=== PATIENT | female | born 1940 | race Caucasian/White ===

== ENCOUNTER 2017-11-10 15:25 | Observation (INO) | payer MEDICARE, SELFPAY ==
[2017-11-10 15:25] VITALS: BP 147/78; PULSE 69; RESP 18; TEMP 36.6; O2SAT 100; BMI 19.5
--- NOTE | 2017-11-10 16:17 | CT_ITS ---
STUDY: CT BRAIN WITHOUT CONTRAST REASON FOR EXAM: Female, 77 years old. Left arm paresthesias, numbness and tingling. RADIATION DOSAGE (If Supplied By Facility): CTDIvol = ( 60.81 ) mGy, DLP = ( 998.67 ) mGycm TECHNIQUE: Transaxial CT imaging of the brain was performed without administration of intravenous contrast material. Individualized dose optimization techniques were used for this CT. COMPARISON: None. FINDINGS: Normal soft tissue structures. Normal calvarium. Normal size ventricles and extra-axial spaces for the patient's age. There are areas of decreased attenuation within the white matter tracts of the supratentorial brain, consistent with microvascular disease changes. Normal basal ganglia and thalami. Normal brainstem. Normal cerebellum. There is no intracranial hemorrhage. There are no findings of an acute ischemic infarction. Normal visualized paranasal sinuses. CT/Brain/Head without Contrast IMPRESSION: 1. No acute process. 2. Microvascular ischemia. Electronically Signed: Shani Ramos MD at 18:55 EDT Tel , Service support ,
--- NOTE | 2017-11-10 16:17 | EKG12_ITS ---
Test Reason : NUMBNESS Blood Pressure : / mmHG Vent. Rate : 065 BPM Atrial Rate : 065 BPM P-R Int : 150 ms QRS Dur : 090 ms QT Int : 416 ms P-R-T Axes : 073 050 074 degrees QTc Int : 432 ms Normal sinus rhythm Normal ECG Confirmed by DASH VIVAR, ELIDA ([id number]), publications editor VIVIAN ANAND ([id number]) on 11/12/2017 1:45:00 PM Referred By: MARVEL Confirmed By:ELIDA BOWLING MD
[2017-11-10 17:24] LABS: Absolute Lymphocyte Count 1.53 X10^3/ul (0.83-4.51); Basophil# 0.03 X10^3/uL; Basophil% 0.6 % (0-1); Eosinophil# 0.19 X10^3/uL; Eosinophils% 3.6 % (0-5); Hemoglobin 12.2 g/dl (12.0-15.0); Lymphocyte # 1.53 X10^3/ul (4.0); Lymphocyte % 29.4 % (19-41); Mean Corp Hgb Conc 32.1 g/gl (32-36); Mean Corpuscular Volume 93.6 fL (81-99); Mean Platelet Vol. 9.2 fl (6.2-12.0); Monocyte# 0.48 X10^3/uL; Monocyte% 9.2 % (0-10); Neutrophil # 2.98 X10^3/uL (2.7-7.7); Neutrophil % 57.2 % (47-70); Platelet Count 236 K/mm3 (150-450); RBC Distribution Width CV 14.4 % (11.6-14.6); RBC Distribution Width SD 49.1 fl (35.1-43.9); Red Blood Count 4.06 M/mm3 (4.2-5.4); White Blood Count 5.2 K/mm3 (4.4-11.0)
[2017-11-10 17:38] LABS: POSITIVE COUNT NO; POSITIVE DIFFERENTIAL NO; POSITIVE MORPHOLOGY NO
[2017-11-10 17:48] LABS: Anion Gap 6 (5-15); BUN 11 mg/dL (7-18); Calcium,Total 9.4 mg/dL (8.5-10.1); Chloride 105 mmol/L (98-107); Creatinine, Serum 0.73 mg/dL (0.55-1.02); EST Glomerular Filtration Rate 82 mL/min (>60); Est Glom Filt Rate - Afr Amer 99 mL/min (>60); Estimated Creatinine Clearance 35.93 ml/min; Glucose 101 mg/dL (74-106); Potassium 3.6 mmol/L (3.5-5.1); Sodium Level 141 mmol/L (136-145)
--- NOTE | 2017-11-10 18:29 | PCM.HP.STD ---
Problem List (1) CVA (cerebral vascular accident) Status: Acute (2) Irritable bowel Status: Chronic (3) Migraine Status: Chronic History of Present Illness Date of Admission: 11/10/17 The patient is a 77 year old F with a history of migraine, irritable bowel syndrome who presented to the emergency room with complaint of involuntary contractions of her third fourth and fifth digit of her left hand. The patient states that yesterday she started having these contractures. She could not identify a trigger. She has not had these sensations before. These would come and go all day yesterday and today. Only her third through fifth digit would flex on their own. She denies any paresthesias, there is no numbness or tingling at all. She does describe an abnormal sensation that she cannot quite put her finger on that radiates from her left neck down her shoulder down her left arm and into these fingers. She says it is not a pain, but a discomfort. Turning her head to the left did increase this discomfort. She does have a history of migraine however she has had no headache yesterday or today. She also has had muscle spasms of her left and right calf. She denies weakness in her upper or lower extremities. She denies double vision, blurry vision, slurred speech, facial droop, difficulty ambulating. Currently she is resting comfortably in bed and she has no abnormal contractions of her muscles. [] Past Medical History Past Medical History (Chronic Problems): Chronic Problems Irritable bowel (Chronic) History of breast cancer (Chronic) History of TIA (transient ischemic attack) (Chronic) Migraine (Chronic) Allergies acetaminophen [From Vicodin] Allergy (Unknown, Verified 01/16/15 09:16) Unknown clarithromycin [From Biaxin] Allergy (Unknown, Verified 01/16/15 09:16) Unknown doxycycline Allergy (Unknown, Verified 01/16/15 09:16) Unknown erythromycin estolate [From Ilosone] Allergy (Unknown, Verified 01/16/15 09:16) Unknown hydrocodone bitartrate [From Vicodin] Allergy (Unknown, Verified 01/16/15 09:16) Unknown levofloxacin [From Levaquin] Allergy (Unknown, Verified 01/16/15 09:16) Unknown oxycodone [Oxycodone] Allergy (Unknown, Verified 01/16/15 09:16) Unknown oxycodone HCl [From Percocet] Allergy (Unknown, Verified 01/16/15 09:16) Unknown pantoprazole Allergy (Unknown, Verified 01/16/15 09:16) Unknown propoxyphene Allergy (Unknown, Verified 01/16/15 09:16) Unknown Home Medications: Ambulatory Orders Medication Instructions Recorded Frovatriptan Succinate [Frova] 2.5 mg PO X1 07/16/13 Ondansetron [Zofran] 8 mg PO Q8H PRN PRN #5 tablet 07/16/13 Surgical History: appendectomy Psychiatric History: No pertinent psych hx [employer] History: No pertinent [employer] history Lives: Spouse/ Significant Other Smoking Status: Never smoker Tobacco Use: Non-smoker Alcohol: None Drugs: None - *Family History Maternal History Items: Stroke Paternal History Items: Cancer - Prostate Review of Systems Constitutional: Denies: Chills, Fever, Weight Change HEENT: Denies: Head Aches, Sinus Congestion, Sinus Drainage Cardiovascular: Denies: Chest Pain, Palpitations Respiratory: Denies: Cough, Shortness of breath at rest, Sputum production Gastrointestinal: Denies: Abdominal Pain, Nausea, Vomiting Genitourinary: Denies: Dysuria Musculoskeletal: Denies: Joint Pain, Joint Tenderness Skin: Denies: Rash, Wounds Neurological: Reports: - - Involuntary muscle contractures of the left hand, digits 3 through 5. Denies: Focal weakness, Numbness, Tingling Psychiatric: Denies: Anxiety, Depression, Homicidal Ideations, Suicidal Ideations Hematologic/ Lymphatic: Denies: Easy Bruising, Easy Bleeding VTE Information - Inpt Only VTE Present on Admission: No VTE Mechan Device Prophylaxis: None VTE Pharm Prophylaxis ordered?: Yes Patient Problems: Active and Suspected Problems CVA (cerebral vascular accident) (Acute) - Physical Exam General: Alert, Oriented x3, Cooperative HEENT: Atraumatic, PERRLA, EOMI, Normocephalic Neck: Supple, No JVD, Negative Carotid Bruits Lungs: Clear to auscultation, Normal air movement Cardiovascular: Regular rate, No murmurs Abdomen: Bowel Sounds Present, Soft, Non Tender Extremities: No edema, Capillary Refill Less than 3 Seconds Skin: No rashes, No breakdown Musculoskeletal: No Tenderness to Palpation of Joints or Extremities Neurological: Cranial nerves II-XII grossly intact, - - CN II through XII grossly intact, no pronator drift, no difficulty with gfnsb-ja-mumbj, 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, upper and lower extremity strength equal and intact, no pronator drift Psych/Mental Status: Normal Affect, Appropriate, Alert and oriented to time, place, person, mood and affect Vital Signs Temp Pulse Resp BP Pulse Ox 97.8 F 69 18 147/78 H 100 11/10/17 15:25 11/10/17 15:25 11/10/17 15:25 11/10/17 15:25 11/10/17 15:25 Oxygen Delivery Method Room Air Weight: 110 lb 0.171 oz Body Mass Index (BMI) 19.5 Laboratory Tests Past 24 Hrs 11/10/17 11/10/17 16:57 16:57 WBC 5.2 RBC 4.06 L Hgb 12.2 Hct 38.0 MCV 93.6 MCH 30.0 MCHC 32.1 RDW 14.4 RDW Differential 49.1 H Plt Count 236 MPV 9.2 Immature Gran % (Auto) 0.000 Neut % (Auto) 57.2 Lymph % (Auto) 29.4 [place] % (Auto) 9.2 Eos % (Auto) 3.6 Baso % (Auto) 0.6 Absolute Neuts (auto) 3.0 Absolute Lymphs (auto) 1.53 Total Counted Not Reportable Sodium 141 Potassium 3.6 Chloride 105 Carbon Dioxide 30.0 Anion Gap 6 BUN 11 Creatinine 0.73 Estim Creat Clear Calc 35.93 Est GFR (MDRD) Af Amer 99 Est GFR (MDRD) Non-Af 82 BUN/Creatinine Ratio 15.0 Glucose 101 Calcium 9.4 Troponin I < 0.015 Assessment/Plan All Active Problems CVA (cerebral vascular accident) (Acute) 1. [place] of the left third through fifth digits, rule out CVA-CT of the head is pending, obtain MRI of the head, MRA of the head and neck, echocardiogram, neuro consult. Will also obtain MRI of the cervical spine to see if this is a radiculopathy (discomfort radiating from neck to fingers triggered with turning neck). Doubt migraine as she has no headache. Start aspirin and statin empirically, check lipids, check TSH, check B12. EKG normal, troponin normal, labs and vitals are unremarkable. PT/OT/ST evals, neurochecks per protocol. 2. History of migraine-uses as needed Frova 3. History of irritable bowel syndrome\ DVT prophylaxis: Lovenox Discharge planning: Pending stroke workup This patient was seen by Amrit Velázquez PA-C under the supervision of Doctor Felipe.
[2017-11-10 19:18] VITALS: BP 138/58; PULSE 61; RESP 19; O2SAT 94
--- NOTE | 2017-11-10 19:18 | ED.VISSUMM ---
- ER Visit Summary Date of Service: 11/10/17 Chief Complaint: [Left arm weakness] History of Present Illness: The patient is a 77 F presents the emergency department complaint left arm weakness. Patient states that her symptoms started sometime yesterday afternoon but cannot tell me exactly what time. Patient states that she has had some intermittent episodes where her long, ring, and small finger were all curled in and flexed. She complains of odd sensation to the left arm [but has a hard time describing it. Patient does feel that the arm is weak compared to the other side. She denies any weakness to the lower extremities. Patient also with intermittent headache the left side of her head. She denies recent falls or head injuries.] Physical Examination: [HEENT-PERRLA, EOMI. Cranial nerves II through XII grossly intact. TMs clear. Mucous membranes moist. No adenopathy. Cardiovascular-regular rate and rhythm without murmur or ectopy Lungs-clear to auscultation, chest wall stable without crepitus or subcu emphysema Abdomen-normoactive bowel sounds, soft, nontender, no rebound or rigidity, no peritoneal signs. Neuro zrsk-eonxfn-sygg and heel beard testing within normal limits, negative Romberg, negative pronator drift, fundi benign. I cannot appreciate any objective evidence of weakness to the left arm compared to the right. Patient thinks there might be slightly decreased sensation in the left arm compared to the right arm. NIH stroke scale was a 1 related to the paresthesias. Extremities-intact ?4, normal range of motion, normal pulses, atraumatic] Test Results: [EKG obtained arrival shows sinus rhythm with a ventricular rate 65 bpm. CBC with differential was normal. Chemistries unremarkable. Troponin was less than 0.015. CT scan of the brain without contrast showed chronic changes.] Emergency Department Course and Treatment: [Case was discussed with hospitalist will evaluate patient for admission] Treatment Plan: [Admit] Disposition: [Admit] Impression: [CVA] This note was generated with [employer] dictation software. It may contain incorrect words, spelling, and punctuation that were not noted in review of the chart prior to signing ED Disposition - Plan for ED Patient: Chief Complaint: Numb/Ting Referrals: Monico Street MD [Primary Care Provider] -
--- NOTE | 2017-11-10 19:21 | ED.DCSUM_ITS ---
- ER Visit Summary Date of Service: 11/10/17 Chief Complaint: [Left arm weakness] History of Present Illness: The patient is a 77 F presents the emergency department complaint left arm weakness. Patient states that her symptoms started sometime yesterday afternoon but cannot tell me exactly what time. Patient states that she has had some intermittent episodes where her long, ring , and small finger were all curled in and flexed. She complains of odd sensation to the left arm [but has a hard time describing it. Patient does feel that the arm is weak compared to the other side. She denies any weakness to the lower extremities. Patient also with intermittent headache the left side of her head. She denies recent falls or head injuries.] Physical Examination: [HEENT-PERRLA, EOMI. Cranial nerves II through XII grossly intact. TMs clear. Mucous membranes moist. No adenopathy. Cardiovascular-regular rate and rhythm without murmur or ectopy Lungs-clear to auscultation, chest wall stable without crepitus or subcu emphysema Abdomen-normoactive bowel sounds, soft, nontender, no rebound or rigidity, no peritoneal signs. Neuro bchh-dynelx-hgig and heel beard testing within normal limits, negative Romberg, negative pronator drift, fundi benign. I cannot appreciate any objective evidence of weakness to the left arm compared to the right. Patient thinks there might be slightly decreased sensation in the left arm compared to the right arm. NIH stroke scale was a 1 related to the paresthesias. Extremities-intact ?4, normal range of motion, normal pulses, atraumatic] Test Results: [EKG obtained arrival shows sinus rhythm with a ventricular rate 65 bpm. CBC with differential was normal. Chemistries unremarkable. Troponin was less than 0.015. CT scan of the brain without contrast showed chronic changes.] Emergency Department Course and Treatment: [Case was discussed with hospitalist will evaluate patient for admission] Treatment Plan: [Admit] Disposition: [Admit] Impression: [CVA] This note was generated with [employer] dictation software. It may contain incorrect words, spelling, and punctuation that were not noted in review of the chart prior to signing ED Disposition - Plan for ED Patient: Chief Complaint: Numb/Ting Referrals: Monico Street MD [Primary Care Provider] -
[2017-11-10 19:52] VITALS: BMI 19.5
--- NOTE | 2017-11-10 19:54 | NURSING ---
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
--- NOTE | 2017-11-10 20:11 | ECHOD_ITS ---
Reason For Study: arrhythmia Procedure This was a 2D Doppler, Color Flow transthoracic echocardiogram. The study was technically difficult. Due to respiratory interference. Exam performed portable in patient room. Left Ventricle Normal LV size. Left ventricular systolic function is normal. The estimated ejection fraction is 55 %. Normal diastology for age. No regional wall motion abnormalities noted. Right Ventricle Normal RV size. Normal systolic function. Atria Normal left atrium. Normal right atrium. Mitral Valve Normal mitral valve. Tricuspid Valve Normal tricuspid valve. Mild tricuspid valve insufficiency. Aortic Valve The aortic valve is not well visualized. Pulmonic Valve Normal pulmonic valve. Great Vessels Normal aortic root. The pulmonary artery is normal size. Normal inferior vena cava. Pericardium/Pleural No pericardial effusion. MMode/2D Measurements & Calculations LVIDd: 3.7 cm IVSd: 0.88 cm Ao root diam: 3.0 cm LVIDs: 2.4 cm LVPWd: 0.97 cm LA dimension: 2.4 cm RVDd: 2.6 cm FS: 36.3 % LAV(MOD-bp): 33.7 ml LA A4 area: 13.1 cm2 RA A4 area: 16.9 cm2 LAV(MOD-bp) Indexed: 22.9 ml/m2 LAV(MOD-sp2): 35.9 ml LAV(MOD-sp4): 30.7 ml Doppler Measurements & Calculations MV E max tawanda: 66.4 cm/sec Lat Peak E' [place]: 7.1 cm/sec Med Peak E' [place]: 6.0 cm/sec MV A max t[place]anda: 60.9 cm/sec E/E' lat: 9.4 E/E' med: 11.0 MV E/A: 1.1 Ao V2 max: 83.2 cm/sec LV V1 max: 68.7 cm/sec PA V2 max: 73.6 cm/sec Ao max P.8 mmHg LV V1 max P.9 mmHg TR max tawanda: 215.7 cm/sec TR max P.6 mmHg Interpretation Summary Normal LV size. Left ventricular systolic function is normal. The estimated ejection fraction is 55 %. Normal diastology for age. Mild tricuspid valve insufficiency. Ordering Physician: Latrice Wang Referring Physician: Monico Street Performed By: Felicia Mesa RDCS, RVT
[2017-11-10 20:22] VITALS: PULSE 57
[2017-11-10 20:27] VITALS: BP 139/56; PULSE 55; RESP 18; TEMP 36.8; O2SAT 95
[2017-11-10 20:39] VITALS: BMI 19.3
[2017-11-10 21:16] LABS: Magnesium 2.5 mg/dL (1.6-2.6); Thyroid Stim Hormone (TSH) 2.27 uIU/mL (0.358-3.74)
[2017-11-10 22:54] VITALS: BMI 19.3
[2017-11-10 23:30] VITALS: PULSE 56
[2017-11-11] VITALS (7 sets, daily range): BP systolic 117–130; BP diastolic 54–65; PULSE 61–70; RESP 16; TEMP 36.1–36.7; O2SAT 98–100; BMI 19.3
[2017-11-11] MEDS: 0.9% Normal Saline 1,000 ML 100 ML IV (01:45)
[2017-11-11 06:42] LABS: Absolute Lymphocyte Count 1.59 X10^3/ul (0.83-4.51); Absolute Neutrophil Count 1.8 X10^3/uL (2.0-7.7); Basophil# 0.02 X10^3/uL; Basophil% 0.5 % (0-1); Eosinophil# 0.25 X10^3/uL; Eosinophils% 6.2 % (0-5); Hematocrit 34.6 % (37-47); Hemoglobin 11.7 g/dl (12.0-15.0); Lymphocyte # 1.59 X10^3/ul (4.0); Lymphocyte % 39.6 % (19-41); Mean Corp Hgb Conc 33.8 g/gl (32-36); Mean Corpuscular Hgb 31.4 pg (27.0-32.0); Mean Corpuscular Volume 92.8 fL (81-99); Mean Platelet Vol. 9.4 fl (6.2-12.0); Monocyte# 0.41 X10^3/uL; Monocyte% 10.2 % (0-10); Neutrophil # 1.75 X10^3/uL (2.7-7.7); Neutrophil % 43.5 % (47-70); Platelet Count 227 K/mm3 (150-450); RBC Distribution Width CV 14.2 % (11.6-14.6); RBC Distribution Width SD 46.5 fl (35.1-43.9); Red Blood Count 3.73 M/mm3 (4.2-5.4)
--- NOTE | 2017-11-11 06:47 | MRI_ITS ---
STUDY: MRI CERVICAL SPINE WITHOUT CONTRAST REASON FOR EXAM: Female, 77 years old. Neck pain with abnormal sensation radiating to left shoulder and down arm. TECHNIQUE: Standardized fat and water weighted pulse sequences were obtained in the sagittal and axial planes. COMPARISON: None FINDINGS: Normal foramen magnum and brainstem-cervical cord junction. Normal craniovertebral junction. Normal anterior atlantoaxial articulation. Normal odontoid process. Normal cervical lordosis. The cervical and upper thoracic vertebral bodies are generally normal height and alignment. Visualized posterior fossa has a normal appearance. C2-3: Normal endplates. Normal disc height, signal and morphology. Normal central canal and intervertebral neural foramina. C3-4: There is a disc bulge and osteophyte complex. Neuroforamina are patent. There is no significant central acquired canal stenosis. C4-5: There is narrowing of the disc. There is a mild disc bulge and osteophyte complex. There is mild neural foraminal narrowing without evidence for nerve impingement. There is no significant central acquired canal stenosis. C5-6: There is narrowing of the disc. There is a broad central disc protrusion and osteophyte complex. There is mild left-sided neural foraminal narrowing without evidence of nerve impingement. There is severe right-sided neural foraminal narrowing with potential nerve impingement. There is no significant central acquired canal stenosis. C6-7: There is narrowing of the disc. There is a disc bulge and osteophyte complex. There is severe left-sided neural foraminal narrowing with potential nerve root impingement. The right neural foramen is patent. There is no significant central acquired canal stenosis. C7-T1: Normal endplates. Normal disc height, signal and morphology. Normal central canal and intervertebral neural foramina. Normal cervical cord. There is no demonstrated cervical cord syrinx cavity. Normal visualized soft tissue structures. 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 Electronically Signed: Klarissa Street MD at 9:18 EDT , Service support ,
--- NOTE | 2017-11-11 06:47 | MRI_ITS ---
STUDY: MRI BRAIN WITHOUT CONTRAST REASON FOR EXAM: Female, 77 years old. Abnormal sensation in the left arm with radiation from the neck for 2 days. TECHNIQUE: Standardized multiplanar fat and water weighted pulse sequences were obtained. COMPARISON: CT of the head dated November 10, 2017. FINDINGS: There is mild cerebral atrophy with widening of the extra-axial spaces and ventricular dilatation. There are multiple white matter hyperintensities, distributed throughout the deep white matter tracts of the cerebral hemispheres, consistent with moderate chronic white matter ischemic changes. There is confluent periventricular hyperintensity cloaking the lateral ventricles, consistent with periventricular leukoaraiosis. There is no evidence for recent intracranial ischemia or other cause of cytotoxic edema on diffusion weighted imaging (DWI). Normal T2* images of the brain without demonstrated susceptibility artifact. There is no demonstrated hemosiderin stain. Normal bilateral basal ganglia. Normal thalami. There is no extra-axial fluid accumulation. Normal flow voids within the major intracranial circulation suggesting patency by spin echo criteria. Normal sella turcica, pituitary gland, infundibular stalk, optic chiasm and hypothalamus. Normal tectal plate and pineal gland. Normal midbrain, bunny and medulla. Normal cerebellum. Normal basal cisterns. Normal bilateral temporal bones. Normal bilateral internal auditory canals. There are bilateral ocular lens implants with otherwise normal intraorbital contents. Normal visualized paranasal sinuses. Normal calvarium and skull base. Normal visualized soft tissue structures. Normal visualized upper cervical spine. MRI/Brain without Contrast IMPRESSION: 1. Involutional changes of the brain, as described above. 2. Moderately severe microvascular changes. 3. No MR evidence for acute infarct. Electronically Signed: Klarissa Street MD at 8:39 EDT , Service support ,
--- NOTE | 2017-11-11 06:47 | MRI_ITS ---
STUDY: MRA NECK WITHOUT CONTRAST REASON FOR EXAM: Female, 77 years old. Abnormal sensation in the left arm radiating from neck for two days. TECHNIQUE: Source images were obtained, MIPs were performed. The study was performed unenhanced. COMPARISON: None. FINDINGS: RIGHT CAROTID ARTERIES: Normal right common carotid artery (CCA). Normal right common carotid bulb. Normal origin of the right internal carotid (ICA) artery without a hemodynamically significant stenosis. There is atherosclerotic tortuous elongation of the cervical portion of the right internal carotid artery. Normal origin of the right external carotid artery (ECA). LEFT CAROTID ARTERIES: Normal left common carotid artery (CCA). Normal left common carotid bulb. Normal origin of the left internal carotid (ICA) artery without a hemodynamically significant stenosis. There is atherosclerotic tortuous elongation of the cervical portion of the left internal carotid artery. Normal origin of the left external carotid artery (ECA). VERTEBRAL ARTERIES: Normal antegrade flow within the bilateral vertebral artery without a hemodynamically significant stenosis. MRI/MRA Neck without Contrast IMPRESSION: No MRA evidence for hemodynamically significant stenosis. Electronically Signed: Klarissa Street MD at 9:06 EDT , Service support ,
--- NOTE | 2017-11-11 06:47 | MRI_ITS ---
STUDY: MRA OF THE HEAD WITHOUT CONTRAST REASON FOR EXAM: Female, 77 years old. Abnormal sensation in left arm radiating from neck. TECHNIQUE: 3-D [id number] (TOF) imaging was performed with MIPs. The study was performed unenhanced. COMPARISON: MRI of the brain dated November 11, 2017. FINDINGS: Normal bilateral petrous carotid arteries. There is elongation and tortuosity of the right cavernous carotid artery, without a demonstrated hemodynamically significant stenosis. There is elongation and tortuosity of the left cavernous carotid artery, without a demonstrated hemodynamically significant stenosis. Normal right A1 segments of the anterior cerebral artery. Normal left A1 segments of the anterior cerebral artery. There is non-visualization of the anterior communicating artery (ACOM). Normal bilateral A2 segments of the anterior cerebral arteries. Normal right M1 and M2 segments of the middle cerebral arteries, with a normal M1 bifurcation. Normal left M1 and M2 segments of the middle cerebral arteries, with a normal M1 bifurcation. Normal right posterior communicating artery (PCOM). Normal left posterior communicating artery (PCOM). Normal bilateral vertebral arteries. Normal basilar artery with a normal basilar bifurcation. The visualized bilateral superior cerebellar (SCA) arteries are normal. Normal bilateral P1, P2 and visualized P3 segments of the posterior cerebral arteries. There is no demonstrated aneurysm of the [place]. There is no major vessel occlusion or hemodynamically significant stenosis. There mild involutional changes of the brain. MRI/MRA Head ONLY without Contrast IMPRESSION: No MRA evidence for hemodynamically significant stenosis or aneurysm. Electronically Signed: Klarissa Street MD at 8:46 EDT , Service support ,
[2017-11-11 06:52] LABS: POSITIVE COUNT NO; POSITIVE DIFFERENTIAL NO; POSITIVE MORPHOLOGY NO
[2017-11-11 06:57] LABS: Anion Gap 8 (5-15); BUN 6 mg/dL (7-18); BUN/Creat Ratio 11.4 RATIO (10-20); Calcium,Total 8.4 mg/dL (8.5-10.1); Chloride 113 mmol/L (98-107); Cholesterol 211 mg/dL (200); Creatinine, Serum 0.53 mg/dL (0.55-1.02); EST Glomerular Filtration Rate 119 mL/min (>60); Est Glom Filt Rate - Afr Amer 144 mL/min (>60); Estimated Creatinine Clearance 34.57 ml/min; Glucose 79 mg/dL (74-106); High Density Lipoprotein 68 mg/dL; Potassium 3.6 mmol/L (3.5-5.1); Sodium Level 147 mmol/L (136-145); Triglycerides 78 mg/dL; Very Low Density Lipoprotein 16 mg/dL (5-40)
--- NOTE | 2017-11-11 11:01 | CON.PCM_ITS ---
Problem List (1) Numbness and tingling in left arm Status: Acute Reason for Consult Date of Consultation: 11/11/17 Reason for Consultation: Left UE symptoms History of Present Illness: The patient is a 77 year old CF with PMH Migraines, H/O Breast CA, ? H/O TIA admitted with left hand symptoms. Patient is a poor historian, is not able to describe her symptoms clearly. Per patient she had some curling up of the fingers on Friday (11/09/17), felt possible numbness of the left arm, but denies any pain or weakness, also had some neck discomfort, possibly pain, but denies any radicular symptoms, continued to have the symptoms yesterday, so came to the ED. Has h/o migraines but per patient her HAs have been under control for many years and does not get her usual typical migraine at present. Lives with her , does not use cane or walker to ambulate, denies any fall, dose not drive often per patient. She denies any CANAS, visual disturbances, sensory loss, focal motor weakness or dizziness. MRI brain done on admission reported nothing acute. MRA head/neck not reported to show any hemodynamically significant stenosis or occlusion. MRI C spine reported to show multilevel degenerative changes with foraminal stenosis with potential nerve impingement at C5-C6 and C6 -C7. Patient does not take ASA at baseline, per patient her sister used to take the same and had bleeding, so she is not willing to take the same. \ Past Medical History Past Medical History (Chronic Problems): Chronic Problems Irritable bowel (Chronic) History of breast cancer (Chronic) History of TIA (transient ischemic attack) (Chronic) Migraine (Chronic) Allergies acetaminophen [From Vicodin] Allergy (Unknown, Verified 01/16/15 09:16) Unknown clarithromycin [From Biaxin] Allergy (Unknown, Verified 01/16/15 09:16) Unknown doxycycline Allergy (Unknown, Verified 01/16/15 09:16) Unknown erythromycin estolate [From Ilosone] Allergy (Unknown, Verified 01/16/15 09:16) Unknown hydrocodone bitartrate [From Vicodin] Allergy (Unknown, Verified 01/16/15 09:16) Unknown levofloxacin [From Levaquin] Allergy (Unknown, Verified 01/16/15 09:16) Unknown oxycodone [Oxycodone] Allergy (Unknown, Verified 01/16/15 09:16) Unknown oxycodone HCl [From Percocet] Allergy (Unknown, Verified 01/16/15 09:16) Unknown pantoprazole Allergy (Unknown, Verified 01/16/15 09:16) Unknown propoxyphene Allergy (Unknown, Verified 01/16/15 09:16) Unknown peanut butter Adverse Reaction (Uncoded 11/10/17 19:46) headache Home Medications: Ambulatory Orders Medication Instructions Recorded Frovatriptan Succinate [Frova] 2.5 mg PO X1 PRN 07/16/13 Aspirin [Aspirin, Baby] 81 mg PO DAILY@0800 tab.chew 11/11/17 Surgical History: appendectomy Psychiatric History: No pertinent psych hx 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: No pertinent 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 history Lives: Spouse/ Significant Other Smoking Status: Never smoker Tobacco Use: Non-smoker Alcohol: None Drugs: None - *Family History Maternal History Items: Stroke Paternal History Items: Cancer - Prostate Review of Systems Constitutional: Reports: - - complete ROS negative except as documented in HPI Patient Problems: Active and Suspected Problems CVA (cerebral vascular accident) (Acute) Numbness and tingling in left arm (Acute) - Physical Exam General: Alert HEENT: Normocephalic Neck: Supple Lungs: Clear to auscultation Cardiovascular: Normal S1, Normal S2 Abdomen: Bowel Sounds Present Extremities: No cyanosis Skin: No rashes Musculoskeletal: No Tenderness to Palpation of Joints or Extremities Neurological: - - consious, alert, AoAx3, CN 2-12 grossly intact, power 5/5 all 4 extremities, no sensory loss, Reflexes + B/L B/S/T/K/A, no cerebellar signs, gait deferred. Psych/Mental Status: Normal Affect Vital Signs Temp Pulse Resp BP Pulse Ox 97.8 F 68 16 126/56 H 98 11/11/17 07:00 11/11/17 07:00 11/11/17 07:00 11/11/17 07:00 11/11/17 07:00 Oxygen Delivery Method Room Air Weight: 48 kg Body Mass Index (BMI) 19.3 Intake and Output for Last 24 Hours 11/09/17 11/10/17 11/11/17 23:59 23:59 23:59 Intake Total 240 / 240 240 / 240 Balance 240 / 240 240 / 240 Laboratory Tests Past 24 Hrs 11/11/17 11/11/17 05:11 05:11 WBC 4.0 L RBC 3.73 L Hgb 11.7 L Hct 34.6 L MCV 92.8 MCH 31.4 MCHC 33.8 RDW 14.2 RDW Differential 46.5 H Plt Count 227 MPV 9.4 Immature Gran % (Auto) 0.000 Neut % (Auto) 43.5 L Lymph % (Auto) 39.6 Mccreary % (Auto) 10.2 H Eos % (Auto) 6.2 H Baso % (Auto) 0.5 Absolute Neuts (auto) 1.8 L Absolute Lymphs (auto) 1.59 Total Counted Not Reportable Sodium 147 H Potassium 3.6 Chloride 113 H Carbon Dioxide 26.0 Anion Gap 8 BUN 6 L Creatinine 0.53 L Estim Creat Clear Calc 34.57 Est GFR (MDRD) Af Amer 144 Est GFR (MDRD) Non-Af 119 BUN/Creatinine Ratio 11.4 Glucose 79 Calcium 8.4 L Triglycerides 78 Cholesterol 211 H LDL Cholesterol 127 VLDL Cholesterol 16 HDL Cholesterol 68 Assessment/Plan All Active Problems CVA (cerebral vascular accident) (Acute) Numbness and tingling in left arm (Acute) The patient is a 77 year old CF with PMH Migraines, H/O Breast CA, ? H/O TIA admitted with left hand symptoms. Patient is a poor historian, is not able to describe her symptoms clearly. Per patient she had some curling up of the fingers on Friday (11/09/17), felt possible numbness of the left arm, but denies any pain or weakness, also had some neck discomfort, possibly pain, but denies any radicular symptoms, continued to have the symptoms yesterday, so came to the ED. Has h/o migraines but per patient her HAs have been under control for many years and does not get her usual typical migraine at present. Lives with her , does not use cane or walker to ambulate, denies any fall, dose not drive often per patient. She denies any CANAS, visual disturbances, sensory loss, focal motor weakness or dizziness. MRI brain done on admission reported nothing acute. MRA head/neck not reported to show any hemodynamically significant stenosis or occlusion. MRI C spine reported to show multilevel degenerative changes with foraminal stenosis with potential nerve impingement at C5-C6 and C6 -C7. Patient does not take ASA at baseline, per patient her sister used to take the same and had bleeding, so she is not willing to take the same. Impression Likely Cervical Radiculopathy Plan -MRI brain/MRA head/neck and MRI C spine report reviewed -Recommend spine surgery consult -Fall precautions -PT/OT -Can check EMG/NCS as outpatient in 4 weeks if symptoms persist -GI/DVT prophylaxis -Further medical management per primary team -Neurology followup as outpatient if symptoms persist. -Please call with questions if any -Thank you for allowing us to participate in patent's care and management I spent 60 minutes taking history, doing physical examination, reviewing medical records, coordinating care and counseling the patient. Code Visit Inpatient E&M: 16852 Init Hosp L3
--- NOTE | 2017-11-11 12:00 | DCINST_ITS ---
- Discharge Diagnoses Current Active Problems: Current Active and Chronic Problems CVA (cerebral vascular accident) (Acute) Irritable bowel (Chronic) You will use the following diet at home:: No restrictions Your food should be the consistency of: Regular Your liquids should be the consistency of: Regular/Thin Discharge Activity: Return to Normal Activity Allergies/Adverse Reactions: Allergies acetaminophen [From Vicodin] Allergy (Unknown, Verified 01/16/15 09:16) Unknown clarithromycin [From Biaxin] Allergy (Unknown, Verified 01/16/15 09:16) Unknown doxycycline Allergy (Unknown, Verified 01/16/15 09:16) Unknown erythromycin estolate [From Ilosone] Allergy (Unknown, Verified 01/16/15 09:16) Unknown hydrocodone bitartrate [From Vicodin] Allergy (Unknown, Verified 01/16/15 09:16) Unknown levofloxacin [From Levaquin] Allergy (Unknown, Verified 01/16/15 09:16) Unknown oxycodone [Oxycodone] Allergy (Unknown, Verified 01/16/15 09:16) Unknown oxycodone HCl [From Percocet] Allergy (Unknown, Verified 01/16/15 09:16) Unknown pantoprazole Allergy (Unknown, Verified 01/16/15 09:16) Unknown propoxyphene Allergy (Unknown, Verified 01/16/15 09:16) Unknown peanut butter Adverse Reaction (Uncoded 11/10/17 19:46) headache Medications to take at Discharge Frovatriptan Succinate [Frova] 2.5 mg PO X1 PRN 07/16/13 Aspirin [Aspirin, Baby] 81 mg PO DAILY@0800 tab.chew 11/11/17 Primary Care Physician: Monico Street MD [Primary Care Provider] - Please follow up with your Primary Care Physician in: 1-2 weeks Test Results: Test results from this visit will be discussed in further detail at your follow- up appointment, if applicable. Please Follow Up With: Cuauhtemoc Odell - spinal surgeon When: 1-2 weeks Proposed Discharge Date: 11/11/17
--- NOTE | 2017-11-11 14:47 | PCM.DC.SUM ---
<Amrit Velázquez - Last Filed: 11/11/17 14:47> Discharge Date and Diagnosis - Problem List Patient Problems: Active and Suspected Problems CVA (cerebral vascular accident) (Acute) Numbness and tingling in left arm (Acute) Date of Admission: 11/10/17 Date of Discharge: 11/11/17 - Primary Discharge Diagnosis Active and Suspected Problems Cervical radiculopathy left arm Acute CVA ruled out Migraines IBS - Secondary Discharge Diagnosis Chronic Problems Irritable bowel (Chronic) History of breast cancer (Chronic) History of TIA (transient ischemic attack) (Chronic) Migraine (Chronic) Hospital Course and Treatment Imaging Results: CT/Brain/Head without Contrast IMPRESSION: 1. No acute process. 2. Microvascular ischemia. MRI/Brain without Contrast IMPRESSION: 1. Involutional changes of the brain, as described above. 2. Moderately severe microvascular changes. 3. No MR evidence for acute infarct. 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 MRI/MRA Head ONLY without Contrast IMPRESSION: No MRA evidence for hemodynamically significant stenosis or aneurysm. MRI/MRA Neck without Contrast IMPRESSION: No MRA evidence for hemodynamically significant stenosis. Consults: Neuro - Meek Operations: None Procedures: None Summary of Care Provided: Physical exam on day of discharge: General: Resting comfortably NAD Psych: A/Ox3 normal affect HEENT: PEARRLA AT NC Neck: Supple NT CV: RRR no m/t/r/g/h Resp: CTA Abd: [id number] Soft NT no guarding or rigidity Ext: DP2+= no edema Skin: W/D normal turgor Lymph/Heme: No active bleeding or adenopathy Neuro: CN2-12 intact Hospital course: The patient is a 77 year old F with a hx of IBS and migraine who presented to the ER with 2 days hx of left sided abnormal spontaneous contractures of the left 3-5th digits periodically. He also described an abnormal sensation of these finger tips, and a discomfort radiating down her left neck, shoulder, and arm. She had no other focal deficits. She was admitted with concern for acute CVA. CT brain was negative in the ER. Neuro was consulted and she was admitted to the PCU on tele. She underwent MRI of the brain, MRA head and neck, and MRI of the C spine. CVA was ruled out. She appeared to have nerve impingement C5-7 levels. Neuro recommended an outpatient neurosurgery consult. She should follow up with neurosurgery in 1-2 weeks. She was advised to also see her PCP in 1-2 weeks. She was discharged home in stable condition. This patient was seen by Amrit Velázquez PA-C under the supervision of Doctor Ml. [] Discharge Diet: No Restrictions Discharge Activity: Return to Normal Activity Home Medications: Medications to take at Discharge Frovatriptan Succinate [Frova] 2.5 mg PO X1 PRN 07/16/13 Aspirin [Aspirin, Baby] 81 mg PO DAILY@0800 tab.chew 11/11/17 Primary Care Physician: Monico Street MD [Primary Care Provider] - Please follow up with your Primary Care Physician in: 1-2 weeks Please Follow Up With: Philip Hall When: 1-2 weeks Please Follow Up With: Monico Street MD Disposition: Home Minutes spent on discharge:: 35 Patient Condition:: Stable Medical Necessity - Tobacco Use Smoking Status: Never smoker Tobacco Use: Non-smoker Meaningful Use Info Meaningful Use Diagnoses (Choose all that apply): None applicable <Katie Bull - Last Filed: 11/11/17 15:15> Discharge Date and Diagnosis - Primary Discharge Diagnosis Active and Suspected Problems CVA (cerebral vascular accident) (Acute) Numbness and tingling in left arm (Acute) - Secondary Discharge Diagnosis Chronic Problems Irritable bowel (Chronic) History of breast cancer (Chronic) History of TIA (transient ischemic attack) (Chronic) Migraine (Chronic) Hospital Course and Treatment Imaging Results: 11/11/17 06:47 Brain without Contrast [MRI] Stat MRA Head ONLY without Contrast [MRI] Stat MRA Neck without Contrast [MRI] Stat Spine Cervical (Routine) [MRI] Stat Summary of Care Provided: Patient seen by Amrit Velázquez PA-C under my supervision The patient is a 77 year old F with past medical history of migraines, history of breast CA and query TIA in the past. She was admitted with a complaint of spasms of the left hand with some possible numbness of the left arm. She denied any weakness or pain. She also complained of some neck discomfort but denied any radicular symptoms. Symptoms have been going on for 1 day when she came into the ED. CT of the head was negative and MRA of the head and neck showed no hemodynamically significant stenosis or occlusion. MRI of the cervical spine showed multilevel degenerative changes with foraminal stenosis and potential nerve impingement at C5-C6 and C6-C7. Patient's symptoms resolved and she remained stable. Neurology was consulted. Neurology recommended patient follow-up on outpatient basis. Impression of possible cervical radiculopathy was made. Patient refused to take aspirin as she said has to start taking aspirin and not had some GI bleed and so she was not comfortable taking it. She was discharged home to follow-up with neurology. She is to have an EMG and NCS on outpatient basis in 4 weeks if symptoms persisted and she was also referred to a spine surgeon on outpatient basis. Patient was seen and examined prior to discharge. She had no complaints and symptoms have resolved. She denied any fever or chills, any cough or chest pain, any shortness of breath, any abdominal pain, any diarrhea vomiting. 12 point review of systems is otherwise negative. Labs and vitals reviewed. On examination: Vital Signs Height 5 ft 2 in Weight: 105 lb 13.15 oz Weight in Pounds 105.8 lbs Pulse Ox 98 Temperature 98.0 F Pulse Rate 61 Respiratory Rate 16 Blood Pressure 130/63 Blood Pressure Position Semi-Fowlers []General: Alert, Oriented x3, Cooperative HEENT: Atraumatic, PERRLA, EOMI, Normocephalic Neck: Supple, No JVD, Negative Carotid Bruits Lungs: Clear to auscultation, Normal air movement Cardiovascular: Regular rate, No murmurs Abdomen: Bowel Sounds Present, Soft, Non Tender Extremities: No edema, Capillary Refill Less than 3 Seconds Skin: No rashes, No breakdown Musculoskeletal: No Tenderness to Palpation of Joints or Extremities Neurological: Cranial nerves II-XII grossly intact, power 5/5 in all extremities. sensation to light touch and pinprick normal in all extremities. Psych/Mental Status: Normal Affect, Appropriate, Alert and oriented to time, place, person, mood and affect Plan as stated above. Patient was given a script for aspirin 81mg daily after she was counseled on the importance of taking it. She is to follow up with her PCP, neurologist and spinal surgeon. Agree with rest of Amrit Velázquez PA-C's note, assessment and plan. Code Visit Inpatient E&M: 57727 Disch Hosp
--- NOTE | 2017-11-11 14:51 | DS.PCM_ITS ---
<Amrit Velázquez - Last Filed: 11/11/17 14:47> Discharge Date and Diagnosis - Problem List Patient Problems: Active and Suspected Problems CVA (cerebral vascular accident) (Acute) Numbness and tingling in left arm (Acute) Date of Admission: 11/10/17 Date of Discharge: 11/11/17 - Primary Discharge Diagnosis Active and Suspected Problems Cervical radiculopathy left arm Acute CVA ruled out Migraines IBS - Secondary Discharge Diagnosis Chronic Problems Irritable bowel (Chronic) History of breast cancer (Chronic) History of TIA (transient ischemic attack) (Chronic) Migraine (Chronic) Hospital Course and Treatment Imaging Results: CT/Brain/Head without Contrast IMPRESSION: 1. No acute process. 2. Microvascular ischemia. MRI/Brain without Contrast IMPRESSION: 1. Involutional changes of the brain, as described above. 2. Moderately severe microvascular changes. 3. No MR evidence for acute infarct. 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 MRI/MRA Head ONLY without Contrast IMPRESSION: No MRA evidence for hemodynamically significant stenosis or aneurysm. MRI/MRA Neck without Contrast IMPRESSION: No MRA evidence for hemodynamically significant stenosis. Consults: Neuro - Meek Operations: None Procedures: None Summary of Care Provided: Physical exam on day of discharge: General: Resting comfortably NAD Psych: A/Ox3 normal affect HEENT: PEARRLA AT NC Neck: Supple NT CV: RRR no m/t/r/g/h Resp: CTA Abd: [id number] Soft NT no guarding or rigidity Ext: DP2+= no edema Skin: W/D normal turgor Lymph/Heme: No active bleeding or adenopathy Neuro: CN2-12 intact Hospital course: The patient is a 77 year old F with a hx of IBS and migraine who presented to the ER with 2 days hx of left sided abnormal spontaneous contractures of the left 3-5th digits periodically. He also described an abnormal sensation of these finger tips, and a discomfort radiating down her left neck, shoulder, and arm. She had no other focal deficits. She was admitted with concern for acute CVA. CT brain was negative in the ER. Neuro was consulted and she was admitted to the PCU on tele. She underwent MRI of the brain, MRA head and neck, and MRI of the C spine. CVA was ruled out. She appeared to have nerve impingement C5-7 levels. Neuro recommended an outpatient neurosurgery consult. She should follow up with neurosurgery in 1-2 weeks. She was advised to also see her PCP in 1-2 weeks. She was discharged home in stable condition. This patient was seen by Amrit Velázquez PA-C under the supervision of Doctor Ml. [] Discharge Diet: No Restrictions Discharge Activity: Return to Normal Activity Home Medications: Medications to take at Discharge Frovatriptan Succinate [Frova] 2.5 mg PO X1 PRN 07/16/13 Aspirin [Aspirin, Baby] 81 mg PO DAILY@0800 tab.chew 11/11/17 Primary Care Physician: Monico Street MD [Primary Care Provider] - Please follow up with your Primary Care Physician in: 1-2 weeks Please Follow Up With: Philip Hall When: 1-2 weeks Please Follow Up With: Monico Street MD Disposition: Home Minutes spent on discharge:: 35 Patient Condition:: Stable Medical Necessity - Tobacco Use Smoking Status: Never smoker Tobacco Use: Non-smoker Meaningful Use Info Meaningful Use Diagnoses (Choose all that apply): None applicable <Katie Bull - Last Filed: 11/11/17 15:15> Discharge Date and Diagnosis - Primary Discharge Diagnosis Active and Suspected Problems CVA (cerebral vascular accident) (Acute) Numbness and tingling in left arm (Acute) - Secondary Discharge Diagnosis Chronic Problems Irritable bowel (Chronic) History of breast cancer (Chronic) History of TIA (transient ischemic attack) (Chronic) Migraine (Chronic) Hospital Course and Treatment Imaging Results: 11/11/17 06:47 Brain without Contrast [MRI] Stat MRA Head ONLY without Contrast [MRI] Stat MRA Neck without Contrast [MRI] Stat Spine Cervical (Routine) [MRI] Stat Summary of Care Provided: Patient seen by Amrit Velázquez PA-C under my supervision The patient is a 77 year old F with past medical history of migraines, history of breast CA and query TIA in the past. She was admitted with a complaint of spasms of the left hand with some possible numbness of the left arm. She denied any weakness or pain. She also complained of some neck discomfort but denied any radicular symptoms. Symptoms have been going on for 1 day when she came into the ED. CT of the head was negative and MRA of the head and neck showed no hemodynamically significant stenosis or occlusion. MRI of the cervical spine showed multilevel degenerative changes with foraminal stenosis and potential nerve impingement at C5-C6 and C6-C7. Patient's symptoms resolved and she remained stable. Neurology was consulted. Neurology recommended patient follow-up on outpatient basis. Impression of possible cervical radiculopathy was made. Patient refused to take aspirin as she said has to start taking aspirin and not had some GI bleed and so she was not comfortable taking it. She was discharged home to follow-up with neurology. She is to have an EMG and NCS on outpatient basis in 4 weeks if symptoms persisted and she was also referred to a spine surgeon on outpatient basis. Patient was seen and examined prior to discharge. She had no complaints and symptoms have resolved. She denied any fever or chills, any cough or chest pain , any shortness of breath, any abdominal pain, any diarrhea vomiting. 12 point review of systems is otherwise negative. Labs and vitals reviewed. On examination: Vital Signs Height 5 ft 2 in Weight: 105 lb 13.15 oz Weight in Pounds 105.8 lbs Pulse Ox 98 Temperature 98.0 F Pulse Rate 61 Respiratory Rate 16 Blood Pressure 130/63 Blood Pressure Position Semi-Fowlers []General: Alert, Oriented x3, Cooperative HEENT: Atraumatic, PERRLA, EOMI, Normocephalic Neck: Supple, No JVD, Negative Carotid Bruits Lungs: Clear to auscultation, Normal air movement Cardiovascular: Regular rate, No murmurs Abdomen: Bowel Sounds Present, Soft, Non Tender Extremities: No edema, Capillary Refill Less than 3 Seconds Skin: No rashes, No breakdown Musculoskeletal: No Tenderness to Palpation of Joints or Extremities Neurological: Cranial nerves II-XII grossly intact, power 5/5 in all extremities. sensation to light touch and pinprick normal in all extremities. Psych/Mental Status: Normal Affect, Appropriate, Alert and oriented to time, place, person, mood and affect Plan as stated above. Patient was given a script for aspirin 81mg daily after she was counseled on the importance of taking it. She is to follow up with her PCP, neurologist and spinal surgeon. Agree with rest of Amrit Velázquez PA-C's note, assessment and plan. Code Visit Inpatient E&M: 60251 Disch Hosp
== END 2017-11-11 11:59 | disposition home or self-care (01) ==
LOC: ED 16:43 → PCU 19:39
PROVIDERS: Admitting Provider Family Medicine; Emergency Provider Emergency Medicine; Family Provider Family Medicine; PCP Family Medicine; Visit Provider Student in an Organized Health Care Education/Training Program
DX: M54.12 Radiculopathy, cervical region (principal); G43.909 Migraine, unspecified, not intractable, without status migrainosus; K58.9 Irritable bowel syndrome, unspecified; Z85.3 Personal history of malignant neoplasm of breast; Z86.73 Personal history of transient ischemic attack (TIA), and cerebral infarction without residual deficits; R29.0 Tetany; I07.1 Rheumatic tricuspid insufficiency
CPT/HCPCS: 36415; 70450; 70544; 70547; 70551; 72141; 80048; 80061; 83735; 84443; 84484; 85025; 93005; 93306; 96360; 96361; 97162; 97165; 99218; 99283; J7030; A4216; G0378

== ENCOUNTER → 2018-12-08 11:19 | Outpatient (CLI) | payer MEDICARE, SELFPAY ==
[2017-11-11 10:43] VITALS: BMI 19.3
[2018-12-08 14:08] LABS: Absolute Lymphocyte Count 1.75 X10^3/uL (0.83-4.51); Basophil# 0.03 X10^3/uL; Basophil% 0.6 % (0-1); Eosinophil# 0.07 X10^3/uL; Eosinophils% 1.3 % (0-5); Hematocrit 38.5 % (37-47); Hemoglobin 12.5 g/dL (12.0-15.0); Lymphocyte # 1.75 X10^3/ul (4.0); Lymphocyte % 33.7 % (19-41); Mean Corp Hgb Conc 32.5 g/dL (32-36); Mean Corpuscular Hgb 30.7 pg (27.0-32.0); Mean Corpuscular Volume 94.6 fL (81-99); Mean Platelet Vol. 10.1 fl (6.2-12.0); Monocyte# 0.36 X10^3/uL; Monocyte% 6.9 % (0-10); NRBC Flagged by Analyzer 0 % (0-5); Neutrophil # 2.98 X10^3/uL (2.7-7.7); Neutrophil % 57.3 % (47-70); Platelet Count 259 K/mm3 (150-450); RBC Distribution Width CV 13.6 % (11.6-14.6); RBC Distribution Width SD 47.8 fl (35.1-43.9); Red Blood Count 4.07 M/mm3 (4.2-5.4); White Blood Count 5.2 K/mm3 (4.4-11.0)
[2018-12-08 14:28] LABS: ALB/GLOB Ratio 1.1 RATIO (0.9-2.4); AST(SGOT) 22 U/L (15-37); Alanine Aminotransfer ALT/SGPT 24 U/L (13-56); Albumin, Serum 3.6 g/dL (3.2-5.0); Alkaline Phosphatase 59 U/L (45-117); Anion Gap 10 (5-15); BUN 10 mg/dL (7-18); BUN/Creat Ratio 15.5 RATIO (10-20); Calcium,Total 8.6 mg/dL (8.5-10.1); Chloride 107 mmol/L (98-107); Creatinine, Serum 0.65 mg/dL (0.55-1.02); EST Glomerular Filtration Rate 94 mL/min (>60); Est Glom Filt Rate - Afr Amer 113 mL/min (>60); Globulin 3.4 g/dL (2.2-4.2); Glucose 83 mg/dL (74-106); Potassium 3.8 mmol/L (3.5-5.1); Sodium Level 144 mmol/L (136-145); Thyroid Stim Hormone (TSH) 2.35 uIU/mL (0.358-3.74)
[2018-12-08 14:36] LABS: Vitamin B12 1918 pg/mL (211-911); Vitamin D,25 Hydroxy 44.4 ng/mL (29.95-100.01)
== END ==
PROVIDERS: Family Provider Family Medicine; PCP Family Medicine; Referring Provider Family Medicine; Visit Provider Family Medicine
DX: R53.83 Other fatigue (principal); M81.0 Age-related osteoporosis without current pathological fracture
CPT/HCPCS: 36415; 80053; 82306; 82607; 84443; 85025

== ENCOUNTER 2018-12-18 15:29 | Emergency (ER) | payer MEDICARE, SELFPAY ==
[2018-12-18 15:33] VITALS: BP 131/6; PULSE 94; RESP 17; TEMP 36.3; O2SAT 98; BMI 20.9
--- NOTE | 2018-12-18 16:00 | ED.DCSUM_ITS ---
History of Present Illness Chief Complaint: Constipation Detail of Chief Complaint: No bowel movement for 1 week Informant: Patient, Family Onset: Weeks Context: Sudden Onset Timing: Intermittent Quality: Hard small stool x1 past week Location: Rectal pain Current Severity: Mild Maximum Severity: Severe Worsened by: Attempt to have bowel movement Relieved by: Nothing Associated Symptoms: Lower abdominal discomfort Narrative: Patient is an 78-year-old woman with history of irritable bowel syndrome who presents because she has rectal pain and no bowel movement for 1 week. states she had a small bowel movement. also clarified that she is had problems with her bowels for some time. She does not eat much. She apparently took a gummy fiber pair because of her bowel problems. She believes this is the cause of her problems. She denies fever, chills night sweats. She denies nausea or vomiting. She is still passing gas. She is status post appendectomy. She denies dysuria, frequency, urgency or hematuria. She has had gradual weight loss. She denies night sweats. She is not a good informant. Supplemented history of present illness and past history Prior similar symptoms: Yes Recent Illness/Hospitalization: No - Past Medical History (1) CVA (cerebral vascular accident) Status: Acute (2) History of breast cancer Status: Chronic (3) Irritable bowel Status: Chronic (4) Migraine Status: Chronic Past Medical History - Allergies and Home Meds Allergies/Adverse Reactions: Allergies acetaminophen [From Vicodin] Allergy (Unknown, Verified 12/18/18 15:30) Unknown clarithromycin [From Biaxin] Allergy (Unknown, Verified 12/18/18 15:30) Unknown doxycycline Allergy (Unknown, Verified 12/18/18 15:30) Unknown erythromycin estolate [From Ilosone] Allergy (Unknown, Verified 12/18/18 15:30) Unknown hydrocodone bitartrate [From Vicodin] Allergy (Unknown, Verified 12/18/18 15:30) Unknown levofloxacin [From Levaquin] Allergy (Unknown, Verified 12/18/18 15:30) Unknown oxycodone [Oxycodone] Allergy (Unknown, Verified 12/18/18 15:30) Unknown oxycodone HCl [From Percocet] Allergy (Unknown, Verified 12/18/18 15:30) Unknown pantoprazole Allergy (Unknown, Verified 12/18/18 15:30) Unknown propoxyphene Allergy (Unknown, Verified 12/18/18 15:30) Unknown peanut butter Adverse Reaction (Uncoded 12/18/18 15:30) headache Primary Care Physician: Monico Medina MD [Primary Care Provider] - Prior records reviewed: Yes Surgical History: appendectomy Lives: Spouse/ Significant Other Smoking Status: Never smoker Alcohol: None Drugs: None - Family History Maternal Family History: Reports: Stroke Paternal Family History: Reports: Cancer - Prostate Review of Systems General: Denies: Chills, Fever, Sweats Eyes: Denies: Visual changes - bilaterally, Blurred Vision - bilaterally, Diplopia ENT: Denies: Bilateral ear pain, Rhinorrhea, Sore throat Cardiovascular: Denies: Chest pain, Palpitations Respiratory: Denies: Dyspnea, Cough, Dyspnea on exertion Gastrointestinal: Reports: Abdominal pain, Constipation. Denies: Nausea, Vomiting, Diarrhea, Melena, Hematochezia Genitourinary: Denies: Dysuria, Hematuria, Frequency Musculoskeletal: Denies: Myalgias, Arthralgias, Neck pain, Back pain, Extremity Pain Skin: Denies: Rash, Wounds Neurological: Denies: Headache, Weakness, Numbness Hematologic: Denies: Easy bruising, Easy bleeding Physical Exam Vital Signs/Narrative: Vital Signs Temp Pulse Resp BP Pulse Ox 12/18/18 15:33 97.3 F L 94 17 131/6 H 98 Inital Vital Signs reviewed: Yes General: Well developed Head: Normocephalic, Atraumatic Eyes: Perrl, EOMI. Negative for: Pale conjunctiva, Scleral icterus ENT: Moist mucous membranes, No rhinorrhea Neck: Supple, Nontender Cardiovascular: Regular rate, Regular rhythm, No murmurs Respiratory: No distress, CTA bilaterally, Chest nontender Abdomen: Soft, Nondistended, No masses, Tender - Tenderness right side, Hyperactive bowel sounds, - - Healed surgical scar status post appendectomy Rectal: - - There are no fissures, fistulas or hemorrhoids noted. Patient does have a fecal impaction. Back: Nontender, Normal Inspection Extremities: Nontender, No edema Skin: Normal color, No rash, No Trauma. Negative for: Cyanosis, Diaphoresis, Jaundice Neurological: Alert, Oriented x3, Cranial nerves II-XII grossly intact, Normal Strength, Normal Sensation Psychological: Normal affect, Normal Mood Diagnostic/Tx/Re-eval - Medical Decision Making With patient still passing gas suspect mechanical obstruction secondary to fecal impaction. Rectal exam confirms patient has a fecal impaction. Will have nurse instill vital jet into rectum and weight 1050 minutes before disimpacting p atient. Procedures Procedure(s): Urojet was instilled into the rectum. 1 hour later patient was digitally disimpacted. This was performed by me. There was a significant amount of stool that was removed. ED Disposition - Plan for ED Patient: Disposition: Home or Assisted Living Diagnosis: Fecal impaction of rectum Instructions: FECAL IMPACTION, Treated Referrals: Monico Medina MD [Primary Care Provider] - As Needed Additional Instructions: Commend taking either MiraLAX or Metamucil 3 times a day for the next week then twice a day thereafter.
[2018-12-18] MEDS: Lidocaine Jelly 2% 20 ML Syringe (URO-JET) 20 APPLIC TOPICAL (16:01)
[2018-12-18 17:43] VITALS: BP 127/61; PULSE 81; RESP 14; O2SAT 98
== END 2018-12-18 17:44 | disposition home or self-care (01) ==
PROVIDERS: Emergency Provider Emergency Medicine; Family Provider Family Medicine; PCP Family Medicine
DX: K56.41 Fecal impaction (principal); K58.1 Irritable bowel syndrome with constipation; G43.909 Migraine, unspecified, not intractable, without status migrainosus; Z79.82 Long term (current) use of aspirin; Z86.73 Personal history of transient ischemic attack (TIA), and cerebral infarction without residual deficits
CPT/HCPCS: 99282

== ENCOUNTER → 2018-12-25 12:28 | Outpatient (CLI) | payer MEDICARE, SELFPAY ==
[2018-12-18 15:33] VITALS: BMI 20.9
--- NOTE | 2018-12-25 12:32 | RAD_ITS ---
STUDY: X-RAY - ACUTE ABDOMINAL SERIES REASON FOR EXAM: Female, 78 years old. Acute abdominal pain. TECHNIQUE: Single view of the chest. Supine, and erect view(s) of the abdomen were obtained. COMPARISON: Comparison is made with prior chest radiograph dated January 10, 2011. FINDINGS: There is hyperinflation of the lungs consistent with chronic obstructive lung disease (COPD). Blunting of the left costophrenic angle. This is unchanged. Normal size heart. Normal mediastinum and shelley. Normal visualized pulmonary arteries. There is atherosclerotic calcification of the aortic arch with tortuosity. There is a moderate amount of colonic fecal material. There are multiple calcified phleboliths. Normal visualized osseous structures. RAD/Acute Abdomen Inc Chest IMPRESSION: Moderate amount of fecal material is seen in the colon. Hyperinflation. Electronically Signed: Mendoza Gardiner, at 13:48 EDT , Service support ,
== END ==
PROVIDERS: Family Provider Family Medicine; PCP Family Medicine; Referring Provider Family Medicine; Visit Provider Family Medicine
DX: R10.9 Unspecified abdominal pain (principal)
CPT/HCPCS: 74022

== ENCOUNTER → 2018-12-31 11:27 | Outpatient (CLI) | payer MEDICARE, SELFPAY ==
[2018-12-18 15:33] VITALS: BMI 20.9
--- NOTE | 2018-12-31 11:35 | RAD_ITS ---
STUDY: X-RAY - ABDOMEN/PELVIS REASON FOR EXAM: Female, 78 years old. Constipation and abdominal pain TECHNIQUE: 2 views of the abdomen COMPARISON: 12/25/2018 FINDINGS: Normal visualized lung bases. There is an unremarkable bowel gas pattern. There is no demonstrated free abdominal air. Rounded calcific density overlying the left midabdomen may indicate a small renal stone versus vascular calcification as clinically indicated. Normal soft tissue structures. Normal visualized osseous structures. RAD/Abd Inc Decub and/or Erect IMPRESSION: Unremarkable stool burden. No evidence for obstruction. Rounded calcific density overlying the left midabdomen may indicate a small renal stone versus vascular calcification as clinically indicated. Electronically Signed: Lobo Villegas, at 12:20 EDT Tel , Service support ,
== END ==
PROVIDERS: Family Provider Family Medicine; PCP Family Medicine; Referring Provider Family Medicine; Visit Provider Family Medicine
DX: K59.00 Constipation, unspecified (principal)
CPT/HCPCS: 74019

== ENCOUNTER 2019-01-06 10:15 | Emergency (ER) | payer MEDICARE, SELFPAY ==
[2019-01-06 10:16] VITALS: BP 139/78; PULSE 68; RESP 18; TEMP 36.3; O2SAT 100; BMI 19.2
--- NOTE | 2019-01-06 10:59 | CT_ITS ---
STUDY: CT BRAIN WITHOUT CONTRAST REASON FOR EXAM: Female, 78 years old. Vertigo. Nausea. Weakness. RADIATION DOSAGE (If Supplied By Facility): CTDIvol = ( 60.81 ) mGy, DLP = ( 998.67 ) mGycm TECHNIQUE: Transaxial CT imaging of the brain was performed without administration of intravenous contrast material. Individualized dose optimization techniques were used for this CT. COMPARISON: Comparison is made with prior study dated November 10, 2017. FINDINGS: Normal soft tissue structures. Normal calvarium. There is mild cerebral atrophy with widening of the extra-axial spaces and ventricular dilatation. There are areas of decreased attenuation within the white matter tracts of the supratentorial brain, consistent with microvascular disease changes. Stable focal encephalomalacia in the superior aspect of the left frontoparietal lobe. Normal basal ganglia and thalami. Normal brainstem. Normal cerebellum. There is no intracranial hemorrhage. There are no findings of an acute ischemic infarction. Normal visualized paranasal sinuses. CT/Brain/Head without Contrast IMPRESSION: Chronic involutional changes of the brain. Electronically Signed: Mendoza Gardiner, at 12:19 EST , Service support ,
--- NOTE | 2019-01-06 11:02 | RAD_ITS ---
STUDY: X-RAY CHEST REASON FOR EXAM: Female, 78 years old. Vertebral and weakness. TECHNIQUE: Single AP portable view of the chest. COMPARISON: None. FINDINGS: EKG electrodes are seen. Hyperinflation. The lungs are clear. There is no demonstrated pleural abnormality. Normal size heart. Normal mediastinum and shelley. Normal visualized pulmonary arteries. There is atherosclerotic calcification of the aortic arch with tortuosity. There are diffuse degenerative changes of the visualized thoracic spine. Normal visualized ribs, clavicles, and shoulders. There is no demonstrated abnormality of the visualized soft tissue structures of the upper abdomen. RAD/Chest 1 View (Portable) IMPRESSION: Hyperinflation. Electronically Signed: Mendoza Gardiner, at 11:29 EST , Service support ,
--- NOTE | 2019-01-06 11:04 | ED.DCSUM_ITS ---
- ER Visit Summary Date of Service: 01/06/19 Chief Complaint: Headache, dizziness and confusion History of Present Illness: The patient is a 78 F 3 of vertigo, migraine headaches and prior breast cancer. Mastectomy and 90s. Patient seen yesterday some transient confusion. At one time he thought there were snakes in her bed. She is had some dizziness and a history of vertigo and states that this room spinning. Currently that is resolved. She denies any falls. She denies any head trauma. She is on no blood thinners. She denies any fevers, chills, cough, shortness of breath, abdominal pain nor any dysuria. Physical Examination: Well-appearing elderly female accompanied by her . Vital signs are stable and afebrile. She is in no distress. She does seem somewhat anxious. HEENT exam unremarkable. Atraumatic. Pupils are round reactive light. No facial droop. Normal speech. Extra motions are intact. Neck nontender. No lymphadenopathy. Lungs clear to auscultation bilaterally. Heart regular rhythm no murmur. Abdomen soft and nontender. Patient is moving all 4 extremities. They are neurovascularly intact. Calves are nontender without edema or cords. Neurologically she is awake. She is alert. She knows the month, year and with multiple choices she knows the president 9 states. She realizes after prompting that she is in a hospital emergency department. She has no focal motor deficits. She is equal symmetrical wage and salary specialist strength. Fingertip to nose within normal limits. She can lift either leg without drift. Her NIH score in bed is 0. Test Results: BC normal white count of 4 hemoglobin 12. Chemistries normal normal creatinine and gap. UA normal. Chest x-ray no acute abnormality normal cardiac silhouette and mediastinum. Read both myself and radiologist. CT of the brain chronic changes no acute abnormality. Again read by the radiologist and myself. Emergency Department Course and Treatment: Elderly female with transient with a relatively normal exam currently. I did review her old records and she had a CAT scan and an MRI 1 year ago. Both showed chronic changes. Repeat exam the patient is doing well at 13 10 PM. Neurologic exam remains normal. Discussed with the patient and her . They requested something for her room spinning dizziness she will be started on Antivert. Treatment Plan: Follow up with her primary care physician. Disposition: dc Impression: Transient dizziness resolved History of vertigo This note was generated with [employer] dictation software. It may contain incorrect words, spelling, and punctuation that were not noted in review of the chart prior to signing ED Disposition - Plan for ED Patient: Referrals: Monico Medina MD [Primary Care Provider] -
[2019-01-06 11:25] LABS: Absolute Neutrophil Count 2.1 X10^3/uL (2.0-7.7); Basophil# 0.03 X10^3/uL; Basophil% 0.7 % (0-1); Eosinophil# 0.06 X10^3/uL; Eosinophils% 1.5 % (0-5); Hematocrit 38.3 % (37-47); Hemoglobin 12.8 g/dL (12.0-15.0); Lymphocyte % 34.9 % (19-41); Mean Corp Hgb Conc 33.4 g/dL (32-36); Mean Corpuscular Hgb 31.4 pg (27.0-32.0); Mean Corpuscular Volume 93.9 fL (81-99); Monocyte# 0.42 X10^3/uL; Monocyte% 10.5 % (0-10); NRBC Flagged by Analyzer 0 % (0-5); Neutrophil # 2.09 X10^3/uL (2.7-7.7); Neutrophil % 52.2 % (47-70); Platelet Count 261 K/mm3 (150-450); RBC Distribution Width CV 13.5 % (11.6-14.6); Red Blood Count 4.08 M/mm3 (4.2-5.4)
[2019-01-06 11:41] LABS: Anion Gap 5 (5-15); BUN 7 mg/dL (7-18); BUN/Creat Ratio 8.9 RATIO (10-20); Calcium,Total 9.2 mg/dL (8.5-10.1); Chloride 105 mmol/L (98-107); Creatinine, Serum 0.78 mg/dL (0.55-1.02); EST Glomerular Filtration Rate 75 mL/min (>60); Est Glom Filt Rate - Afr Amer 91 mL/min (>60); Estimated Creatinine Clearance 33.74 ml/min; Glucose 97 mg/dL (74-106); Sodium Level 140 mmol/L (136-145)
[2019-01-06 12:36] VITALS: BP 147/67; PULSE 57; RESP 14; O2SAT 100
[2019-01-06 12:40] LABS: Mucous, Urine 0 SEEN /hpf (<or=2+); Red Blood Cells-Urine 0 SEEN /hpf (0-5); White Blood Cells 0 SEEN /hpf (0-5)
[2019-01-06 12:41] LABS: Color, Urine Yellow (Yellow); Glucose, Dipstick Normal (Normal); Ketone-Dipstick Negative (Negative); Leukocyte Esterase-Dipstick 25 /ul (Negative); Nitrite-Dipstick Negative (Negative); Occult Blood-Urine Negative /ul (Negative); Protein-Dipstick Negative (Negative); Specific Gravity, Urine 1.015 (1.002-1.030); Urine Bilirubin Dipstick Negative (Negative); Urine Clarity Sl. Cloudy (Clear); Urine Urobilinogen Normal (Normal)
[2019-01-06 12:52] LABS: Bacteria RARE /hpf (None Seen); Squamous Epithelial Cells - UA 0-5 SEEN /hpf (5-10)
--- NOTE | 2019-01-06 13:15 | ED.DEP ---
ED Disposition - Plan for ED Patient: Instructions: VERTIGO, Unspecified Prescriptions: Meclizine HCl [Antivert] 25 mg PO 4X/DAY PRN PRN #20 tab PRN Reason: vertigo Prescription Printed Referrals: Monico Medina MD [Primary Care Provider] - As soon as possible Additional Instructions: Follow-up with your doctor. Antivert which is also called meclizine for dizziness as needed. This would be room spinning dizziness consistent with vertigo.
[2019-01-06 13:20] VITALS: BP 154/71; PULSE 59; RESP 14; O2SAT 100
== END 2019-01-06 13:49 | disposition home or self-care (01) ==
PROVIDERS: Emergency Provider Emergency Medicine; Family Provider Family Medicine; PCP Family Medicine
DX: R42 Dizziness and giddiness (principal); R41.0 Disorientation, unspecified
CPT/HCPCS: 70450; 71045; 80048; 81001; 85025; 99284; A4216

== ENCOUNTER → 2019-05-17 14:27 | Outpatient (CLI) | payer MEDICARE, SELFPAY ==
[2019-05-12 13:27] VITALS: BMI 19.2
--- NOTE | 2019-05-17 14:28 | US_ITS ---
STUDY: ULTRASOUND OF THE FEMALE PELVIS - COMPLETE REASON FOR EXAM: Female, 78 years old. PELVIC PAIN LMP: Postmenopausal. TECHNIQUE: Transabdominal and Transvaginal TECHNICAL QUALITY: Adequate. COMPARISON: None. FINDINGS: The uterus is anteverted and is in a midline position. The uterus measures 5.6 x 4.2 x 2.7 cm. Normal uterine cervix. The endometrium measures 8.0 mm in thickness, and is hyperechoic. There is masslike structure within the endometrium measuring 1.0 x 1.2 x 0.5 cm. There is moderate amount of fluid within the endometrial canal. There is a heterogeneous calcification with shadowing artifact within the myometrium measuring 1.1 cm with corresponding mass measuring 1.0 x 1.2 x 1.1 cm consistent with uterine fibroid. I.U.D. - The patient does not have an I.U.D. Bilateral ovaries are not visualized. There is no fluid in the cul-de-sac. The volume of the bladder was 142 ml. US/Pelvic (Non ) IMPRESSION: Mass within the endometrium with fluid within the endometrial canal raising the concern of endometrial polyp, cannot exclude endometrial hyperplasia or carcinoma. Clinical correlation recommended and if indicated, follow-up with MRI and/or ORBIT joint consultation recommended. Uterine fibroid as above. Nonvisualized ovaries. Electronically Signed: Mame Gomes MD at 2:57 EDT , Service support ,
--- NOTE | 2019-05-17 14:28 | US_ITS ---
STUDY: ULTRASOUND OF THE FEMALE PELVIS - COMPLETE REASON FOR EXAM: Female, 78 years old. PELVIC PAIN LMP: Postmenopausal. TECHNIQUE: Transabdominal and Transvaginal TECHNICAL QUALITY: Adequate. COMPARISON: None. FINDINGS: The uterus is anteverted and is in a midline position. The uterus measures 5.6 x 4.2 x 2.7 cm. Normal uterine cervix. The endometrium measures 8.0 mm in thickness, and is hyperechoic. There is masslike structure within the endometrium measuring 1.0 x 1.2 x 0.5 cm. There is moderate amount of fluid within the endometrial canal. There is a heterogeneous calcification with shadowing artifact within the myometrium measuring 1.1 cm with corresponding mass measuring 1.0 x 1.2 x 1.1 cm consistent with uterine fibroid. I.U.D. - The patient does not have an I.U.D. Bilateral ovaries are not visualized. There is no fluid in the cul-de-sac. The volume of the bladder was 142 ml. US/Transvaginal Non- IMPRESSION: Mass within the endometrium with fluid within the endometrial canal raising the concern of endometrial polyp, cannot exclude endometrial hyperplasia or carcinoma. Clinical correlation recommended and if indicated, follow-up with MRI and/or ORBIT joint consultation recommended. Uterine fibroid as above. Nonvisualized ovaries. Electronically Signed: Mame Gomes MD at 2:57 EDT , Service support ,
== END ==
PROVIDERS: PCP Family Medicine; Referring Provider Nurse Practitioner Women's Health; Visit Provider Nurse Practitioner Women's Health
DX: R10.2 Pelvic and perineal pain (principal)
CPT/HCPCS: 76830; 76856

== ENCOUNTER → 2019-05-25 | Outpatient (CLI) | payer MEDICARE, SELFPAY ==
--- NOTE | 2019-05-25 10:10 | EMB_PTH ---
PATIENT: DARIN ANAND LOC: [facility] U#:[id number] AGE/SX: 78/F ROOM: RE05/25/[address]: Dr. Leda May MD : 1940 BED: DIS: 05/25/2019 SPEC #: [id number] RECD: 05/25/19 13:05 STATUS: TOSIN VEENA #: [id number] [place]: 05/25/19 10:[address]: Leda May DEPT: SURGICAL PATHOLOGY RECD BY: John Chopra ENTERED: 05/26/19 09:08 SP TYPE: ENDOM BX/C WOOD DR: Dr. Monico Medina MD Tissues: Endometrium, NOS Procedures: Surgery Specimen Level IV HEADER OPERATION: Endometrial biopsy PRE-OP DIAGNOSIS: PMB TISSUE SUBMITTED: Endometrium MICROSCOPIC DIAGNOSIS Endometrium, biopsy: Strips of benign superficial glandular epithelium. AM:ortiz 05/27/19 MICROSCOPIC DESCRIPTION Slides are reviewed. GROSS DESCRIPTION Received is one container labeled with the patient's name and not further designated. The specimen consists of multiple minute fragments of light link soft tissue that in aggregate measure 0.7 x 0.5 x <0.1 cm. The specimen is totally submitted in one cassette. / AM:ortiz 05/26/19 TC:5 CPT: 78393
[2019-05-25 10:23] VITALS: BMI 19.2
== END | disposition home or self-care (01) ==
LOC: LABSPEC 12:55
PROVIDERS: PCP Family Medicine; Referring Provider Obstetrics & Gynecology; Visit Provider Obstetrics & Gynecology
DX: N95.0 Postmenopausal bleeding (principal)
CPT/HCPCS: 88305

== ENCOUNTER 2019-05-27 19:23 | Emergency (ER) | payer MEDICARE, SELFPAY ==
[2019-05-25 10:23] VITALS: BMI 19.2
[2019-05-27 19:24] VITALS: BP 158/78; PULSE 70; RESP 14; TEMP 36.1; O2SAT 99; BMI 20.2
[2019-05-27 20:06] LABS: Basophil# 0.03 X10^3/uL; Basophil% 0.5 % (0-1); Eosinophil# 0.25 X10^3/uL; Eosinophils% 4.4 % (0-5); Hematocrit 37.9 % (37-47); Hemoglobin 12.5 g/dL (12.0-15.0); Lymphocyte % 29.9 % (19-41); Mean Corpuscular Hgb 31.3 pg (27.0-32.0); Mean Corpuscular Volume 94.8 fL (81-99); Mean Platelet Vol. 9.1 fl (6.2-12.0); Monocyte# 0.65 X10^3/uL; Monocyte% 11.4 % (0-10); NRBC Flagged by Analyzer 0 % (0-5); Neutrophil # 3.04 X10^3/uL (2.7-7.7); Neutrophil % 53.4 % (47-70); Platelet Count 235 K/mm3 (150-450); RBC Distribution Width CV 13.3 % (11.6-14.6); RBC Distribution Width SD 46.6 fl (35.1-43.9); White Blood Count 5.7 K/mm3 (4.4-11.0)
[2019-05-27 20:12] LABS: International Normalized Ratio 1.1; Prothrombin Time (Protime)PT. 13.7 SECONDS (11.7-14.9)
[2019-05-27 20:13] LABS: Partial Thromboplast Time 29.4 Seconds (24.1-36.2)
[2019-05-27 20:17] LABS: Anion Gap 3 (5-15); BUN 13 mg/dL (7-18); Calcium,Total 9.2 mg/dL (8.5-10.1); Chloride 102 mmol/L (98-107); Creatinine, Serum 0.59 mg/dL (0.55-1.02); EST Glomerular Filtration Rate 104 mL/min (>60); Est Glom Filt Rate - Afr Amer 126 mL/min (>60); Estimated Creatinine Clearance 36.69 ml/min; Glucose 90 mg/dL (74-106); Sodium Level 135 mmol/L (136-145)
--- NOTE | 2019-05-27 20:41 | ED.DCSUM_ITS ---
- ER Visit Summary Date of Service: 05/27/19 Chief Complaint: Rectal bleeding History of Present Illness: The patient is a 78 F who presents for rectal bleeding. She has a history of dementia and so some of the history was obtained from her . She has been dealing with constipation. She had some blood rectally. This was pink in color and small amount after trying to have a bowel movement. She does not take blood thinners. She has a history of hemorrhoids and according to her, she is worried that if she has continued bleeding she will require a colostomy. Physical Examination: Afebrile and vital signs unremarkable. Rectal exam shows multiple external hemorrhoids, nonthrombosed. There is a small fissure. No active bleeding. No rectal masses. No gross blood. The remainder of her exam is unremarkable. Test Results: CBC, BMP, coags unremarkable. Emergency Department Course and Treatment: Patient had an exam. It was chaperoned by the nurse. There is a fissure and multiple hemorrhoids. Patient has a history of this. No masses or gross bleeding. Vitals and labs were unremarkable. I spoke with her at length. She has been dealing with this for some time. She does not have a doctor to follow-up with. Patient will be started on stool softeners and topical medicine for hemorrhoids. Referred to surgery for follow-up. Treatment Plan: As above Disposition: Discharge Impression: External hemorrhoids This note was generated with [employer] dictation software. It may contain incorrect words, spelling, and punctuation that were not noted in review of the chart prior to signing ED Disposition - Plan for ED Patient: Referrals: Monico Medina MD [Primary Care Provider] -
--- NOTE | 2019-05-27 20:44 | ED.DEP ---
ED Disposition - Plan for ED Patient: Instructions: ED Hemorrhoids Prescriptions: Docusate Sodium [Colace] 100 mg PO BID #60 cap Prescription Printed [address] [Tucks] 1 ea TP PRN PRN #30 med..pad PRN Reason: Anal/Rectal Irritations Prescription Printed Referrals: Lenard Farnsworth MD [STAFF PHYSICIAN] -
[2019-05-27 20:52] VITALS: BP 150/87; PULSE 87; RESP 18; O2SAT 96
== END 2019-05-27 21:10 | disposition home or self-care (01) ==
LOC: ED 19:51
PROVIDERS: Emergency Provider Emergency Medicine; PCP Family Medicine
DX: K64.4 Residual hemorrhoidal skin tags (principal); K60.2 Anal fissure, unspecified; F03.90 Unspecified dementia, unspecified severity, without behavioral disturbance, psychotic disturbance, mood disturbance, and anxiety; Z86.73 Personal history of transient ischemic attack (TIA), and cerebral infarction without residual deficits
CPT/HCPCS: 80048; 82274; 85025; 85610; 85730; 99283; A4216

== ENCOUNTER 2019-06-09 16:05 | Emergency (ER) | payer MEDICARE, SELFPAY ==
[2019-06-09 16:08] VITALS: BP 192/99; PULSE 82; PULSE 83; RESP 16; TEMP 36.1; O2SAT 98; O2SAT 99; BMI 18.3
--- NOTE | 2019-06-09 16:29 | ED.DCSUM_ITS ---
History of Present Illness Chief Complaint: Diarrhea Informant: Patient, Family Onset: Weeks - 1-2 Context: Gradual Onset Timing: Continuous Quality: loose/watery Current Severity: Moderate Maximum Severity: Moderate Worsened by: nothing in particular now that stopped Miralax Relieved by: nothing Associated Symptoms: migraines (longstanding history), malaise/weakness Narrative: provides the history for this 78-year-old female with a history of IBS that they feel is having a flareup involving a lot of diarrhea. They confirm that she has had IBS for some time, she tends to go back and forth from constipation-diarrhea with regards to her symptoms, but they do not remember a time where she has had this much diarrhea for this long. He fears that she is getting dehydrated because her appetite is been very poor and she is taking in very little in the way of liquids and food, although she is drinking water to some degree. Apparently patient has some dementia, history is extremely limited due to this, even direct review of systems questions about symptoms the patient has currently, she looks to her and he tries to answer them although he is not necessarily able to answer them all. She also has a longstanding history of migraines, and she has been having increasing bifrontal migraine headaches with some photophobia since this flareup has been there. Saw PCP 2 days ago who prescribed duloxetine, and migraines are actually improved although she does have a mild one right now. She has not been vomiting, continues to say that she has been feeling sick, and with multiple questions to try to clarify to the and the patient, it is difficult to tell if she has felt nauseated off and on or not. Past Medical History - Allergies and Home Meds Allergies/Adverse Reactions: Allergies acetaminophen [From Vicodin] Allergy (Unknown, Verified 06/09/19 16:25) Unknown clarithromycin [From Biaxin] Allergy (Unknown, Verified 06/09/19 16:25) Unknown doxycycline Allergy (Unknown, Verified 06/09/19 16:25) Unknown erythromycin estolate [From Ilosone] Allergy (Unknown, Verified 06/09/19 16:25) Unknown hydrocodone bitartrate [From Vicodin] Allergy (Unknown, Verified 06/09/19 16:25) Unknown levofloxacin [From Levaquin] Allergy (Unknown, Verified 06/09/19 16:25) Unknown oxycodone [Oxycodone] Allergy (Unknown, Verified 06/09/19 16:25) Unknown oxycodone HCl [From Percocet] Allergy (Unknown, Verified 06/09/19 16:25) Unknown pantoprazole Allergy (Unknown, Verified 06/09/19 16:25) Unknown propoxyphene Allergy (Unknown, Verified 06/09/19 16:25) Unknown Penicillins [PCN] Adverse Reaction (Verified 06/09/19 16:25) PT UNSURE OF REACTION peanut butter Adverse Reaction (Uncoded 06/09/19 16:25) headache Primary Care Physician: Monico Medina MD [Primary Care Provider] - Surgical History: appendectomy Smoking Status: Never smoker - Family History Maternal Family History: Reports: Stroke Paternal Family History: Reports: Cancer - Prostate Physical Exam Vital Signs/Narrative: Vital Signs Temp Pulse Resp BP Pulse Ox 06/09/19 16:08 97.0 F L 82 16 192/99 H 99 Diagnostic/Tx/Re-eval Impressions Abdomen/Pelvis CT 06/09/19 17:19 IMPRESSION: Normal appearance of the pancreas with no evidence of acute pancreatitis. Numerous simple cysts of the liver. Some have increased in size since the prior exam of 2014 but nevertheless demonstrates features of simple cysts. No additional follow-up recommended. Nondistended gallbladder. Normal spleen. No acute bowel related findings. Negative for evidence of obstruction, perforation or inflammatory bowel changes. One small fibroid calcification of the uterus. Otherwise negative for pelvic mass or free fluid of the pelvis. 3 mm nonobstructing stone in the midpole of the left kidney without hydronephrosis or ureteral stones. Stable subcentimeter cyst of the right kidney. No additional follow-up required. Electronically Signed: Glenys Lares MD at 20:15 EDT , Service support , 06/09/19 17:19 CT Abd [Abdomen/Pelvis WITH Contrast] [CT] Stat Laboratory Results 06/09/19 06/09/19 06/09/19 16:50 16:50 17:13 WBC 6.5 RBC 4.50 Hgb 14.0 Hct 41.5 MCV 92.2 MCH 31.1 MCHC 33.7 RDW Std Deviation 41.9 RDW Coeff of Ilana 12.4 Plt Count 216 MPV 9.6 Immature Gran % (Auto) 0.300 Neut % (Auto) 72.2 H Lymph % (Auto) 18.7 L [place] % (Auto) 7.8 Eos % (Auto) 0.8 Baso % (Auto) 0.2 Absolute Neuts (auto) 4.7 Absolute Lymphs (auto) 1.22 Nucleated RBC % 0 Sodium 131 L Potassium 4.0 Chloride 97 L Carbon Dioxide 29.0 Anion Gap 5 BUN 14 Creatinine 0.76 Estim Creat Clear Calc 33.29 Est GFR (MDRD) Af Amer 94 Est GFR (MDRD) Non-Af 78 BUN/Creatinine Ratio 18.4 Glucose 86 Calcium 9.6 Total Bilirubin 0.40 AST 31 ALT 29 Alkaline Phosphatase 83 Total Protein 7.4 Albumin 3.8 Globulin 3.6 Albumin/Globulin Ratio 1.1 Lipase 1157 H Urine Color Yellow Urine Clarity Clear Urine pH 7.0 Ur Specific [place] 1.015 Urine Protein 15 H Urine Glucose (UA) Normal Urine Ketones 50 H Urine Occult Blood Negative Urine Nitrite Negative Urine Bilirubin Negative Urine Urobilinogen Normal Ur Leukocyte Esterase Negative Urine RBC 0 SEEN Urine WBC 0 SEEN Ur Squamous Epith Cells 0-5 SEEN Urine Bacteria 0 SEEN Urine Mucus 0 SEEN - Medical Decision Making Basic labs were all unremarkable including liver enzymes, however lipase was over 1100. I had a discussion with the hospitalist, however he did not think based on her symptoms, duration, labs that hospitalization would necessarily be beneficial if she was eating/drinking. She does not want to eat much, but she is drinking fluids, so I do not disagree that it would probably be reasonable to discharge her home with close outpatient follow-up and a clear liquid diet. I discussed this with family and they are comfortable with that. Patient was given Reglan and felt better and her headache was gone. I discussed with Dr. Street, who was covering for the practice [facility], he agreed with this in addition to getting a contrasted CT scan for further evaluation especially since we were medicine her home. The CT scan results are above, they showed no signs of acute pancreatitis or problems with the gallbladder. Although this is not the best test for gallbladder problems, I do not think she is having symptoms of biliary colic or cholecystitis at this time. That, and since her bilirubin is within normal limits as are the rest of her liver enzymes, I think this is reassuring with regards to her gallbladder at this time. is comfortable taking her home. All questions were answered at the bedside, including what to do diet-sanchez. I recommend a clear liquid diet for the next 2 to 3 days and if she tolerates that well and does fairly well with that, she may try advancing to a bland diet and instructions for both were given. She will need close outpatient follow-up which they understand as well. Additionally her blood pressures are elevated, these will need to be checked as an outpatient as it does not appear that she is on anything for that. ED Disposition - Plan for ED Patient: Disposition: Home or Assisted Living Diagnosis: Elevated lipase, Anorexia, Acute diarrhea, HTN (hypertension) Instructions: ED Vomiting and Diarrhea Nonspecific Adult, ED Diet Clear Liquid, ED Diet [place] Prescriptions: Metoclopramide [Reglan] 10 mg PO TID PRN #15 tab PRN Reason: nausea or migraine Transmission Status: Pending to [id number] Referrals: Monico Medina MD [Primary Care Provider] - 3-5 Days Additional Instructions: For the next 2-3 days, follow the clear liquid diet guidelines. If she does well with that and is feeling a little better, you may try to advance her to the bland diet guidelines. Follow with your PCP for further advice as well.
[2019-06-09] MEDS: 0.9% Normal Saline 1,000 ML 250 ML IV (16:57)
[2019-06-09] MEDS: Metoclopramide 10 MG/2 ML Vial 5 MG IV (16:58)
[2019-06-09 17:00] LABS: Absolute Lymphocyte Count 1.22 X10^3/uL (0.83-4.51); Absolute Neutrophil Count 4.7 X10^3/uL (2.0-7.7); Basophil# 0.01 X10^3/uL; Basophil% 0.2 % (0-1); Eosinophil# 0.05 X10^3/uL; Eosinophils% 0.8 % (0-5); Hematocrit 41.5 % (37-47); Lymphocyte # 1.22 X10^3/ul (4.0); Lymphocyte % 18.7 % (19-41); Mean Corp Hgb Conc 33.7 g/dL (32-36); Mean Corpuscular Hgb 31.1 pg (27.0-32.0); Mean Corpuscular Volume 92.2 fL (81-99); Mean Platelet Vol. 9.6 fl (6.2-12.0); Monocyte# 0.51 X10^3/uL; Monocyte% 7.8 % (0-10); NRBC Flagged by Analyzer 0 % (0-5); Neutrophil % 72.2 % (47-70); Platelet Count 216 K/mm3 (150-450); RBC Distribution Width CV 12.4 % (11.6-14.6); RBC Distribution Width SD 41.9 fl (35.1-43.9); White Blood Count 6.5 K/mm3 (4.4-11.0)
[2019-06-09 17:17] LABS: ALB/GLOB Ratio 1.1 RATIO (0.9-2.4); AST(SGOT) 31 U/L (15-37); Alanine Aminotransfer ALT/SGPT 29 U/L (13-56); Albumin, Serum 3.8 g/dL (3.2-5.0); Alkaline Phosphatase 83 U/L (45-117); Anion Gap 5 (5-15); BUN 14 mg/dL (7-18); BUN/Creat Ratio 18.4 RATIO (10-20); Calcium,Total 9.6 mg/dL (8.5-10.1); Chloride 97 mmol/L (98-107); Creatinine, Serum 0.76 mg/dL (0.55-1.02); EST Glomerular Filtration Rate 78 mL/min (>60); Est Glom Filt Rate - Afr Amer 94 mL/min (>60); Estimated Creatinine Clearance 33.29 ml/min; Globulin 3.6 g/dL (2.2-4.2); Glucose 86 mg/dL (74-106); Lipase 1157 U/L (73-393); Protein, Total 7.4 g/dL (6.4-8.2); Sodium Level 131 mmol/L (136-145)
--- NOTE | 2019-06-09 17:19 | CT_ITS ---
STUDY: CT ABDOMEN AND PELVIS WITH CONTRAST REASON FOR EXAM: Female, 78 years old. ELEVATED PANC ENZYMES DIARRHEA,WEAKNESS. Hx of lt breast cancer with mastectomy. Prior appendectomy RADIATION DOSAGE (If Supplied By Facility): CTDIvol = ( 8.31 ) mGy, DLP = ( 479.45 ) mGycm TECHNIQUE: Transaxial images were obtained from the dome of the diaphragm to the symphysis pubis with oral contrast. 100mL Isovue-300 was administered. Sagittal and coronal images were reconstructed. Individualized dose optimization techniques were used for this CT. COMPARISON: Prior abdomen and pelvic CT exam of November 10, 2014 FINDINGS: Bibasilar thin platelike areas of atelectasis. The visualized portions of the heart are within normal limits. Numerous simple cysts of the liver. Some have increased in size over time but are nevertheless consistent with simple cysts. The largest cysts are 8 cm in the inferior right liver and 7 cm left liver. Normal gallbladder and extrahepatic biliary system. Normal spleen. Normal pancreas. Normal bilateral adrenal glands. 1 simple cyst of the right kidney unchanged from prior exam. Otherwise normal right kidney without hydronephrosis or stones. 3 mm nonobstructing stone in the left kidney without hydronephrosis or ureteral stones. Normal visualized stomach. Normal small intestine. Normal colon. The appendix is visualized and appears normal. There is diffuse atherosclerotic calcification of the abdominal aorta, without a demonstrated aneurysm. Normal inferior vena cava. Normal retroperitoneum. Normal urinary bladder. 1 small fibroid calcification of the uterus. Normal abdominal wall. There are diffuse degenerative changes of the visualized lumbar spine. Demineralized osseous structures. CT/Abdomen/Pelvis WITH Contrast IMPRESSION: Normal appearance of the pancreas with no evidence of acute pancreatitis. Numerous simple cysts of the liver. Some have increased in size since the prior exam of 2014 but nevertheless demonstrates features of simple cysts. No additional follow-up recommended. Nondistended gallbladder. Normal spleen. No acute bowel related findings. Negative for evidence of obstruction, perforation or inflammatory bowel changes. One small fibroid calcification of the uterus. Otherwise negative for pelvic mass or free fluid of the pelvis. 3 mm nonobstructing stone in the midpole of the left kidney without hydronephrosis or ureteral stones. Stable subcentimeter cyst of the right kidney. No additional follow-up required. Electronically Signed: Glenys Lares MD at 20:15 EDT , Service support ,
[2019-06-09 17:20] LABS: Bacteria 0 SEEN /hpf (None Seen); Mucous, Urine 0 SEEN /hpf (<or=2+); Red Blood Cells-Urine 0 SEEN /hpf (0-5); White Blood Cells 0 SEEN /hpf (0-5)
--- NOTE | 2019-06-09 17:23 | NURSING ---
DR YARBROUGH FOR DR SETHI
[2019-06-09 17:25] LABS: Color, Urine Yellow (Yellow); Glucose, Dipstick Normal (Normal); Ketone-Dipstick 50 mg/dl (Negative); Leukocyte Esterase-Dipstick Negative /ul (Negative); Nitrite-Dipstick Negative (Negative); Occult Blood-Urine Negative /ul (Negative); Protein-Dipstick 15 mg/dl (Negative); Specific Gravity, Urine 1.015 (1.002-1.030); Urine Bilirubin Dipstick Negative (Negative); Urine Clarity Clear (Clear); Urine Urobilinogen Normal (Normal)
[2019-06-09 17:35] LABS: Squamous Epithelial Cells - UA 0-5 SEEN /hpf (5-10)
[2019-06-09 19:00] VITALS: BP 186/86; PULSE 79; RESP 16; O2SAT 99
[2019-06-09 21:16] VITALS: BP 157/76; PULSE 82; RESP 18; O2SAT 97
== END 2019-06-09 21:17 | disposition home or self-care (01) ==
PROVIDERS: Emergency Provider Emergency Medicine; PCP Family Medicine
DX: K58.0 Irritable bowel syndrome with diarrhea (principal); R74.8 Abnormal levels of other serum enzymes; R63.0 Anorexia; Z68.1 Body mass index [BMI] 19.9 or less, adult; I10 Essential (primary) hypertension; G43.909 Migraine, unspecified, not intractable, without status migrainosus; F03.90 Unspecified dementia, unspecified severity, without behavioral disturbance, psychotic disturbance, mood disturbance, and anxiety
CPT/HCPCS: 74177; 80053; 81001; 83690; 85025; 96361; 96374; 99284; J7030; Q9967; A4216

== ENCOUNTER 2019-06-11 13:25 | Observation (INO) | payer MEDICARE, SELFPAY ==
[2019-06-11] VITALS (7 sets, daily range): BP systolic 141–157; BP diastolic 67–76; PULSE 69–80; RESP 16–18; TEMP 36.3–36.6; O2SAT 97–100; BMI 21.2; BMI 18.2; BMI 18.3
--- NOTE | 2019-06-11 13:53 | EKG12_ITS ---
Test Reason : WEAKNESS Blood Pressure : / mmHG Vent. Rate : 073 BPM Atrial Rate : 073 BPM P-R Int : 158 ms QRS Dur : 094 ms QT Int : 410 ms P-R-T Axes : 088 028 072 degrees QTc Int : 451 ms Normal sinus rhythm Possible Left atrial enlargement Incomplete right bundle branch block Borderline ECG Confirmed by DASH VIVAR, ELIDA ([id number]), editorial manager VIVIAN ANAND ([id number]) on 06/14/2019 8:37:08 AM Referred By: KAYLA Confirmed By:ELIDA BOWLING MD
[2019-06-11 14:26] LABS: Absolute Lymphocyte Count 1.23 X10^3/uL (0.83-4.51); Absolute Neutrophil Count 5.3 X10^3/uL (2.0-7.7); Basophil# 0.03 X10^3/uL; Basophil% 0.4 % (0-1); Eosinophil# 0.02 X10^3/uL; Eosinophils% 0.3 % (0-5); Hematocrit 40.2 % (37-47); Hemoglobin 13.3 g/dL (12.0-15.0); Lymphocyte # 1.23 X10^3/ul (4.0); Lymphocyte % 17.2 % (19-41); Mean Corp Hgb Conc 33.1 g/dL (32-36); Mean Corpuscular Hgb 30.6 pg (27.0-32.0); Mean Corpuscular Volume 92.6 fL (81-99); Mean Platelet Vol. 9.8 fl (6.2-12.0); Monocyte# 0.59 X10^3/uL; Monocyte% 8.2 % (0-10); NRBC Flagged by Analyzer 0 % (0-5); Neutrophil # 5.28 X10^3/uL (2.7-7.7); Neutrophil % 73.8 % (47-70); Platelet Count 250 K/mm3 (150-450); RBC Distribution Width CV 13.2 % (11.6-14.6); RBC Distribution Width SD 44.9 fl (35.1-43.9); Red Blood Count 4.34 M/mm3 (4.2-5.4); White Blood Count 7.2 K/mm3 (4.4-11.0)
[2019-06-11 14:41] LABS: AST(SGOT) 54 U/L (15-37); Alanine Aminotransfer ALT/SGPT 42 U/L (13-56); Albumin, Serum 3.5 g/dL (3.2-5.0); Alkaline Phosphatase 85 U/L (45-117); Anion Gap 13 (5-15); BUN 20 mg/dL (7-18); BUN/Creat Ratio 23.8 RATIO (10-20); Calcium,Total 9.2 mg/dL (8.5-10.1); Chloride 99 mmol/L (98-107); Creatinine, Serum 0.84 mg/dL (0.55-1.02); EST Glomerular Filtration Rate 69 mL/min (>60); Est Glom Filt Rate - Afr Amer 84 mL/min (>60); Estimated Creatinine Clearance 44.19 ml/min; Globulin 3.4 g/dL (2.2-4.2); Glucose 70 mg/dL (74-106); Lipase 378 U/L (73-393); Potassium 4.1 mmol/L (3.5-5.1); Protein, Total 6.9 g/dL (6.4-8.2); Sodium Level 134 mmol/L (136-145)
--- NOTE | 2019-06-11 15:37 | ED.VIS.GEN ---
History of Present Illness Chief Complaint: Weakness Informant: Significant Other Limited by: Dementia Onset: Days Narrative: Patient is an 78 year old female with history of dementia and IBS presenting with worsening generalized weakness and diarrhea. Patient is IBS and had chronic constipation quite some time. She was taking MiraLAX and started on Friday started having a lot of diarrhea. She saw her PCP, Dr. sridevi Jain who gave her a new pill for constipation. After 1 dose is with the diarrhea started. She is continued to have diarrhea and states she does sits on the toilet all day. For the last week she is not really been eating or drinking anything. For the past few days she is had more of a sick feeling. She is had nausea. No reported blood in her stool. No vomiting. No chest pain, fever, shortness of breath or cough. He notes she has been more weaker and seems off balance. There is been no reported falls however. Patient was seen on Friday, 2 days ago for similar complaints. At that time her work-up was remarkable only for a mildly elevated lipase. She had a CT of her abdomen and pelvis which did not show any acute process. Patient was discharged home with clear liquid diet. Since then patient is not really eaten or drinking much at all. She has had worsening weakness so the brought her back today. Patient is a poor historian and really cannot provide any history at this time. All history is obtained through the on the phone. does also note that patient's blood pressure has been higher than normal the last week or so. Past Medical History - Allergies and Home Meds Allergies/Adverse Reactions: Allergies acetaminophen [From Vicodin] Allergy (Unknown, Verified 06/11/19 13:31) Unknown clarithromycin [From Biaxin] Allergy (Unknown, Verified 06/11/19 13:31) Unknown doxycycline Allergy (Unknown, Verified 06/11/19 13:31) Unknown erythromycin estolate [From Ilosone] Allergy (Unknown, Verified 06/11/19 13:31) Unknown hydrocodone bitartrate [From Vicodin] Allergy (Unknown, Verified 06/11/19 13:31) Unknown levofloxacin [From Levaquin] Allergy (Unknown, Verified 06/11/19 13:31) Unknown oxycodone [Oxycodone] Allergy (Unknown, Verified 06/11/19 13:31) Unknown oxycodone HCl [From Percocet] Allergy (Unknown, Verified 06/11/19 13:31) Unknown pantoprazole Allergy (Unknown, Verified 06/11/19 13:31) Unknown propoxyphene Allergy (Unknown, Verified 06/11/19 13:31) Unknown Penicillins [PCN] Adverse Reaction (Verified 06/11/19 13:31) PT UNSURE OF REACTION peanut butter Adverse Reaction (Uncoded 06/11/19 13:31) headache Past Medical History: - - IBS, dementia, hypertension, History of stroke, history of breast cancer, migraines, Surgical History: appendectomy Smoking Status: Never smoker - Family History Maternal Family History: Reports: Stroke Paternal Family History: Reports: Cancer - Prostate Review of Systems General: Denies: Chills, Fever, Sweats Eyes: Denies: Visual changes - bilaterally, Diplopia ENT: Denies: Rhinorrhea, Sore throat Cardiovascular: Denies: Chest pain, Palpitations Respiratory: Denies: Dyspnea, Cough, Dyspnea on exertion Gastrointestinal: Reports: Abdominal pain, Nausea, Diarrhea. Denies: Vomiting, Melena, Hematochezia Genitourinary: Denies: Dysuria, Hematuria, Frequency Musculoskeletal: Denies: Back pain, Extremity Pain Skin: Denies: Rash, Wounds Neurological: Reports: Weakness - Generalized. Denies: Headache, Numbness Physical Exam Vital Signs/Narrative: Vital Signs Temp Pulse Resp BP Pulse Ox 06/11/19 13:26 97.3 F L 80 16 141/72 H 100 06/11/19 13:25 74 16 157/72 H 97 Inital Vital Signs reviewed: Yes General: Well nourished, Well developed, No Acute Distress Head: Normocephalic, Atraumatic Eyes: Perrl, EOMI ENT: Moist mucous membranes, No rhinorrhea Neck: Supple, Nontender Cardiovascular: Regular rate, Regular rhythm, No murmurs Respiratory: No distress, CTA bilaterally, Chest nontender Abdomen: Soft, Nondistended, Normal bowel sounds, Tender - Upper abdomen diffusely. Negative for: Guarding, Rebound tenderness, Mass Back: Nontender, Normal Inspection Extremities: Nontender, No edema Skin: Normal color, No rash Neurological: Alert, Cranial nerves II-XII grossly intact, Normal Strength, Normal Sensation Psychological: Normal Mood, - - Flat affect Diagnostic/Tx/Re-eval Laboratory Data 06/11/19 06/11/19 14:15 14:15 WBC 7.2 RBC 4.34 Hgb 13.3 Hct 40.2 MCV 92.6 MCH 30.6 MCHC 33.1 RDW Std Deviation 44.9 H RDW Coeff of Ilana 13.2 Plt Count 250 MPV 9.8 Immature Gran % (Auto) 0.100 Neut % (Auto) 73.8 H Lymph % (Auto) 17.2 L [place] % (Auto) 8.2 Eos % (Auto) 0.3 Baso % (Auto) 0.4 Absolute Neuts (auto) 5.3 Absolute Lymphs (auto) 1.23 Nucleated RBC % 0 Sodium 134 L Potassium 4.1 Chloride 99 Carbon Dioxide 22.0 Anion Gap 13 BUN 20 H Creatinine 0.84 Estim Creat Clear Calc 44.19 Est GFR (MDRD) Af Amer 84 Est GFR (MDRD) Non-Af 69 BUN/Creatinine Ratio 23.8 H Glucose 70 L Calcium 9.2 Total Bilirubin 0.60 AST 54 H ALT 42 Alkaline Phosphatase 85 Troponin I 0.123 H Total Protein 6.9 Albumin 3.5 Globulin 3.4 Albumin/Globulin Ratio 1.0 Lipase 378 - Rhythm Strip Rhythm Strip: Sinus Rhythm Rate: 73 Ectopy: None - EKG Initial EKG Interpretation: Sinus Rhythm, - - Normal sinus rhythm at a rate of 73 PA interval 158 QRS 94 QTc [address] segments Incomplete right bundle branch block - Medical Decision Making She is evaluated for generalized weakness and persistent diarrhea. Patient is quite unreliable as a historian and history is obtained from her over the phone. Patient's exam is nonfocal. She has a mild tenderness to her epigastric region but patient had a CT of her abdomen and pelvis 2 days ago which was negative. At that time she had the same complaints, therefore imaging is not repeated. I did recheck labs which did now show an elevated troponin of 0.123. Patient does not have any EKG changes. She is not reporting any chest pain but just generalized weakness. Patient is given aspirin will be admitted for further cardiac evaluation. He does not have any other significant laboratory abnormalities including CBC, CMP and lipase. In fact her lipase has improved as it was elevated 2 days ago. is notified over the phone of her need for admission and is agreeable with this. Patient is hemodynamically stable for PCU at time of disposition. ED Disposition - Plan for ED Patient: Disposition: Acute Care Hospital [facility] Diagnosis: Generalized weakness, Anorexia, Elevated troponin
[2019-06-11] MEDS: Aspirin 325 MG Tablet PO (15:40)
--- NOTE | 2019-06-11 16:47 | PCM.HP.STD ---
History of Present Illness Date of Admission: 06/11/19 Chief Complaint: weakness The patient is a 78 year old F presents with weakness. Patient is a poor historian and is nonverbal is a history is obtained through emergency room physician as well as her . Patient's state that she is just been progressively weak for over the past week and not eating much. Was sent here emergency room on the eighth and had elevated lipase but was sent home. Just has not progressed. Had a troponin that was 0.123 and the hospital service was contacted for admission for further cardiac evaluation. denies that patient has been having any chest pain just feeling weak overall. He is concerned that he would want her to be eating before returning home. [] Past Medical History Past Medical History (Chronic Problems): Chronic Problems (Last Reviewed 05/25/19 @ 10:23 by Rocío Fernandez) Irritable bowel (Chronic) History of breast cancer (Chronic) History of TIA (transient ischemic attack) (Chronic) Migraine (Chronic) Medical History: Medical History (Last Reviewed 05/25/19 @ 10:23 by Rocío Fernandez) Breast cancer C50.919 Allergies acetaminophen [From Vicodin] Allergy (Unknown, Verified 06/11/19 13:31) Unknown clarithromycin [From Biaxin] Allergy (Unknown, Verified 06/11/19 13:31) Unknown doxycycline Allergy (Unknown, Verified 06/11/19 13:31) Unknown erythromycin estolate [From Ilosone] Allergy (Unknown, Verified 06/11/19 13:31) Unknown hydrocodone bitartrate [From Vicodin] Allergy (Unknown, Verified 06/11/19 13:31) Unknown levofloxacin [From Levaquin] Allergy (Unknown, Verified 06/11/19 13:31) Unknown oxycodone [Oxycodone] Allergy (Unknown, Verified 06/11/19 13:31) Unknown oxycodone HCl [From Percocet] Allergy (Unknown, Verified 06/11/19 13:31) Unknown pantoprazole Allergy (Unknown, Verified 06/11/19 13:31) Unknown propoxyphene Allergy (Unknown, Verified 06/11/19 13:31) Unknown Penicillins [PCN] Adverse Reaction (Verified 06/11/19 13:31) PT UNSURE OF REACTION peanut butter Adverse Reaction (Uncoded 06/11/19 13:31) headache Home Medications: Ambulatory Orders Medication Instructions Recorded Duloxetine HCl 30 mg PO DAILY 06/09/19 Jacumba Extract [Jacumba] 150 mg PO DAILY 06/09/19 Lutein 20 mg PO DAILY 06/09/19 Metoclopramide [Reglan] 10 mg PO TID PRN #15 tab 06/09/19 Multivitamin with Minerals [Daily 1 tab PO DAILY 06/09/19 Vitamin Formula-Minerals] Resveratrol 100 mg PO DAILY 06/09/19 Ubidecarenone [Co Q-10] 100 mg PO DAILY 06/09/19 Surgical History: Surgical History (Last Reviewed 05/25/19 @ 10:23 by Rocío Fernandez) H/O total mastectomy of left breast Z90.12 Surgical History: appendectomy Psychiatric History: No pertinent psych hx [employer] WORK[employer] History: No pertinent [employer] WORKER history Smoking Status: Never smoker - *Family History Maternal History Items: Stroke Paternal History Items: Cancer - Prostate Review of Systems Unable to obtain accurate/complete ROS d/t: Patient is nonverbal VTE Information - Inpt Only VTE Present on Admission: No VTE Mechan Device Prophylaxis: None VTE Pharm Prophylaxis ordered?: Yes Patient Problems: Active and Suspected Problems (Last Reviewed 05/25/19 @ 10:23 by Rocío Fernandez) Generalized weakness (Acute) Anorexia (Acute) Elevated troponin (Acute) - Physical Exam Vitals/I&O's: Vital Signs Temp Pulse Resp BP Pulse Ox 36.6 C 69 16 150/72 H 97 06/11/19 16:09 06/11/19 16:44 06/11/19 16:09 06/11/19 16:09 06/11/19 16:09 Oxygen Delivery Method Room Air Weight: 45.314 kg Body Mass Index (BMI) 18.2 General: - - Weak. Establishes eye contact. Nonverbal. Afebrile. HEENT: Atraumatic, Normocephalic Oral: Moist Mucosa, No Gingival or Mucosal Lesions/ Ulcerations Neck: No Nodes, Trachea Midline Lungs: Clear to auscultation, Normal air movement, No rhonchi, No wheeze, No rales Cardiovascular: Regular rate, Regular Rhythm, Normal S1, Normal S2, No murmurs Abdomen: Bowel Sounds Present, Soft, Non Tender, Non-Distended, No Hepato-splenomegaly Extremities: No edema, No Calf Tenderness Skin: No rashes, No breakdown Musculoskeletal: No Tenderness to Palpation of Joints or Extremities, No Muscle Wasting Neurological: Deep Tendon Reflexes 2+/4 and Symmetrical, - - No clonus Laboratory Results 06/11/19 14:15: WBC 7.2, RBC 4.34, Hgb 13.3, Hct 40.2, MCV 92.6, MCH 30.6, MCHC 33.1, RDW Std Deviation 44.9 H, RDW Coeff of Ilana 13.2, Plt Count 250, MPV 9.8, Immature Gran % (Auto) 0.100, Neut % (Auto) 73.8 H, Lymph % (Auto) 17.2 L, [place] % (Auto) 8.2, Eos % (Auto) 0.3, Baso % (Auto) 0.4, Absolute Neuts (auto) 5.3, Absolute Lymphs (auto) 1.23, Nucleated RBC % 0 06/11/19 14:15: Sodium 134 L, Potassium 4.1, Chloride 99, Carbon Dioxide 22.0, Anion Gap 13, BUN 20 H, Creatinine 0.84, Estim Creat Clear Calc 44.19, Est GFR (MDRD) Af Amer 84, Est GFR (MDRD) Non-Af 69, BUN/Creatinine Ratio 23.8 H, Glucose 70 L, Calcium 9.2, Total Bilirubin 0.60, AST 54 H, ALT 42, Alkaline Phosphatase 85, Troponin I 0.123 H, Total Protein 6.9, Albumin 3.5, Globulin 3.4, Albumin/Globulin Ratio 1.0, Lipase 378 Current Medications Sodium Chloride () 10 - 40 ml IV UD PRN PRN Reason: SALINE FLUSH Assessment/Plan All Active Problems (Last Reviewed 05/25/19 @ 10:23 by Rocío Fernandez) Generalized weakness (Acute) Anorexia (Acute) Elevated troponin (Acute) Abnormal ultrasound (Acute) Postmenopausal bleeding (Acute) CVA (cerebral vascular accident) (Acute) Numbness and tingling in left arm (Acute) 1. Elevated troponin: Had previously been normal. EKG shows normal sinus rhythm with LVH. Plan is for nuclear stress test. Is unclear if this is contributed patient's weakness or just more of an incidental finding. Plan is to continue to cycle troponins and get a nuclear stress test in the morning. Patient did receive a 325 mg of aspirin in the emergency room and will continue with aspirin 81 mg daily hereafter. 2. Weakness: Patient's states that the patient is just been progressive weak over the past week. Plans for physical Occupational Therapy evaluate and treat. 3. Poor appetite: states that she has not been eating. This may be manifestation of what may be causing her to feel weak overall. Will have speech therapy evaluate her as well as nutrition. Unclear if the patient is having any swallowing difficulties states that she is choking occasionally but nothing that is concerning to him. Clear from my standpoint if you try to minimize her choking episodes or if they are very infrequent as he is describing. 4. Dementia: states that she is never been formally evaluated for dementia. I recommended she follow-up with geriatrics for a formal geriatric assessment. Told him that that would be done as an outpatient. 5. VTE prophylaxis: Moderate risk. Enoxaparin. Advanced care planning: Spent 20 minutes outside of history and physical discussing advanced directives with the patient's . Describe CPR and what that entails. I recommended DNR Comfort Care arrest. He did eventually agree. Therefore patient is DNR Comfort Care arrest. Inpatient E&M: 81028 Init Hosp L3 Procedures: 37882 Advncd Care Plan 30 Min
[2019-06-11] MEDS: 0.9% Normal Saline 1,000 ML 150 ML IV (17:31)
[2019-06-12] VITALS (10 sets, daily range): BP systolic 109–145; BP diastolic 52–69; PULSE 59–98; RESP 14–18; TEMP 36.4–36.9; O2SAT 94–99; BMI 18.2
[2019-06-12] MEDS: Acetaminophen 325 MG Tablet 650 MG PO ×2 (05:05→21:37)
[2019-06-12] MEDS: Aspirin E.C. 81 MG Tablet PO (05:05)
--- NOTE | 2019-06-12 05:55 | EKG12_ITS ---
Test Reason : AM EKG Blood Pressure : / mmHG Vent. Rate : 069 BPM Atrial Rate : 069 BPM P-R Int : 152 ms QRS Dur : 092 ms QT Int : 432 ms P-R-T Axes : 086 030 079 degrees QTc Int : 462 ms Normal sinus rhythm Biatrial enlargement Abnormal ECG When compared with ECG of 11-JUN-2019 14:06, MANUAL COMPARISON REQUIRED, DATA IS UNCONFIRMED Confirmed by DASH VIVAR, ELIDA ([id number]), proposal editor VIVIAN ANAND ([id number]) on 06/14/2019 11:11:38 AM Referred By: LINNEA Confirmed By:ELIDA BOWLING MD
[2019-06-12 07:28] LABS: Absolute Lymphocyte Count 1.25 X10^3/uL (0.83-4.51); Absolute Neutrophil Count 3.2 X10^3/uL (2.0-7.7); Basophil# 0.03 X10^3/uL; Basophil% 0.6 % (0-1); Eosinophil# 0.15 X10^3/uL; Eosinophils% 2.9 % (0-5); Hematocrit 38.3 % (37-47); Hemoglobin 12.9 g/dL (12.0-15.0); Lymphocyte # 1.25 X10^3/ul (4.0); Lymphocyte % 24.1 % (19-41); Mean Corp Hgb Conc 33.7 g/dL (32-36); Mean Corpuscular Hgb 30.7 pg (27.0-32.0); Mean Corpuscular Volume 91.2 fL (81-99); Mean Platelet Vol. 10.1 fl (6.2-12.0); Monocyte# 0.54 X10^3/uL; Monocyte% 10.4 % (0-10); NRBC Flagged by Analyzer 0 % (0-5); Neutrophil # 3.21 X10^3/uL (2.7-7.7); Neutrophil % 61.8 % (47-70); Platelet Count 226 K/mm3 (150-450); RBC Distribution Width CV 13.1 % (11.6-14.6); White Blood Count 5.2 K/mm3 (4.4-11.0)
[2019-06-12 08:08] LABS: AST(SGOT) 44 U/L (15-37); Alanine Aminotransfer ALT/SGPT 38 U/L (13-56); Albumin, Serum 2.9 g/dL (3.2-5.0); Alkaline Phosphatase 80 U/L (45-117); Anion Gap 11 (5-15); BUN 14 mg/dL (7-18); BUN/Creat Ratio 25.5 RATIO (10-20); Calcium,Total 8.3 mg/dL (8.5-10.1); Chloride 103 mmol/L (98-107); Creatinine, Serum 0.55 mg/dL (0.55-1.02); EST Glomerular Filtration Rate 113 mL/min (>60); Est Glom Filt Rate - Afr Amer 137 mL/min (>60); Glucose 41 mg/dL (74-106); Potassium 3.4 mmol/L (3.5-5.1); Protein, Total 5.9 g/dL (6.4-8.2); Sodium Level 136 mmol/L (136-145)
[2019-06-12] MEDS: Dextrose 50%-Water 25 GM/50 ML DISP.SYRIN IV (08:22)
[2019-06-12 08:30] LABS: Bedside Glucose 36 mg/dL (70-110)
[2019-06-12 10:41] LABS: Bedside Glucose 168 mg/dL (70-110)
--- NOTE | 2019-06-12 10:55 | STRESSREP ---
Stress Test Report Pharmacologic myocardial perfusion stress test. 78-year-old lady with a history of abnormal troponin. Stress protocol: Resting EKG demonstrates normal sinus rhythm with a rate of 71 bpm normal intervals are noted resting blood pressures 132/62 mmHg. 0.4 mg of regadenoson was infused per usual protocol followed by rapid intravenous saline flush injection continuous EKG monitoring was performed. The patient maintained sinus rhythm throughout the recording. At rest there were no ST or T wave changes noted to suggest abnormal flow reserve at peak infusion nonspecific ST-T wave changes were noted. The resting blood pressure was 132/62 with a peak blood pressure 140/62 mmHg. No clinical angina was noted. Myocardial perfusion protocol. 12.0 mCi of technetium 99m sestamibi was injected at rest. 0.4 mg of regadenoson was infused per usual protocol peak infusion 36.0 mCi of technetium 99m sestamibi was injected stress images were obtained stress and rest images were reconstructed and compared in the short axis vertical long horizontal long axis. Gated images were also obtained. Perfusion SPECT analysis: Review of the stress images demonstrate normal uptake of tracer noted in all areas of the myocardium the resting images similarly demonstrate normal uptake of tracer noted in all areas of the myocardium. No reversibility is noted to suggest ischemia no previous infarct is noted. Gated SPECT analysis: The gated ejection fraction is noted to be 74%. Conclusion: Normal pharmacologic myocardial perfusion stress test. Preserved ejection fraction.
--- NOTE | 2019-06-12 12:51 | PCM.PROGNOTE ---
Patient Problems: Active and Suspected Problems (Last Reviewed 05/25/19 @ 10:23 by Rocío Fernandez) Generalized weakness (Acute) Anorexia (Acute) Elevated troponin (Acute) Subjective: Patient seen and examined. States she has had a poor appetite, gets full quickly. Agreeable to SNF if necessary for rehab. - Physical Exam Vitals/I&O's: Vital Signs Temp Pulse Resp BP Pulse Ox 97.6 F L 73 14 135/60 H 99 06/12/19 08:10 06/12/19 10:55 06/12/19 08:10 06/12/19 08:10 06/12/19 08:10 Oxygen Delivery Method Room Air Weight: 99 lb 14.4 oz Body Mass Index (BMI) 18.2 Intake and Output for Last 24 Hours 06/10/19 06/11/19 06/12/19 23:59 23:59 23:59 Intake Total 1000 / 1000 120 / 120 Output Total 900 / 900 Balance 1000 / 1000 -780 / -780 General: Alert, Oriented x3, Cooperative HEENT: Atraumatic, PERRLA, EOMI, Normocephalic Neck: Supple, No JVD, Negative Carotid Bruits Lungs: Clear to auscultation, Normal air movement Cardiovascular: Regular rate, Regular Rhythm, Normal S1, Normal S2, No murmurs Abdomen: Bowel Sounds Present, Soft, Non Tender, Non-Distended Extremities: No clubbing, No cyanosis, No edema, Capillary Refill Less than 3 Seconds Skin: No rashes, No breakdown Musculoskeletal: No Tenderness to Palpation of Joints or Extremities, Cachexia, Muscle Wasting Neurological: Cranial nerves II-XII grossly intact, Neuro grossly intact Psych/Mental Status: Normal Affect, Appropriate Laboratory Results 06/11/19 14:15: WBC 7.2, RBC 4.34, Hgb 13.3, Hct 40.2, MCV 92.6, MCH 30.6, MCHC 33.1, RDW Std Deviation 44.9 H, RDW Coeff of Ilana 13.2, Plt Count 250, MPV 9.8, Immature Gran % (Auto) 0.100, Neut % (Auto) 73.8 H, Lymph % (Auto) 17.2 L, [place] % (Auto) 8.2, Eos % (Auto) 0.3, Baso % (Auto) 0.4, Absolute Neuts (auto) 5.3, Absolute Lymphs (auto) 1.23, Nucleated RBC % 0 06/11/19 14:15: Sodium 134 L, Potassium 4.1, Chloride 99, Carbon Dioxide 22.0, Anion Gap 13, BUN 20 H, Creatinine 0.84, Estim Creat Clear Calc 44.19, Est GFR (MDRD) Af Amer 84, Est GFR (MDRD) Non-Af 69, BUN/Creatinine Ratio 23.8 H, Glucose 70 L, Calcium 9.2, Total Bilirubin 0.60, AST 54 H, ALT 42, Alkaline Phosphatase 85, Troponin I 0.123 H, Total Protein 6.9, Albumin 3.5, Globulin 3.4, Albumin/Globulin Ratio 1.0, Lipase 378 06/11/19 17:20: Troponin I 0.143 H 06/11/19 20:30: Troponin I 0.130 H 06/12/19 06:10: WBC 5.2, RBC 4.20, Hgb 12.9, Hct 38.3, MCV 91.2, MCH 30.7, MCHC 33.7, RDW Std Deviation 44.0 H, RDW Coeff of Ilana 13.1, Plt Count 226, MPV 10.1, Immature Gran % (Auto) 0.200, Neut % (Auto) 61.8, Lymph % (Auto) 24.1, [place] % (Auto) 10.4 H, Eos % (Auto) 2.9, Baso % (Auto) 0.6, Absolute Neuts (auto) 3.2, Absolute Lymphs (auto) 1.25, Nucleated RBC % 0 06/12/19 06:16: Sodium 136, Potassium 3.4 L, Chloride 103, Carbon Dioxide 22.0, Anion Gap 11, BUN 14, Creatinine 0.55, Estim Creat Clear Calc 32.10, Est GFR (MDRD) Af Amer 137, Est GFR (MDRD) Non-Af 113, BUN/Creatinine Ratio 25.5 H, Glucose 41 L*, Calcium 8.3 L, Total Bilirubin 0.70, AST 44 H, ALT 38, Alkaline Phosphatase 80, Total Protein 5.9 L, Albumin 2.9 L, Globulin 3.0, Albumin/Globulin Ratio 1.0 06/12/19 08:10: POC Glucose 36 L* 06/12/19 10:35: POC Glucose 168 H Current Medications Acetaminophen (Tylenol) 650 mg PO Q6H PRN PRN PRN Reason: Pain Score 1-10/Temp > 100.7 F Last Admin: 06/12/19 05:05 Dose: 650 mg Documented by: Aspirin (Ecotrin) 81 mg PO DAILY@0800 [facility] Last Admin: 06/12/19 05:05 Dose: 81 mg Documented by: Enoxaparin Sodium (Lovenox) 40 mg SC DAILY@0600 [facility] Last Admin: 06/12/19 02:25 Dose: Not Given Documented by: Ondansetron HCl (Zofran) 4 mg IV Q6H PRN PRN PRN Reason: NAUSEA/VOMITING Sodium Chloride () 10 - 40 ml IV UD PRN PRN Reason: SALINE FLUSH Medical Necessity - Tobacco Use Smoking Status: Never smoker Assessment/Plan All Active Problems (Last Reviewed 05/25/19 @ 10:23 by Rocío Fernandez) Generalized weakness (Acute) Anorexia (Acute) Elevated troponin (Acute) Abnormal ultrasound (Acute) Postmenopausal bleeding (Acute) CVA (cerebral vascular accident) (Acute) Numbness and tingling in left arm (Acute) 1. Abnormal troponin, ACS ruled out-patient underwent nuclear stress test which was negative for ischemia. Gated ejection fraction 74%. Continue aspirin. Patient denies chest pain. 2. Debility, weakness- PT/OT. Possible placement pending PT recommendations. 3. Severe protein calorie malnutrition-as evidenced by cachectic appearance, recent weight loss and poor appetite and BMI 18. Nutrition consult. 4. Dementia, suspected-recommend outpatient follow-up with geriatric. 5. Depression-continue duloxetine regimen. DVT prophylaxis-Lovenox This patient was seen by Eliza Aguilar NP-C under the supervision of Dr. Gomes.
--- NOTE | 2019-06-12 14:16 | PCM.NTREPORT ---
Nutrition Therapy Report - History Nutrition Services has been consulted to:: Manage nutrient details of diet order Current diet / nutrition support order:: Cardiac/low chol; mech soft/ground with thin liquids; nonselect. Supervise & assist with meals; remain upright 30 min after eating. - Anthropometric Measurements Height:: 5 ft 2 in Weight:: 45.3 kg Body Mass Index (BMI):: 18.2 - Relevant Labs Relevant Labs:: RDW Std Deviation 44.0 fl (35.1-43.9) H 06/12/19 06:10 Neut % (Auto) 73.8 % (47-70) H 06/11/19 14:15 Lymph % (Auto) 17.2 % (19-41) L 06/11/19 14:15 [place] % (Auto) 10.4 % (0-10) H 06/12/19 06:10 Sodium 134 mmol/L (136-145) L 06/11/19 14:15 Potassium 3.4 mmol/L (3.5-5.1) L 06/12/19 06:16 BUN 20 mg/dL (7-18) H 06/11/19 14:15 BUN/Creatinine Ratio 25.5 RATIO (10-20) H 06/12/19 06:16 Glucose 41 mg/dL (74-106) L* 06/12/19 06:16 Calcium 8.3 mg/dL (8.5-10.1) L 06/12/19 06:16 AST 44 U/L (15-37) H 06/12/19 06:16 Troponin I 0.130 ng/mL (<0.045) H 06/11/19 20:30 Total Protein 5.9 g/dL (6.4-8.2) L 06/12/19 06:16 Albumin 2.9 g/dL (3.2-5.0) L 06/12/19 06:16 - Assessment Food / Nutrition-Related History:: Pt with ongoing anorexia; wt loss and muscle/fat depletion. Reports getting full quickle at meals but, spouse says she does not eat--will try oral nutrition supplements and liberalize diet to help optimize intake. - Nutrition Diagnosis Problem / Etiology / Signs & Symptoms (PES):: Severe pro-aureliano malnutrition related to social/environmental factors, ongoing anorexia, dementia as evidenced by ~10% wt loss x past 6 months, BMI 18.3, poor intake at meals & severe muscle/fat wasting. Evidence of Malnutrition Exists:: Yes Severe PCM:: Social & Environmental circumstances - Nutrition Intervention Nutrition Prescription:: Pt agreeable to ONS, will try variety with meals for tolerance--240 ml ensure clear w/ breakfast, ensure pudding w/ lunch and magic cup w/ dinner. Will liberalize diet to regular with consistency and texture as per [employer] [facility] soft/thin liquids. Will add 120 ml ensure enlive 4 x daily with medpass. - Food / Nutrient Delivery Interventions Summary of nutrition intervention:: Liberalize diet to regular from cardiac & offer variety of oral nutrition supplements for tolerance/acceptance. Nutrition support ordered as / adjusted to:: No nutrition support ordered at this time but, may need to consider TF if PO continues poor/inadequate and wt continues to decline. Nutrition education provided?: Yes - MNT Monitoring Further MNT monitoring and evaluation required?: Yes MNT Follow-up in:: 3-5 days
[2019-06-13] VITALS (9 sets, daily range): BP systolic 113–134; BP diastolic 52–75; PULSE 71–87; RESP 16–18; TEMP 36.5–36.8; O2SAT 96–98
[2019-06-13] MEDS: Enoxaparin 40 MG/0.4 ML Syringe SC (06:16)
[2019-06-13 09:36] LABS: Bedside Glucose 84 mg/dL (70-110)
--- NOTE | 2019-06-13 10:11 | PCM.PROGNOTE ---
Patient Problems: Active and Suspected Problems (Last Reviewed 05/25/19 @ 10:23 by Rocío Fernandez) Generalized weakness (Acute) Anorexia (Acute) Elevated troponin (Acute) Subjective: Patient seen and examined. Nonverbal this morning, nursing reports agitation. Patient appears to be in pain when palpating abdomen. - Physical Exam Vitals/I&O's: Vital Signs Temp Pulse Resp BP Pulse Ox 97.9 F 84 16 117/52 L 98 06/13/19 09:01 06/13/19 09:01 06/13/19 09:01 06/13/19 09:01 06/13/19 09:01 Oxygen Delivery Method Room Air Weight: 99 lb 13.91 oz Body Mass Index (BMI) 18.2 Intake and Output for Last 24 Hours 06/11/19 06/12/19 06/13/19 23:59 23:59 23:59 Intake Total 1000 / 1000 1040 / 1040 100 / 100 Output Total 2100 / 2100 Balance 1000 / 1000 -1060 / -1060 100 / 100 General: Alert, Confused, - - Nonverbal HEENT: Atraumatic, PERRLA, EOMI, Normocephalic Oral: Dry Mucosa Neck: Supple, No JVD, Negative Carotid Bruits Lungs: Clear to auscultation, Normal air movement Cardiovascular: Regular rate, Regular Rhythm, Normal S1, Normal S2, No murmurs Abdomen: Bowel Sounds Present, Soft, Tender Extremities: No clubbing, No cyanosis, No edema, Capillary Refill Less than 3 Seconds Skin: No rashes, No breakdown Musculoskeletal: No Tenderness to Palpation of Joints or Extremities, Cachexia, Muscle Wasting Neurological: Cranial nerves II-XII grossly intact, Neuro grossly intact Psych/Mental Status: Agitated, Flat Affect Laboratory Results 06/12/19 10:35: POC Glucose 168 H 06/13/19 09:29: POC Glucose 84 Current Medications Acetaminophen (Tylenol) 650 mg PO Q6H PRN PRN PRN Reason: Pain Score 1-10/Temp > 100.7 F Last Admin: 06/12/19 21:37 Dose: 650 mg Documented by: Aspirin (Ecotrin) 81 mg PO DAILY@0800 [facility] Last Admin: 06/13/19 09:11 Dose: Not Given Documented by: Enoxaparin Sodium (Lovenox) 40 mg SC DAILY@0600 [facility] Last Admin: 06/13/19 06:16 Dose: 40 mg Documented by: Nutritional Formula (Lactose Free) (Ensure Enlive) 120 ml PO 4X/DAY [facility] Last Admin: 06/13/19 09:11 Dose: Not Given Documented by: Ondansetron HCl (Zofran) 4 mg IV Q6H PRN PRN PRN Reason: NAUSEA/VOMITING Sodium Chloride () 10 - 40 ml IV UD PRN PRN Reason: SALINE FLUSH Medical Necessity - Tobacco Use Smoking Status: Never smoker Assessment/Plan All Active Problems (Last Reviewed 05/25/19 @ 10:23 by Rocío Fernandez) Generalized weakness (Acute) Anorexia (Acute) Elevated troponin (Acute) Abnormal ultrasound (Acute) Postmenopausal bleeding (Acute) CVA (cerebral vascular accident) (Acute) Numbness and tingling in left arm (Acute) 1. Abnormal troponin, ACS ruled out-patient underwent nuclear stress test which was negative for ischemia. Gated ejection fraction 74%. Continue aspirin. Patient denies chest pain. 2. Debility, weakness- PT/OT. Possible placement pending PT recommendations. 3. Abdominal pain-unclear etiology. Check CMP, lipase. Recent CT of abdomen and pelvis 06/09/2019 unremarkable. 4. Severe protein calorie malnutrition-as evidenced by cachectic appearance, recent weight loss and poor appetite and BMI 18. Nutrition consult. 5. Dementia, suspected-recommend outpatient follow-up with geriatric. 6. Depression-continue duloxetine regimen. DVT prophylaxis-Lovenox This patient was seen by HERBERT Olvera under the supervision of Dr. Gomes.
[2019-06-13] MEDS: 0.9% Saline Lock 10 ML Syringe IV (11:27)
[2019-06-13] MEDS: Morphine 2 MG/ML Syringe IV ×2 (11:27→21:12)
[2019-06-13 12:00] LABS: ALB/GLOB Ratio 0.8 RATIO (0.9-2.4); AST(SGOT) 36 U/L (15-37); Alanine Aminotransfer ALT/SGPT 40 U/L (13-56); Albumin, Serum 2.7 g/dL (3.2-5.0); Alkaline Phosphatase 84 U/L (45-117); Anion Gap 7 (5-15); BUN 12 mg/dL (7-18); BUN/Creat Ratio 19.4 RATIO (10-20); Calcium,Total 8.8 mg/dL (8.5-10.1); Chloride 107 mmol/L (98-107); Creatinine, Serum 0.62 mg/dL (0.55-1.02); EST Glomerular Filtration Rate 98 mL/min (>60); Est Glom Filt Rate - Afr Amer 119 mL/min (>60); Estimated Creatinine Clearance 32.09 ml/min; Globulin 3.4 g/dL (2.2-4.2); Glucose 90 mg/dL (74-106); Lipase 1205 U/L (73-393); Potassium 4.3 mmol/L (3.5-5.1); Protein, Total 6.1 g/dL (6.4-8.2); Sodium Level 138 mmol/L (136-145)
[2019-06-13] MEDS: Dextrose 5%/0.9% NaCl 1,000 ML 100 ML IV ×2 (12:31→21:13)
--- NOTE | 2019-06-13 14:41 | US_ITS ---
STUDY: ABDOMINAL ULTRASOUND - RIGHT UPPER QUADRANT REASON FOR VISIT: Female, 78 years old ABN LABS -- ABD PAIN TECHNIQUE: Ultrasound evaluation of the right upper quadrant was performed with real-time and static santiago-scale imaging. TECHNICAL QUALITY: Adequate. COMPARISON: None. FINDINGS: Liver: The liver measures 16.1 cm. There is normal echogenicity of the liver. The bile ducts are within normal limits. There is hepatic color flow. The direction of portal flow is hepatopetal. Multiple cysts are seen in the liver. The largest cyst measures 7.5 cm x 9 cm x 6.8 cm. This is in the right lobe. Gallbladder: Normal distended gallbladder. The gallbladder wall measures 2.4 mm. There is a negative sonographic Parrish''s sign. There is no pericholecystic fluid. There are no gallstones. Common Bile Duct (C.B.D.): The common bile duct measures 5.6 mm. Pancreas: Normal size of the head, body and tail of the pancreas. There is normal echogenicity of the pancreas. There is no demonstrated pancreatic mass or cyst. Right Kidney: Normal size of the right kidney. The right kidney measures 11.1 cm x 4 cm x 3.8 cm. Normal renal cortex. The right cortex measures 1.2 cm. 1 cm x 0.9 cm x 0.7 cm right renal cyst. There is no right hydronephrosis. US/Abdomen Limited IMPRESSION: Multiple hepatic simple cysts. Small cyst in the right kidney. Electronically Signed: Mendoza Gardiner, at 8:49 EDT , Service support ,
[2019-06-14 02:11] VITALS: BP 150/73; PULSE 82; RESP 18; TEMP 36.4; O2SAT 100
[2019-06-14 02:57] VITALS: PULSE 86
[2019-06-14] MEDS: Enoxaparin 40 MG/0.4 ML Syringe SC (05:31)
[2019-06-14 07:00] VITALS: PULSE 86
[2019-06-14 08:30] VITALS: BP 146/77; PULSE 99; RESP 16; TEMP 36.4; O2SAT 97
[2019-06-14] MEDS: Dextrose 5%/0.9% NaCl 1,000 ML 100 ML IV (08:30)
[2019-06-14] MEDS: Aspirin E.C. 81 MG Tablet PO (09:15)
--- NOTE | 2019-06-14 10:30 | CASEMGMT ---
Per Zayra PATIENT LIAISON, pt's would now like to take her home with [facility] d/t concerns with Covid virus and would like to speak to this RN CM at this time regarding same. states that he would like [facility] at this time for SN, PT/OT and is asking about co-pays/visits. This RN CM advised him that [facility] would inform him regarding this when they called prior to visit, voices understanding. This RN CM answered all other questions for at this time and states he would like [facility] at this time for SN/PT/OT and traffic police officer c/s. declines aide at this time. Call to Opal at [facility] to update on referral, voices understanding. states pt has decreased intake at home and he needs guidance on what to do and feed pt. Opal aware dietary c/s needed, voices understanding. Order placed in [place] at this time. also is questioning dementia but states that several people have mentioned while pt here. states that pt did see Dr. Medina recently and he believes she may have been tested for dementia but he was not in room with pt and pt could not tell him the results. states that pt 'gets quiet when she is tired or doesn't want to talk.' He also states that the last he knew, pt weighed 110lbs and now she is down to 99lbs. This RN CM encouraged to take pt back to Dr. Medina for f/u and make sure is present for all and get Dr. Francisco opinion regarding same, voices understanding. Pt states he would like to take pt home today with the [facility]. Zayra PATIENT LIAISON and Hernandez GONSALVES updated on all, voices understanding. Yuridia RN CM
--- NOTE | 2019-06-14 11:51 | PCM.DC ---
- Discharge Diagnoses Current Active Problems: Current Active and Chronic Problems (Last Reviewed 05/25/19 @ 10:23 by Rocío Fernandez) Generalized weakness (Acute) Anorexia (Acute) Elevated troponin (Acute) You will use the following diet at home:: No restrictions Discharge Activity: Return to Normal Activity Call your doctor if you observe: Shortness of breath, Dizziness, Fainting spells, Chest pain Allergies/Adverse Reactions: Allergies acetaminophen [From Vicodin] Allergy (Unknown, Verified 06/11/19 13:31) Unknown clarithromycin [From Biaxin] Allergy (Unknown, Verified 06/11/19 13:31) Unknown doxycycline Allergy (Unknown, Verified 06/11/19 13:31) Unknown erythromycin estolate [From Ilosone] Allergy (Unknown, Verified 06/11/19 13:31) Unknown hydrocodone bitartrate [From Vicodin] Allergy (Unknown, Verified 06/11/19 13:31) Unknown levofloxacin [From Levaquin] Allergy (Unknown, Verified 06/11/19 13:31) Unknown oxycodone [Oxycodone] Allergy (Unknown, Verified 06/11/19 13:31) Unknown oxycodone HCl [From Percocet] Allergy (Unknown, Verified 06/11/19 13:31) Unknown pantoprazole Allergy (Unknown, Verified 06/11/19 13:31) Unknown propoxyphene Allergy (Unknown, Verified 06/11/19 13:31) Unknown Penicillins [PCN] Adverse Reaction (Verified 06/11/19 13:31) PT UNSURE OF REACTION peanut butter Adverse Reaction (Uncoded 06/11/19 13:31) headache Medications to take at Discharge Duloxetine HCl 30 mg PO DAILY 06/09/19 Vandervoort Extract [Vandervoort] 150 mg PO DAILY 06/09/19 Lutein 20 mg PO DAILY 06/09/19 Metoclopramide [Reglan] 10 mg PO TID PRN #15 tab 06/09/19 Multivitamin with Minerals [Daily Vitamin Formula-Minerals] 1 tab PO DAILY 06/09/19 Resveratrol 100 mg PO DAILY 06/09/19 Ubidecarenone [Co Q-10] 100 mg PO DAILY 06/09/19 Ensure Enlive 120 ml PO 4X/DAY liquid 06/14/19 Primary Care Physician: Monico Medina MD [Primary Care Provider] - Please follow up with your Primary Care Physician in: 1 Week Test Results: Test results from this visit will be discussed in further detail at your follow-up appointment, if applicable. Please Follow Up With: Leda May MD When: 2 Weeks, as scheduled Please Follow Up With: Proposed Discharge Date: 06/14/19
--- NOTE | 2019-06-14 12:16 | PCM.DC.SUM ---
<Eliza Aguilar - Last Filed: 06/14/19 12:34> Discharge Date and Diagnosis Date of Admission: 06/11/19 Date of Discharge: 06/14/19 - Primary Discharge Diagnosis Active and Suspected Problems (Last Reviewed 05/25/19 @ 10:23 by Rocío Fernandez) 1. Abnormal troponin, ACS ruled out 2. Debility, weakness 3. Chronic Abdominal pain-unclear etiology. 4. Severe protein calorie malnutrition 5. Dementia 6. Depression 7. Endometrial mass - Secondary Discharge Diagnosis Chronic Problems (Last Reviewed 05/25/19 @ 10:23 by Rocío Fernandez) Irritable bowel (Chronic) History of breast cancer (Chronic) History of TIA (transient ischemic attack) (Chronic) Migraine (Chronic) Hospital Course and Treatment Imaging Results: Diagnostic Data Abdomen Ultrasound 06/13/19 14:41 IMPRESSION: Multiple hepatic simple cysts. Small cyst in the right kidney. Electronically Signed: Mendoza Zuleyka, at 8:49 EDT , Service support , Operations: None Procedures: Stress test Summary of Care Provided: The patient is a 78 year old F admitted 06/11/2019 due to weakness. 1. Abnormal troponin, ACS ruled out-patient underwent nuclear stress test which was negative for ischemia. Gated ejection fraction 74%. Patient denies chest pain. Follow up with PCP in 1 week. 2. Debility, weakness-based on PT recommendations, strongly recommended SNF at discharge, discussed in length with . states given current COVID pandemic, he is not willing to send patient to SNF. Agreeable to home health with additional physical therapy and dietitian follow-up. Do feel patient is hospice appropriate, recommend referral by primary care physician if patient continues to decline. 3. Abdominal pain-unclear etiology. Recent CT of abdomen and pelvis 06/09/2019 unremarkable. Abdominal ultrasound without acute process. Spoke with patient's who reports abdominal pain is intermittent and chronic in nature. 4. Severe protein calorie malnutrition-as evidenced by cachectic appearance, recent weight loss and poor appetite and BMI 18. Dietitian consult during admission and to follow at discharge as well. If patient continues to have poor oral intake and weight loss, may need to consider tube feed however as noted above, feel hospice referral would be more appropriate at that time. 5. Dementia, suspected-recommend outpatient follow-up with PCP/space operations officer for formal evaluation. Patient appears to have significant dementia with periods of agitation, nonverbal and significant confusion. 6. Depression-continue duloxetine regimen. 7. Endometrial mass- following with UNIT SUPERVISOR. Follow-up with Dr. May in 2 weeks as scheduled. General: Alert, Confused, no apparent distress HEENT: Atraumatic, PERRLA, EOMI, Normocephalic Oral: Dry Mucosa Neck: Supple, No JVD, Negative Carotid Bruits Lungs: Clear to auscultation, Normal air movement Cardiovascular: Regular rate, Regular Rhythm, Normal S1, Normal S2, No murmurs Abdomen: Bowel Sounds Present, Soft, Tender Extremities: No clubbing, No cyanosis, No edema, Capillary Refill Less than 3 Seconds Skin: No rashes, No breakdown Musculoskeletal: No Tenderness to Palpation of Joints or Extremities, Cachexia, Muscle Wasting Neurological: Cranial nerves II-XII grossly intact, Neuro grossly intact Psych/Mental Status: Agitated, Flat Affect Patient seen and examined prior to discharge. Physical assessment as noted above. Patient is stable for discharge with follow up recommendations as noted above. As noted above, strongly recommended SNF however has been not agreeable at this time. This patient was seen by HERBERT Olvera under the supervision of Dr. Haynes. - Physical Exam Vitals/I&O's: Vital Signs Temp Pulse Resp BP Pulse Ox 97.6 F L 99 16 146/77 H 97 06/14/19 08:30 06/14/19 08:30 06/14/19 08:30 06/14/19 08:30 06/14/19 08:30 Oxygen Delivery Method Room Air Weight: 99 lb 13.91 oz Body Mass Index (BMI) 18.2 Intake and Output for Last 24 Hours 06/12/19 06/13/19 06/14/19 23:59 23:59 23:59 Intake Total 1040 / 1040 1060 / 1060 1000 / 1000 Output Total 2100 / 2100 250 / 250 1550 / 1550 Balance -1060 / -1060 810 / 810 -550 / -550 Current Medications Acetaminophen (Tylenol) 650 mg PO Q6H PRN PRN PRN Reason: Pain Score 1-10/Temp > 100.7 F Last Admin: 06/12/19 21:37 Dose: 650 mg Documented by: Acetaminophen (Tylenol) 325 mg RECTAL Q6H PRN PRN PRN Reason: Pain Score 1-10/10 Aspirin (Ecotrin) 81 mg PO DAILY@0800 [facility] Last Admin: 06/14/19 09:15 Dose: 81 mg Documented by: Enoxaparin Sodium (Lovenox) 40 mg SC DAILY@0600 [facility] Last Admin: 06/14/19 05:31 Dose: 40 mg Documented by: Haloperidol Lactate (Haldol) 1 mg IM Q4H PRN PRN PRN Reason: AGITATION Dextrose/Sodium Chloride (Dextrose 5%/0.9% Nacl) 1,000 mls @ 100 mls/hr IV .Q10H [facility] Last Admin: 06/14/19 08:30 Dose: 100 mls/hr Documented by: Morphine Sulfate () 0.5 - 1 mg IV Q4H PRN PRN PRN Reason: Pain Score 1-10/10 Last Admin: 06/13/19 21:12 Dose: 1 mg Documented by: Nutritional Formula (Lactose Free) (Ensure Enlive) 120 ml PO 4X/DAY [facility] Last Admin: 06/14/19 09:16 Dose: 120 ml Documented by: Ondansetron HCl (Zofran) 4 mg IV Q6H PRN PRN PRN Reason: NAUSEA/VOMITING Sodium Chloride () 10 - 40 ml IV UD PRN PRN Reason: SALINE FLUSH Last Admin: 06/13/19 11:27 Dose: 10 ml Documented by: Discharge Diet: No Restrictions Discharge Activity: Return to Normal Activity Call your doctor if you observe: Shortness of breath, Dizziness, Fainting spells, Chest pain Home Medications: Medications to take at Discharge Duloxetine HCl 30 mg PO DAILY 06/09/19 Brimson Extract [Brimson] 150 mg PO DAILY 06/09/19 Lutein 20 mg PO DAILY 06/09/19 Metoclopramide [Reglan] 10 mg PO TID PRN #15 tab 06/09/19 Multivitamin with Minerals [Daily Vitamin Formula-Minerals] 1 tab PO DAILY 06/09/19 Resveratrol 100 mg PO DAILY 06/09/19 Ubidecarenone [Co Q-10] 100 mg PO DAILY 06/09/19 Ensure Enlive 120 ml PO 4X/DAY liquid 06/14/19 Primary Care Physician: Monico Medina MD [Primary Care Provider] - Please follow up with your Primary Care Physician in: 1 Week Please Follow Up With: Leda May MD When: 2 Weeks, as scheduled Please Follow Up With: Disposition: Home with Home Health Minutes spent on discharge:: 35 Patient Condition:: Fair Medical Necessity - Tobacco Use Smoking Status: Never smoker Meaningful Use Info Meaningful Use Diagnoses (Choose all that apply): None applicable <[place] - Last Filed: 06/14/19 16:19> Discharge Date and Diagnosis - Secondary Discharge Diagnosis Chronic Problems (Last Reviewed 05/25/19 @ 10:23 by Rocío Fernandez) Irritable bowel (Chronic) History of breast cancer (Chronic) History of TIA (transient ischemic attack) (Chronic) Migraine (Chronic) Hospital Course and Treatment Summary of Care Provided: This patient was seen in conjunction with Eliza Aguilar NP. I have independently interviewed and examined the patient and reviewed pertinent historical, laboratory, and other data. Please refer to her note for patient's presentation, findings, and recommendations. 78-year-old female who was admitted with progressive weakness. Patient was seen in the emergency department and had elevated troponin. She underwent stress test that was negative. Patient had periods of confusion; it was unclear if she has underlying dementia. She also had intermittent complaints of abdominal discomfort. Recent CT of abdomen and pelvis was unremarkable. Patient has a history of an endometrioma seen on transvaginal ultrasound. Follow-up was planned with Dr. May in 2 weeks. Patient was seen by physical and Occupational Therapy and [facility] facility was [facility] on account of weakness. Her family however did not want her discharge to a nursing facility in the light of the current cough with crisis. She was discharged home and will be followed up by home health. Physical Exam: Gen: Comfortable, not pale, not jaundiced, alert oriented x1( to person, not to place or time) CVS: HS I +II, regular, no murmurs RESP: CTA GI: BS present and normal, nontender, no palpable organs EXT:No edema - Physical Exam Vitals/I&O's: Vital Signs Temp Pulse Resp BP Pulse Ox 97.9 F 102 H 16 160/86 H 97 06/14/19 14:30 06/14/19 14:30 06/14/19 14:30 06/14/19 14:30 06/14/19 14:30 Oxygen Delivery Method Room Air Weight: 45.3 kg Body Mass Index (BMI) 18.2 Intake and Output for Last 24 Hours 06/12/19 06/13/19 06/14/19 23:59 23:59 23:59 Intake Total 1040 / 1040 1060 / 1060 1483.33 / 1483.33 Output Total 2100 / 2100 250 / 250 1550 / 1550 Balance -1060 / -1060 810 / 810 -66.67 / -66.67 Current Medications Acetaminophen (Tylenol) 650 mg PO Q6H PRN PRN PRN Reason: Pain Score 1-10/Temp > 100.7 F Last Admin: 06/12/19 21:37 Dose: 650 mg Documented by: Acetaminophen (Tylenol) 325 mg RECTAL Q6H PRN PRN PRN Reason: Pain Score 1-10/10 Aspirin (Ecotrin) 81 mg PO DAILY@0800 [facility] Last Admin: 06/14/19 09:15 Dose: 81 mg Documented by: Enoxaparin Sodium (Lovenox) 40 mg SC DAILY@0600 [facility] Last Admin: 06/14/19 05:31 Dose: 40 mg Documented by: Haloperidol Lactate (Haldol) 1 mg IM Q4H PRN PRN PRN Reason: AGITATION Morphine Sulfate () 0.5 - 1 mg IV Q4H PRN PRN PRN Reason: Pain Score 1-10/10 Last Admin: 06/13/19 21:12 Dose: 1 mg Documented by: Nutritional Formula (Lactose Free) (Ensure Enlive) 120 ml PO 4X/DAY [facility] Last Admin: 06/14/19 14:52 Dose: 120 ml Documented by: Ondansetron HCl (Zofran) 4 mg IV Q6H PRN PRN PRN Reason: NAUSEA/VOMITING Sodium Chloride () 10 - 40 ml IV UD PRN PRN Reason: SALINE FLUSH Last Admin: 06/13/19 11:27 Dose: 10 ml Documented by: OBSV E&M: [id number] Observation care discharge
[2019-06-14 14:30] VITALS: BP 160/86; PULSE 102; RESP 16; TEMP 36.6; O2SAT 97
[2019-06-14 15:02] VITALS: PULSE 101
== END 2019-06-14 11:51 | disposition home health service (06) ==
LOC: ED 14:30 → PCU 06-12 07:17
PROVIDERS: Internal Medicine; Nurse Practitioner Family; Emergency Provider Emergency Medicine; PCP Family Medicine; Visit Provider Internal Medicine
DX: R53.1 Weakness (principal); R79.89 Other specified abnormal findings of blood chemistry; R10.9 Unspecified abdominal pain; R47.89 Other speech disturbances; F32.9 Major depressive disorder, single episode, unspecified; E43 Unspecified severe protein-calorie malnutrition; R19.09 Other intra-abdominal and pelvic swelling, mass and lump; G89.29 Other chronic pain; F03.90 Unspecified dementia, unspecified severity, without behavioral disturbance, psychotic disturbance, mood disturbance, and anxiety; K58.1 Irritable bowel syndrome with constipation; R94.31 Abnormal electrocardiogram [ECG] [EKG]; I45.10 Unspecified right bundle-branch block; I10 Essential (primary) hypertension; Z68.1 Body mass index [BMI] 19.9 or less, adult; Z79.899 Other long term (current) drug therapy; Z86.73 Personal history of transient ischemic attack (TIA), and cerebral infarction without residual deficits
CPT/HCPCS: 36415; 76705; 78452; 80053; 82962; 83690; 84484; 85025; 92507; 92523; 92610; 93005; 93017; 96361; 96372; 96374; 96375; 96376; 97116; 97161; 97165; 97530; 97535; 97802; 99218; 99285; A9500; J7030; A4216; G0378; J2785

== ENCOUNTER 2019-06-22 12:24 | Outpatient (RCR) | payer SELFPAY ==
[2019-06-12 14:24] VITALS: BMI 18.2
== END 2019-06-22 23:59 | disposition home or self-care (01) ==
LOC: NS 12:24
PROVIDERS: PCP Family Medicine; Visit Provider Family Medicine
DX: Z71.3 Dietary counseling and surveillance (principal); R63.0 Anorexia; E43 Unspecified severe protein-calorie malnutrition; R62.7 Adult failure to thrive
CPT/HCPCS: S9470; G0463

== ENCOUNTER 2019-08-31 06:06 | Day surgery (SDC) | payer MEDICARE, SELFPAY ==
--- NOTE | 2019-08-30 17:09 | HP.PCM_ITS ---
- Problem List (1) Abnormal ultrasound Status: Acute Comment: 1 cm lesion with fluid present (2) Anorexia Status: Acute (3) Anxiety Status: Acute (4) CVA (cerebral vascular accident) Status: Acute (5) Elevated troponin Status: Acute (6) Generalized weakness Status: Acute (7) Incomplete uterovaginal prolapse Status: Acute (8) Numbness and tingling in left arm Status: Acute (9) Postmenopausal bleeding Status: Acute Comment: abnl ultrasound, emb in office, will need d and c hysteroscopy symphion (10) History of TIA (transient ischemic attack) Status: Chronic (11) History of breast cancer Status: Chronic (12) Irritable bowel Status: Chronic (13) Migraine Status: Chronic (14) Migraines Status: Chronic History and Physical Date of Admission: 08/31/19 Intake Vital Signs 07/14/19 Height 5 ft 2 in 07/14/19 Weight: 109 lb 4 oz 07/14/19 BMI 20.0 07/14/19 BP 120/70 Intake Visit Reasons: PCU follow up inpatient Complementary Health Therapists Required: No Is patient in pain?: No Allergies acetaminophen [From Vicodin] Allergy (Unknown, Verified 07/14/19 11:41) Unknown clarithromycin [From Biaxin] Allergy (Unknown, Verified 07/14/19 11:41) Unknown doxycycline Allergy (Unknown, Verified 07/14/19 11:41) Unknown erythromycin estolate [From Ilosone] Allergy (Unknown, Verified 07/14/19 11:41) Unknown hydrocodone bitartrate [From Vicodin] Allergy (Unknown, Verified 07/14/19 11:41) Unknown levofloxacin [From Levaquin] Allergy (Unknown, Verified 07/14/19 11:41) Unknown oxycodone [Oxycodone] Allergy (Unknown, Verified 07/14/19 11:41) Unknown oxycodone HCl [From Percocet] Allergy (Unknown, Verified 07/14/19 11:41) Unknown pantoprazole Allergy (Unknown, Verified 07/14/19 11:41) Unknown propoxyphene Allergy (Unknown, Verified 07/14/19 11:41) Unknown Penicillins [PCN] Adverse Reaction (Verified 07/14/19 11:41) PT UNSURE OF REACTION peanut butter Adverse Reaction (Uncoded 06/11/19 13:31) headache Medications Duloxetine HCl 30 mg PO DAILY 06/09/19 [History Confirmed 07/14/19] [place] Extract [[place]] 150 mg PO DAILY 06/09/19 [History Confirmed 07/14/19] Lutein 20 mg PO DAILY 06/09/19 [History Confirmed 07/14/19] Multivitamin with Minerals [Daily Vitamin Formula-Minerals] 1 tab PO DAILY 06/09/19 [History Confirmed 07/14/19] Resveratrol 100 mg PO DAILY 06/09/19 [History Confirmed 07/14/19] Ubidecarenone [Co Q-10] 100 mg PO DAILY 06/09/19 [History Confirmed 07/14/19] Ensure Enlive 120 ml PO 4X/DAY liquid 06/14/19 [Rx Confirmed 07/14/19] Is last menstrual period known: No Post menopausal: Yes Patient : No : No PFSH Medical History (Updated 07/14/19 @ 12:[address] Leda May MD) Migraines (Chronic) Anxiety (Acute) Breast cancer (Acute) Surgical History (Updated 07/14/19 @ 11:48 by Claire Cooper) S/P appendectomy (Resolved) H/O total mastectomy of left breast (Resolved) Social History (Updated 07/14/19 @ 12:[address] Leda May MD) number of children: 3 Smoking Status: Never smoker alcohol intake: never substance use type: does not use caffeine: No what type of physical activity do you participate in: none seatbelt use: always do you feel safe at home: Yes additional social history: - [place] HPI PCU follow up inpatient: Details: DARIN ANAND is a 78 year old who presents for d and c hysteroscocpy for thickened endometrium. Female Reproductive History Menopausal Symptoms: No night sweats Pregancy History Past Pregnancies Del. Date Name GA/Weeks Outcome Route Bth Weight Gen Labor Lgth Anesthesia Del Locatn Provider FOB Unknown Ryan Unknown Steve Unknown Silva ROS Const Constitutional: Reports weight loss; denies fatigue, night sweats or weight gain ENT ENT: Reports system reviewed and no additional complaints, except as docu Cardio Card: Denies chest pain Resp Resp: Denies cough or dyspnea GI GI: Reports as per HPI and bloating; denies abdominal pain, constipation, nausea or vomiting : Reports urinary frequency, urinary incontinence and urinary urgency; denies nipple discharge, urinary hesitancy, vaginal discharge, vaginal dryness, vaginal odor or vaginal itching Musc Musc: Denies joint pain, back pain or muscle weakness Skin Skin/Breast: Denies nipple discharge Neuro Neuro: Reports system reviewed and no additional complaints, except as docu Psych Psych: Reports system reviewed and no additional complaints, except as docu Endo Endo: Denies cold intolerance, excessive sweating, heat intolerance or increased thirst Jaspal/Lymph Hematologic/Lymphatic: Denies easy bleeding, Denies easy bruising, Denies enlarged lymph nodes Exam Const General: cooperative, healthy appearing, comfortable, no acute distress, well developed Orientation: alert [facility] Head: normal to inspection, normocephalic Ears: hearing grossly normal bilaterally, external ears normal Nose: external nose normal, nares normal Face and sinus: normal facial exam Neck Neck: normal visual inspection, no lymphadenopathy Thyroid: thyroid normal Chest Chest palpation & inspection: normal inspection of the chest Resp Effort & Inspection: normal respiratory effort Auscultation: clear to auscultation bilaterally Cardio Rate: regular rate Rhythm: regular rhythm Heart Sounds: S1 normal, S2 normal GI Inspection: normal to inspection, non-distended Palpation: soft, no hepatosplenomegaly General: bladder normal to palpation External Female Exam: normal external appearance, normal appearance of the urethra Urethra: normal appearance of the urethra Speculum Exam - Vagina: normal appearance of the vagina, normal vaginal discharge Speculum Exam - Cervix: normal appearance of the cervix, nontender Bimanual Exam- Vagina & Uterus: bladder normal to palpation, No cervical tenderness Bimanual Exam- Adnexa, other: normal adnexae, adnexae mobile, no adnexal masses, pelvic support normal Pelvic Support: normal Musc Other: gross motor intact no deficits, full bilateral strength Skin General: no rashes or lesions noted Neuro General: alert, awake, moves all extremities, no focal motor deficits Motor: muscle tone normal throughout Extrem General: normal to inspection, no pedal edema Psych Appearance: grossly normal Mental Status: mental status grossly normal Affect: normal affect Speech and Movement: speech and movement normal Assessment & Plan Problems 1. Incomplete uterovaginal prolapse N81.2 2. Postmenopausal bleeding N95.0 abnl ultrasound, emb in office, will need d and c hysteroscopy symphion Plan pessary fitted, fu for surgery in august/august. After discussing the patient's diagnosis and treatment plan options, patient wishes to proceed with surgical management. I have discussed with the patient the risks, benefits, and alternatives of the procedure which include but are not limited to risks of anesthesia, bleeding, infection, possible damage to bowel, bladder, or surrounding vasculature which could lead to additional surgery to evaluate any complications. Patient agrees to procedure and wishes to proceed. ACOG/uptodate references given for additional information regarding procedure. Orders Orders: Pessary Insert Today N81.2 Coding Level of Care Code Off vis,est,level 2 Diagnoses Incomplete uterovaginal prolapse N81.2 Postmenopausal bleeding N95.0 UPDATE- I have seen the patient and performed any clinically relevant updates to the history and physical exam. Leda May MD
[2019-08-31] VITALS (8 sets, daily range): BP systolic 128–138; BP diastolic 61–69; PULSE 64–69; RESP 16–18; TEMP 36.3–36.8; O2SAT 95–100
--- NOTE | 2019-08-31 06:23 | EKG12_ITS ---
Test Reason : PREOP Blood Pressure : / mmHG Vent. Rate : 066 BPM Atrial Rate : 066 BPM P-R Int : 164 ms QRS Dur : 090 ms QT Int : 406 ms P-R-T Axes : 080 032 074 degrees QTc Int : 425 ms Normal sinus rhythm Normal ECG When compared with ECG of 12-JUN-2019 04:48, No significant change was found Confirmed by PANFILO TINAJERO ([id number]), greeting card editor GIOVANA GLEZ ([id number]) on 09/02/2019 12:05:45 PM Referred By: Leda May Confirmed By:PANFILO TINAJERO
[2019-08-31 07:02] LABS: Absolute Lymphocyte Count 1.56 X10^3/uL (0.83-4.51); Absolute Neutrophil Count 2.3 X10^3/uL (2.0-7.7); Basophil# 0.04 X10^3/uL; Basophil% 0.9 % (0-1); Eosinophil# 0.31 X10^3/uL; Eosinophils% 6.7 % (0-5); Lymphocyte # 1.56 X10^3/ul (4.0); Lymphocyte % 33.6 % (19-41); Mean Corp Hgb Conc 32.4 g/dL (32-36); Mean Corpuscular Hgb 31.7 pg (27.0-32.0); Mean Corpuscular Volume 97.6 fL (81-99); Mean Platelet Vol. 9.1 fl (6.2-12.0); Monocyte# 0.41 X10^3/uL; Monocyte% 8.8 % (0-10); NRBC Flagged by Analyzer 0 % (0-5); Neutrophil # 2.31 X10^3/uL (2.7-7.7); Neutrophil % 49.8 % (47-70); Platelet Count 257 K/mm3 (150-450); RBC Distribution Width CV 13.8 % (11.6-14.6); RBC Distribution Width SD 49.4 fl (35.1-43.9); Red Blood Count 3.79 M/mm3 (4.2-5.4); White Blood Count 4.6 K/mm3 (4.4-11.0)
[2019-08-31] MEDS: Lactated Ringers 1,000 ML 100 ML IV (07:08)
--- NOTE | 2019-08-31 07:30 | EMB_PTH ---
PATIENT: DARIN ANAND LOC: [facility] [place] U#:[id number] AGE/SX: 78/F ROOM: RE08/31/[address]: Dr. Leda May MD : 1940 BED: DIS: 08/31/2019 SPEC #: [id number] RECD: 08/31/19 09:54 STATUS: TOSIN CURIEL #: [id number] IRAIDA: 08/31/19 07:[address]: Leda May DEPT: SURGICAL PATHOLOGY RECD BY: Radha Botello ENTERED: 08/31/19 10:03 SP TYPE: ENDOM BX/C WOOD DR: Dr. Monico Medina MD Tissues: Endometrium, NOS Procedures: Surgery Specimen Level IV HEADER OPERATION: Hysteroscopy, D & C PRE-OP DIAGNOSIS: Postmenopausal bleeding TISSUE SUBMITTED: Endometrial curettings MICROSCOPIC DIAGNOSIS Endometrial curettings: Strips of benign endometrial epithelium and fragments of superficial benign endometrial tissue consistent with atrophic endometrium with focal cystic changes. Fragments of benign ecto- and endocervical epithelium. LADAN:ortiz 09/01/19 COMMENT Please make reference to previous specimen ([id number]) endometrium, biopsy with diagnosis of strips of benign superficial glandular epithelium. MICROSCOPIC DESCRIPTION Slides are reviewed. GROSS DESCRIPTION Received in fixative is one container labeled with the patient's name and designated endometrial curettings. The specimen consists of scant fragment of link mucoid tissue measuring in aggregate 0.5 x 0.1 x 0.1 cm. The specimen is totally submitted in one cassette. / LADAN:ortiz 08/31/19 TC:4 CPT: 28760
[2019-08-31 07:34] LABS: AST(SGOT) 21 U/L (15-37); Alanine Aminotransfer ALT/SGPT 24 U/L (13-56); Albumin, Serum 3.4 g/dL (3.2-5.0); Alkaline Phosphatase 59 U/L (45-117); Anion Gap 4 (5-15); BUN 19 mg/dL (7-18); BUN/Creat Ratio 24.7 RATIO (10-20); Calcium,Total 8.7 mg/dL (8.5-10.1); Chloride 106 mmol/L (98-107); Creatinine, Serum 0.77 mg/dL (0.55-1.02); EST Glomerular Filtration Rate 77 mL/min (>60); Est Glom Filt Rate - Afr Amer 93 mL/min (>60); Globulin 3.5 g/dL (2.2-4.2); Glucose 81 mg/dL (74-106); Potassium 3.8 mmol/L (3.5-5.1); Protein, Total 6.9 g/dL (6.4-8.2); Sodium Level 140 mmol/L (136-145)
--- NOTE | 2019-08-31 07:59 | PCM.OPRPT ---
Problem List (1) Abnormal ultrasound Status: Acute Comment: 1 cm lesion with fluid present (2) Anorexia Status: Acute (3) Anxiety Status: Acute (4) CVA (cerebral vascular accident) Status: Acute (5) Elevated troponin Status: Acute (6) Generalized weakness Status: Acute (7) Incomplete uterovaginal prolapse Status: Acute (8) Numbness and tingling in left arm Status: Acute (9) Postmenopausal bleeding Status: Acute Comment: abnl ultrasound, emb in office, will need d and c hysteroscopy symphion (10) History of TIA (transient ischemic attack) Status: Chronic (11) History of breast cancer Status: Chronic (12) Irritable bowel Status: Chronic (13) Migraine Status: Chronic (14) Migraines Status: Chronic Report of Operation Date of Procedure: 08/31/19 Pre-Operative Diagnosis: PMB thickened endometrium Post-Operative Diagnosis: arcuate uterus atrophic lining Surgery/Procedure Performed:: d and c hysteroscopy Description of Surgical Findings:: thin atrophic lining arcuate uterine lining Type of Anesthesia:: Spinal Special Medications: none Specimen's removed: emc Drains: none Estimated Blood Loss (mL): minimal Fluids Replaced: crystalloid Description of Procedure: Patient was prepped and draped in a normal sterile fashion under MAC anesthesia. A weighted speculum was placed in the vagina and the anterior lip of the cervix was grasped with a single-tooth tenaculum. A paracervical block was placed with 1% lidocaine. Cervix was progressively dilated to allow passage of a 5 mm hysteroscope. The lining was fully visualized and noted to have an atrophic lining with an arcuate appearance. Uterine sounded to 8 cm. Curettage was performed and scant tissue removed, sent to pathology. All instruments were removed from the vagina and excellent hemostasis was noted. Patient was awoken and taken to recovery in stable condition. Grafts/Implants Used: none - Complications none - Admit VTE Documentation VTE Present on Admission: No VTE Mechan Device Prophylaxis: SCD's Multi Select Codes - Urinary/Genital Urinary/Genital CPT Codes: 84628 Non-ob D&C, 38182 Hysteroscopy, diagnostic
--- NOTE | 2019-08-31 08:05 | PCM.DC.D&C ---
Discharge Diet: No Restrictions Discharge Activity: Return to Normal Activity, May Shower, May Take a Tub Bath Allergies/Adverse Reactions: Allergies acetaminophen [From Vicodin] Allergy (Unknown, Verified 08/31/19 06:58) Unknown clarithromycin [From Biaxin] Allergy (Unknown, Verified 08/31/19 06:58) Unknown doxycycline Allergy (Unknown, Verified 08/31/19 06:58) Unknown erythromycin estolate [From Ilosone] Allergy (Unknown, Verified 08/31/19 06:58) Unknown hydrocodone bitartrate [From Vicodin] Allergy (Unknown, Verified 08/31/19 06:58) Unknown levofloxacin [From Levaquin] Allergy (Unknown, Verified 08/31/19 06:58) Unknown oxycodone [Oxycodone] Allergy (Unknown, Verified 08/31/19 06:58) Unknown oxycodone HCl [From Percocet] Allergy (Unknown, Verified 08/31/19 06:58) Unknown pantoprazole Allergy (Unknown, Verified 08/31/19 06:58) Unknown propoxyphene Allergy (Unknown, Verified 08/31/19 06:58) Unknown Penicillins [PCN] Adverse Reaction (Verified 08/31/19 06:58) PT UNSURE OF REACTION peanut butter Adverse Reaction (Uncoded 08/31/19 06:58) headache Medications to take at Discharge Duloxetine HCl 30 mg PO DAILY 06/09/19 Woodford Extract [Woodford] 150 mg PO DAILY 06/09/19 Lutein 20 mg PO DAILY 06/09/19 Multivitamin with Minerals [Daily Vitamin Formula-Minerals] 1 tab PO DAILY 06/09/19 Resveratrol 100 mg PO DAILY 06/09/19 Ubidecarenone [Co Q-10] 100 mg PO DAILY 06/09/19 Ensure Enlive 120 ml PO PRN PRN 08/24/19 Levocarnitine Tartrate [l-Carnitine] 250 mg PO DAILY 08/24/19 Orders to be completed after discharge: Type & Screen - PAT ONLY Time Frame: 08/31/19, Facility: [facility], Location: Laboratory Primary Care Physician: Monico Medina MD [Primary Care Provider] - Test Results: Test results from this visit will be discussed in further detail at your follow-up appointment, if applicable. Please Follow Up With: Leda May MD - [phone]
== END 2019-08-31 09:35 | disposition home or self-care (01) ==
LOC: SDC 06:06 → AC 06:08
PROVIDERS: Anesthesiology; PCP Family Medicine; Referring Provider Obstetrics & Gynecology; Visit Provider Obstetrics & Gynecology
PROC: 0UB98ZZ Excision of Uterus, Via Natural or Artificial Opening Endoscopic (ICD-10-PCS; CPT 58558; principal; 2019-08-31 07:15)
DX: N95.0 Postmenopausal bleeding (principal); R93.89 Abnormal findings on diagnostic imaging of other specified body structures; Q51.810 Arcuate uterus; N81.2 Incomplete uterovaginal prolapse; Z68.20 Body mass index [BMI] 20.0-20.9, adult; G43.909 Migraine, unspecified, not intractable, without status migrainosus; K58.9 Irritable bowel syndrome, unspecified; F41.9 Anxiety disorder, unspecified; R63.0 Anorexia; Z85.3 Personal history of malignant neoplasm of breast; Z86.73 Personal history of transient ischemic attack (TIA), and cerebral infarction without residual deficits; Z11.59 Encounter for screening for other viral diseases
CPT/HCPCS: 00952; 58558; 80053; 85025; 86850; 86900; 86901; 87635; 88305; 93005; G2023; J7120; J2405; U0003

== ENCOUNTER → 2019-09-27 14:54 | Outpatient (CLI) | payer MEDICARE, SELFPAY ==
--- NOTE | 2019-09-27 14:57 | RAD_ITS ---
STUDY: X-RAY - LEFT HAND REASON FOR EXAM: Female, 78 years old. Left hand/wrist pain and swelling after reaching around to her back to put lotion on last night TECHNIQUE: 3 view(s) of the hand. COMPARISON: None. FINDINGS: No acute fracture, dislocation or osseous destruction. Significant arthrosis is noted at the first carpal metacarpal joint. No significant soft tissue swelling. IMPRESSION: No acute fracture or dislocation. Electronically Signed: Lobo Villegas, at 20:06 EDT Tel , Service support , RAD/Hand Min 3 Views
== END ==
PROVIDERS: PCP Family Medicine; Referring Provider Family Medicine; Visit Provider Family Medicine
DX: M79.89 Other specified soft tissue disorders (principal)
CPT/HCPCS: 73130

== ENCOUNTER 2020-03-28 10:30 | Outpatient (RCR) | payer MEDICARE, SELFPAY ==
[2020-02-15 11:27] VITALS: BMI 19.3
--- NOTE | 2020-02-23 16:40 | HP.PTEVAL_ITS ---
Patient's Visit Information DARIN ANAND is a 79 year old F referred to Physical Therapy by Dr. Monico Medina MD with a diagnosis of BPPV. Date of Evaluation: 02/23/20 Physical Therapist: Eliazar Salamanca, ANIBLAT, OCS, CSCS - Visit Plan Frequency: 1x/Week Duration: 2-4 Weeks Plan: weekly x 2-4 as needed for positional treatments and exercises as needed. Next session check positional hallpike and treat accordingly if still postiive - Subjective with her, she has dementia. Inner ear problems. Dementia keeps her form answering. She feels spinning and off balance at times. Makes her sick at times. Happening for over a month. Gets it daily. Sometimes multiple times with movements. Feels migraine if lies in bed. It just happens and goes away kind of quickly. H/O migraines also. Takes meds excedrin for migraines. No falls, feels unsteady at times. Been walking up steps with no problems. No AD needed. Spends day with [employer] shopping and at home. Basic ADLs are getting done alone but takes longer. Sleep is OK. Not employed. - Objective Walks I back to PT, steps reciprocal without rail up and one rail down. Trasnfers I. Cervical aROM WFL and without pain. - L hallpike italo. - roll te st. + R hallpike for quick up torsional nystagmus and slight dizzyness. Treated wtih R ashely adn post Ashely precautions and instructions. - Balance Scores Functional Gait Assessment Score: 24 % Disability: 20.0000 - Goals Goal 1:: abolish dizzy feeling Goal Time Frame: 4-6 Weeks Goal 2:: pt and say that she is back to normal Goal Time Frame: 2-4 Weeks - Rehabilitation Potential Physical Therapy Diagnosis: Likely BPPV R post canal Rehabilitation Potential: Good - Anticipated Interventions Patient/Client Instruction: Educate patient on: Condition, Plan of Care For the Purpose of:: To increase tolerance to activity/condition/position Therapeutic Exercise to Include: Balance training Comment: positional treatments adn ex as needed For the Purpose of:: To increase tolerance to activity/condition/position, To improve balance, To improve safety with gait Thank you for the opportunity to evaluate your patient. For Medicare and Medicare HMO plans, please review the plan of care and approve it. It will need to be FAXED BACK to us at [phone] for Medicare purposes. For Medicare only, by signing this I certify the plan of care. Please let me know if there are questions or concerns regarding this plan of care. Physician Signature: Date:
--- NOTE | 2020-03-28 11:08 | HP.PTDCSUM ---
It has been my pleasure to treat DARIN ANAND referred by Dr. Monico Medina MD, with the diagnosis of BPPV for a total of 4 visit(s). Discharge Date: 03/28/20 Please see the following information for a summary of their discharge status. Subjective: She says she has been OK. He says she has been dizzy complaining a couple times per week. Passes quickly. Sometimes gets a migraine. % Improvement: 80 Objective/Function: Balance is +2 from initial. VOR is fairly easy without dizzy. MSQ movements are not causing a problem. Only dizzyness is up from supine qucikly, possibly orthostatic. - B hallpike italo. - roll test. Overall much better, still intermittent bouts quickly at home. Pt is noncompliant with HEP. Goal 1:: abolish dizzy feeling Goal Progress: Progressing Goal 2:: pt and say that she is back to normal Goal Progress: Progressing Plan: d/c Discharge Comments: Pt to call doctor if dizzyness persists or worsens. If there are questions or concerns regarding this patient's physical therapy, please feel free to call me at [phone]. Thank you for the referral of this patient. Sincerely, Eliazar Salamanca, DPT, OCS, CSCS
== END 2020-03-28 19:00 | disposition home or self-care (01) ==
LOC: PT 10:30
PROVIDERS: PCP Family Medicine; Referring Provider Family Medicine; Visit Provider Family Medicine
DX: H81.10 Benign paroxysmal vertigo, unspecified ear (principal)
CPT/HCPCS: 97161; 97164; 97530

== ENCOUNTER → 2020-04-12 13:30 | Outpatient (CLI) | payer MEDICARE, SELFPAY ==
[2020-02-15 11:27] VITALS: BMI 19.3
--- NOTE | 2020-04-12 19:28 | ST.MBS ---
Modified Barium Swallow - Patient Information Study Date: 04/12/20 Study Time: 13:30 Direct Billable Minutes: 90 Total Minutes procedure & reportin Diagnosis: Dysphagia (R13.10) Referring Physician: Monico Medina Reason for Referral: The patient is a 79 year old female referred for a modified barium swallow (MBS) study to objectively assess the patients oropharyngeal swallow function under fluoroscopy secondary to reported concerns for PO intake tolerance, with the patient experiencing sensations that appear to be in line with globus sensation vs. pharyngoesophageal dysmotility, along with fluctuating intake quantities and concerns for malnutrition/desnutrition. Medical History: Dementia with aphasia, breast cancer status post total left mastectomy, transient ischemic attack, migraines, anxiety, status post appendectomy - Penetration-Aspiration Scale Penetration-Aspiration Scale: OBJECTIVE ASSESSMENT OF SWALLOW FUNCTION (QUANTITATIVE ? PER TRIAL): PENETRATION / ASPIRATION SCALE (BARNES): 1 = does not enter airway 2 = enters airway/above vocal folds/ejected 3 = enters airway/above vocal folds/not ejected 4 = enters airway/contacts vocal folds/ejected 5 = enters airway/contacts vocal folds/not ejected 6 = enters airway/below vocal folds/ejected 7 = enters airway/below vocal folds/not ejected despite effort 8 = enters airway/below vocal folds/no effort PENETRATION / ASPIRATION SCALE (SCORE): Thin liquid - 5 mL tsp.: 1 Thin liquids via cup: 2 Thin liquids via straw: 2 Thin liquids via straw: 2 Thin liquids via straw: 2 Thin liquids via straw: 2 Pudding via spoon: 1 Thin liquids via straw: 2 Solid textures: 1 - Oral Phase Labial Seal: No Labial Escape Tongue Control During Bolus Hold: Cohesive bolus between tongue to palatal seal Bolus Preparation/Mastication: Slow prolonged chewing/mashing with complete recollection Bolus Transport/Lingual Motion: Delayed initiation of tongue motion Oral Residue: Trace residue lining oral structures - Pharyngeal Phase Initiation of Pharyngeal Swallow: Bolus head in valleculae Soft Palate Elevation: No bolus between soft palate and pharyngeal wall Laryngeal Elevation: Comp. Superior move thyroid cart w/comp. apprx arytenoid cart-epig pet Anterior Hyoid Excursion: Partial anterior movement Epiglottic Movement: Complete inversion Laryngeal Vestibule Closure at Height of Swallow: Incomplete; narrow column of air/contrast in laryngeal vestibule Pharyngeal Stripping Wave: Present - complete Pharyngoesophageal Segment Opening: Complete distension and complete duration; no obstruction of flow Tongue Base Retraction: Trace column of contrast between tongue base & post. pharyngeal wall Pharyngeal Residue: Collection of residue within or on pharyngeal structures - Esophageal Phase Esophageal Clearance: Esophageal retention - Diagnosis/Impression Diagnosis: Dysphagia (R13.11) Impression: The patient presents with mild to moderate oral dysphagia (DSRS: 3) with consistent shallow transient penetration of thin liquids secondary to the diagnosis of dementia Her swallow profile was marked by discoordinated lingual movements (mild undulations) with a mild and inconsistent swallow onset delay (1-2 seconds in length). She demonstrates slightly prolonged albeit effective mastication. She demonstrates appropriate hyolaryngeal excursion and laryngeal vestibule closure / pressure with sufficient / consistent laryngeal vestibule pressure generated to expel penetrated material. Her esophageal phase did demonstrate what appeared to be delayed clearance, though it is difficult to fully elucidate with this assessment; she is scheduled to undergo a barium esophagram later this week which should provide a better picture of her esophageal phase functioning. She was able to sufficiently follow basic commands to participate in the assessment, though did struggle with more complicated instructions which limited intervention strategies that were available. Given her fluctuating intake quantities and progressive etiology that is sensitive to the effects of malnutrition, opting for a less restrictive diet in the absence of gross deficits in oropharyngeal functioning is preferred, as malnutrition can accelerate cognitive deterioration. I would consider a referral to a registered nurse practitioner if management of her desnutrition continues to prove difficult to manage. - Recommendations Comment: DIET TEXTURE RECOMMENDATIONS: soft bite sized textures (IDDSI: 6), thin liquid diet (IDDSI: 0) RECOMMENDED COMPENSATORY STRATEGIES: supervision with assistance as needed, reduced bolus volume (1.5 x 1.5 cm), liquid chaser at reasonable intervals, seated upright at 90 degrees during PO intake, remain upright for 30-60 minutes post meal (GERD precaution), medications one at a time with purees, with considerations for a pureed antecedent Recommended Referrals: GI Consult Education Completed: 1. Described result of evaluation., 4. Family/caregivers understand evaluation & agree w/ goals & tx plan., 6. Family/caregivers demonstrate recommended strategies. - Status Active ST Patient: Active - Contact Information [facility] Speech Therapy:: John Koehler M.A., CCC-BACKROOM ASSOCIATE, CBIS MBSImP Certified, LSVT Certified [facility] Speech-Language Pathology Department Email: [email or web address]
== END ==
PROVIDERS: PCP Family Medicine; Referring Provider Family Medicine; Visit Provider Family Medicine
DX: R13.10 Dysphagia, unspecified (principal)
CPT/HCPCS: 74230; 92611

== ENCOUNTER → 2020-04-14 09:18 | Outpatient (CLI) | payer MEDICARE, SELFPAY ==
[2020-02-15 11:27] VITALS: BMI 19.3
--- NOTE | 2020-04-14 09:35 | RAD_ITS ---
STUDY: X-RAY - ESOPHAGUS (BARIUM SWALLOW) WITH FLUOROSCOPY REASON FOR EXAM: Female, 79 years old. Dysphagia for months. Feels like food and drinks getting stuck per patient. Hx of an appendectomy. TECHNIQUE: 13 view(s) of the esophagus were obtained following swallowing of barium. FLUOROSCOPY TIME (if supplied): (0:34) minutes/seconds COMPARISON: None. FINDINGS: There is no demonstrated esophageal foreign body. There is no demonstrated stricture or mucosal abnormality. Normal gastroesophageal junction, without a demonstrated hiatal hernia. The patient ingested a 12 mm tablet of barium without any difficulty. There is atherosclerotic calcification of the aortic arch with tortuosity of the descending aorta. Normal visualized pulmonary parenchyma. There are diffuse degenerative changes of the visualized thoracic spine. RAD/Esophagus Dual Contrast IMPRESSION: Normal plain film x-ray examination (barium swallow) of the esophagus. Electronically Signed: Mendoza Gardiner MD at 13:12 EST , Service support ,
== END ==
PROVIDERS: PCP Family Medicine; Referring Provider Family Medicine; Visit Provider Family Medicine
DX: R13.10 Dysphagia, unspecified (principal)
CPT/HCPCS: 74221

== ENCOUNTER 2020-04-24 13:58 | Outpatient (RCR) | payer MEDICARE, SELFPAY ==
[2020-02-15 11:27] VITALS: BMI 19.3
--- NOTE | 2020-04-26 12:49 | ST ---
Modified Barium Swallow Study MR#: [id number] Acct: [id number] Name: DARIN ANAND Rep #: [id number] : [id number] 79 From: John Koehler M.A. [facility]-WALL ATTENDANT Modified Barium Swallow - Patient Information Study Date: 04/12/20 Study Time: 13:30 Direct Billable Minutes: 90 Total Minutes procedure & reportin Diagnosis: Dysphagia (R13.10) Referring Physician: Monico Medina Reason for Referral: The patient is a 79 year old female referred for a modified barium swallow (MBS) study to objectively assess the patients oropharyngeal swallow function under fluoroscopy secondary to reported concerns for PO intake tolerance, with the patient experiencing sensations that appear to be in line with globus sensation vs. pharyngoesophageal dysmotility, along with fluctuating intake quantities and concerns for malnutrition/desnutrition. Medical History: Dementia with aphasia, breast cancer status post total left mastectomy, transient ischemic attack, migraines, anxiety, status post appendectomy - Penetration-Aspiration Scale Penetration-Aspiration Scale: OBJECTIVE ASSESSMENT OF SWALLOW FUNCTION (QUANTITATIVE ? PER TRIAL): PENETRATION / ASPIRATION SCALE (BARNES): 1 = does not enter airway 2 = enters airway/above vocal folds/ejected 3 = enters airway/above vocal folds/not ejected 4 = enters airway/contacts vocal folds/ejected 5 = enters airway/contacts vocal folds/not ejected 6 = enters airway/below vocal folds/ejected 7 = enters airway/below vocal folds/not ejected despite effort 8 = enters airway/below vocal folds/no effort PENETRATION / ASPIRATION SCALE (SCORE): Thin liquid - 5 mL tsp.: 1 Thin liquids via cup: 2 Thin liquids via straw: 2 Thin liquids via straw: 2 Thin liquids via straw: 2 Thin liquids via straw: 2 Pudding via spoon: 1 Thin liquids via straw: 2 Solid textures: 1 - Oral Phase Labial Seal: No Labial Escape Tongue Control During Bolus Hold: Cohesive bolus between tongue to palatal seal Bolus Preparation/Mastication: Slow prolonged chewing/mashing with complete recollection Bolus Transport/Lingual Motion: Delayed initiation of tongue motion Oral Residue: Trace residue lining oral structures - Pharyngeal Phase Initiation of Pharyngeal Swallow: Bolus head in valleculae Soft Palate Elevation: No bolus between soft palate and pharyngeal wall Laryngeal Elevation: Comp. Superior move thyroid cart w/comp. apprx arytenoid cart-epig pet Anterior Hyoid Excursion: Partial anterior movement Epiglottic Movement: Complete inversion Laryngeal Vestibule Closure at Height of Swallow: Incomplete; narrow column of air/contrast in laryngeal vestibule Pharyngeal Stripping Wave: Present - complete Pharyngoesophageal Segment Opening: Complete distension and complete duration; no obstruction of flow Tongue Base Retraction: Trace column of contrast between tongue base & post. pharyngeal wall Pharyngeal Residue: Collection of residue within or on pharyngeal structures - Esophageal Phase Esophageal Clearance: Esophageal retention - Diagnosis/Impression Diagnosis: Dysphagia (R13.11) Impression: The patient presents with mild to moderate oral dysphagia (DSRS: 3) with consistent shallow transient penetration of thin liquids secondary to the diagnosis of dementia Her swallow profile was marked by discoordinated lingual movements (mild undulations) with a mild and inconsistent swallow onset delay (1-2 seconds in length). She demonstrates slightly prolonged albeit effective mastication. She demonstrates appropriate hyolaryngeal excursion and laryngeal vestibule closure / pressure with sufficient / consistent laryngeal vestibule pressure generated to expel penetrated material. Her esophageal phase did demonstrate what appeared to be delayed clearance, though it is difficult to fully elucidate with this assessment; she is scheduled to undergo a barium esophagram later this week which should provide a better picture of her esophageal phase functioning. She was able to sufficiently follow basic commands to participate in the assessment, though did struggle with more complicated instructions which limited intervention strategies that were available. Given her fluctuating intake quantities and progressive etiology that is sensitive to the effects of malnutrition, opting for a less restrictive diet in the absence of gross deficits in oropharyngeal functioning is preferred, as malnutrition can accelerate cognitive deterioration. I would consider a referral to a registered health nurse if management of her desnutrition continues to prove difficult to manage. - Recommendations Comment: DIET TEXTURE RECOMMENDATIONS: soft bite sized textures (IDDSI: 6), thin liquid diet (IDDSI: 0) RECOMMENDED COMPENSATORY STRATEGIES: supervision with assistance as needed, reduced bolus volume (1.5 x 1.5 cm), liquid chaser at reasonable intervals, seated upright at 90 degrees during PO intake, remain upright for 30-60 minutes post meal (GERD precaution), medications one at a time with purees, with considerations for a pureed antecedent Recommended Referrals: GI Consult Education Completed: 1. Described result of evaluation., 4. Family/caregivers understand evaluation & agree w/ goals & tx plan., 6. Family/caregivers demonstrate recommended strategies. - Status Active ST Patient: Active - Contact Information [facility] Speech Therapy:: John Koehler M.A., MAGO-WALL ATTENDANT, CBIS MBSImP Certified, LSVT Certified [facility] Speech-Language Pathology Department Email: [email or web address] 04/12/201932 <Electronically signed by John Koehler M.A. CCC-WALL ATTENDANT> Date John Koehler M.A. CCC-WALL ATTENDANT
--- NOTE | 2020-04-26 14:42 | HP.SP.AD ---
History - History Date of Eval: 04/24/20 Medical Diagnosis (from RX): Dysphagia Previous speech therapy: No Smoking Status: Never smoker Hx Smoking: No Hx Tobacco Use: No - Pain Is pain an issue with your current prescribed condition?: No - Personal Right Hearing Abillity: Normal Left Hearing Abillity: Normal Visual Assistive Devices: Glasses Patients Living Arrangements: With Significant Other Patient Allergies - Allergies Allergies acetaminophen [From Vicodin] Allergy (Unknown, Verified 04/26/20 10:11) Unknown clarithromycin [From Biaxin] Allergy (Unknown, Verified 04/26/20 10:11) Unknown doxycycline Allergy (Unknown, Verified 04/26/20 10:11) Unknown erythromycin estolate [From Ilosone] Allergy (Unknown, Verified 04/26/20 10:11) Unknown hydrocodone bitartrate [From Vicodin] Allergy (Unknown, Verified 04/26/20 10:11) Unknown levofloxacin [From Levaquin] Allergy (Unknown, Verified 04/26/20 10:11) Unknown oxycodone [Oxycodone] Allergy (Unknown, Verified 04/26/20 10:11) Unknown oxycodone HCl [From Percocet] Allergy (Unknown, Verified 04/26/20 10:11) Unknown pantoprazole Allergy (Unknown, Verified 04/26/20 10:11) Unknown propoxyphene Allergy (Unknown, Verified 04/26/20 10:11) Unknown Penicillins [PCN] Adverse Reaction (Verified 04/26/20 10:11) PT UNSURE OF REACTION peanut butter Adverse Reaction (Uncoded 04/26/20 10:11) headache Subjective Oral Motor - Comments Comments: Patient had a difficult time in following one step directions for all oral motor tasks. She was able to stick her tongue out somewhat later in the session when asked to show therapist what was in her mouth. Objective Dysphagia - Results Swallowing Diagnosis: Oral Phase Dysphagia Severity: Mild Modified Barium Results Hx MBS Report Entered: Yes MBS Results (from prior exam): 04/26/20 12:49 Speech Therapy by Nikita Kelsey Modified Barium Swallow Study MR#: [id number] Acct: [id number] Name: DARIN ANAND Rep #: [id number] : [id number] 79 From: John Koehler M.A. [facility] [facility] Modified Barium Swallow - Patient Information Study Date: 04/12/20 Study Time: 13:30 Direct Billable Minutes: 90 Total Minutes procedure & reportin Diagnosis: Dysphagia (R13.10) Referring Physician: Monico Medina Reason for Referral: The patient is a 79 year old female referred for a modified barium swallow (MBS) study to objectively assess the patients oropharyngeal swallow function under fluoroscopy secondary to reported concerns for PO intake tolerance, with the patient experiencing sensations that appear to be in line with globus sensation vs. pharyngoesophageal dysmotility, along with fluctuating intake quantities and concerns for malnutrition/desnutrition. Medical History: Dementia with aphasia, breast cancer status post total left mastectomy, transient ischemic attack, migraines, anxiety, status post appendectomy - Penetration-Aspiration Scale Penetration-Aspiration Scale: OBJECTIVE ASSESSMENT OF SWALLOW FUNCTION (QUANTITATIVE ? PER TRIAL): PENETRATION / ASPIRATION SCALE (BARNES): 1 = does not enter airway 2 = enters airway/above vocal folds/ejected 3 = enters airway/above vocal folds/not ejected 4 = enters airway/contacts vocal folds/ejected 5 = enters airway/contacts vocal folds/not ejected 6 = enters airway/below vocal folds/ejected 7 = enters airway/below vocal folds/not ejected despite effort 8 = enters airway/below vocal folds/no effort PENETRATION / ASPIRATION SCALE (SCORE): Thin liquid - 5 mL tsp.: 1 Thin liquids via cup: 2 Thin liquids via straw: 2 Thin liquids via straw: 2 Thin liquids via straw: 2 Thin liquids via straw: 2 Pudding via spoon: 1 Thin liquids via straw: 2 Solid textures: 1 - Oral Phase Labial Seal: No Labial Escape Tongue Control During Bolus Hold: Cohesive bolus between tongue to palatal seal Bolus Preparation/Mastication: Slow prolonged chewing/mashing with complete recollection Bolus Transport/Lingual Motion: Delayed initiation of tongue motion Oral Residue: Trace residue lining oral structures - Pharyngeal Phase Initiation of Pharyngeal Swallow: Bolus head in valleculae Soft Palate Elevation: No bolus between soft palate and pharyngeal wall Laryngeal Elevation: Comp. Superior move thyroid cart w/comp. apprx arytenoid cart-epig pet Anterior Hyoid Excursion: Partial anterior movement Epiglottic Movement: Complete inversion Laryngeal Vestibule Closure at Height of Swallow: Incomplete; narrow column of air/contrast in laryngeal vestibule Pharyngeal Stripping Wave: Present - complete Pharyngoesophageal Segment Opening: Complete distension and complete duration; no obstruction of flow Tongue Base Retraction: Trace column of contrast between tongue base & post. pharyngeal wall Pharyngeal Residue: Collection of residue within or on pharyngeal structures - Esophageal Phase Esophageal Clearance: Esophageal retention - Diagnosis/Impression Diagnosis: Dysphagia (R13.11) Impression: The patient presents with mild to moderate oral dysphagia (DSRS: 3) with consistent shallow transient penetration of thin liquids secondary to the diagnosis of dementia Her swallow profile was marked by discoordinated lingual movements (mild undulations) with a mild and inconsistent swallow onset delay (1-2 seconds in length). She demonstrates slightly prolonged albeit effective mastication. She demonstrates appropriate hyolaryngeal excursion and laryngeal vestibule closure / pressure with sufficient / consistent laryngeal vestibule pressure generated to expel penetrated material. Her esophageal phase did demonstrate what appeared to be delayed clearance, though it is difficult to fully elucidate with this assessment; she is scheduled to undergo a barium esophagram later this week which should provide a better picture of her esophageal phase functioning. She was able to sufficiently follow basic commands to participate in the assessment, though did struggle with more complicated instructions which limited intervention strategies that were available. Given her fluctuating intake quantities and progressive etiology that is sensitive to the effects of malnutrition, opting for a less restrictive diet in the absence of gross deficits in oropharyngeal functioning is preferred, as malnutrition can accelerate cognitive deterioration. I would consider a referral to a registered radiologic technologist if management of her desnutrition continues to prove difficult to manage. - Recommendations Comment: DIET TEXTURE RECOMMENDATIONS: soft bite sized textures (IDDSI: 6), thin liquid diet (IDDSI: 0) RECOMMENDED COMPENSATORY STRATEGIES: supervision with assistance as needed, reduced bolus volume (1.5 x 1.5 cm), liquid chaser at reasonable intervals, seated upright at 90 degrees during PO intake, remain upright for 30-60 minutes post meal (GERD precaution), medications one at a time with purees, with considerations for a pureed antecedent Recommended Referrals: GI Consult Education Completed: 1. Described result of evaluation., 4. Family/caregivers understand evaluation & agree w/ goals & tx plan., 6. Family/caregivers demonstrate recommended strategies. - Status Active ST Patient: Active - Contact Information [facility] [place] Speech Therapy:: John Koehler M.A., CCC-[employer], CBIS MBSImP Certified, LSVT Certified [facility] [place] Speech-Language Pathology Department Email: [email or web address] 04/12/201932 <Electronically signed by John Koehler M.A., CCC-[employer]> Date John Koehler M.A., CCC-[employer] Initialized on 04/26/20 12:49 - END OF NOTE Dysphagia Assessment - Swallowing Impairment Contributing Factors to Swallowing Impairment: Reduced Alertness or Attention, Difficulty Following Directions - Impact Impact on Safety & Functioning: Risk for Inadequate Nutrition/Hydration Comments: The patient refused all oral intake today. - Recommendations Swallowing Treatment: No - Diet Texture Recommendations Solids Other: Soft Liquids: Thin - Safety Other: RECOMMENDED COMPENSATORY STRATEGIES: supervision with assistance as needed, reduced bolus volume (1.5 x 1.5 cm), liquid chaser at reasonable intervals, seated upright at 90 degrees during PO intake, remain upright for 30-60 minutes post meal (GERD precaution), medications one at a time with purees, with considerations for a pureed antecedent Other Impressions - Comments Comments -: The patient often stated ( 6-8 times in less than one hour) that she was going to tonight becuase there was something in her throat. Her had her breathe through her nose and she was able to take a breathe in. She was able to sustain phonation for 3 seconds. She has very limited intake her and getting her to take anything orally is getting worse. Plan - Plan Plan: No speech therapy at this time. This therapist contacted the nurse for her PCP and gave a report on the patient's comments. - Recommendations MBS: No Treatment Warranted: No Education - Patient has Indicated that the Following Identified Educational Needs: Cognitively Impaired - Patient Instruction Patient Education: Diagnosis, Safety Precautions, Diet Level Person Taught: Family Teaching Method: Discussion Response to teaching: Verbalize understanding
== END 2020-04-24 19:00 | disposition home or self-care (01) ==
LOC: SP 13:58
PROVIDERS: PCP Family Medicine; Referring Provider Family Medicine; Visit Provider Family Medicine
DX: R13.12 Dysphagia, oropharyngeal phase (principal); F03.90 Unspecified dementia, unspecified severity, without behavioral disturbance, psychotic disturbance, mood disturbance, and anxiety
CPT/HCPCS: 92610

== ENCOUNTER 2020-04-29 12:31 | Emergency (ER) | payer MEDICARE, SELFPAY ==
[2020-04-25 15:37] VITALS: BMI 19.1
[2020-04-29 12:34] VITALS: BP 159/94; PULSE 79; RESP 20; TEMP 36.4; O2SAT 100; BMI 18.6
--- NOTE | 2020-04-29 12:53 | EKG12_ITS ---
Test Reason : DEMENTIA Blood Pressure : / mmHG Vent. Rate : 073 BPM Atrial Rate : 073 BPM P-R Int : 146 ms QRS Dur : 088 ms QT Int : 414 ms P-R-T Axes : 085 012 076 degrees QTc Int : 456 ms Normal sinus rhythm Normal ECG Confirmed by PATEL VIVAR, MOHIT ([id number]), brands editor GIOVANA GLEZ ([id number]) on 05/01/2020 10:05:14 AM Referred By: VASHTI Confirmed By:MOHIT SWEENEY MD
[2020-04-29] MEDS: 0.9% Normal Saline 1,000 ML 1000 ML IV (13:07)
--- NOTE | 2020-04-29 13:18 | RAD_ITS ---
STUDY: X-RAY CHEST REASON FOR EXAM: Female, 79 years old. SOB TECHNIQUE: Single AP portable view of the chest. COMPARISON: January 06, 2019 chest x-ray FINDINGS: The lungs are clear and expanded. There is no demonstrated pleural abnormality. Normal size heart. Normal mediastinum and shelley. Normal visualized pulmonary arteries. Normal visualized aortic arch and descending thoracic aorta. Normal visualized thoracic spine. Normal visualized ribs, clavicles, and shoulders. There is no demonstrated abnormality of the visualized soft tissue structures of the upper abdomen. RAD/Chest 1 View (Portable) IMPRESSION: Normal x-ray examination of the chest. Electronically Signed: Rosa Navarro MD at 14:19 EST Tel , Service support ,
[2020-04-29 13:20] LABS: Absolute Lymphocyte Count 1.38 X10^3/uL (0.83-4.51); Absolute Neutrophil Count 3.5 X10^3/uL (2.0-7.7); Basophil# 0.03 X10^3/uL; Basophil% 0.5 % (0-1); Eosinophil# 0.02 X10^3/uL; Eosinophils% 0.4 % (0-5); Hematocrit 39.9 % (37-47); Lymphocyte # 1.38 X10^3/ul (4.0); Lymphocyte % 25.1 % (19-41); Mean Corp Hgb Conc 32.6 g/dL (32-36); Mean Corpuscular Hgb 31.3 pg (27.0-32.0); Mean Corpuscular Volume 95.9 fL (81-99); Mean Platelet Vol. 9.8 fl (6.2-12.0); Monocyte# 0.57 X10^3/uL; Monocyte% 10.4 % (0-10); NRBC Flagged by Analyzer 0 % (0-5); Neutrophil # 3.48 X10^3/uL (2.7-7.7); Neutrophil % 63.4 % (47-70); Platelet Count 268 K/mm3 (150-450); RBC Distribution Width CV 13.2 % (11.6-14.6); RBC Distribution Width SD 46.9 fl (35.1-43.9); Red Blood Count 4.16 M/mm3 (4.2-5.4); White Blood Count 5.5 K/mm3 (4.4-11.0)
[2020-04-29 13:40] LABS: ALB/GLOB Ratio 0.9 RATIO (0.9-2.4); AST(SGOT) 20 U/L (15-37); Alanine Aminotransfer ALT/SGPT 25 U/L (13-56); Albumin, Serum 3.5 g/dL (3.2-5.0); Alkaline Phosphatase 66 U/L (45-117); Anion Gap 6 (5-15); BUN 18 mg/dL (7-18); Calcium,Total 9.5 mg/dL (8.5-10.1); Chloride 101 mmol/L (98-107); Creatinine, Serum 0.78 mg/dL (0.55-1.02); EST Glomerular Filtration Rate 75 mL/min (>60); Est Glom Filt Rate - Afr Amer 91 mL/min (>60); Estimated Creatinine Clearance 33.17 ml/min; Globulin 3.7 g/dL (2.2-4.2); Glucose 97 mg/dL (74-106); Lipase 83 U/L (73-393); Potassium 3.9 mmol/L (3.5-5.1); Protein, Total 7.2 g/dL (6.4-8.2); Sodium Level 139 mmol/L (136-145)
--- NOTE | 2020-04-29 13:42 | CT_ITS ---
STUDY: CT ABDOMEN AND PELVIS WITH CONTRAST REASON FOR EXAM: Female, 79 years old. Pain RADIATION DOSAGE (If Supplied By Facility): CTDIvol = ( 8.46 ) mGy, DLP = ( 483.17 ) mGycm TECHNIQUE: Transaxial images were obtained from the dome of the diaphragm to the symphysis pubis without oral contrast. IV 60mL Isovue-370 was administered. Sagittal and coronal images were reconstructed. Individualized dose optimization techniques were used for this CT. COMPARISON: June 09, 2019 CT scan abdomen and pelvis FINDINGS: The visualized lung bases are unremarkable. The visualized portions of the heart are within normal limits. There are multiple cysts in the liver stable since prior study the largest of which measures 7.8 x 5.4 cm. Normal gallbladder and extrahepatic biliary system. Normal spleen. Normal pancreas. Normal bilateral adrenal glands. Normal right kidney. There is mild left pelviectasis similar to prior study. The stone that was seen in the prior study is no longer visualized. Normal visualized stomach. There is mild distention of the small bowel. There is mild to moderate stool in the colon. There is non-visualization of the appendix. Aorta is partially calcified. Normal inferior vena cava. Normal retroperitoneum. Bladder is markedly distended. The bladder measures 12 x 8 x 11 cm per there is a coarse calcification in the uterus suggesting a fibroid. Uterus is mildly atrophied. Normal abdominal wall. The bones are inhomogeneous. There is multilevel disc space narrowing and endplate sclerosis spondylosis. There is mild neural foramina narrowing. CT/Abdomen/Pelvis WITH Contrast IMPRESSION: Mild distention of the large and small bowel consider ileus. Stable liver cysts. Overdistended bladder recommend voiding after catheterization. Small calcified fibroid in the uterus. Inhomogeneous appearance of the bony structures which may represent osteopenia however metastatic or bony metabolic processes can have this appearance. Recommend consideration for follow-up MRI. Stable left pelviectasis left kidney. The stone that was seen in the left kidney on prior study is no longer visualized. There is no definitive hydronephrosis. Electronically Signed: Rosa Navarro MD at 15:19 EST Tel , Service support ,
[2020-04-29 14:32] VITALS: BP 160/74; PULSE 74; RESP 17; O2SAT 98
[2020-04-29 14:34] LABS: Bacteria 0 SEEN /hpf (None Seen); Mucous, Urine 0 SEEN /hpf (<or=2+)
[2020-04-29 14:38] LABS: Color, Urine Straw (Yellow); Glucose, Dipstick Normal (Normal); Ketone-Dipstick 15 mg/dl (Negative); Leukocyte Esterase-Dipstick Negative /ul (Negative); Nitrite-Dipstick Negative (Negative); Occult Blood-Urine Negative /ul (Negative); Protein-Dipstick Negative (Negative); Urine Bilirubin Dipstick Negative (Negative); Urine Clarity Clear (Clear); Urine Urobilinogen Normal (Normal)
[2020-04-29 14:44] LABS: Red Blood Cells-Urine 0-5 SEEN /hpf (0-5); Squamous Epithelial Cells - UA 0-5 SEEN /hpf (5-10); White Blood Cells 0-5 SEEN /hpf (0-5)
--- NOTE | 2020-04-29 15:05 | ED.DCSUM_ITS ---
- ER Visit Summary Date of Service: 04/29/20 Chief Complaint: Decreased p.o. intake and difficulty swallowing History of Present Illness: The patient is a [address] Medina. Patient has a history of dementia and clearly looks depressed. She will not answer any questions. Her reports that she has not been eating well for the past 3 to 4 days. States that it seems as though she feels like she is choking when she eats for months. She complains when she does swallow ensure that it feels like it stuck in her throat. Patient has not had any vomiting. No fever. No difficulty breathing. Physical Examination: Vitals: Stable. Afebrile. General: Well-nourished and well-developed. Head: Normocephalic atraumatic. Neck: Supple, no lymphadenopathy. No JVD. Nontender. Cardiovascular: Regular rate and rhythm. No murmurs. Respiratory: No respiratory distress. Clear to auscultation bilaterally. Abdominal: Soft, mild diffuse tenderness to palpation, nondistended, normal bowel sounds. No guarding, rebound, or peritoneal signs. Back: Nontender. Extremities: Nontender, no edema. Skin: Normal color, no rash. Neurologic: Alert, not answering any questions. Psych: Depressed affect. Test Results: EKG is sinus at [address] changes. Troponin is negative. UA is negative. LFTs are normal. Lipase normal. Chem-7 is normal. BUN/creatinine ratio is 23.0. CBC shows monocytes of 10. Clinical Impression(s) from Imaging Studies Chest X-Ray 04/29/20 13:18 IMPRESSION: Normal x-ray examination of the chest. Electronically Signed: Rosa Navarro MD at 14:19 EST Tel , Service support , Abdomen/Pelvis CT 04/29/20 13:42 IMPRESSION: Mild distention of the large and small bowel consider ileus. Stable liver cysts. Overdistended bladder recommend voiding after catheterization. Small calcified fibroid in the uterus. Inhomogeneous appearance of the bony structures which may represent osteopenia however metastatic or bony metabolic processes can have this appearance. Recommend consideration for follow-up MRI. Stable left pelviectasis left kidney. The stone that was seen in the left kidney on prior study is no longer visualized. There is no definitive hydronephrosis. Electronically Signed: Rosa Navarro MD at 15:19 EST Tel , Service support Emergency Department Course and Treatment: This am unable to get a reliable history from the patient a comprehensive evaluation was undertaken. I also rev iewed the patient's chart. She was seen by Dr. Angel Tadeo for this on April 25 who has suggested endoscopy and possibly a PEG tube. She also had a barium swallow on April 14 that was normal. She had a modified barium swallow by speech therapy at that time as well and they suggested thin liquids. [place] that her dysphagia was likely due to her dementia. Treatment Plan: I had a prolonged discussion the that at this time I do not have a medication I think will be helpful with this. He reports that he is discussed the possibility of a PEG tube with her primary care physician in he suggested against this and asked the to get in contact with palliative care. He has called hospice this morning and already spoken with them. The patient was discussed with the nurse construction engineering manager for hospice. She has of the call her when I get home and she will send someone out to the house this evening. Patient will be discharged with instructed to continue to encourage p.o. intake. Follow-up with Dr. Medina in 2 days for another exam. Follow-up with hospice soon as possible. Return to the emergency department for any worsening symptoms. Disposition: To home in improved and stable condition. Impression: 1. Poor p.o. intake. 2. Dementia. This note was generated with [employer] dictation software. It may contain incorrect words, spelling, and punctuation that were not noted in review of the chart prior to signing ED Disposition - Plan for ED Patient: Instructions: ED Dysphagia (Adult) Prescriptions: Lorazepam [Ativan] 0.5 mg PO TID #20 tab Prescription Printed Referrals: Monico Medina MD [Primary Care Provider] - [facility]] - As soon as possible
[2020-04-29] MEDS: LORazepam 2 MG/ML Syringe 0.5 MG IV (16:24)
== END 2020-04-29 17:06 | disposition home or self-care (01) ==
PROVIDERS: Emergency Provider Emergency Medicine; PCP Family Medicine
DX: R63.8 Other symptoms and signs concerning food and fluid intake (principal); F03.90 Unspecified dementia, unspecified severity, without behavioral disturbance, psychotic disturbance, mood disturbance, and anxiety; M19.90 Unspecified osteoarthritis, unspecified site; Z86.73 Personal history of transient ischemic attack (TIA), and cerebral infarction without residual deficits
CPT/HCPCS: 71045; 74177; 80053; 81001; 83690; 84484; 85025; 93005; 96361; 96374; 99285; J7030; J7050; P9612; Q9967; A4216

== ENCOUNTER 2020-05-02 08:11 | Day surgery (SDC) | payer MEDICARE, SELFPAY ==
[2020-04-25 15:37] VITALS: BMI 19.1
[2020-05-02] VITALS (9 sets, daily range): BP systolic 85–150; BP diastolic 62–81; PULSE 64–80; RESP 14–16; TEMP 36.2–36.8; O2SAT 94–99; BMI 19.1
--- NOTE | 2020-05-02 | EGD_PTH ---
PATIENT: DARIN ANAND LOC: EN U#:[id number] AGE/SX: 79/F ROOM: RE05/02/[address]: Dr. Angel Tadeo MD : 1940 BED: DIS: 05/02/2020 SPEC #: [id number] RECD: 05/02/20 11:31 STATUS: TOSIN VEENA #: [id number] [place]: 05/02/20 00:[address]: Angel Tadeo DEPT: SURGICAL PATHOLOGY RECD BY: Sravan Cespedes ENTERED: 05/02/20 13:07 SP TYPE: EGD BIOPSY OT DR: Dr. Monico Medina MD Tissues: A - Duodenum, NOS B - Gastric mucous membrane C - Esophageal mucous membrane D - Esophageal mucous membrane Procedures: Special Stain Group II Surgery Specimen Level IV Alcian Blue/PAS (control) HEADER OPERATION: [place] [place]OP DIAGNOSIS: Esophageal dysphagia TISSUE SUBMITTED: A - Duodenal biopsy, B - Antral biopsy, H. pylori and path, C - Distal esophageal biopsy, D - Mid esophageal biopsy MICROSCOPIC DIAGNOSIS A. Duodenum, biopsy: A fragment of duodenal mucosa with Cindy gland hyperplasia. B. Antral biopsy: Mild gastritis. See microscopic description and comment. C. Distal esophagus, biopsy: Fragments of gastroesophageal mucosa with mild chronic inflammation. Intestinal metaplasia (goblet cell metaplasia) is not identified. See comment. D. Mid esophageal biopsy: Fragments of squamous epithelium, no pathologic diagnosis. SJ:ortiz 05/03/2020 COMMENT B. The results of immunohistochemistry for Helicobacter pylori will be reported separately ([id number]). C. Alcian blue/PAS stain with matched control is used in the evaluation of the specimen. MICROSCOPIC DESCRIPTION Slides are reviewed. B. The specimen shows fragments of gastric mucosa with chronic inflammatory cell infiltrates in the lamina propria consisting of lymphocytes and plasma cells, consistent with mild chronic gastritis. GROSS DESCRIPTION A - Received in fixative is one container labeled with the patient's name and designated duodenal biopsy. The specimen consists of one irregular fragment of light link soft tissue that measures 0.3 x 0.3 x 0.1 cm. The specimen is totally submitted in one cassette. B - Received in fixative is one container labeled with the patient's name and designated antral biopsy. The specimen consists of one irregular fragment of light link soft tissue that measures 0.3 x 0.3 x 0.1 cm. The specimen is totally submitted in one cassette. C - Received in fixative is one container labeled with the patient's name and designated distal esophagus biopsy. The specimen consists of multiple irregular fragments of light link soft tissue that in aggregate measure 1.2 x 0.3 x 0.1 cm. The specimen is totally submitted in one cassette. D - Received in fixative is one container labeled with the patient's name and designated mid esophageal biopsy. The specimen consists of multiple irregular fragments of light link soft tissue that in aggregate measure 0.4 x 0.4 x 0.1 cm. The specimen is totally submitted in one cassette. / SJ:rg 05/02/20 TC:3 CPT: 51997 x4, 61020
[2020-05-02] MEDS: Lactated Ringers 1,000 ML 100 ML IV (08:55)
--- NOTE | 2020-05-02 09:06 | HP.PCM_ITS ---
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 Required: No Is patient in pain?: No Allergies acetaminophen [From Vicodin] Allergy (Unknown, Verified 04/25/20 15:38) Unknown clarithromycin [From Biaxin] Allergy (Unknown, Verified 04/25/20 15:38) Unknown doxycycline Allergy (Unknown, Verified 04/25/20 15:38) Unknown erythromycin estolate [From Ilosone] Allergy (Unknown, Verified 04/25/20 15:38) Unknown hydrocodone bitartrate [From Vicodin] Allergy (Unknown, Verified 04/25/20 15:38) Unknown levofloxacin [From Levaquin] Allergy (Unknown, Verified 04/25/20 15:38) Unknown oxycodone [Oxycodone] Allergy (Unknown, Verified 04/25/20 15:38) Unknown oxycodone HCl [From Percocet] Allergy (Unknown, Verified 04/25/20 15:38) Unknown pantoprazole Allergy (Unknown, Verified 04/25/20 15:38) Unknown propoxyphene Allergy (Unknown, Verified 04/25/20 15:38) Unknown Penicillins [PCN] Adverse Reaction (Verified 04/25/20 15:38) PT UNSURE OF REACTION peanut butter Adverse Reaction (Uncoded 02/15/20 11:27) headache Medications Duloxetine HCl 30 mg PO DAILY 06/09/19 [History Confirmed 04/25/20] Leslie Extract [Leslie] 150 mg PO DAILY 06/09/19 [History Confirmed 04/25/20] Lutein 20 mg PO DAILY 06/09/19 [History Confirmed 04/25/20] Multivitamin with Minerals [Daily Vitamin Formula-Minerals] 1 tab PO DAILY 06/09/19 [History Confirmed 04/25/20] Resveratrol 100 mg PO DAILY 06/09/19 [History Confirmed 04/25/20] Ubidecarenone [Co Q-10] 100 mg PO DAILY 06/09/19 [History Confirmed 04/25/20] Ensure Enlive 120 ml PO PRN PRN 08/24/19 [History Confirmed 04/25/20] estradiol See Rx Instructions VAGINAL .COMPLEX #42.5 g 01/13/20 [Rx Confirmed 04/25/20] meclizine 12.5 mg tablet 12.5 mg PO .q8 PRN tab 04/25/20 [History Confirmed 04/25/20] Is last menstrual period known: No Post menopausal: Yes Patient : No PFSH Medical History Migraines (Chronic) Anxiety (Acute) Back pain (Acute) Dementia (Acute) Dysphagia (Acute) Osteoarthritis (Acute) Breast cancer (Resolved) Surgical History S/P D&C (status post dilation and curettage) (Resolved ~08/31/19) History of colonoscopy (Acute ~2005) H/O total mastectomy of left breast (Resolved) S/P appendectomy (Resolved) Social History (Updated 04/25/20 @ 16:[address] Angel Tadeo MD) number of children: 3 Smoking Status: Never smoker alcohol intake: never substance use type: does not use caffeine: No what type of physical activity do you participate in: none seatbelt use: always do you feel safe at home: Yes additional social history: Arias HPI HPI HPI: DARIN ANAND, is a 79 F who presents to the office today for Surgical consultationRegarding weight loss and esophageal dysphagia. The patient is referred by Dr Monico Medina and written copy my surgical consult recommendations bill will be returned. The patient is not able to provide any history on her own. All questions were answered by her . There is concerned that she is having trouble with oral pharyngeal discomfort difficulty swallowing. On April 14, 2020 she had a barium swallow. That was felt to be normal. A 12 mm tablet a barium passed without difficulties. On April 12, 2020 she had a modified barium swallow/cookie swallow exam. The patient was felt to have mild to moderate oral dysphagia with consistent shallow transient penetration of thin liquids consistent with the patient's diagnosis of dementia..The patient's states that they did not receive anything useful from that examination or discussion or explanation regarding food and thickening and swallowing methods. Previously June 13, 2019 she had had a right upper quad ultrasound showing multiple Simple cyst in a right renal cyst. June 12, 2019 she had a perfusion stress test which was negative for acute ischemia. June 09, [address] scan of the abdomen pelvis showing simple cysts of the liver and fibroid calcification of the uterus and a nonobstructing midpole left kidney stone and a simple cyst of the right kidney. Upon further discussion with the patient's I am detecting a degree of concern and frustration that the patient simply is not willing or able to eat. She apparently eats very small portions and then complains of discomfort at the cervical retrosternal level. Apparently she complains to him that she feels like it is coming back. He would like to know whether is actually difficulty in going anterograde or whether is actually refluxing. HPI HPI HPI: DARIN ANAND, is a 79 F who presents to the office today for ROS General General: Yes weight change, fatigue and breast cancer; no appetite, colon cancer or weakness HEENT HEENT: Yes difficulty swallowing; no eye injury, eye surgery, swollen glands or hoarseness Endo Endocrine: No thyroid disease, diabetes mellitus, thyroid cancer, Hair loss, heat intolerance or cold intolerance Musc Musculoskeletal: Yes back problems and arthritis; no rheumatoid arthritis, gout or joint pain Cardio Cardiovascular: No murmur, pacemaker, heart disease, atrial fibrillation, high blood pressure, heart attack, heart stent, palpitations, shortness of breat with exertion or chest pain Psych Psychiatric: Yes anxiety; no depression or hearing voices Resp Respiratory: No shortness of breath, No sleep apnea, No cough, No COPD, No asthma, No emphysema, No wheezing Gastro Gastrointestinal: Yes abdominal pain, No nausea or vomiting, No diarrhea, No constipation, No blood in stool, No acid reflux, No hemorrhoids, No ulcers, No gallbladder problem, No black,tarry stools Jaspal Hematologic: No blood thinners, No blood disorders, No bleeding, No anemia, No blood clots Neuro Neurologic: No weakness Exam Const General: cooperative, comfortable, no acute distress Nutritional Appearance: underweight Orientation: alert, awake Other: The patient does not respond to my verbal communication or answer questions. She was able to be assisted up onto the exam table. She did respond to the request to take a deep breath HENMT Head: normal to inspection Eyes General: appearance normal, both eyes and all related structures Neck Neck: normal visual inspection Chest Chest palpation & inspection: normal inspection of the chest Resp Effort & Inspection: normal respiratory effort Auscultation: clear to auscultation bilaterally Cardio Rate: regular rate Rhythm: regular rhythm Heart Sounds: no murmurs GI Other: Soft, well-healed right lower quadrant vertical perirectus incision, no distinct mass,Mild diffuse tenderness to light palpation of undetermined concern as the exam otherwise did not suggest focal mass or rigidity. Normal bowel sounds Musc Cervical Spine: normal cervical lordosis Skin General: no rashes or lesions noted Neuro Other: Patient is awake and responsive but does not verbally communicate Psych Affect: normal affect Assessment & Plan Problems 1. Esophageal dysphagia R13.10 Plan 79-year-old female with difficulty swallowing and pain with swallowing inanition and weight loss. All of this seems to be driven and complicated by dementia. I had an extensive discussion with the patient today. This was a 1 hour interview and evaluation. I discussed consideration for esophagogastroduodenoscopy with biopsy and colonoscopy with possible biopsy or polypectomy. The patient has had a previous history of breast cancer. I discussed the potential in the future for placing a percutaneous endoscopic gastrostomy tube if the patient's so desired. We discussed the benefit risk. We discussed what would logically be evaluated and assisted with. At the conclusion elected to proceed with the esophagogastroduodenoscopy with potential biopsy. If a stricture is identified then I anticipate esophageal dilatation. He is aware however that a barium swallow did not demonstrate this. 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 This is adding to her inanition. I am concerned that I will not have a resolution to that issue and I have made this very clear to the . That is why I then additionally discussed the potential for future percutaneous endoscopic gastrostomy tube if the patient's wanted to go that direction. We did briefly discussion comfort and care as well. The patient's is aware that I am not able to detect dysmotility on an endoscopic evaluation. I can look for signs of reflux. I can look for signs of ulceration. I can take samples looking for H. pylori or eosinophilic esophagitis. He has had an opportunity to ask and have questions answered. He is not interested in pursuing the colonoscopy at this setting. He is interested in pursuing the upper endoscopy. We will schedule and expedite her care. I appreciate the opportunity of assisting with her surgical care Copy: Dr Monico Tadeo M.D., F.A.C.S. Coding Level of Care Code 26226 Diagnoses Esophageal dysphagia R13.10 Since my office visit the patient's been seen in the emergency room for ongoing problems with swallowing. There was some discussion as to whether the patient should contact hospice. Apparently this was recommended by primary care. The patient presents now for the upper endoscopy. She continues to have swallowing difficulties. Angel Tadeo M.D., F.A.C.S. Procedure Criteria Procedure Type: Elective COVID Risk Discussion: The surgeon/proceduralist and patient have discussed in detail the risk of exposure to and/or potential harm posed by the COVID-19 virus with having a surgery/procedure at this time versus the risk of delaying the surgery/procedure. It is not possible to know either the risk of delaying the surgery or procedure or chance of getting an infection with perfect accuracy, but a joint decision was made between the patient and the surgeon/proceduralist to proceed at this time with the scheduled surgery/procedure as indicated on the consent form.
--- NOTE | 2020-05-02 09:15 | IMM_PTH ---
PATIENT: DARIN ANAND LOC: EN U#:[id number] AGE/SX: 79/F ROOM: RE05/02/[address]: Dr. Angel Tadeo MD : 1940 BED: DIS: 05/02/2020 SPEC #: [id number] RECD: 05/02/20 14:31 STATUS: TOSIN VEEAN #: [id number] IRAIDA: 05/02/20 09:[address]: Angel Tadeo DEPT: IMMUNOHISTOCHEMISTRY RECD BY: Mya Terry ENTERED: 05/02/20 14:31 SP TYPE: IMMUNO OTHR DR: Dr. Monico Medina MD Tissues: B - Stomach, NOS Procedures: H Pylori (initial) PHYSICIAN & INSTITUTION [place] [address] SPECIMEN INFORMATION: Tissue Source: B - Antral biopsy Clinical Info: Esophageal dysphagia Specimen Number: [id number] CPT code: 79245 METHODOLOGY: Deparaffinized sections of prefer/formalin-fixed tissue or PAP/DQ stained slides are incubated with monoclonal/polyclonal antibodies/oligonucleotide probes. Localization is made via biotin free immunoperoxidase method. Appropriate controls are performed and reacted as expected. Results on target cell population are indicated in the following table: RESULTS: ANTIBODY / CLONE RESULT Block B H Pylori (polyclonal) negative These tests were developed and their performance characteristics determined by [facility]. They may not have been cleared or approved by the U.S. Food and Drug Administration. The FDA has determined that such clearance or approval is not necessary. INTERPRETATION: B. Antral biopsy: Negative for Helicobacter pylori organisms. SJ:ortiz 05/03/2020
--- NOTE | 2020-05-02 10:19 | OP.CCLET_ITS ---
05/02/2020 Monico Medina [address] [place] [address] Re : Upper GI endoscopy procedure for Lorrie Street Dear Dr. Medina This procedure was performed on Saturday, May 02, 2020. 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 Biopsied. - Medium-sized hiatal hernia. - Z-line irregular, 36 cm from the incisors. - Erythematous mucosa in the stomach. Biopsied. - Erythematous duodenopathy. Biopsied. Recommendations : - Discharge patient to home. - Resume previous diet. - Continue present medications. - Use sucralfate tablets 1 gram PO QID. - Telephone my office for pathology results in 1 week. My findings are described in the full procedure note, which is enclosed. If I can be of further assistance, please feel free to contact me at Doctor phone number(s): Work: . Sincerely, Angel Tadeo MD 05/02/2020 10:18:52 AM This report has been signed electronically.
--- NOTE | 2020-05-02 10:19 | OP.EGD_ITS ---
Patient Name: Lorrie Street Procedure Date: 05/02/2020 9:52 AM Date of : 1940 Age: 79 Procedure: Upper GI endoscopy Indications: Dysphagia Providers: Angel Tadeo MD Referring MD: Monico Medina Medicines: See the Anesthesia note for documentation of the administered medications Complications: No immediate complications. Procedure: Pre-Anesthesia Assessment: - Prior to the procedure, a History and Physical was performed, and patient medications and allergies were reviewed. The patient's tolerance of previous anesthesia was also reviewed. The risks and benefits of the procedure and the sedation options and risks were discussed with the patient. All questions were answered, and informed consent was obtained. Prior Anticoagulants: The patient has taken no previous anticoagulant or antiplatelet agents. ASA Grade Assessment: III - A patient with severe systemic disease. After reviewing the risks and benefits, the patient was deemed in satisfactory condition to undergo the procedure. After obtaining informed consent, the endoscope was passed under direct vision. Throughout the procedure, the patient's blood pressure, pulse, and oxygen saturations were monitored continuously. The gastroscope was introduced through the mouth, and advanced to the second part of duodenum. The upper GI endoscopy was accomplished without difficulty. The patient tolerated the procedure well. Scope In: 10:04:19 AM Scope Out: 10:13:10 AM Total Procedure Duration Time 0 hours 8 minutes 51 seconds Findings: There were esophageal mucosal changes suspicious for long-segment Wing's esophagus present in the distal esophagus. The maximum longitudinal extent of these mucosal changes was 5 cm in length. Mucosa was biopsied with a cold forceps for histology. A medium-sized hiatal hernia was present. The Z-line was irregular and was found 36 cm from the incisors. Diffuse moderately erythematous mucosa without bleeding was found in the entire examined stomach. Biopsies were taken with a cold forceps for histology. Diffuse mildly erythematous mucosa without active bleeding and with no stigmata of bleeding was found in the duodenal bulb. Biopsies were taken with a cold forceps for histology. 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 Biopsied. - Medium-sized hiatal hernia. - Z-line irregular, 36 cm from the incisors. - Erythematous mucosa in the stomach. Biopsied. - Erythematous duodenopathy. Biopsied. Recommendation: - Discharge patient to home. - Resume previous diet. - Continue present medications. - Use sucralfate tablets 1 gram PO QID. - Telephone my office for pathology results in 1 week. Procedure Code(s): --- Professional --- 56399, Esophagogastroduodenoscopy, flexible, transoral; with biopsy, single or multiple Diagnosis Code(s): --- Professional --- K22.8, Other specified diseases of esophagus K44.9, Diaphragmatic hernia without obstruction or gangrene K31.89, Other diseases of stomach and duodenum R13.10, Dysphagia, unspecified CPT copyright 2017 [employer]. All rights reserved. The codes documented in this report are preliminary and upon fiber optic technician review may be revised to meet current compliance requirements. Angel Tadeo MD 05/02/2020 10:18:52 AM This report has been signed electronically. Number of Addenda: 0 Note Initiated On: 05/02/2020 9:52 AM
== END 2020-05-02 11:53 | disposition home or self-care (01) ==
LOC: EN 08:11 → AC 08:12
PROVIDERS: PCP Family Medicine; Referring Provider Family Medicine; Visit Provider Surgery
PROC: 0DJ08ZZ Inspection of Upper Intestinal Tract, Via Natural or Artificial Opening Endoscopic (ICD-10-PCS; CPT 43235; principal; 2020-05-02 09:10)
DX: K29.70 Gastritis, unspecified, without bleeding (principal); K44.9 Diaphragmatic hernia without obstruction or gangrene; K22.8 Other specified diseases of esophagus; R13.10 Dysphagia, unspecified; F03.90 Unspecified dementia, unspecified severity, without behavioral disturbance, psychotic disturbance, mood disturbance, and anxiety; F41.9 Anxiety disorder, unspecified; M19.90 Unspecified osteoarthritis, unspecified site; Z20.822 Contact with and (suspected) exposure to COVID-19
CPT/HCPCS: 43239; 87426; 88305; 88313; 88342; C9803; J7120

== ENCOUNTER 2020-05-28 11:36 | Emergency (ER) | payer MEDICARE, SELFPAY ==
[2020-05-02 08:37] VITALS: BMI 19.1
[2020-05-28 11:38] VITALS: BP 147/76; PULSE 72; RESP 16; TEMP 36; O2SAT 99; BMI 19.2
[2020-05-28 11:41] VITALS: BP 147/76; PULSE 72; RESP 16; TEMP 36; O2SAT 99
--- NOTE | 2020-05-28 12:37 | ED.VISSUMM ---
- ER Visit Summary Date of Service: 05/28/20 Chief Complaint: Right wrist pain History of Present Illness: The patient is a 79 F who presents with right wrist pain that is been getting worse over the past 3 days. Patient fell approximately 10 days ago. Patient was not having any pain initially. reports that the pain has gotten worse over the past 3 days. Patient describes her pain is aching. Patient states the pain is worse with any movement. Patient denies any paresthesias or weakness. has noted some redness to the right wrist area. Patient denies any fevers or chills. Patient denies any paresthesias or weakness. Patient is a poor historian due to dementia. Physical Examination: Vital signs are stable. Patient is afebrile. Patient is in no acute distress. Musculoskeletal exam reveals tenderness, edema, and erythema of the right wrist area. This is worse over the volar aspect. There is no abrasion or trauma. There is no deformity noted. There is some mild warmth. There is no pain with short arc range of motion. Range of motion was limited secondary to pain however. Sensation was intact to light touch in the radial, median, and ulnar areas. Strength is 5/5 in the radial, median, and ulnar areas. Test Results: Trays of the right wrist were obtained. There are 3 views. On my interpretation, there are degenerative changes. There is osteopenia. There is no acute fracture. CBC and basic metabolic profile were obtained and were within normal limits. CRP was slightly elevated at 25. Sed rate was normal at 23. Emergency Department Course and Treatment: Patient was given a dose of Keflex here. Patient was given a prescription for Keflex. Patient was instructed to follow-up with her primary care physician in 5 to 7 days. Patient and her understood and were agreeable with the plan. All questions were answered. Disposition: Discharge home Impression: Cellulitis right upper extremity This note was generated with [employer] dictation software. It may contain incorrect words, spelling, and punctuation that were not noted in review of the chart prior to signing ED Disposition - Plan for ED Patient: Disposition: Home or Assisted Living Diagnosis: Cellulitis of right upper extremity Instructions: ED Cellulitis Prescriptions: Cephalexin [Keflex] 500 mg PO Q6 #40 capsule Transmission Status: Pending to [facility] Referrals: Monico Medina MD [Primary Care Provider] - 5-7 Days
[2020-05-28 13:09] LABS: Absolute Lymphocyte Count 1.21 X10^3/uL (0.83-4.51); Absolute Neutrophil Count 4.3 X10^3/uL (2.0-7.7); Basophil# 0.03 X10^3/uL; Basophil% 0.5 % (0-1); Eosinophil# 0.14 X10^3/uL; Eosinophils% 2.2 % (0-5); Hematocrit 36.9 % (37-47); Hemoglobin 11.9 g/dL (12.0-15.0); Lymphocyte # 1.21 X10^3/ul (4.0); Lymphocyte % 18.6 % (19-41); Mean Corp Hgb Conc 32.2 g/dL (32-36); Mean Corpuscular Hgb 31.2 pg (27.0-32.0); Mean Corpuscular Volume 96.9 fL (81-99); Mean Platelet Vol. 9.3 fl (6.2-12.0); Monocyte# 0.77 X10^3/uL; Monocyte% 11.9 % (0-10); NRBC Flagged by Analyzer 0 % (0-5); Neutrophil # 4.33 X10^3/uL (2.7-7.7); Neutrophil % 66.6 % (47-70); Platelet Count 279 K/mm3 (150-450); RBC Distribution Width CV 13.5 % (11.6-14.6); RBC Distribution Width SD 48.8 fl (35.1-43.9); Red Blood Count 3.81 M/mm3 (4.2-5.4); White Blood Count 6.5 K/mm3 (4.4-11.0)
--- NOTE | 2020-05-28 13:15 | RAD_ITS ---
HISTORY: Pain ADDITIONAL HISTORY: None provided. EXAMINATION/TECHNIQUE: XR Wrist Min 3 Views Right Number of images including paperwork: 3 COMPARISON: None FINDINGS: BONES: No acute fracture. Mineralization appears decreased. JOINTS: No subluxation. Mild to moderate degenerative changes of the wrist. Cystic changes in the carpal bones. Chondrocalcinosis. SOFT TISSUES: No distinct foreign body. Soft tissue swelling. RAD/Wrist min 3 Views IMPRESSION: Degenerative changes without acute osseous abnormality. 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 at 1428 Reported and signed by: Rocío Joyner MD Electronically Signed: Rocío Joyner MD at 14:28 EDT Tel , Service support ,
[2020-05-28 13:20] LABS: Erythrocyte Sedimentation Rate 23 mm/hr (0-30)
[2020-05-28 13:28] LABS: ALB/GLOB Ratio 0.9 RATIO (0.9-2.4); AST(SGOT) 20 U/L (15-37); Alanine Aminotransfer ALT/SGPT 21 U/L (13-56); Albumin, Serum 3.1 g/dL (3.2-5.0); Alkaline Phosphatase 72 U/L (45-117); Anion Gap 3 (5-15); BUN 11 mg/dL (7-18); BUN/Creat Ratio 19.5 RATIO (10-20); Calcium,Total 9.1 mg/dL (8.5-10.1); Chloride 105 mmol/L (98-107); Creatinine, Serum 0.56 mg/dL (0.55-1.02); EST Glomerular Filtration Rate 110 mL/min (>60); Est Glom Filt Rate - Afr Amer 133 mL/min (>60); Estimated Creatinine Clearance 33.17 ml/min; Globulin 3.6 g/dL (2.2-4.2); Glucose 108 mg/dL (74-106); Potassium 4.3 mmol/L (3.5-5.1); Protein, Total 6.7 g/dL (6.4-8.2); Sodium Level 137 mmol/L (136-145)
[2020-05-28] MEDS: Cephalexin 250 MG Capsule 500 MG PO (15:21)
[2020-05-28 15:31] VITALS: BP 138/75; PULSE 78; RESP 16; O2SAT 99
== END 2020-05-28 15:32 | disposition home or self-care (01) ==
PROVIDERS: Emergency Provider Emergency Medicine; PCP Family Medicine
DX: L03.113 Cellulitis of right upper limb (principal); F03.90 Unspecified dementia, unspecified severity, without behavioral disturbance, psychotic disturbance, mood disturbance, and anxiety; K21.9 Gastro-esophageal reflux disease without esophagitis; Z79.899 Other long term (current) drug therapy
CPT/HCPCS: 73110; 80053; 85025; 85652; 86140; 99284; A4216

== ENCOUNTER 2021-03-02 17:30 | Emergency (ER) | payer MEDICARE, SELFPAY ==
[2021-03-02 17:32] VITALS: BP 182/77; PULSE 85; RESP 15; TEMP 35.8; O2SAT 100; BMI 20.1
--- NOTE | 2021-03-02 19:22 | CT_ITS ---
STUDY: CT BRAIN WITHOUT CONTRAST REASON FOR EXAM: Female, 80 years old. confusion Individualized dose optimization techniques were used for this CT. TECHNIQUE: Transaxial CT imaging of the brain was performed without administration of intravenous contrast material. COMPARISON: 01/06/2019 FINDINGS: There are calcifications around the carotid artery. These are noted in the cavernous carotid arteries. Normal calvarium. Normal soft tissues. There is mild cerebral atrophy with widening of the extra-axial spaces and ventricular dilatation. There are areas of decreased attenuation within the white matter tracts of the supratentorial brain, consistent with microvascular disease changes. Normal basal ganglia and thalami. Normal brainstem. There is mild cerebellar atrophy. There is no intracranial hemorrhage. There are no findings of an acute ischemic infarction. Normal visualized paranasal sinuses. ASPECTS Score for Acute Strokes: 12/10 CT/Brain/Head without Contrast IMPRESSION: There are no acute findings. Chronic involutional changes of the brain. Electronically Signed: El Benjamin MD at 20:15 EST , Service support ,
--- NOTE | 2021-03-02 20:00 | RAD_ITS ---
STUDY: XR Chest 1 View 03/02/2021 7:53 PM REASON FOR EXAM: Female, 80 years old. CHEST PAIN confusion COMPARISON: 2.27.21 TECHNIQUE: XR Chest 1 View FINDINGS: There is no demonstrated pleural abnormality. Normal heart size. Normal mediastinum. Normal shelley. Prominent appearing increased interstitial lung markings. Normal visualized pulmonary arteries. There is atherosclerotic calcification of the aortic arch with tortuosity. There are diffuse degenerative changes of the visualized thoracic spine. There is degenerative osteoarthritis of the bilateral shoulders. There is no demonstrated abnormality of the visualized soft tissue structures of the upper abdomen. RAD/Chest 1 View (Portable) IMPRESSION: There are no acute findings. Electronically Signed: El Benjamin MD at 20:12 EST , Service support ,
[2021-03-02 20:11] LABS: Absolute Lymphocyte Count 1.69 X10^3/uL (0.83-4.51); Absolute Neutrophil Count 5.1 X10^3/uL (2.0-7.7); Basophil# 0.04 X10^3/uL; Basophil% 0.5 % (0-1); Eosinophil# 0.14 X10^3/uL; Eosinophils% 1.9 % (0-5); Hematocrit 40.3 % (37-47); Hemoglobin 13.2 g/dL (12.0-15.0); Lymphocyte # 1.69 X10^3/ul (0.83-4.51); Lymphocyte % 22.5 % (19-41); Mean Corp Hgb Conc 32.8 g/dL (32-36); Mean Corpuscular Hgb 31.1 pg (27.0-32.0); Mean Platelet Vol. 9.4 fl (6.2-12.0); Monocyte# 0.52 X10^3/uL; Monocyte% 6.9 % (0-10); NRBC Flagged by Analyzer 0 % (0-5); Neutrophil # 5.11 X10^3/uL (2.7-7.7); Neutrophil % 68.1 % (47-70); Platelet Count 318 K/mm3 (150-450); RBC Distribution Width CV 13.3 % (11.6-14.6); Red Blood Count 4.24 M/mm3 (4.2-5.4); White Blood Count 7.5 K/mm3 (4.4-11.0)
[2021-03-02 20:22] LABS: AST(SGOT) 24 U/L (15-37); Alanine Aminotransfer ALT/SGPT 27 U/L (13-56); Albumin, Serum 3.8 g/dL (3.2-5.0); Alkaline Phosphatase 75 U/L (45-117); Anion Gap 6 (5-15); BUN 18 mg/dL (7-18); BUN/Creat Ratio 24.4 RATIO (10-20); Calcium,Total 9.7 mg/dL (8.5-10.1); Chloride 104 mmol/L (98-107); Creatinine, Serum 0.74 mg/dL (0.55-1.02); EST Glomerular Filtration Rate 80 mL/min (>60); Est Glom Filt Rate - Afr Amer 97 mL/min (>60); Estimated Creatinine Clearance 34.16 ml/min; Globulin 3.9 g/dL (2.2-4.2); Glucose 93 mg/dL (74-106); Potassium 4.3 mmol/L (3.5-5.1); Protein, Total 7.7 g/dL (6.4-8.2); Sodium Level 139 mmol/L (136-145)
[2021-03-02 20:47] LABS: Bacteria 0 SEEN /hpf (None Seen); Mucous, Urine 0 SEEN /hpf (<or=2+); Red Blood Cells-Urine 0 SEEN /hpf (0-5)
[2021-03-02 20:52] LABS: Color, Urine Yellow (Yellow); Glucose, Dipstick Normal (Normal); Ketone-Dipstick 5 mg/dl (Negative); Leukocyte Esterase-Dipstick 25 /ul (Negative); Nitrite-Dipstick Negative (Negative); Occult Blood-Urine Negative /ul (Negative); Protein-Dipstick Negative (Negative); Specific Gravity, Urine 1.005 (1.002-1.030); Urine Bilirubin Dipstick Negative (Negative); Urine Clarity Clear (Clear); Urine Urobilinogen Normal (Normal)
[2021-03-02 21:08] LABS: Squamous Epithelial Cells - UA 0-5 SEEN /hpf (5-10); White Blood Cells 5-10 SEEN /hpf (0-5)
--- NOTE | 2021-03-02 21:43 | EX.ED.DYSGE1 ---
HPI History of Present Illness Chief Complaint: General Illness Narrative Narrative: 80-year-old female presenting with her out of concern that she is not eating well. states that she did not eat her dinner today. He states that she normally eats twice a day. He states that this is been a steady decline over the last 6 months. He states he has not seen his primary care doctor since that time. He is concerned that due to her dementia and her inability to express herself or her symptoms that there may be something wrong. He states she does have swallowing issues which are known. He has not seen anybody for this in some time. He cannot recall who actually evaluated her for this but states it was in the hospital at [facility]. He states that she was able to eat this morning and does not have any dysfunction however. She just did not want to eat tonight. Patient has not had any fevers or chills. He states that she does complain of some anxiety or at least ask like she has been anxious. She has a history of this and has medication for this he has been giving this. Patient's wants her to be checked out to make sure there is no organic cause of her symptoms. He does not want her placed in a [facility]cfp or nursing home facility. He does not want a geriatric psychiatric facility. He feels if everything looks normal and he would be comfortable taking her home and following up with his PCP [facility] Medical History Anxiety Back pain Breast cancer Cystocele Dementia Dysphagia Esophageal dysphagia Migraines Osteoarthritis Home Medications duloxetine 60 mg PO DAILY 04/29/20 [History Last Taken Unknown] meclizine 12.5 mg PO Q8H PRN 04/29/20 [History Last Taken Unknown] meloxicam 15 mg PO DAILY 04/29/20 [History Last Taken Unknown] lorazepam 0.5 mg PO TID PRN 03/02/21 [History Last Taken Unknown] senna-docusate sodium 1 tab PO DAILY 03/02/21 [History Last Taken Unknown] Allergy/AdvReac Type Severity Reaction Status Date / Time acetaminophen [From Vicodin] Allergy Unknown Unknown Verified 03/02/21 17:34 clarithromycin [From Biaxin] Allergy Unknown Unknown Verified 03/02/21 17:34 doxycycline Allergy Unknown Unknown Verified 03/02/21 17:34 erythromycin estolate Allergy Unknown Unknown Verified 03/02/21 17:34 [From Ilosone] hydrocodone bitartrate Allergy Unknown Unknown Verified 03/02/21 17:34 [From Vicodin] levofloxacin [From Levaquin] Allergy Unknown Unknown Verified 03/02/21 17:34 oxycodone [Oxycodone] Allergy Unknown Unknown Verified 03/02/21 17:34 oxycodone HCl [From Percocet] Allergy Unknown Unknown Verified 03/02/21 17:34 pantoprazole Allergy Unknown Unknown Verified 03/02/21 17:34 propoxyphene Allergy Unknown Unknown Verified 03/02/21 17:34 Penicillins [PCN] AdvReac PT UNSURE Verified 03/02/21 17:34 OF REACTION peanut butter AdvReac headache Uncoded 03/02/21 17:34 Surgical History H/O total mastectomy of left breast History of colonoscopy (~2005) S/P appendectomy S/P D&C (status post dilation and curettage) (~08/31/19) Social History number of children: 3 Smoking Status: Never smoker alcohol intake: never substance use type: does not use caffeine: No what type of physical activity do you participate in: none seatbelt use: always do you feel safe at home: Yes additional social history: Arias VALENZUELA NICOLAS ED Review of Systems ROS Unobtainable: due to mental status EXAM Physical Exam Const Vital Signs: 03/02/21 17:32 03/02/21 18:24 Temperature 96.5 F L Temperature Source Temporal Pulse Rate 85 Respiratory Rate 15 Respiratory Effort Normal Non-Labored Blood Pressure 182/77 H Blood Pressure Mean 112 Pulse Ox 100 Oxygen Delivery Method Room Air Positive well nourished General Appearance ED: NAD; Negative for pallor HEENT Reports moist mucous membranes Negative for trauma Eyes PERRL and EOMs intact bilaterally Neck no lymphadenopathy and supple Resp normal respiratory effort and clear to auscultation bilaterally Cardio regular rate and regular rhythm GI normal to inspection, nondistended, normoactive bowel sounds Neuro CN's II-XII intact bilaterally Sensorium / Orientation: alert Psych Psych Narrative: Awake and alert. Patient does not answer questions. Skin no rashes or lesions noted General Skin Exam: Negative for jaundice or pallor MDM MDM MDM Narrative Medical decision making narrative: Patient had lab work drawn and her CBC and CMP are unremarkable. Her BUN/creatinine ratio is slightly elevated at 24.4 but she does not have any kidney injury. Electrolytes are normal. Urinalysis negative for infection but she does have 5 ketones. Chest x-ray on my interpretation shows no acute cardiopulmonary process and radiologist does agree. CT of the brain is negative for acute findings. Given patient's ultimately negative work-up patient's is comfortable taking her home. I will have her follow-up with her PCP. Impression: 1. Weakness unknown cause. 2. Loss of appetite Lab Data Labs: Laboratory Results - last 24 hr 03/02/21 03/02/21 03/02/21 19:50 19:50 20:35 WBC 7.5 RBC 4.24 Hgb 13.2 Hct 40.3 MCV 95.0 MCH 31.1 MCHC 32.8 RDW Std Deviation 47.0 H RDW Coeff of Ilana 13.3 Plt Count 318 MPV 9.4 Immature Gran % (Auto) 0.100 Neut % (Auto) 68.1 Lymph % (Auto) 22.5 [place] % (Auto) 6.9 Eos % (Auto) 1.9 Baso % (Auto) 0.5 Absolute Neuts (auto) 5.1 Absolute Lymphs (auto) 1.69 Nucleated RBC % 0 Sodium 139 Potassium 4.3 Chloride 104 Carbon Dioxide 29.0 Anion Gap 6 BUN 18 Creatinine 0.74 Estim Creat Clear Calc 34.16 Est GFR (MDRD) Af Amer 97 Est GFR (MDRD) Non-Af 80 BUN/Creatinine Ratio 24.4 H Glucose 93 Calcium 9.7 Total Bilirubin 0.40 AST 24 ALT 27 Alkaline Phosphatase 75 Total Protein 7.7 Albumin 3.8 Globulin 3.9 Albumin/Globulin Ratio 1.0 Urine Color Yellow Urine Clarity Clear Urine pH 7.0 Ur Specific [place] 1.005 Urine Protein Negative Urine Glucose (UA) Normal Urine Ketones 5 H Urine Occult Blood Negative Urine Nitrite Negative Urine Bilirubin Negative Urine Urobilinogen Normal Ur Leukocyte Esterase 25 H Urine RBC 0 SEEN Urine WBC 5-10 SEEN Ur Squamous Epith Cells 0-5 SEEN Urine Bacteria 0 SEEN Urine Mucus 0 SEEN Radiography Diagnostic Testing: Clinical Impression(s) from Imaging Studies Brain CT 03/02/21 19:22 IMPRESSION: There are no acute findings. Chronic involutional changes of the brain. Electronically Signed: El Benjamin MD at 20:15 EST , Service support , Chest X-Ray 03/02/21 20:00 IMPRESSION: There are no acute findings. Electronically Signed: El Benjamin MD at 20:12 EST , Service support , Discharge Plan Triage Chief Complaint: General Illness ED Provider: Dickson Fisher Dx/Rx/DC Orders Instructions: ED Weakness (Uncertain Cause) Prescriptions: No Action meloxicam 15 MG tablet 15 mg PO DAILY RF: 0 meclizine 12.5 MG tablet 12.5 mg PO Q8H PRN (Reason: Dizziness) RF: 0 duloxetine 60 MG capsule,delayed release(DR/EC) 60 mg PO DAILY RF: 0 senna-docusate sodium Tablet 1 tab PO DAILY RF: 0 lorazepam 0.5 MG tablet 0.5 mg PO TID PRN (Reason: ANXIETY) RF: 0 Primary Care Provider: Monico Medina Referrals: Monico Medina MD [Primary Care Provider] - Disposition Disposition: Home, Self Care
[2021-03-02 22:05] VITALS: PULSE 74; RESP 16; O2SAT 97
== END 2021-03-02 22:05 | disposition home or self-care (01) ==
PROVIDERS: Emergency Provider Student in an Organized Health Care Education/Training Program; PCP Family Medicine
DX: R53.1 Weakness (principal); R63.0 Anorexia; R13.14 Dysphagia, pharyngoesophageal phase; M19.90 Unspecified osteoarthritis, unspecified site; F41.9 Anxiety disorder, unspecified; F03.90 Unspecified dementia, unspecified severity, without behavioral disturbance, psychotic disturbance, mood disturbance, and anxiety; Z68.20 Body mass index [BMI] 20.0-20.9, adult; Z79.899 Other long term (current) drug therapy
CPT/HCPCS: 70450; 71045; 80053; 81001; 85025; 99283; A4216

== ENCOUNTER 2021-03-03 04:35 | Emergency (ER) | payer MEDICARE, SELFPAY ==
[2021-03-03 04:39] VITALS: BP 178/82; PULSE 79; RESP 14; TEMP 36.9; O2SAT 98; BMI 20.9
--- NOTE | 2021-03-03 05:01 | EKG12_ITS ---
Test Reason : ALT MENTAL STATUS Blood Pressure : / mmHG Vent. Rate : 078 BPM Atrial Rate : 078 BPM P-R Int : 154 ms QRS Dur : 086 ms QT Int : 408 ms P-R-T Axes : 082 -34 075 degrees QTc Int : 465 ms Normal sinus rhythm Right atrial enlargement Left axis deviation Nonspecific ST abnormality Abnormal ECG Confirmed by PATEL VIVAR, MOHIT ([id number]), scientific editor JJ ODONNELL ([id number]) on 03/07/2021 10:00:08 AM Referred By: PAN Confirmed By:MOHIT SWEENEY MD
--- NOTE | 2021-03-03 05:01 | CT_ITS ---
STUDY: CT BRAIN WITHOUT CONTRAST REASON FOR EXAM: Female, 80 years old. altered LOC RADIATION DOSAGE (If Supplied By Facility): CTDIvol = ( 44.99 ) mGy, DLP = ( 782.05 ) mGycm TECHNIQUE: Transaxial CT imaging of the brain was performed without administration of intravenous contrast material. Individualized dose optimization techniques were used for this CT. COMPARISON: CT brain 03/02/2021. FINDINGS: Normal soft tissue structures. Normal calvarium. There is mild cerebral atrophy with widening of the extra-axial spaces and ventricular dilatation. There are areas of decreased attenuation within the white matter tracts of the supratentorial brain, consistent with microvascular disease changes. Normal basal ganglia and thalami. Normal brainstem. Normal cerebellum. There is no intracranial hemorrhage. There are no findings of an acute ischemic infarction. Normal visualized paranasal sinuses. The bilateral mastoid air cells and ossicles are unopacified. CT/Brain/Head without Contrast IMPRESSION: Chronic involutional changes of the brain. There is no acute intracranial pathology. There is no significant interval change. Electronically Signed: Oliva Welsh MD at 6:12 EST , Service support ,
--- NOTE | 2021-03-03 05:18 | EDS_ITS ---
HPI History of Present Illness Chief Complaint: Alt LOC Informant: spouse/S.O. and EMS Narrative Narrative: Patient brought in by EMS after having a period of altered LOC at home. Patient was actually seen in the ER last evening due to concerns for patient not eating recently. Reportedly she normally eats twice a day and has lately not been wanting to eat her evening meal. She does have dementia that seems to be advancing. Lab work, urinalysis, head CT all unremarkable last evening. Nursing staff states that they did help walker out to the car. states early this morning he heard her call out his name. He went to her bedside where she stated that she felt like she was going to . She became unresponsive and he could not get her to arouse. He tried sitting her up where he states she coughed up some phlegm. She again stated that she just wanted to . He tried to make her comfortable and prayed, stating he did not know what to do. After some time he woke up his son who lives with him. At that time they called 911. EMS notes on arrival patient was lying in bed with shallow respirations but unarousable to voice. With a sternal rub and lifting her eyelids she did come around and became alert and at baseline. states she did have some twitching motion noted to her hands but did not know if she had a seizure. Although he denies a baseline tremor nursing staff who saw her last evening states she did have a slight tremor when they were assisting her. [facility] Medical History Anxiety Back pain Breast cancer Cystocele Dementia Dysphagia Esophageal dysphagia Migraines Osteoarthritis Home Medications duloxetine 60 mg PO DAILY 04/29/20 [History Last Taken Unknown] meclizine 12.5 mg PO Q8H PRN 04/29/20 [History Last Taken Unknown] meloxicam 7.5 mg PO DAILY 04/29/20 [History Last Taken Unknown] lorazepam 0.5 mg PO TID PRN 03/02/21 [History Last Taken Unknown] senna-docusate sodium 1 tab PO DAILY 03/02/21 [History Last Taken Unknown] Allergy/AdvReac Type Severity Reaction Status Date / Time acetaminophen [From Vicodin] Allergy Unknown Unknown Verified 03/03/21 04:37 clarithromycin [From Biaxin] Allergy Unknown Unknown Verified 03/03/21 04:37 doxycycline Allergy Unknown Unknown Verified 03/03/21 04:37 erythromycin estolate Allergy Unknown Unknown Verified 03/03/21 04:37 [From Ilosone] hydrocodone bitartrate Allergy Unknown Unknown Verified 03/03/21 04:37 [From Vicodin] levofloxacin [From Levaquin] Allergy Unknown Unknown Verified 03/03/21 04:37 oxycodone [Oxycodone] Allergy Unknown Unknown Verified 03/03/21 04:37 oxycodone HCl [From Percocet] Allergy Unknown Unknown Verified 03/03/21 04:37 pantoprazole Allergy Unknown Unknown Verified 03/03/21 04:37 propoxyphene Allergy Unknown Unknown Verified 03/03/21 04:37 Penicillins [PCN] AdvReac PT UNSURE Verified 03/03/21 04:37 OF REACTION peanut butter AdvReac headache Uncoded 03/03/21 04:37 Surgical History H/O total mastectomy of left breast History of colonoscopy (~2005) S/P appendectomy S/P D&C (status post dilation and curettage) (~08/31/19) Social History number of children: 3 Smoking Status: Never smoker alcohol intake: never substance use type: does not use caffeine: No what type of physical activity do you participate in: none seatbelt use: always do you feel safe at home: Yes additional social history: Arias ROS ROS ED Review of Systems ROS Unobtainable: due to mental status and other Details: Unable due to baseline dementia EXAM Physical Exam Const Vital Signs: 03/03/21 04:39 03/03/21 04:56 03/03/21 06:36 Temperature 98.4 F Temperature Source Temporal Pulse Rate 79 84 Respiratory Rate 14 14 Respiratory Effort Normal Non-Labored Respiratory Pattern Normal Blood Pressure 178/82 H 148/66 H Blood Pressure Mean 114 93 Pulse Ox 98 96 Oxygen Delivery Method Room Air Room Air 03/03/21 06:41 Temperature Temperature Source Pulse Rate 84 Respiratory Rate 17 Respiratory Effort Respiratory Pattern Blood Pressure 152/73 H Blood Pressure Mean Pulse Ox 98 Oxygen Delivery Method Positive well nourished and well developed General Appearance ED: well developed HEENT Reports moist mucous membranes Negative for trauma Eyes PERRL and EOMs intact bilaterally Neck supple Chest Wall inspection of chest normal and palpation of chest normal Resp normal respiratory effort and clear to auscultation bilaterally Cardio regular rate and regular rhythm GI non-tender Palpation: soft Extremity normal to inspection Neuro Neuro Narrative: Alert and will look about the room. Smiles intermittently during others' conversations. Will hold both arms up in the air to command. Able to move legs without difficulty. Sensorium / Orientation: alert Skin no rashes or lesions noted MDM MDM MDM Narrative Medical decision making narrative: With the patient having this unresponsive episode repeat labs and head CT obtained. EKG ordered. Lab Data Attestation: I reviewed the patient's lab results. Labs: Laboratory Results - last 24 hr 03/03/21 03/03/21 05:10 05:10 WBC 6.0 RBC 4.06 L Hgb 12.7 Hct 38.1 MCV 93.8 MCH 31.3 MCHC 33.3 RDW Std Deviation 45.6 H RDW Coeff of Ilana 13.2 Plt Count 293 MPV 9.1 Immature Gran % (Auto) 0.200 Neut % (Auto) 59.8 Lymph % (Auto) 27.5 [place] % (Auto) 9.2 Eos % (Auto) 2.8 Baso % (Auto) 0.5 Absolute Neuts (auto) 3.6 Absolute Lymphs (auto) 1.65 Nucleated RBC % 0 Sodium 140 Potassium 3.6 Chloride 104 Carbon Dioxide 29.0 Anion Gap 7 BUN 13 Creatinine 0.57 Estim Creat Clear Calc 35.88 Est GFR (MDRD) Af Amer 131 Est GFR (MDRD) Non-Af 109 BUN/Creatinine Ratio 22.9 H Glucose 88 Calcium 9.0 Radiography Diagnostic Testing: Clinical Impression(s) from Imaging Studies Brain CT 03/03/21 05:01 IMPRESSION: Chronic involutional changes of the brain. There is no acute intracranial pathology. There is no significant interval change. Electronically Signed: Oliva Welsh MD at 6:12 EST , Service support , EKG Initial EKG: Attestation: I personally reviewed and interpreted this EKG as follows: Interpretation: Sinus Rhythm (Sinus at 78 with no acute ischemia.) Treatment and Re-Evaluation Comments:: Patient has been sitting upright in bed and at baseline mental status while here in the emergency room. I spoke with patient's . They do have palliative care involved but they only come out every 5 to 6 weeks to evaluate her. He has noted it is significant decline in her function recently. I spoke with the on-call nurse for hospice/palliative care. They will have somebody out to evaluate her in her home this morning to see if she qualifies for additional services. is reassured with this. Discharge Plan Triage Chief Complaint: Alt LOC ED Provider: Chen Frank Dx/Rx/DC Orders Clinical Impression: Altered mental status Instructions: ED ALOC, ED CAREGIVER SUPPORT for DEMENTIA Prescriptions: No Action meloxicam 15 MG tablet 7.5 mg PO DAILY RF: 0 meclizine 12.5 MG tablet 12.5 mg PO Q8H PRN (Reason: Dizziness) RF: 0 duloxetine 60 MG capsule,delayed release(DR/EC) 60 mg PO DAILY RF: 0 senna-docusate sodium Tablet 1 tab PO DAILY RF: 0 lorazepam 0.5 MG tablet 0.5 mg PO TID PRN (Reason: ANXIETY) RF: 0 Primary Care Provider: Monico Medina Referrals: Monico Medina MD [Primary Care Provider] - Disposition Disposition: Home, Self Care
[2021-03-03 05:19] LABS: Absolute Lymphocyte Count 1.65 X10^3/uL (0.83-4.51); Absolute Neutrophil Count 3.6 X10^3/uL (2.0-7.7); Basophil# 0.03 X10^3/uL; Basophil% 0.5 % (0-1); Eosinophil# 0.17 X10^3/uL; Eosinophils% 2.8 % (0-5); Hematocrit 38.1 % (37-47); Hemoglobin 12.7 g/dL (12.0-15.0); Lymphocyte # 1.65 X10^3/ul (0.83-4.51); Lymphocyte % 27.5 % (19-41); Mean Corp Hgb Conc 33.3 g/dL (32-36); Mean Corpuscular Hgb 31.3 pg (27.0-32.0); Mean Corpuscular Volume 93.8 fL (81-99); Mean Platelet Vol. 9.1 fl (6.2-12.0); Monocyte# 0.55 X10^3/uL; Monocyte% 9.2 % (0-10); NRBC Flagged by Analyzer 0 % (0-5); Neutrophil # 3.58 X10^3/uL (2.7-7.7); Neutrophil % 59.8 % (47-70); Platelet Count 293 K/mm3 (150-450); RBC Distribution Width CV 13.2 % (11.6-14.6); RBC Distribution Width SD 45.6 fl (35.1-43.9); Red Blood Count 4.06 M/mm3 (4.2-5.4)
[2021-03-03 05:36] LABS: Anion Gap 7 (5-15); BUN 13 mg/dL (7-18); BUN/Creat Ratio 22.9 RATIO (10-20); Chloride 104 mmol/L (98-107); Creatinine, Serum 0.57 mg/dL (0.55-1.02); EST Glomerular Filtration Rate 109 mL/min (>60); Est Glom Filt Rate - Afr Amer 131 mL/min (>60); Estimated Creatinine Clearance 35.88 ml/min; Glucose 88 mg/dL (74-106); Potassium 3.6 mmol/L (3.5-5.1); Sodium Level 140 mmol/L (136-145)
[2021-03-03 06:36] VITALS: BP 148/66; PULSE 84; RESP 14; O2SAT 96
[2021-03-03 06:41] VITALS: BP 152/73; PULSE 84; RESP 17; O2SAT 98
[2021-03-03] MEDS: Mag Hydrox/Al Hydrox/Simeth 30 ML UDC 15 ML PO (07:06)
== END 2021-03-03 07:38 | disposition home or self-care (01) ==
PROVIDERS: Emergency Provider Emergency Medicine; PCP Family Medicine
DX: R41.82 Altered mental status, unspecified (principal); F03.90 Unspecified dementia, unspecified severity, without behavioral disturbance, psychotic disturbance, mood disturbance, and anxiety; F41.9 Anxiety disorder, unspecified; Z79.891 Long term (current) use of opiate analgesic; Z79.1 Long term (current) use of non-steroidal anti-inflammatories (NSAID); Z79.899 Other long term (current) drug therapy
CPT/HCPCS: 70450; 80048; 85025; 93005; 99285; A4216

== ENCOUNTER 2021-06-11 10:09 | Inpatient (IN) | payer MEDICARE, SELFPAY ==
[2021-06-11 10:10] VITALS: BP 173/65; PULSE 75; RESP 16; TEMP 36.4; O2SAT 96
--- NOTE | 2021-06-11 10:41 | EDS_ITS ---
HPI HPI - Fall History of Present Illness Chief Complaint: Fall Informant: spouse/S.O. Occured/Mechanism Occurred: Today Mechanism/Context: Yes same level fall Narrative: Unknown details see below Usually ambulates: Without assistance (Sometimes with minimal assistance or a walker) Pain/Injury Location: right hip Worsened by: Moving Relieved by: Remaining still Associated Symptoms Associated Symptoms: Positive for Loss of function (LLE) and Inability to ambulate; Negative for Parasthesias, Weakness and Loss of consciousness Narrative Narrative: Patient lives at home on hospice for the past several months due to severe dementia, and their son live with her as well. This morning she was walking from the bed after she got up, to the bathroom. She put her hand on the doorknob and it was locked, she had an unwitnessed fall the family heard immediately and attended to her, she appeared to injure her right hip, and due to this she is unable to be moved or gotten up at all. No other apparent injury, but history is extremely limited due to patient being nonverbal and very hard of hearing. [facility] Medical History Anxiety Back pain Breast cancer Cystocele Dementia Dysphagia Esophageal dysphagia Migraines Osteoarthritis Medical History unable to obtain Home Medications meclizine 12.5 mg PO Q8H PRN 04/29/20 [History Last Taken Unknown] lorazepam 0.5 mg PO TID PRN 03/02/21 [History Last Taken 06/10/21] omeprazole 40 mg PO DAILY PRN 06/11/21 [History Last Taken Unknown] sennosides-docusate sodium [Stool Softener-Laxative] 1 tab PO BID PRN 06/11/21 [ History Last Taken 06/10/21] Allergy/AdvReac Type Severity Reaction Status Date / Time acetaminophen [From Vicodin] Allergy Unknown Unknown Verified 06/11/21 10:15 clarithromycin [From Biaxin] Allergy Unknown Unknown Verified 06/11/21 10:15 doxycycline Allergy Unknown Unknown Verified 06/11/21 10:15 erythromycin estolate Allergy Unknown Unknown Verified 06/11/21 10:15 [From Ilosone] hydrocodone bitartrate Allergy Unknown Unknown Verified 06/11/21 10:15 [From Vicodin] levofloxacin [From Levaquin] Allergy Unknown Unknown Verified 06/11/21 10:15 oxycodone [Oxycodone] Allergy Unknown Unknown Verified 06/11/21 10:15 oxycodone HCl [From Percocet] Allergy Unknown Unknown Verified 06/11/21 10:15 pantoprazole Allergy Unknown Unknown Verified 06/11/21 10:15 propoxyphene Allergy Unknown Unknown Verified 06/11/21 10:15 Penicillins [PCN] AdvReac PT UNSURE Verified 06/11/21 10:15 OF REACTION peanut butter AdvReac headache Uncoded 06/11/21 10:15 Surgical History H/O total mastectomy of left breast History of colonoscopy (~2005) S/P appendectomy S/P D&C (status post dilation and curettage) (~08/31/19) Social History number of children: 3 Smoking Status: Never smoker alcohol intake: never substance use type: does not use caffeine: No what type of physical activity do you participate in: none seatbelt use: always do you feel safe at home: Yes additional social history: Arias VALENZUELA ED Review of Systems ROS Unobtainable: due to mental condition EXAM Physical Exam Const Vital Signs: 06/11/21 10:10 06/11/21 10:16 06/11/21 12:26 Temperature 97.6 F L Temperature Source Axillary Pulse Rate 75 71 Respiratory Rate 16 16 Respiratory Effort Normal Respiratory Depth Normal Respiratory Pattern Normal Blood Pressure 173/65 H 133/57 H Blood Pressure Mean 101 82 Pulse Ox 96 96 Oxygen Delivery Method Room Air Room Air Room Air Positive well nourished and well developed Constitutional Narrative: Lying left lateral decubitus, can turn head and move distal aspect of all 4 extremities, but limited range of motion throughout her entire body and limited effort, limiting the exam to some degree. General Appearance ED: well developed and NAD HEENT Reports TM's clear and nasal mucous membranes and turbinates normal atraumatic Face and Sinus: Negative for facial tenderness Tympanic Membrane ED: Yes TM's clear Eyes PERRL and EOMs intact bilaterally Visual Acuity: other Other Details: no entrapment or pain with extraocular movements Neck full ROM and supple General: Negative for tenderness Chest Wall inspection of chest normal and palpation of chest normal Chest: symmetrical chest wall rise; Negative for crepitus or tenderness Resp normal respiratory effort and clear to auscultation bilaterally Percussion: other equal BS bilat Cardio no murmurs Rate: regular rate Rhythm: regular rhythm GI normal to inspection, nondistended, normoactive bowel sounds, soft to palpation and non-tender Back/Spine normal to inspection Cervical Spine: Negative for cervical spine tenderness Thoracic Spine / Upper Back: Negative for thoracic spinal tenderness Lumbar Spine / Lower Back: Negative for lumbar spinal tenderness Extremity normal to inspection Extremity Narrative: Tender left greater trochanter limited range of motion left hip and knee, also tender around the left knee diffusely, no gross deformities there nor effusion. Pelvis stable mildly tender ASIS. The rest of extremities are nontender throughout she can move her arms well, and she can move her feet well. General Extremety ED: Yes tenderness Neuro CN's II-XII intact bilaterally, moves all extremities, no focal motor deficits and no sensory deficits noted Neuro Narrative: Alert, follows commands, nonverbal [place] Coma Scale: document GCS findings Spontaneous Obeys Commands Oriented 15 Sensorium / Orientation: awake and alert Psych mental status grossly normal and thought process normal Skin no wounds Lesions: no lesions Rashes: no rashes MDM MDM MDM Narrative Medical decision making narrative: 1 view x-ray series of the pelvis/right hip, limited due to patient immobility/pain, showing a displaced right femoral neck fracture, radiology in agreement. 4 view x-ray series of the right femur and knee included are negative for any acute fracture, there is a noted flabella. Radiology agreement that there is no other fractures other than the right femoral neck. Patient was given morphine for pain. I had an extended discussion with the , he agrees that he would prefer her to have palliative surgery so that she can at least stand and walk again rather than be bedridden, since she was walking at baseline prior to this fall. I discussed with Dr. Cannon who agrees with this and will speak with him when he consults, discussed with hospitalist for admission, preoperative labs and EKG obtained. Lab Data Attestation: I reviewed the patient's lab results. Labs: Laboratory Results - last 24 hr 06/11/21 10:17 WBC 3.3 L RBC 3.97 L Hgb 12.5 Hct 37.4 MCV 94.2 MCH 31.5 MCHC 33.4 RDW Std Deviation 49.3 H RDW Coeff of Ilana 14.1 Plt Count 254 MPV 11.0 Immature Gran % (Auto) 0.600 Neut % (Auto) 52.5 Lymph % (Auto) 33.8 [place] % (Auto) 7.6 Eos % (Auto) 4.9 Baso % (Auto) 0.6 Absolute Neuts (auto) 1.7 L Absolute Lymphs (auto) 1.11 Nucleated RBC % 0 Radiography Diagnostic Testing: Clinical Impression(s) from Imaging Studies Femur X-Ray 06/11/21 10:54 IMPRESSION: Angulated fracture of the right femoral neck. Electronically Signed: Jorge Peoples MD at 11:38 EDT , Pelvis X-Ray 06/11/21 10:54 IMPRESSION: Angulated fracture of the right femoral neck. Electronically Signed: Jorge Peoples MD at 11:39 EDT , EKG Initial EKG: Attestation: I personally reviewed and interpreted this EKG as follows: Interpretation: Sinus Rhythm and No Acute Injury Pattern Comments: VERENICE. nothing acute. Discharge Plan Triage Chief Complaint: Fall ED Provider: James Hess Dx/Rx/DC Orders Clinical Impression: Closed fracture of right hip, Dementia Prescriptions: No Action meclizine 12.5 MG tablet 12.5 mg PO Q8H PRN (Reason: Dizziness) RF: 0 lorazepam 0.5 MG tablet 0.5 mg PO TID PRN (Reason: ANXIETY) RF: 0 sennosides-docusate sodium [Stool Softener-Laxative] 8.6-50 mg tablet 1 tab PO BID PRN (Reason: Constipation) RF: 0 omeprazole 40 mg capsule,delayed release(DR/EC) 40 mg PO DAILY PRN (Reason: GERD) RF: 0 Primary Care Provider: Monico Medina Referrals: Monico Medina MD [Primary Care Provider] - Disposition Disposition: Acute Care [facility]
[2021-06-11] MEDS: Ondansetron 4 MG/2 ML Vial IV (10:46)
[2021-06-11] MEDS: Morphine 2 MG/ML Syringe IV (10:46)
--- NOTE | 2021-06-11 10:54 | RAD_ITS ---
STUDY: X-RAY - RIGHT FEMUR REASON FOR STUDY: Female, 80 years old. injury TECHNIQUE: 4 view(s) of the femur. COMPARISON: None. FINDINGS: There is an angulated fracture of the right femoral neck. The remainder the visualized osseous structures are intact. There is no dislocation. The visualized soft tissues are within normal limits. RAD/Femur Min 2 Views IMPRESSION: Angulated fracture of the right femoral neck. Electronically Signed: Jorge Peoples MD at 11:38 EDT ,
--- NOTE | 2021-06-11 10:54 | RAD_ITS ---
STUDY: X-RAY - PELVIS REASON FOR EXAM: Female, 80 years old. Injury TECHNIQUE: One view of the pelvis was obtained. COMPARISON: None. FINDINGS: There is an angulated fracture of the right femoral neck. The remainder the visualized osseous structures are intact. There is no dislocation. The visualized soft tissues are within normal limits. RAD/Pelvis 1 or 2 Views IMPRESSION: Angulated fracture of the right femoral neck. Electronically Signed: Jorge Peoples MD at 11:39 EDT ,
[2021-06-11 12:26] VITALS: BP 133/57; PULSE 71; RESP 16; O2SAT 96
--- NOTE | 2021-06-11 13:31 | EKG12_ITS ---
Test Reason : FALL Blood Pressure : / mmHG Vent. Rate : 070 BPM Atrial Rate : 070 BPM P-R Int : 162 ms QRS Dur : 090 ms QT Int : 418 ms P-R-T Axes : 087 037 067 degrees QTc Int : 451 ms Normal sinus rhythm Right atrial enlargement Borderline ECG Confirmed by PATEL VIVAR, MOHIT ([id number]), videotape editor OSEI ELY ([id number]) on 06/13/2021 11:36:06 AM Referred By: NAVDEEP Confirmed By:MOHIT SWEENEY MD
[2021-06-11 13:57] LABS: Absolute Lymphocyte Count 1.11 X10^3/uL (0.83-4.51); Absolute Neutrophil Count 1.7 X10^3/uL (2.0-7.7); Basophil# 0.02 X10^3/uL; Basophil% 0.6 % (0-1); Eosinophil# 0.16 X10^3/uL; Eosinophils% 4.9 % (0-5); Hematocrit 37.4 % (37-47); Hemoglobin 12.5 g/dL (12.0-15.0); Lymphocyte # 1.11 X10^3/ul (0.83-4.51); Lymphocyte % 33.8 % (19-41); Mean Corp Hgb Conc 33.4 g/dL (32-36); Mean Corpuscular Hgb 31.5 pg (27.0-32.0); Mean Corpuscular Volume 94.2 fL (81-99); Monocyte# 0.25 X10^3/uL; Monocyte% 7.6 % (0-10); NRBC Flagged by Analyzer 0 % (0-5); Neutrophil # 1.72 X10^3/uL (2.7-7.7); Neutrophil % 52.5 % (47-70); Platelet Count 254 K/mm3 (150-450); RBC Distribution Width CV 14.1 % (11.6-14.6); RBC Distribution Width SD 49.3 fl (35.1-43.9); Red Blood Count 3.97 M/mm3 (4.2-5.4); White Blood Count 3.3 K/mm3 (4.4-11.0)
[2021-06-11 14:06] VITALS: BP 158/67; PULSE 87; RESP 16; TEMP 36.6; O2SAT 97
[2021-06-11 14:08] LABS: Anion Gap 2 (5-15); BUN 10 mg/dL (7-18); Calcium,Total 9.3 mg/dL (8.5-10.1); Chloride 106 mmol/L (98-107); Creatinine, Serum 0.52 mg/dL (0.55-1.02); EST Glomerular Filtration Rate 119 mL/min (>60); Est Glom Filt Rate - Afr Amer 143 mL/min (>60); Estimated Creatinine Clearance 37.45 ml/min; Glucose 86 mg/dL (74-106); Potassium 4.1 mmol/L (3.5-5.1); Sodium Level 141 mmol/L (136-145)
--- NOTE | 2021-06-11 14:38 | HP.PCM.HOS_ITS ---
HPI - General General Date of Admission: 06/11/21 HPI Narrative DARIN ANAND, is a 80 F who presents to the hospital after a fall. She was at home where she lives with her and was walking to the bathroom apparently became unsteady and fell. The is unsure whether or not the door got stuck when she tried to go into the bathroom and that is why she fell over. Regardless, pelvis x-ray demonstrates a dilated fracture of the right femoral neck. She is on hospice currently because of significant dementia and decline. She did open her eyes to voice but did not communicate with me at all, according to the her dementia is not this severe at home and she is able to live a normal life. The ER did discuss the case with orthopedic surgery and they agree with the necessity of fixing the fracture for comfort. [facility] Medical History Anxiety Back pain Breast cancer Cystocele Dementia Dysphagia Esophageal dysphagia Migraines Osteoarthritis Medical History unable to obtain Home Medications meclizine 12.5 mg PO Q8H PRN 04/29/20 [History Last Taken Unknown] lorazepam 0.5 mg PO TID PRN 03/02/21 [History Last Taken 06/10/21] omeprazole 40 mg PO DAILY PRN 06/11/21 [History Last Taken Unknown] sennosides-docusate sodium [Stool Softener-Laxative] 1 tab PO BID PRN 06/11/21 [History Last Taken 06/10/21] Allergy/AdvReac Type Severity Reaction Status Date / Time acetaminophen [From Vicodin] Allergy Unknown Unknown Verified 06/11/21 10:15 clarithromycin [From Biaxin] Allergy Unknown Unknown Verified 06/11/21 10:15 doxycycline Allergy Unknown Unknown Verified 06/11/21 10:15 erythromycin estolate Allergy Unknown Unknown Verified 06/11/21 10:15 [From Ilosone] hydrocodone bitartrate Allergy Unknown Unknown Verified 06/11/21 10:15 [From Vicodin] levofloxacin [From Levaquin] Allergy Unknown Unknown Verified 06/11/21 10:15 oxycodone [Oxycodone] Allergy Unknown Unknown Verified 06/11/21 10:15 oxycodone HCl [From Percocet] Allergy Unknown Unknown Verified 06/11/21 10:15 pantoprazole Allergy Unknown Unknown Verified 06/11/21 10:15 propoxyphene Allergy Unknown Unknown Verified 06/11/21 10:15 Penicillins [PCN] AdvReac PT UNSURE Verified 06/11/21 10:15 OF REACTION peanut butter AdvReac headache Uncoded 06/11/21 10:15 unable to obtain Surgical History H/O total mastectomy of left breast History of colonoscopy (~2005) S/P appendectomy S/P D&C (status post dilation and curettage) (~08/31/19) Social History number of children: 3 Smoking Status: Never smoker alcohol intake: never substance use type: does not use caffeine: No what type of physical activity do you participate in: none seatbelt use: always do you feel safe at home: Yes additional social history: Arias ROS Review of Systems ROS Unobtainable: due to mental status Vital Signs Vital Signs Vital Signs: 06/11/21 10:10 06/11/21 10:16 06/11/21 12:26 Temperature 97.6 F L Temperature Source Axillary Pulse Rate 75 71 Respiratory Rate 16 16 Respiratory Effort Normal Respiratory Depth Normal Respiratory Pattern Normal Blood Pressure 173/65 H 133/57 H Blood Pressure Mean 101 82 Pulse Ox 96 96 Oxygen Delivery Method Room Air Room Air Room Air 06/11/21 14:06 Temperature 97.9 F Temperature Source Temporal Pulse Rate 87 Respiratory Rate 16 Respiratory Effort Respiratory Depth Respiratory Pattern Blood Pressure 158/67 H Blood Pressure Mean 97 Pulse Ox 97 Oxygen Delivery Method Room Air Weight Weight: 120 lb 9.486 oz Body Mass Index (BMI) 20.0 Physical Exam Const no apparent distress Constitutional Narrative: Does not communicate, opens eyes to voice HEENT normocephalic and moist oral mucous membranes Eyes PERRL, EOMs intact bilaterally and conjunctivae normal Neck supple and no JVD Resp normal respiratory effort, no retractions, no use of accessory muscles and clear to auscultation bilaterally Auscultation: Negative for crackles, rales, rhonchi or wheezes Cardio regular rate, regular rhythm, S1 normal heart sound, S2 normal heart sound and no murmurs GI soft to palpation, non-tender and non-distended; Negative for hepatosplenomegaly Extremity Extremity Narrative: Leg length discrepancy right shorter than left Skin no rashes or lesions noted Neuro no focal motor deficits and no sensory deficits noted Psych affect normal Appearance: appropriate Results Lab / Micro Data Result Diagrams: 06/11/21 10:17 06/11/21 10:17 Labs: Laboratory Results - last 24 hr 06/11/21 10:17: WBC 3.3 L, RBC 3.97 L, Hgb 12.5, Hct 37.4, MCV 94.2, MCH 31.5, MCHC 33.4, RDW Std Deviation 49.3 H, RDW Coeff of Ilana 14.1, Plt Count 254, MPV 11.0, Immature Gran % (Auto) 0.600, Neut % (Auto) 52.5, Lymph % (Auto) 33.8, [place] % (Auto) 7.6, Eos % (Auto) 4.9, Baso % (Auto) 0.6, Absolute Neuts (auto) 1.7 L, Absolute Lymphs (auto) 1.11, Nucleated RBC % 0 06/11/21 10:17: Sodium 141, Potassium 4.1, Chloride 106, Carbon Dioxide 33.0 H, Anion Gap 2 L, BUN 10, Creatinine 0.52 L, Estim Creat Clear Calc 37.45, Est GFR (MDRD) Af Amer 143, Est GFR (MDRD) Non-Af 119, BUN/Creatinine Ratio 19.0, Glucose 86, Calcium 9.3 Radiology Impression Femur X-Ray 06/11/21 10:54 IMPRESSION: Angulated fracture of the right femoral neck. Electronically Signed: Jorge Peoples MD at 11:38 EDT Reading Location ID and State: [facility] / [place] Tel , Service support , Pelvis X-Ray 06/11/21 10:54 IMPRESSION: Angulated fracture of the right femoral neck. Electronically Signed: Jorge Peoples MD at 11:39 EDT , Assessment & Plan Assessment/Plan (1) Closed fracture of right hip: (2) Dementia: PLAN: 1. Angulated fracture of the right femoral neck due to a fall ?She has a DNR CC as she is on hospice however will proceed with potential repair, I did have an extensive discussion with the in terms of prognosis given her age, comorbidities in the setting of a fracture. He would like for her to go to a [place] [facility] facility on discharge for therapy if possible. 25-minute discussion on advance care planning. ?We will continue with IV and oral pain meds as necessary ?There is some concern for constipation so we will have a fairly aggressive bowel regimen ordered ?Consult orthopedic surgery 2. Dementia ?Discussed with the the possibility of sundowning and confusion at night he states that he usually gives her Ativan before they go to bed ?Discussed with him that we may need to be a little bit more aggressive while s he is here 3. Vertigo ?She does take meclizine which we can continue as needed 4. GERD ?Stable ?Continue with PPI DVT: SCDs Charges/Coding Visit Charges Inpatient E&M: 02114 Init Hosp L2
[2021-06-11 15:00] VITALS: BP 114/69; PULSE 74; RESP 16; TEMP 36.2; O2SAT 97
--- NOTE | 2021-06-11 15:55 | RAD_ITS ---
STUDY: XR Ankle Min 3 Views REASON FOR EXAM: Female, 80 years old. ANKLE PAIN Technologist Notes pt states right ankle pain, recent fall TECHNIQUE: XR Ankle Min 3 Views RIGHT COMPARISON: None. FINDINGS: Normal visualized distal tibia and fibula. Normal medial and lateral malleoli. Normal tibiotalar articulation and ankle mortise. There is an enthesophyte involving the posterior superior calcaneus at the site of insertion of the Achilles tendon. The visualized subtalar, talonavicular, calcaneocuboid and tarsal articulations are normal. There is a plantar calcaneal spur. There is soft tissue swelling around the ankle. RAD/Ankle min 3 Views IMPRESSION: There is soft tissue swelling. Electronically Signed: El Benjamin MD at 16:11 EDT ,
--- NOTE | 2021-06-11 16:05 | CON.PCM.OR_ITS ---
HPI Consult Data Date of Consult: 06/11/21 HPI Narrative HPI Narrative: DARIN ANAND, is a 80 F who presents to [facility] emergency department after a apparent mechanical fall at home where she resides with her . She was unable to bear weight and x-rays revealed an emergency department she had sustained a displaced right femoral neck fracture. Her suspects she got hung up on a bathroom door causing her to fall. Patient has history of advanced dementia, has been in palliative care and most recently hospice due to declining function. Patient normally ambulates without assistive device. She participates in household activities such as assisting with cooking, making coffee, etc. She speaks in short sentences and follows commands per the . At time of my examination, patient follows commands but does not respond to any questioning. Medical history obtained from who is at bedside as well as medical record. [facility] Medical History Anxiety Back pain Breast cancer Cystocele Dementia Dysphagia Esophageal dysphagia Migraines Osteoarthritis Medical History unable to obtain Home Medications meclizine 12.5 mg PO Q8H PRN 04/29/20 [History Last Taken Unknown] lorazepam 0.5 mg PO TID PRN 03/02/21 [History Last Taken 06/10/21] omeprazole 40 mg PO DAILY PRN 06/11/21 [History Last Taken Unknown] sennosides-docusate sodium [Stool Softener-Laxative] 1 tab PO BID PRN 06/11/21 [History Last Taken 06/10/21] Allergy/AdvReac Type Severity Reaction Status Date / Time acetaminophen [From Vicodin] Allergy Unknown Unknown Verified 06/11/21 10:15 clarithromycin [From Biaxin] Allergy Unknown Unknown Verified 06/11/21 10:15 doxycycline Allergy Unknown Unknown Verified 06/11/21 10:15 erythromycin estolate Allergy Unknown Unknown Verified 06/11/21 10:15 [From Ilosone] hydrocodone bitartrate Allergy Unknown Unknown Verified 06/11/21 10:15 [From Vicodin] levofloxacin [From Levaquin] Allergy Unknown Unknown Verified 06/11/21 10:15 oxycodone [Oxycodone] Allergy Unknown Unknown Verified 06/11/21 10:15 oxycodone HCl [From Percocet] Allergy Unknown Unknown Verified 06/11/21 10:15 pantoprazole Allergy Unknown Unknown Verified 06/11/21 10:15 propoxyphene Allergy Unknown Unknown Verified 06/11/21 10:15 Penicillins [PCN] AdvReac PT UNSURE Verified 06/11/21 10:15 OF REACTION peanut butter AdvReac headache Uncoded 06/11/21 10:15 Family History unable to obtain Surgical History H/O total mastectomy of left breast History of colonoscopy (~2005) S/P appendectomy S/P D&C (status post dilation and curettage) (~08/31/19) Surgical History unable to obtain Social History number of children: 3 Smoking Status: Never smoker alcohol intake: never substance use type: does not use caffeine: No what type of physical activity do you participate in: none seatbelt use: always do you feel safe at home: Yes additional social history: Arias VALENZUELA Narrative Unable to obtain secondary to mental status Vital Signs Vital Signs Vital Signs: 06/11/21 10:10 06/11/21 10:16 06/11/21 12:26 Temperature 97.6 F L Temperature Source Axillary Pulse Rate 75 71 Respiratory Rate 16 16 Respiratory Effort Normal Respiratory Depth Normal Respiratory Pattern Normal Blood Pressure 173/65 H 133/57 H Blood Pressure Mean 101 82 Blood Pressure Source Blood Pressure Position Blood Pressure Location Pulse Ox 96 96 Oxygen Delivery Method Room Air Room Air Room Air 06/11/21 14:06 06/11/21 15:00 06/11/21 15:13 Temperature 97.9 F 97.2 F L Temperature Source Temporal Temporal Pulse Rate 87 74 Respiratory Rate 16 16 Respiratory Effort Normal Respiratory Depth Respiratory Pattern Blood Pressure 158/67 H 114/69 Blood Pressure Mean 97 84 Blood Pressure Source Monitor Blood Pressure Position Semi-Fowlers Blood Pressure Location Right Arm Pulse Ox 97 97 Oxygen Delivery Method Room Air Room Air Weight Weight: 116 lb 12.8 oz Body Mass Index (BMI) 20.0 Physical Exam Narrative General - NAD, appears stated age. Vital signs stable, afebrile. Respiratory -normal work of breathing, no intercostal retractions. CV -pulses regular, brisk capillary refill ?4 limbs. Abdomen-soft, nontender, nondistended. No guarding, rigidity, rebound tenderness. Musculoskeletal/neurologic -full range of motion nontender throughout bilateral upper extremities, left lower extremity. No midline cervical tenderness Right lower extremity-no obvious deformity. Pain with logroll of the right lower extremity. Nontender throughout the right knee femoral shaft, tibial shaft. Focal ecchymosis noted in the distal lateral lower leg, which is tender to palpation. No palpable crepitus about the ankle. Brisk capillary refill. DF, PF, EHL intact. DP, PT 2+. Pelvis is stable, nontender. Skin is intact without lacerations, abrasions. No ecchymosis noted. Lab / Micro Data Result Diagrams: 06/11/21 10:17 06/11/21 10:17 Labs: Laboratory Results - last 24 hr 06/11/21 10:17: WBC 3.3 L, RBC 3.97 L, Hgb 12.5, Hct 37.4, MCV 94.2, MCH 31.5, MCHC 33.4, RDW Std Deviation 49.3 H, RDW Coeff of Ilana 14.1, Plt Count 254, MPV 11.0, Immature Gran % (Auto) 0.600, Neut % (Auto) 52.5, Lymph % (Auto) 33.8, [place] % (Auto) 7.6, Eos % (Auto) 4.9, Baso % (Auto) 0.6, Absolute Neuts (auto) 1.7 L, Absolute Lymphs (auto) 1.11, Nucleated RBC % 0 06/11/21 10:17: Sodium 141, Potassium 4.1, Chloride 106, Carbon Dioxide 33.0 H, Anion Gap 2 L, BUN 10, Creatinine 0.52 L, Estim Creat Clear Calc 37.45, Est GFR (MDRD) Af Amer 143, Est GFR (MDRD) Non-Af 119, BUN/Creatinine Ratio 19.0, Glucose 86, Calcium 9.3 Radiology Impression Femur X-Ray 06/11/21 10:54 IMPRESSION: Angulated fracture of the right femoral neck. Electronically Signed: Jorge Peoples MD at 11:38 EDT , Pelvis X-Ray 06/11/21 10:54 IMPRESSION: Angulated fracture of the right femoral neck. Electronically Signed: Jorge Peoples MD at 11:39 EDT , Assessment & Plan Assessment/Plan (1) Closed fracture of right hip: PLAN: Patient sustained a right displaced femoral neck fracture. -Closed, neurovascularly intact -Isolated injury -Recommending surgical intervention in the form of right hip hemiarthroplasty, despite her hospice enrollment. We discussed nonoperative versus operative intervention extensively. The patient's would like to proceed with surgery. -I discussed the procedure-its risks, benefits and alternative. Risks include but are not limited to bleeding, infection, loss of life or limb, risk of anesthesia, persistent pain or disability, instability, need for additional surgery, failure of orthopedic hardware, neurovascular injury, DVT or PE. expressed understanding these risks and wished proceed with surgery. -Maintenance IV fluids, clear liquid diet after midnight n.p.o. at 4 hours prior to surgery -Type and screen -2 g Ancef on-call to the OR -Bedrest, heel protectors -Plan to proceed with surgery tomorrow 06/12/2021 Thank you for this consultation.
--- NOTE | 2021-06-11 16:58 | CPS ---
patient unable to comprehend
[2021-06-11 17:55] LABS: ALB/GLOB Ratio 0.9 RATIO (0.9-2.4); AST(SGOT) 32 U/L (15-37); Alanine Aminotransfer ALT/SGPT 44 U/L (13-56); Albumin, Serum 3.2 g/dL (3.2-5.0); Alkaline Phosphatase 94 U/L (45-117); Anion Gap 2 (5-15); BUN 10 mg/dL (7-18); Calcium,Total 9.3 mg/dL (8.5-10.1); Chloride 107 mmol/L (98-107); EST Glomerular Filtration Rate 125 mL/min (>60); Est Glom Filt Rate - Afr Amer 151 mL/min (>60); Estimated Creatinine Clearance 36.28 ml/min; Globulin 3.7 g/dL (2.2-4.2); Glucose 91 mg/dL (74-106); Potassium 3.7 mmol/L (3.5-5.1); Protein, Total 6.9 g/dL (6.4-8.2); Sodium Level 140 mmol/L (136-145)
[2021-06-11] MEDS: oxyCODONE 5 MG Tablet PO (20:09)
[2021-06-11] MEDS: Senna/Docusate Sodium 1 Tablet 2 TABLET PO (20:11)
[2021-06-11 20:49] VITALS: BP 151/70; PULSE 88; RESP 16; TEMP 36.6; O2SAT 97
[2021-06-12] VITALS (12 sets, daily range): BP systolic 115–159; BP diastolic 54–95; PULSE 82–108; RESP 16–18; TEMP 35.8–36.8; O2SAT 96–98
[2021-06-12 06:16] LABS: Absolute Lymphocyte Count 0.96 X10^3/uL (0.83-4.51); Absolute Neutrophil Count 5.4 X10^3/uL (2.0-7.7); Basophil# 0.02 X10^3/uL; Basophil% 0.3 % (0-1); Eosinophil# 0.06 X10^3/uL; Eosinophils% 0.8 % (0-5); Hematocrit 35.1 % (37-47); Hemoglobin 11.8 g/dL (12.0-15.0); Lymphocyte # 0.96 X10^3/ul (0.83-4.51); Lymphocyte % 13.4 % (19-41); Mean Corp Hgb Conc 33.6 g/dL (32-36); Mean Corpuscular Hgb 31.2 pg (27.0-32.0); Mean Corpuscular Volume 92.9 fL (81-99); Mean Platelet Vol. 9.8 fl (6.2-12.0); Monocyte# 0.72 X10^3/uL; Monocyte% 10.1 % (0-10); NRBC Flagged by Analyzer 0 % (0-5); Neutrophil # 5.38 X10^3/uL (2.7-7.7); Neutrophil % 75.1 % (47-70); Platelet Count 225 K/mm3 (150-450); RBC Distribution Width CV 14.3 % (11.6-14.6); RBC Distribution Width SD 49.2 fl (35.1-43.9); Red Blood Count 3.78 M/mm3 (4.2-5.4); White Blood Count 7.2 K/mm3 (4.4-11.0)
[2021-06-12 06:44] LABS: Anion Gap 6 (5-15); BUN 10 mg/dL (7-18); BUN/Creat Ratio 17.9 RATIO (10-20); Calcium,Total 8.8 mg/dL (8.5-10.1); Chloride 104 mmol/L (98-107); Creatinine, Serum 0.56 mg/dL (0.55-1.02); EST Glomerular Filtration Rate 110 mL/min (>60); Est Glom Filt Rate - Afr Amer 134 mL/min (>60); Estimated Creatinine Clearance 36.28 ml/min; Glucose 93 mg/dL (74-106); Potassium 3.8 mmol/L (3.5-5.1); Sodium Level 139 mmol/L (136-145)
--- NOTE | 2021-06-12 08:45 | PCM.PN.HOSP ---
Documented by User: Eliza Aguilar FOLDING MACHINE FEEDER, FOLDING MACHINE FEEDER-C 06/12/21 08:59 Subjective Subjective Patient seen and examined. Resting in bed, appears comfortable. Plan for OR this afternoon. Objective Data Objective Data Vital Signs: Vital Signs Temp Pulse Resp BP Pulse Ox 97.8 F 108 H 18 156/76 H 97 06/12/21 07:51 06/12/21 07:51 06/12/21 07:51 06/12/21 07:51 06/12/21 07:51 Oxygen Delivery Method Room Air Weight: 116 lb 12.8 oz Body Mass Index (BMI) 20.0 Intake & Output: Intake and Output for Last 24 Hours 06/10/21 06/11/21 06/12/21 23:59 23:59 23:59 Output Total 1100 / 1100 Balance -1100 / -1100 Lab / Micro Data Result Diagrams: 06/12/21 06:07 06/12/21 06:07 Labs: Laboratory Results - last 24 hr 06/11/21 10:17: WBC 3.3 L, RBC 3.97 L, Hgb 12.5, Hct 37.4, MCV 94.2, MCH 31.5, MCHC 33.4, RDW Std Deviation 49.3 H, RDW Coeff of Ilana 14.1, Plt Count 254, MPV 11.0, Immature Gran % (Auto) 0.600, Neut % (Auto) 52.5, Lymph % (Auto) 33.8, [place] % (Auto) 7.6, Eos % (Auto) 4.9, Baso % (Auto) 0.6, Absolute Neuts (auto) 1.7 L, Absolute Lymphs (auto) 1.11, Nucleated RBC % 0 06/11/21 10:17: Sodium 141, Potassium 4.1, Chloride 106, Carbon Dioxide 33.0 H, Anion Gap 2 L, BUN 10, Creatinine 0.52 L, Estim Creat Clear Calc 37.45, Est GFR (MDRD) Af Amer 143, Est GFR (MDRD) Non-Af 119, BUN/Creatinine Ratio 19.0, Glucose 86, Calcium 9.3 06/11/21 17:10: Sodium 140, Potassium 3.7, Chloride 107, Carbon Dioxide 31.0, Anion Gap 2 L, BUN 10, Creatinine 0.50 L, Estim Creat Clear Calc 36.28, Est GFR (MDRD) Af Amer 151, Est GFR (MDRD) Non-Af 125, BUN/Creatinine Ratio 20.0, Glucose 91, Calcium 9.3, Total Bilirubin 0.40, AST 32, ALT 44, Alkaline Phosphatase 94, Total Protein 6.9, Albumin 3.2, Globulin 3.7, Albumin/Globulin Ratio 0.9 06/12/21 06:07: WBC 7.2, RBC 3.78 L, Hgb 11.8 L, Hct 35.1 L, MCV 92.9, MCH 31.2, MCHC 33.6, RDW Std Deviation 49.2 H, RDW Coeff of Ilana 14.3, Plt Count 225, MPV 9.8, Immature Gran % (Auto) 0.300, Neut % (Auto) 75.1 H, Lymph % (Auto) 13.4 L, [place] % (Auto) 10.1 H, Eos % (Auto) 0.8, Baso % (Auto) 0.3, Absolute Neuts (auto) 5.4, Absolute Lymphs (auto) 0.96, Nucleated RBC % 0 06/12/21 06:07: Sodium 139, Potassium 3.8, Chloride 104, Carbon Dioxide 29.0, Anion Gap 6, BUN 10, Creatinine 0.56, Estim Creat Clear Calc 36.28, Est GFR (MDRD) Af Amer 134, Est GFR (MDRD) Non-Af 110, BUN/Creatinine Ratio 17.9, Glucose 93, Calcium 8.8 06/12/21 06:07: Blood Type A POSITIVE, Antibody Screen NEGATIVE Micro: Microbiology 06/11/21 17:30 Nasal Secretion SARS-CoV-2 Antigen (Rapid) - Final Radiography Diagnostic Testing: Radiology Impression Femur X-Ray 06/11/21 10:54 IMPRESSION: Angulated fracture of the right femoral neck. Electronically Signed: Jorge Peoples MD at 11:38 EDT , Pelvis X-Ray 06/11/21 10:54 IMPRESSION: Angulated fracture of the right femoral neck. Electronically Signed: Jorge Peoples MD at 11:39 EDT , Ankle X-Ray 06/11/21 15:55 IMPRESSION: There is soft tissue swelling. Electronically Signed: El Benjamin MD at 16:11 EDT , Physical Exam Const no apparent distress Constitutional Narrative: Drowsy, baseline dementia Nutritional Appearance: cachectic HEENT normocephalic Mouth: dry mucous membranes Eyes PERRL, EOMs intact bilaterally and conjunctivae normal Neck no lymphadenopathy Resp clear to auscultation bilaterally Auscultation: diminished lung sounds Cardio regular rate, regular rhythm and no murmurs Peripheral Pulses: pulses 2+ throughout GI normal to inspection, nondistended, normoactive bowel sounds, non-tender and non-distended Extremity normal to inspection Skin no rashes or lesions noted Lesions: no lesions Rashes: no rashes Trauma: no lacerations or abrasions Neuro CN's II-XII intact bilaterally, no focal motor deficits, no sensory deficits noted and deep tendon reflexes 2+ bilaterally Psych mental status grossly normal and affect normal Assessment & Plan Assessment/Plan (1) Closed fracture of right hip: PLAN: 1. Acute traumatic angulated fracture of the right femoral neck due to mechanical fall- PT/OT. Orthopedic medicine following. PRN pain regimen. CM consult for DC planning. Plan for OR today, 06/12/21. 2. Severe dementia, unknown behavioral disturbance history- not on regimen. Complicated management and recovery. 3. Severe protein calorie malnutrition-as evidenced by cachectic appearance with muscle and fat loss, reduced BMI. Dietitian consult. 4. GERD- continue PPI. 5. Vertigo- on PRN meclizine at baseline. 6. Hospice care-patient is currently under the care of hospice at home. Per hospitalist discussion on admission, plan for SNF with skilled therapy at discharge prior to returning home on hospice. DVT Prophylaxis- SCDs This patient was seen by HERBERT Olvera under the supervision of Dr. Orosco. Time spent examining patient, reviewing data and subsequent management of care: 12 Minutes Documented by User: Dr. Denise Orosco MD 06/12/21 15:09 Objective Data Lab / Micro Data Result Diagrams: 06/12/21 06:07 06/12/21 06:07 Charges/Coding Addendum Addendum: This patient was seen in conjunction with Eliza Aguilar NP. I have independently interviewed and examined the patient and reviewed pertinent historical, laboratory, and other data. I have reviewed her note and concur with her documentation Patient was seen and examined. She appears comfortable. She is going to the OR today. No acute events overnight. Physical Exam: Gen: Comfortable, not pale, not jaundiced CVS:HS I +II, regular, no murmurs RESP: Diminished at lung bases GI: BS present and normal, soft, nontender, no palpable organs EXT:No edema, tenderness over the right hip ASSESSMENT: 1. Right hip fracture 2. Severe dementia 3. Protein calorie malnutrition 4. GERD 5. Vertigo Plan: Patient will be undergoing palliative hip replacement Continue with scheduled Tylenol, as needed oxycodone Time spent coordinating patient's care, discussing with subspecialty and nursin minutes Visit Charges Inpatient E&M: 59669 Subs Hosp L2
--- NOTE | 2021-06-12 12:50 | CASEMGMT ---
MAJOR DIANA Face to Face with for initial transition planning/care coordination assessment as patient has dementia. RN CM introduced self and role at [facility]. Patient lying in bed, alert and confused, at beside. , Arias, willing to participate in assessment and is able to answer all questions appropriately. Care providers, pharmacy, and demographics verified. is unsure of discharge disposition at discharge. RN CM discussed SNF vs HHC and will monitor progress with therapy for appropriate discharge disposition. agreeable to SNF if appropriate. states he has no further needs or concerns at this time. CM to follow for discharge planning needs that may arise. PCP: Carol Specialists: none Preferred Pharmacy: [facility] Insurance: [employer] Prescription Benefit: yes Living Will/HPOA: yes, [address] HPOA LNOK: Living Arrangements: Patient lives with in a singel story home with 3 steps in the front, no railing. Per patient was ambulating independently at home and toileting self. was assisting with dressing and bathing. Transportation: DME/HHC: Patient has cane, walker, and home oxygen with portability through hospice. Patient does not require oxygen at home but is there if they would need it. No previous HHC or SNF. [facility] with [facility] prior to admission. Disposition Plan: TBD by course of treatment and progress with therapy. Cecilia SOTO, RN, CM
[2021-06-12] MEDS: Lactated Ringers 1,000 ML 15 ML IV ×2 (13:47→15:46)
[2021-06-12] MEDS: Cefazolin 2 GM in 0.9% Normal Saline 100 ML IV ×2 (15:05→21:57)
[2021-06-12] MEDS: Bupivacaine 0.5% PF 10 ML VIAL (15:58)
--- NOTE | 2021-06-12 16:39 | OP.PCM_ITS ---
Report of Operation Date of Procedure: 06/12/21 Description of Surgical Findings:: Preoperative diagnosis: Right displaced femoral neck fracture Postoperative diagnosis: Right displaced femoral neck fracture Procedure: Right hip hemiarthroplasty Surgeon: Harshil Cannon DO Drawbench Operator: Pao Luna PA-C Anesthesia: General endotracheal Anesthesiologist: Dr. Lira/Andrez Bauer CRNA Complications: Intraoperative EKG changes, otherwise stable throughout. Drains: None Estimated blood loss: 250 cc Urinary output: None recorded IV fluids: Per anesthesia record Specimens: None Surgical implants: [place] V 40 offset 37.5 #0, stem length 150 mm taper V 40, 44 mm Unitrax endoprosthesis head component, Unitrax neck adjustment sleeve standard Indications: This is an 80-year-old female who sustained a ground-level at her home where she resides. Patient has advanced dementia. She is on hospice due to functional decline.. She landed on her right side. She was brought to [facility] where x-rays revealed a displaced right femoral neck fracture. She was admitted under the service of the hospitalist. I was consulted to see the patient for surgical recommendations. I recommended a right hip hemiarthroplasty due to the pattern and displacement. I reviewed the procedure with the patient, its risk, benefits, alternatives. Risks included but were not limited to bleeding, infection, loss of life or limb, risk of anesthesia, neurovascular injury, persistent pain, instability, need for additional surgery, failure of orthopedic hardware, loosening, osteolysis, need for assistive devices long-term. Informed consent was obtained from the patient's . Description of procedure: Prior to the procedure, patient was brought to the preoperative holding area where patient was identified by name, medical record number and date of . I confirmed the side, site, operation to be performed with the patient. Informed consent was confirmed, All questions were answered to the patient's 's satisfaction. The operative extremity was marked. She was also seen by anesthesia staff and anesthesia consent obtained.At time of the operative procedure, pt was brought to the operative suite. General anesthesia was induced on the hospital bed and endotracheal tube placed. After adequate anesthesia, patient was transferred to a standard operating table. She was then positioned in the lateral decubitus position with the right side up and held in position by a pegboard. All bony prominences were well-padded. A axillary roll was placed under the patient's left axilla. Peroneal nerve was free with a blanket on the nonoperative extremity. Leg lengths were reproduced from patient's position when she was supine. The right lower extremity was then prepped and draped in normal, sterile orthopedic fashion. We performed a timeout with all parties in attendance in agreement with the side, site, and operation to be performed. No concerns were voiced and would like to proceed. 2 g Ancef was administered prior to the incision as well as 1 g TXA IV. I first marked an incision along the lateral aspect of the hip centered over the greater trochanteric tip. In standard posterior approach, a curvilinear incision was made above the trochanter. An approximately 15 cm incision was made. Skin was sharply incised with a 10 blade scalpel carried deep through subcutaneous layers to the level of the IT band. Gelpi retractors were then placed. A Devine was used to expose the IT band. Bovie cautery was then used for hemostasis and then to open the IT band. This was opened in line with the incision. A Charnley retractor was then placed. Sciatic nerve is free. The trochanteric bursa was then debrided. This identified the short external rotators after internal rotation of the hip. The fracture site was easily identified at this point. Short external rotators were taken down and tagged for later repair. Hip capsule was also tagged for repair with a stay suture. We then freshened the neck cut with a sagittal saw. Anterior and posterior acetabular retractors were placed to gain access to the femoral head. A corkscrew was used to remove the head. Any remaining debris was debrided from the acetabulum. We then placed the femoral head on the back table for measurement. We did use trial heads and selected a final size 44 with good suction fit. Box chisel was then utilized to gain access to the femoral canal. Canal finder was placed. Sequential broaches were used in press-fit manner. Utilizing a size 37.5 #0, rotational control was achieved. I trialed a 0 neck length with this size of stem. Leg lengths appeared appropriate with a size 0 neck length. Trials were then removed. We copiously irrigated the wound with normal saline solution and irrisept solution. We then prepared the femoral canal for cementing. Trials were removed. The femoral canal was irrigated with normal saline solution copiously. The canal was packed with vaginal packing. [place] Simplex cement was mixed on the back table. Cement restrictor was placed approximately 1 cm distal to the tip of the stem. The canal was then pressurized with cement. The final stem was then placed by hand with reproduction of femoral length and rotation. This was held in place until the cement cured. After cement had cured and excess cement was removed, I trialed with a 0 neck length which achieved excellent stability and reproduction of leg lengths. Trial was removed and the wound was copiously irrigated normal saline solution. Final implant was impacted over a clean, dry Coronel taper stem. Final reduction maneuver was performed. Utilizing 2 bone tunnels, posterior capsule and external rotators were repaired to the greater trochanter. IT band was closed watertight with #1 Vicryl suture. Deeper fascial layers were closed with 0 Vicryl suture in interrupted fashion. Subcutaneous layers were reapproximated with 2-0 Vicryl suture and skin reapproximated with skin eryn. A silver dressing was applied. Patient tolerated procedure well without complication. She was positioned back in the supine position on her hospital bed and subsequently extubated safely. She was transferred to PACU in stable condition. Blankets were placed between the patient's legs. Post Operative Plan: Weightbearing: Weightbearing as tolerated right lower extremity, posterior hip precautions. Pillows between legs while in bed Antibiotics: Ancef 1 g every 8 hours x 3 doses DVT Prophylaxis: Aspirin 81 mg twice daily to start tomorrow Correa: None Dressing: Maintain silver dressing x7 days X-Rays: PACU x-rays were reviewed demonstrated well-positioned right hip hemiarthroplasty implant. Follow-up 3-week x-rays in the office. Follow-up: 3 weeks in my office for staple removal
--- NOTE | 2021-06-12 17:21 | RAD_ITS ---
STUDY: X-RAY - PELVIS AND RIGHT HIP REASON FOR EXAM: Female, 80 years old. Post Op -- AP both hips on single domenica/lateral of op hip PACU TECHNIQUE: XR Hip Unilateral with Pelvis when performed; 2-3 Views COMPARISON: None. FINDINGS: There is no fracture or dislocation. There is anatomic alignment. The soft tissue planes are preserved. Total hip arthroplasty. Skin eryn are seen along the anterior lateral aspect of the hip. There is an air-fluid level seen in the operative site. Joint space is preserved. Subcutaneous air is noted. IMPRESSION: Successful total hip arthroplasty. Electronically Signed: El Benjamin MD at 19:10 EDT Reading Location ID and State: [facility] / [place] , Service support , RAD/Hip Min 2 Views (Portable)
[2021-06-12] MEDS: Acetaminophen 500 MG Tablet 1000 MG PO (21:44)
[2021-06-12] MEDS: Senna/Docusate Sodium 1 Tablet 2 TABLET PO (21:44)
[2021-06-13] VITALS (7 sets, daily range): BP systolic 133–167; BP diastolic 53–92; PULSE 98–112; RESP 14–16; TEMP 34.6–37.3; O2SAT 16–98
--- NOTE | 2021-06-13 | HIP_PTH ---
PATIENT: DARIN ANAND LOC: MS3 U#:[id number] AGE/SX: 80/F ROOM: [facility] RE06/11/[address]: Dr. Denise Orsoco MD : 1940 BED: 1 DIS: 06/14/2021 SPEC #: [id number] RECD: 06/13/21 13:40 STATUS: TOSIN REQ #: [id number] IRA[place]: 06/13/21 00:[address]: Harshil Cannon DEPT: SURGICAL PATHOLOGY RECD BY: Sravan Cespedes ENTERED: 06/14/21 07:50 SP TYPE: TOTAL HIP OTHR DR: MD Dr. Monico Hawkins MD Dr. Nicholas F Kotsonis, MD Dr. Nicholas Spittle, Tissues: Hip, NOS Procedures: Decalcification bone/plaque Surgery Specimen Level IV Comments: @ Ordering doctor for DEC edited from to @ by ARYA at 06/14/21 1031 @ Ordering doctor for SUIV edited from to @ by ARYA at 06/14/21 1031 @ Submitting doctor edited from to @ by ARYA at 06/14/21 1031 HEADER OPERATION: Right hip hemiarthroplasty PRE-OP DIAGNOSIS: Closed fracture of right hip TISSUE SUBMITTED: Right femoral head MICROSCOPIC DIAGNOSIS Right hip fracture, total hip resection: Consistent with organizing fracture callus. Articular surface with degenerative change. AM:ortiz 06/18/2021 MICROSCOPIC DESCRIPTION Slides are reviewed. GROSS DESCRIPTION Received is one container labeled with the patient's name and designated right femoral head. The specimen consists of a link femoral head measuring 4.5 x 4.5 x 3 cm. The articular surface is smooth and shows focal area of chalky-white deposit. Resection margin is irregular and hemorrhagic. Also present in the specimen container are three variable sized pieces of bone measuring in aggregate 5 x 4 x 2.5 cm. Supervisor Insecticide sections are submitted in three cassettes after decalcification as follows: 1 - detached pieces of bone, 2 & 3 - femoral head. / LADAN:ortiz 06/14/2021 TC:5 CPT: 20340, 34884
--- NOTE | 2021-06-13 02:35 | NURSING ---
Pt had not voided since coming to floor from surgery; bladder scanned result >999ml; pt straight cath 2350ml
[2021-06-13] MEDS: 0.9% Saline Lock 10 ML Syringe IV ×2 (03:17→15:32)
[2021-06-13] MEDS: Morphine 2 MG/ML Syringe IV (03:17)
[2021-06-13] MEDS: Cefazolin 2 GM in 0.9% Normal Saline 100 ML IV ×2 (05:35→15:32)
[2021-06-13 06:00] LABS: Absolute Lymphocyte Count 0.59 X10^3/uL (0.83-4.51); Absolute Neutrophil Count 9.6 X10^3/uL (2.0-7.7); Basophil# 0.01 X10^3/uL; Basophil% 0.1 % (0-1); Hematocrit 34.6 % (37-47); Hemoglobin 11.8 g/dL (12.0-15.0); Lymphocyte # 0.59 X10^3/ul (0.83-4.51); Lymphocyte % 5.1 % (19-41); Mean Corp Hgb Conc 34.1 g/dL (32-36); Mean Corpuscular Hgb 31.5 pg (27.0-32.0); Mean Corpuscular Volume 92.3 fL (81-99); Mean Platelet Vol. 9.8 fl (6.2-12.0); Monocyte# 1.21 X10^3/uL; Monocyte% 10.5 % (0-10); NRBC Flagged by Analyzer 0 % (0-5); Neutrophil # 9.64 X10^3/uL (2.7-7.7); POSITIVE DIFFERENTIAL YES; Platelet Count 217 K/mm3 (150-450); RBC Distribution Width CV 13.9 % (11.6-14.6); RBC Distribution Width SD 47.4 fl (35.1-43.9); Red Blood Count 3.75 M/mm3 (4.2-5.4); White Blood Count 11.5 K/mm3 (4.4-11.0)
[2021-06-13 06:12] LABS: Differential Indicated SCAN CRITERIA MET
[2021-06-13 06:29] LABS: Differential Comment SCANNED
[2021-06-13] MEDS: Aspirin E.C. 81 MG Tablet PO ×2 (08:34→17:15)
[2021-06-13] MEDS: Calcium Carbonate 500 MG Tablet PO (10:02)
[2021-06-13] MEDS: Senna/Docusate Sodium 1 Tablet 2 TABLET PO ×2 (10:02→22:18)
--- NOTE | 2021-06-13 10:42 | PN.HOSP_ITS ---
Documented by User: Eliza Aguilar ARCHEOLOGY FACULTY MEMBER, ARCHEOLOGY FACULTY MEMBER-C 06/13/21 10:47 Subjective Subjective Patient seen and examined. Nonverbal during exam. Appears comfortable, resting in chair. Baseline severe dementia. Objective Data Objective Data Vital Signs: Vital Signs Temp Pulse Resp BP Pulse Ox 95 F L 112 H 14 167/79 H 97 06/13/21 07:25 06/13/21 07:25 06/13/21 07:25 06/13/21 07:25 06/13/21 07:25 Oxygen Delivery Method Room Air Weight: 116 lb 12.814 oz Body Mass Index (BMI) 20.0 Intake & Output: Intake and Output for Last 24 Hours 06/11/21 06/12/21 06/13/21 23:59 23:59 23:59 Intake Total 2430 / 2430 210 / 210 Output Total 1100 / 1100 2350 / 2350 Balance 1330 / 1330 -2140 / -2140 Medical Nutrition Assessment Dietitian: Malnutrition Criteria Met Start: 06/12/21 11:18 Freq: Status: Active Protocol: Document 06/12/21 11:18 AG (Rec: 06/12/21 11:18 [id number]) Nutrition Malnutrition Evidence of Malnutrition Exists Yes Malnutrition (severe): Chronic Evidenced By Suboptimal Energy Intake ( Severe),Physical Changes ( Severe) Clinical Problem Chronic Disease or Condition Related Malnutrition Etiology severe, chronic malnutrition r /t inadequate energy intake Signs/Symptoms as evidenced by severe muscle wasting, fat loss per physical exam in clavicles, acromion, and orbital region; estimated PO intake meeting <75% of estimated energy needs >3 months, BMI 20.0 Status Active Problem Recommendation Dietitian Recommendations/Changes regular diet w/ texture/ consistency modifications as appropriate (may benefit from PRODUCTION QUALITY MANAGER eval to determine most appropriate modification); ensure enlive 240mL TID w/ meals given malnutrition Lab / Micro Data Result Diagrams: 06/13/21 05:42 06/12/21 06:07 Labs: Laboratory Results - last 24 hr 06/13/21 05:42: WBC 11.5 H, RBC 3.75 L, Hgb 11.8 L, Hct 34.6 L, MCV 92.3, MCH 31.5, MCHC 34.1, RDW Std Deviation 47.4 H, RDW Coeff of Ilana 13.9, Plt Count 217, MPV 9.8, Immature Gran % (Auto) 0.300, Neut % (Auto) 84.0 H, Lymph % (Auto) 5.1 L, [place] % (Auto) 10.5 H, Eos % (Auto) 0.0, Baso % (Auto) 0.1, Absolute Neuts (auto) 9.6 H, Absolute Lymphs (auto) 0.59 L, Nucleated RBC % 0, Differential Comment SCANNED Micro: Microbiology 06/11/21 17:30 Nasal Secretion SARS-CoV-2 Antigen (Rapid) - Final Radiography Diagnostic Testing: Radiology Impression Hip X-Ray 06/12/21 17:21 Physical Exam Const alert and no apparent distress Constitutional Narrative: baseline severe dementia Nutritional Appearance: cachectic HEENT normocephalic Mouth: dry mucous membranes Eyes PERRL, EOMs intact bilaterally and conjunctivae normal Neck no lymphadenopathy Resp normal respiratory effort and clear to auscultation bilaterally Cardio regular rate, regular rhythm and no murmurs Peripheral Pulses: pulses 2+ throughout GI normal to inspection, nondistended, normoactive bowel sounds, non-tender and non-distended Extremity normal to inspection Skin no rashes or lesions noted Skin Narrative: Postop dressing intact. Lesions: no lesions Rashes: no rashes Trauma: no lacerations or abrasions Neuro CN's II-XII intact bilaterally, no focal motor deficits, no sensory deficits noted and deep tendon reflexes 2+ bilaterally Psych mental status grossly normal and affect normal Assessment & Plan Assessment/Plan (1) Closed fracture of right hip: PLAN: 1. Acute traumatic angulated fracture of the right femoral neck due to mechanical fall-status post right hip hemiarthroplasty 06/12/21. PT/OT. Orthopedic medicine following. PRN pain regimen. SNF pending acceptance. 2. Severe dementia, unknown behavioral disturbance history- not on regimen. Complicates management and recovery. 3. Severe protein calorie malnutrition-as evidenced by cachectic appearance with muscle and fat loss, reduced BMI. Dietitian consult. Continue dietary supplementation per dietitian recommendations. 4. GERD- continue PPI. 5. Vertigo- on PRN meclizine at baseline. 6. Hospice care-patient is currently under the care of hospice at home. Plan for SNF with skilled therapy at discharge prior to returning home on hospice. DVT Prophylaxis- SCDs This patient was seen by Eliza Jeff, ARCHEOLOGY FACULTY MEMBER-C under the supervision of Dr. Orosco. Time spent examining patient, reviewing data and subsequent management of care: 12 Minutes Documented by User: Dr. Denise Orosco MD 06/13/21 13:25 Objective Data Lab / Micro Data Result Diagrams: 06/13/21 05:42 06/12/21 06:07 Charges/Coding Addendum Addendum: This patient was seen in conjunction with Eliza Aguilar NP. I have independently interviewed and examined the patient and reviewed pertinent historical, laboratory, and other data. I have reviewed her note and concur with her documentation Patient was seen and examined. She is awake, alert. No acute events overnight. Physical Exam: Gen: Comfortable, not pale, not jaundiced CVS:HS I +II, regular, no murmurs RESP: Diminished at lung bases GI: BS present and normal, soft, nontender, no palpable organs EXT:No edema, tenderness over the right hip ASSESSMENT: 1. POD#1, s/p right hip hemiarthroplasty for Right hip fracture 2. Severe dementia 3. Protein calorie malnutrition 4. GERD 5. Vertigo Plan: Continue with pain control, as needed oxycodone Discharge planning with social work Probable discharge to SNF Time spent coordinating patient's care, discussing with subspecialty and nursin minutes Visit Charges Inpatient E&M: 78896 Subs Hosp L2
--- NOTE | 2021-06-13 11:58 | PCM.PN.ORT ---
Subjective Subjective Patient seen and examined. Patient sitting in the chair at bedside this afternoon. She appears comfortable. She continues to be nonverbal. Objective Data Objective Data Vital Signs: Vital Signs Temp Pulse Resp BP Pulse Ox 94.3 F L 98 16 153/79 H 98 06/13/21 10:54 06/13/21 10:54 06/13/21 10:54 06/13/21 10:54 06/13/21 11:35 Oxygen Delivery Method Room Air Weight: 116 lb 12.814 oz Body Mass Index (BMI) 20.0 Intake & Output: Intake and Output for Last 24 Hours 06/11/21 06/12/21 06/13/21 23:59 23:59 23:59 Intake Total 2430 / 2430 210 / 210 Output Total 1100 / 1100 2350 / 2350 Balance 1330 / 1330 -2140 / -2140 Medical Nutrition Assessment Dietitian: Malnutrition Criteria Met Start: 06/12/21 11:18 Freq: Status: Active Protocol: Document 06/12/21 11:18 AG (Rec: 06/12/21 11:18 [id number]) Nutrition Malnutrition Evidence of Malnutrition Exists Yes Malnutrition (severe): Chronic Evidenced By Suboptimal Energy Intake ( Severe),Physical Changes ( Severe) Clinical Problem Chronic Disease or Condition Related Malnutrition Etiology severe, chronic malnutrition r /t inadequate energy intake Signs/Symptoms as evidenced by severe muscle wasting, fat loss per physical exam in clavicles, acromion, and orbital region; estimated PO intake meeting <75% of estimated energy needs >3 months, BMI 20.0 Status Active Problem Recommendation Dietitian Recommendations/Changes regular diet w/ texture/ consistency modifications as appropriate (may benefit from MOTOR GRADER ROUGH GRADE eval to determine most appropriate modification); ensure enlive 240mL TID w/ meals given malnutrition Lab / Micro Data Result Diagrams: 06/13/21 05:42 06/12/21 06:07 Labs: Laboratory Results - last 24 hr 06/13/21 05:42: WBC 11.5 H, RBC 3.75 L, Hgb 11.8 L, Hct 34.6 L, MCV 92.3, MCH 31.5, MCHC 34.1, RDW Std Deviation 47.4 H, RDW Coeff of Ilana 13.9, Plt Count 217, MPV 9.8, Immature Gran % (Auto) 0.300, Neut % (Auto) 84.0 H, Lymph % (Auto) 5.1 L, Glacier % (Auto) 10.5 H, Eos % (Auto) 0.0, Baso % (Auto) 0.1, Absolute Neuts (auto) 9.6 H, Absolute Lymphs (auto) 0.59 L, Nucleated RBC % 0, Differential Comment SCANNED Micro: Microbiology 06/11/21 17:30 Nasal Secretion SARS-CoV-2 Antigen (Rapid) - Final Radiography Diagnostic Testing: Radiology Impression Hip X-Ray 06/12/21 17:21 Physical Exam Narrative General -alert, nonverbal, NAD. VSS/AF Right lower extremity -incisional dressing C/D/I. Does not follow commands. Toes appear to move appropriately. Palpable DP pulse. Compartments soft and compressible. Assessment & Plan Assessment/Plan (1) Closed fracture of right hip: PLAN: POD#1 s/p right hip hemiarthroplasty - Pain control - Medicine following for medical management - PT/OT-posterior hip precautions, weightbearing as tolerated right lower extremity - DVT PPX -SCDs, mobilization, aspirin 81 mg twice daily - Patient appears stable for discharge to senior care facility from an orthopedic standpoint. Please call if any questions or concerns arise, otherwise I will sign off. Discharge instructions for wound care and activity placed in the chart. Follow-up in 3 weeks in my office for x-rays and staple removal. - Case management - D/C planning
--- NOTE | 2021-06-13 13:15 | CASEMGMT ---
Social Work Note SW reviewed PT/OT. Pt currently max assist of two, recommendation is SNF. SW in to speak with pt and pt's Arias. SW introduced self and role at [facility]. SW spoke with Arias regarding discharge plans. SW explained options of SNF for skilled therapy, ECF with Hospice, Home with HHC, or Home with Hospice. SW explained that recommendation is SNF so pt can get PT/OT daily. SW explained that pt could go to SNF for therapy and then return home with Hospice or HHC. Arias states that he really doesn't want pt to go to a SNF. SW explained that pt may be able to go to TCU at [facility] so pt can remain at [facility] for therapy. Arias still states that he would like pt to go home. SILVIO asked Arias who will be available 24/ to assist pt as pt is max assist of two currently with therapy. Arias states that his son lives with him. SW asked Arias if his son is available 24/7 to assist and Arias states well he is in between jobs right now. SILVIO explained again that the recommendation is SNF and that pt could go to SNF short term for therapy and then return home. Arias states he would like to take pt home with HHC. Arias states he is not sure how pt would handle being in a SNF mentally. Arias asked if there was any techniques on how to get pt out of bed. SILVIO informed Arias that this worker will check with RN to see about moving pt from chair back to bed so Arias is able to see how pt is moving. Arias states understanding, also asked how pt was eating and why pt didn't have her dentures in. SILVIO updated SUBMARINE DIVER. SILVIO to continue to follow. Plan: MARIBETH Aguirre PAPER CONE MACHINE TENDER, BONDING SUPERVISOR
[2021-06-13] MEDS: Acetaminophen 500 MG Tablet 1000 MG PO ×2 (14:39→22:19)
--- NOTE | 2021-06-13 15:01 | CASEMGMT ---
Social Work Note SILVIO, RN CM, Physician back in to speak with pt's Arias. Arias again educated on recommendation of SNF. Arias asked about pt staying at [facility] for therapy. Arias was informed that there is TCU at [facility] so that may be an option if insurance approves pt. After discussion, Arias agreeable to pt going to TCU for short term therapy. SILVIO placed a call to [facility] to TCU and provided referral. SILVIO received call from [facility] in TCU stating medically they can accept pt, ok for this worker to submit for pre-cert through [facility]. SILVIO faxed referral to [facility]. SILVIO called [facility] and spoke with Lise and updated her that referral has been sent. Lise states once received the RN will review referral and then give this worker a call with the determination. Plan: TCU pending pre-cert Cecilia Aguirre SODIUM METHYLATE OPERATOR, LUNG SPLITTER
--- NOTE | 2021-06-13 15:26 | CHAPLAIN ---
Type of Pastoral Visit _x__ Initial Visit ___ Follow-up Visit ___ On-call Visit ___ General Patient Visit ___ Spiritual Assessment ___ Family Conference ___ Bereavement ___ Rapid Response ___ Code Blue ___ Other (describe below) Pastoral Care Referral From ___ Patient _x__ Family ___ Nurse ___ Physician ___ Access Database Developer ___ Shield Runner ___ Other (describe below) Sacrament/Intervention _x__ Active listening ___ Anointing ___ Confucianism ___ Bereavement ___ Communion _x__ Mariaelena exploration ___ _x__ Life review _x__ Prayer ___ Reconciliation ___ Sacrament of Sick _x__ Supportive presence ___ Wedding ___ Other (describe below) Pastoral Comments patient is being fed her lunch by her spouse; pt herself only talks minimally at this time; pt has little interest in eating but is being encouraged by her spouse; spouse gives details of her situation and life review; offer of presence and support; gave time for spouse to talk; prayer welcomed
[2021-06-13] MEDS: LORazepam 0.5 MG Tablet PO (15:32)
--- NOTE | 2021-06-13 16:00 | CASEMGMT ---
Social Work Note SILVIO received call from Monie at [facility] stating pt has been approved SNF level of care. Approval is good for three days. If pt doesn't admit to TCU by Friday morning Monie states to call [facility] regarding pre-cert. SILVIO placed a call to Daf[facility] in TCU and Stephanie in TCU and left message letting them both know that pre-cert has been obtained. SILVIO updated physician. Plan: TCU tomorrow Cecilia Aguirre PEELER OPERATOR, INVENTORY CONTROLLER
[2021-06-14 02:27] VITALS: BP 119/52; PULSE 102; RESP 16; TEMP 37.7; O2SAT 97
[2021-06-14] MEDS: Acetaminophen 500 MG Tablet 1000 MG PO ×2 (05:24→13:50)
[2021-06-14 07:36] VITALS: O2SAT 98
[2021-06-14 07:51] VITALS: BP 128/52; PULSE 86; RESP 16; TEMP 37.1; O2SAT 98
[2021-06-14] MEDS: Senna/Docusate Sodium 1 Tablet 2 TABLET PO (07:54)
[2021-06-14] MEDS: Calcium Carbonate 500 MG Tablet PO ×2 (07:54→11:09)
[2021-06-14] MEDS: Aspirin E.C. 81 MG Tablet PO (07:55)
--- NOTE | 2021-06-14 08:19 | CASEMGMT ---
Social Work Note SW received message from Stephanie with TCU confirming pt is able to admit to TCU today. Plan: TCU today Cecilia Aguirre DIVISION CHAIR, SHOWROOM EXECUTIVE DIRECTOR
--- NOTE | 2021-06-14 09:13 | PCM.TXEXTCAR ---
Diet 06/11/21 15:16 Diet: Regular - General Food consistency:: Pureed Liquid Consistency:: Regular/Thin Type of Dietary Supplement:: Ensure Enlive Is pt able to select menu?: No Routine Orders/Code Status Keep PO Greater than or Equal to (%): 94 Routine Lab Work: CBC (within 3 days) and BMP (within 3 days) Code Status: DNC Wound(s) RIGHT HIP: Wound Type: Surgical Incision Therapies Weight Bearing: Weight bearing as tolerated Extremity Affected:: Right Lower Physical Therapy: Eval and Treat Occupational Therapy: Eval and Treat Problem/Diagnosis (1) Closed fracture of right hip: Status: Acute Allergies/Procedures Done in Hospital Allergies clarithromycin [From Biaxin] Allergy (Unknown, Verified 06/12/21 13:43) Unknown doxycycline Allergy (Unknown, Verified 06/12/21 13:43) Unknown erythromycin estolate [From Ilosone] Allergy (Unknown, Verified 06/12/21 13:43) Unknown hydrocodone bitartrate [From Vicodin] Allergy (Unknown, Verified 06/12/21 13:43) Unknown levofloxacin [From Levaquin] Allergy (Unknown, Verified 06/12/21 13:43) Unknown oxycodone [Oxycodone] Allergy (Unknown, Verified 06/12/21 13:43) Unknown oxycodone HCl [From Percocet] Allergy (Unknown, Verified 06/12/21 13:43) Unknown pantoprazole Allergy (Unknown, Verified 06/12/21 13:43) Unknown propoxyphene Allergy (Unknown, Verified 06/12/21 13:43) Unknown Penicillins [PCN] Adverse Reaction (Verified 06/12/21 13:43) PT UNSURE OF REACTION peanut butter Adverse Reaction (Uncoded 06/12/21 13:43) headache Procedures: - (s/p right hip arthroplasty on 06/12/21) Type of Care/Length of Stay Estimated LOS: Convalescent Care Less Than 30 days Type of Care Needed: Skilled Rehab Potential: Fair Prognosis: Fair Additional Orders/Day of Discharge Day of Discharge: 06/14/21 Dietary and Speech Recommendations Dietitian Recommendations/Changes: regular diet w/ texture/consistency modifications as appropriate (may benefit from CITY PLANNING ENGINEER eval to determine most appropriate modification); ensure enlive 240mL TID w/ meals given malnutrition Discharge Plan Admission Admit Date/Time: 06/11/21 13:49 Primary Reason for Your Visit: Right hip fracture Attending Provider: Denise Orosco Primary Care Provider: Monico Medina Consulting Providers: Harshil Cannon Instructions Additional Instructions / Restrictions: Right hip-posterior hip precautions (no flexion greater than 70 degrees, no internal rotation, no crossing legs), weightbearing as tolerated right lower extremity. Maintain surgical dressing x7 days, then okay to remove and leave open to air if no significant drainage. Discharge Orders/Prescriptions Prescriptions: New acetaminophen 500 mg Tablet 1,000 mg PO Q8 Qty: 0 RF: 0 aspirin 81 mg Tablet,Delayed Release (Dr/Ec) 81 mg PO BIDCM Qty: 0 RF: 0 sennosides-docusate sodium [Stool Softener-Stimulant Laxat] 8.6-50 mg Tablet 2 tab PO BID Qty: 0 RF: 0 oxycodone 5 mg Tablet 5 mg PO Q4H PRN PRN (Reason: Pain Score 4-5) Qty: 0 RF: 0 Continued sennosides-docusate sodium [Stool Softener-Laxative] 8.6-50 mg tablet 1 tab PO BID PRN (Reason: Constipation) RF: 0 Discontinued meclizine 12.5 MG tablet 12.5 mg PO Q8H PRN (Reason: Dizziness) RF: 0 lorazepam 0.5 MG tablet 0.5 mg PO TID PRN (Reason: ANXIETY) RF: 0 omeprazole 40 mg capsule,delayed release(DR/EC) 40 mg PO DAILY PRN (Reason: GERD) RF: 0 Referrals / Follow Up: Monico Medina MD [Primary Care Provider] - Harshil Cannon DO [STAFF PHYSICIAN] - 07/02/21 Disposition Disposition (needs filled in before D/C Order can be placed): [facility]
[2021-06-14] MEDS: LORazepam 0.5 MG Tablet PO (09:32)
--- NOTE | 2021-06-14 10:10 | PCM.DC.SUM ---
Providers Date of Admission: 06/11/21 Date of Discharge: 06/14/21 Primary Care Physician: Dr. Monico Medina MD Consultations 06/11/21 15:16 Consult: Orthopedics Routine Consulting Provider: Harshil Cannon Reason for Consult: Femure fracture EMERGENT Consult: No MD Notified: Yes Date Notified: 06/11/21 Time Notified: 13:52 Method of Notification: Verbal Reason For Visit: FEMUR FRACTURE Diagnosis Discharge Diagnosis (1) Closed fracture of right hip: Status: Resolved Code(s): S72.001A - Fracture of unspecified part of neck of right femur, initial encounter for closed fracture (2) Dementia: Status: Chronic Code(s): F03.90 - Unspecified dementia without behavioral disturbance (3) Severe protein-calorie malnutrition: Status: Acute Code(s): E43 - Unspecified severe protein-calorie malnutrition Medications at Discharge Home Medications sennosides-docusate sodium [Stool Softener-Laxative] 1 tab PO BID PRN 06/11/21 acetaminophen 1,000 mg PO Q8 #0 tab 06/14/21 aspirin 81 mg PO BIDCM #0 tab 06/14/21 oxycodone 5 mg PO Q4H PRN PRN #0 tab 06/14/21 sennosides-docusate sodium [Stool Softener-Stimulant Laxat] 2 tab PO BID #0 tab 06/14/21 Hospital Course Operations total hip replacement (Right hip hemiarthroplasty 06/12/21) Summary of Care Provided Minutes Spent on Discharge: 35 Hospital Course: 80-year-old female with dementia, resident at home with her who comes in after a fall. Patient was attempting to go to the bathroom, the door knob to the bathroom appeared to be stuck, and when she tried pulling it, she fell down. X-ray of the pelvis showed displaced fracture of the right femoral neck. Patient was admitted to the [facility] floor and underwent palliative hip hemiarthroplasty. Postoperatively, patient continued to to remain stable. She was seen and evaluated by PT and OT and skilled for discharge to senior care facility. Patient will be continued on hospice at discharge from senior care facility. Physical Exam Narrative Physical Exam: Gen: Comfortable, not pale, not jaundiced CVS:HS I +II, regular, no murmurs RESP: Diminished at lung bases GI: BS present and normal, soft, nontender, no palpable organs EXT:No edema, tenderness over the right hip Medical Records Data Medical Nutrition Assessment Dietitian: Malnutrition Criteria Met Start: 06/12/21 11:18 Freq: Status: Active Protocol: Document 06/12/21 11:18 (Rec: 06/12/21 11:18 [id number]) Nutrition Malnutrition Evidence of Malnutrition Exists Yes Malnutrition (severe): Chronic Evidenced By Suboptimal Energy Intake ( Severe),Physical Changes ( Severe) Clinical Problem Chronic Disease or Condition Related Malnutrition Etiology severe, chronic malnutrition r /t inadequate energy intake Signs/Symptoms as evidenced by severe muscle wasting, fat loss per physical exam in clavicles, acromion, and orbital region; estimated PO intake meeting <75% of estimated energy needs >3 months, BMI 20.0 Status Active Problem Recommendation Dietitian Recommendations/Changes regular diet w/ texture/ consistency modifications as appropriate (may benefit from TONGUE AND QUARTER STITCHER eval to determine most appropriate modification); ensure enlive 240mL TID w/ meals given malnutrition Weight / BMI Weight Weight: 52.98 kg Body Mass Index (BMI) 20.0 ABG / Lab / Microbiology Data Result Diagrams: 06/13/21 05:42 06/12/21 06:07 Microbiology: Microbiology 06/11/21 17:30 Nasal Secretion SARS-CoV-2 Antigen (Rapid) - Final D/C Instructions Discharge Diet: No restrictions Meaningful Use Info Meaningful Use Diagnoses (Choose all that apply): None applicable Discharge Plan Admission Admit Date/Time: 06/11/21 13:49 Primary Reason for Your Visit: Right hip fracture Attending Provider: Denise Orosco Primary Care Provider: Monico Medina Consulting Providers: Harshil Cannon Instructions Additional Instructions / Restrictions: Right hip-posterior hip precautions (no flexion greater than 70 degrees, no internal rotation, no crossing legs), weightbearing as tolerated right lower extremity. Maintain surgical dressing x7 days, then okay to remove and leave open to air if no significant drainage. Discharge Orders/Prescriptions Prescriptions: New acetaminophen 500 mg Tablet 1,000 mg PO Q8 Qty: 0 RF: 0 aspirin 81 mg Tablet,Delayed Release (Dr/Ec) 81 mg PO BIDCM Qty: 0 RF: 0 sennosides-docusate sodium [Stool Softener-Stimulant Laxat] 8.6-50 mg Tablet 2 tab PO BID Qty: 0 RF: 0 oxycodone 5 mg Tablet 5 mg PO Q4H PRN PRN (Reason: Pain Score 4-5) Qty: 0 RF: 0 Continued sennosides-docusate sodium [Stool Softener-Laxative] 8.6-50 mg tablet 1 tab PO BID PRN (Reason: Constipation) RF: 0 Discontinued meclizine 12.5 MG tablet 12.5 mg PO Q8H PRN (Reason: Dizziness) RF: 0 lorazepam 0.5 MG tablet 0.5 mg PO TID PRN (Reason: ANXIETY) RF: 0 omeprazole 40 mg capsule,delayed release(DR/EC) 40 mg PO DAILY PRN (Reason: GERD) RF: 0 Referrals / Follow Up: Monico Medina MD [Primary Care Provider] - Harshil Cannon DO [STAFF PHYSICIAN] - 07/02/21 Disposition Disposition (needs filled in before D/C Order can be placed): [facility] Charges/Coding Visit Charges Inpatient E&M: 75458 Disch Hosp
[2021-06-14] MEDS: oxyCODONE 5 MG Tablet PO (10:48)
--- NOTE | 2021-06-14 14:26 | CASEMGMT ---
Social Work SW met with pt and spouse and updated that pt is being discharged to TCU today. Pt spouse is agreeable. Support provided to pt spouse. Orders faxed to TCU and RN aware pt can discharge. Plan: TCU, skilled level of care. SOLOMON Sheppard
[2021-06-14 14:34] VITALS: BP 138/70; PULSE 100; RESP 18; TEMP 36.9; O2SAT 98
== END 2021-06-14 15:43 | DRG 521 ==
LOC: ED 14:07 → MS3 14:29
PROVIDERS: Nurse Practitioner Family; Student in an Organized Health Care Education/Training Program; Admitting Provider Family Medicine; Emergency Provider Emergency Medicine; PCP Family Medicine; Visit Provider Internal Medicine
PROC: 0SRR019 Replacement of Right Hip Joint, Femoral Surface with Metal Synthetic Substitute, Cemented, Open Approach (ICD-10-PCS; CPT 27125; principal; 2021-06-12 13:40)
DX: S72.001A Fracture of unspecified part of neck of right femur, initial encounter for closed fracture (principal); E43 Unspecified severe protein-calorie malnutrition; F03.90 Unspecified dementia, unspecified severity, without behavioral disturbance, psychotic disturbance, mood disturbance, and anxiety; K21.9 Gastro-esophageal reflux disease without esophagitis; W18.39XA Other fall on same level, initial encounter; F41.9 Anxiety disorder, unspecified; M19.90 Unspecified osteoarthritis, unspecified site; H91.90 Unspecified hearing loss, unspecified ear; R42 Dizziness and giddiness; Z68.20 Body mass index [BMI] 20.0-20.9, adult; Z66 Do not resuscitate; Z51.5 Encounter for palliative care; Z79.899 Other long term (current) drug therapy
CPT/HCPCS: 36415; 72170; 73502; 73552; 73610; 80048; 80053; 85025; 86850; 86900; 86901; 87426; 88305; 88311; 93005; 94762; 97162; 97167; 97802; 99251; 99285; C1776; J7120; A4216; G0463; J2405

== ENCOUNTER 2021-06-14 15:55 | Inpatient (IN) | payer MEDICARE, SELFPAY ==
[2021-06-14 16:03] VITALS: BP 138/73; PULSE 89; RESP 18; TEMP 37; O2SAT 96; BMI 17.6
[2021-06-14 16:33] VITALS: PULSE 89; RESP 18; O2SAT 96
[2021-06-14] MEDS: Bisacodyl 5 MG Tablet 10 MG PO (18:27)
[2021-06-14] MEDS: Senna/Docusate Sodium 1 Tablet 2 TABLET PO (18:27)
[2021-06-14] MEDS: Aspirin E.C. 81 MG Tablet PO (18:27)
[2021-06-14] MEDS: Menthol/Lanolin/Calamine/Znox 113 GM Tube 1 APPLIC TOPICAL (18:31)
--- NOTE | 2021-06-14 19:45 | PCM.HP.STD ---
HPI - General General Date of Admission: 06/14/21 HPI Narrative 06/11/2021 DARIN ANAND, is a 80 Female who presents to [facility] Emergency Department with fall. 06/11/2021 EKG normal sinus rhythm, right atrial enlargement. Lives at home on hospice for severe Alzheimer Disease, and son lives with her. Fell, injured right hip, unable to move or get up. X-ray showed right hip fracture. Morphine given for pain. 06/11/2021 Admit to Hospital. Prepare for surgery. 06/12/2021 Dr. Cannon performed right hip hemiarthroplasty. 06/13/2021 Nonverbal due to stage 7 dementia from Alzheimer Disease. PT/OT for [facility] facility. After [facility] facility, discharge home with hospice. 06/14/2021 Admit to TCU with debility, here for rehabilitation, strengthening, prior to discharge home with and hospice. [facility] Medical History (Updated 06/14/21 @ 19:[address] Emanuel Ortega MD) Anxiety Back pain Breast cancer Cystocele Dementia Dysphagia Esophageal dysphagia Migraines Osteoarthritis Home Medications sennosides-docusate sodium [Stool Softener-Laxative] 1 tab PO BID PRN 06/11/21 [History Last Taken 06/10/21] acetaminophen 1,000 mg PO Q8 06/14/21 [History Last Taken Unknown] aspirin 81 mg PO BIDCM 06/14/21 [History Last Taken Unknown] oxycodone 5 mg PO Q4H PRN PRN #0 tab 06/14/21 [Rx Last Taken Unknown] sennosides-docusate sodium [Stool Softener-Stimulant Laxat] 2 tab PO BID 06/14/21 [History Last Taken Unknown] Allergy/AdvReac Type Severity Reaction Status Date / Time clarithromycin [From Biaxin] Allergy Unknown Unknown Verified 06/12/21 13:43 doxycycline Allergy Unknown Unknown Verified 06/12/21 13:43 erythromycin estolate Allergy Unknown Unknown Verified 06/12/21 13:43 [From Ilosone] hydrocodone bitartrate Allergy Unknown Unknown Verified 06/12/21 13:43 [From Vicodin] levofloxacin [From Levaquin] Allergy Unknown Unknown Verified 06/12/21 13:43 oxycodone [Oxycodone] Allergy Unknown Unknown Verified 06/12/21 13:43 oxycodone HCl [From Percocet] Allergy Unknown Unknown Verified 06/12/21 13:43 pantoprazole Allergy Unknown Unknown Verified 06/12/21 13:43 propoxyphene Allergy Unknown Unknown Verified 06/12/21 13:43 Penicillins [PCN] AdvReac PT UNSURE Verified 06/12/21 13:43 OF REACTION peanut butter AdvReac headache Uncoded 06/12/21 13:43 Surgical History (Updated 06/14/21 @ 19:[address] Emanuel Ortega MD) H/O total mastectomy of left breast History of colonoscopy (~2005) History of right hip hemiarthroplasty S/P appendectomy S/P D&C (status post dilation and curettage) (~08/31/19) Social History (Updated 06/14/21 @ 19:[address] Emanuel Ortega MD) household members: spouse and children number of children: 3 Smoking Status: Never smoker alcohol intake: never substance use type: does not use caffeine: No what type of physical activity do you participate in: none seatbelt use: always do you feel safe at home: Yes additional social history: Arias VALENZUELA Constitutional Constitutional: Denies chills, fever(s) or weight gain ENT HEENT: Denies headache(s), nasal congestion or nasal discharge Cardiovascular Cardiovascular: Denies chest pain or palpitations Respiratory/Chest Respiratory/Chest: Denies cough, excessive phlegm production or shortness of breath with exertion Gastrointestinal Gastrointestinal: Denies abdominal pain, nausea or vomiting Genitourinary Genitourinary: Denies dysuria Musculoskeletal Musculoskeletal: Denies joint pain or joint swelling Integumentary Integumentary: Denies rash or wounds Neurologic Neurologic: Denies focal weakness, numbness or tingling Psychiatric Psychiatric: Denies anxiety, auditory hallucinations, depression, homicidal ideation or suicidal ideation Vital Signs Vital Signs Vital Signs: 06/14/21 16:03 06/14/21 16:33 Temperature 98.6 F Temperature Source Temporal Pulse Rate 89 89 Pulse Rhythm Regular Regular Pulse Strength Normal (2+) Normal (2+) Respiratory Rate 18 18 Respiratory Effort Normal Normal Respiratory Depth Normal Normal Respiratory Pattern Normal Normal Blood Pressure 138/73 H Blood Pressure Mean 94 Blood Pressure Source Monitor Blood Pressure Position Semi-Fowlers Blood Pressure Location Left Arm Pulse Ox 96 96 Oxygen Delivery Method Room Air Room Air Weight Weight: 46.901 kg Body Mass Index (BMI) 17.6 Physical Exam Const alert General Appearance: cooperative HEENT normocephalic Eyes PERRL and EOMs intact bilaterally Neck supple, no JVD and no carotid bruits Resp normal respiratory effort, normal air movement and clear to auscultation bilaterally Cardio regular rate and regular rhythm GI normal to inspection, nondistended, normoactive bowel sounds, non-tender and non-distended Extremity normal capillary refill General Extremity: Negative for edema Skin no rashes or lesions noted General Skin Exam: no breakdown Psych affect normal Appearance: appropriate Assessment & Plan Assessment/Plan (1) Debility: (2) Closed fracture of right hip: (3) Alzheimer disease: (4) History of breast cancer: (5) Dizziness: (6) Anxiety: (7) Gastroesophageal reflux disease: PLAN: 80 year old female with below past medical history hospitalized for right hip fracture, underwent right hip hemiarthroplasty 06/12/[address] Cannon, admitted to TCU with debility, here for rehabilitation, strengthening, prior to discharge home with on hospice. Debility - PT/OT. Dysphagia - ST. Pain - Tylenol 1000mg q8h, Tramadol 50mg q6h prn pain (1-5), Oxycodone 5mg q4h prn pain (6-10). Bowel - Miralax 17gm daily, Senna/colace 2 tablets bid, Dulcolax 10mg daily prn. Adult immunization - Administer pneumonia vaccine, flu vaccine, covid19 vaccine as appropriate. DVT prophylaxis - Aspirin 81mg twice daily x 30 days per Orthopedics. Skin irritation - Calmoseptine topical bid.
[2021-06-15 05:49] LABS: Absolute Lymphocyte Count 1.08 X10^3/uL (0.83-4.51); Basophil# 0.03 X10^3/uL; Basophil% 0.3 % (0-1); Eosinophil# 0.01 X10^3/uL; Eosinophils% 0.1 % (0-5); Hematocrit 28.2 % (37-47); Hemoglobin 9.6 g/dL (12.0-15.0); Lymphocyte # 1.08 X10^3/ul (0.83-4.51); Lymphocyte % 11.8 % (19-41); Mean Corpuscular Hgb 31.5 pg (27.0-32.0); Mean Corpuscular Volume 92.5 fL (81-99); Mean Platelet Vol. 10.4 fl (6.2-12.0); Monocyte# 1.06 X10^3/uL; Monocyte% 11.5 % (0-10); NRBC Flagged by Analyzer 0 % (0-5); Neutrophil # 6.97 X10^3/uL (2.7-7.7); Neutrophil % 75.9 % (47-70); Platelet Count 219 K/mm3 (150-450); RBC Distribution Width SD 47.4 fl (35.1-43.9); Red Blood Count 3.05 M/mm3 (4.2-5.4); White Blood Count 9.2 K/mm3 (4.4-11.0)
[2021-06-15 06:18] LABS: Anion Gap 3 (5-15); BUN 28 mg/dL (7-18); BUN/Creat Ratio 39.1 RATIO (10-20); Chloride 110 mmol/L (98-107); Creatinine, Serum 0.72 mg/dL (0.55-1.02); EST Glomerular Filtration Rate 83 mL/min (>60); Est Glom Filt Rate - Afr Amer 100 mL/min (>60); Estimated Creatinine Clearance 32.11 ml/min; Glucose 100 mg/dL (74-106); Potassium 3.4 mmol/L (3.5-5.1); Sodium Level 144 mmol/L (136-145)
--- NOTE | 2021-06-15 08:06 | NURSING ---
Pt agitated this am. Fidgeting w/ corner of silver impregnated dressing to rt hip, and statlock for ohara catheter. Disoriented. Calling for Arias. Attempted to reorient to time. Informed pt this nurse has medication to administer and states, No. Will report to oncoming nurse.
--- NOTE | 2021-06-15 09:31 | CASEMGMT ---
Social Work Notified by therapy pt is agitated, not following directions, not cooperating with staff. Multiple interventions attempted to eat or drink; present animated therapy dog stuff animal, peg board - pt threw items back at staff. Pt mainly nonverbal, but when offered water, stated not from you. Pt is very paranoid of staff. Calmly approached patient. Introduced self and role. Asked pt her name preference. Pt did not reply but maintained eye contact. Therapy was playing calm, spa music, which appeared to be successful to lessen the agitation. SW contacted to update on pt's condition. Pt has not wanted to eat, drink or take medications. provided some hx. He explained this is normal for pt. When she is in a different environment, she turns into a turtle, described by , as she becomes very paranoid of strangers and does not trust. Inquired if she needs time to adjust to the environment. declined and stated she stays that way until she returns home. SW explained pt has had several environment changes in a short period of time, which is not usually beneficial for patient's with her dx. agrees and states he sees this happen every time she comes into the hospital. Offered it may be more beneficial for pt to return home in the comfort of her own home with her that she trusts, and have [facility] therapy. agrees and stated the Dr persuaded me to have her come to TCU because I knew she needed therapy on that hip, but I think C will be much better if we can do that. Confirmed and explained typically rehab is recommended, but since it is identified she is not benefiting from being in TCU as she is not willing to participate fully in therapy, in this situation, HHC would be just fine. expressed wishes to get therapy training on her hip precautions and how to handle her at home. Offered for to visit today for therapy to provide that training, then pt can discharge home tomorrow. agreed to come in this morning. SW to refer to [facility]. prefers [facility]. Referral made for [facility]. Collaborated with [facility] Towboat Engineer to review pt situation. Thorough chart review completed, which identified concern of pt returning home since she was maxx2 and pt was ambulating independently at baseline. Pt was active with [facility] prior, but was revoked for hip surgery and the goal is for pt to return home with hospice. Pt does have 3 steps to enter. Son lives with pt and and is currently not working. Towboat Engineer and SW agreed to speak with further to ensure he has the assistance needed in the home to physically manage pt. [facility] returned call and agree pt does not qualify for skilled HHC, but suggested inquiring if hospice can provide therapy. [facility] does contract with [facility] and can still use them as a provider. SW agreed to speak with hospice and . Referral made to [facility] to restart services 06/16 and inquired about therapy. Faxed hospital paperwork and intake to notify liaison. SW to continue to follow. Adri Herbert ,MIGUELINA TRANS ROUTER
--- NOTE | 2021-06-15 10:54 | CASEMGMT ---
Addendum entered by Adri Herbert 06/15/21 14:02: Late entry: during this conversation, SW inquired about assistance in the home for pt. IDT wants to ensure safety. Provided nonskilled HHC list to hire in addition to himself and hospice. appreciative and will consider contacting [facility], but son lives with them as well, and he is currently not working, thus he can assist. Original Note: Social Work present and participating in therapy session with pt. SW witnessed. Pt transferred independently, CGA for retrolean, pt walked several ft. Pt more comfortable and trusting with present. Spoke with and agrees. Explained HHC recommending hospice restarting to still provide the hospice support but they could potentially provide therapy still. agrees it is the best of both worlds. Explained awaiting confirmation from hospice, but will keep updated. Adri Herbert, MIGUELINA ERNSTW
[2021-06-15] MEDS: oxyCODONE 5 MG Tablet PO (11:11)
--- NOTE | 2021-06-15 13:15 | CASEMGMT ---
Addendum entered by Adri Herbert 06/15/21 16:47: Jean, lcsw, met with pt and to sign consents, however, hospice is unable to provide therapy. can pay privately for therapy, but it cannot come from hospice. SILVIO spoke with further and he wants to try therapy first before hospice and cannot pay privately. SILVIO placed call to [facility]. Collaborated with intake liaison and sales operations analyst to discuss. Pt's PCP is not willing to sign HHC orders until pt is seen in the office, but the first available appt is 07/15. SILVIO contacted Dr. Ortega via phone to inquire him signing HHC orders for duration of care, Dr. Ortega gave verbal order and requested paper orders be faxed to his office. Updated [facility] - they can accept for PT/OT/ST/SN and SOC 06/16 or 06/17. Updated on [facility] acceptance and SOC. They will contact to schedule. is ready to take pt home. Notified nurse and aide to assist with car transfer. Updated plan: DC home 06/15 with , [facility] PT/OT/ST/SN Original Note: Social Work Notified by nursing, requesting to take pt home today. Spoke with and he stated she is just more comfortable with me here and I can't leave her here. Can I take her home today? SILVIO agreed and will update SW. Explained will be rounding this afternoon and can complete DC. Inquired about transport. Offered to schedule transport. stated if staff can assist him getting her in the car, his son will be home and can assist with pt up the stairs in the w/c and into the home. Contacted [facility] to follow up. Spoke with nicholas Eugene. She stated they have been trying to contact to schedule, but he has not returned their phone call. Explained has been present with pt in TCU and they can come to TCU for consents to be signed. requesting to DC pt today. Liaison agreed and will send another liaison to the building within the hour. Explained stated hospice just picked up the O2 from the house, but will need that and a FWW in the home for DC. Valorie will order and have DME and nurse at the house this evening once pt is home. Updated IDT and . Plan: DC home 06/15 with and [facility], with PT/OT. Adri Herbert ,PROFESSOR OF MEDICINE MICROARRAY ANALYST
--- NOTE | 2021-06-15 14:06 | CASEMGMT ---
Social Work Staff assessment completed for BIMS and PHQ-9 for MDS assessment. Formal SW admit assessment not completed. Pt admitted 06/14 and DC 06/15. Adri Herbert, PALLIATIVE SENIOR NP W
--- NOTE | 2021-06-15 14:49 | DS.PCM_ITS ---
Providers Date of Admission: 06/14/21 Primary Care Physician: Dr. Monico Medina MD Reason For Visit: right femure fracture Diagnosis Discharge Diagnosis (1) Debility: Status: Acute Code(s): R53.81 - Other malaise (2) Closed fracture of right hip: Status: Resolved Code(s): S72.001A - Fracture of unspecified part of neck of right femur, initial encounter for closed fracture (3) Alzheimer disease: Status: Acute Code(s): G30.9 - Alzheimer's disease, unspecified; F02.80 - Dementia in other diseases classified elsewhere without behavioral disturbance (4) History of breast cancer: Status: Acute Code(s): Z85.3 - Personal history of malignant neoplasm of breast (5) Dizziness: Status: Acute Code(s): R42 - Dizziness and giddiness (6) Anxiety: Status: Acute Code(s): F41.9 - Anxiety disorder, unspecified (7) Gastroesophageal reflux disease: Status: Acute Code(s): K21.9 - Gastro-esophageal reflux disease without esophagitis Medications at Discharge Home Medications aspirin 81 mg PO BIDCM 30 Days #60 tab 06/15/21 oxycodone 5 mg PO Q4H PRN PRN 7 Days #42 tab 06/15/21 sennosides-docusate sodium [Stool Softener-Stimulant Laxat] 2 tab PO BID 30 Days #120 tab 06/15/21 Hospital Course Operations - (Right hip hemiarthroplasty.) Procedures None Summary of Care Provided Minutes Spent on Discharge: 35 Hospital Course: 80 year old female with below past medical history hospitalized for right hip fracture, underwent right hip hemiarthroplasty 06/12/[address] Cannon, admitted to TCU with debility, here for rehabilitation, strengthening, prior to discharge home with on hospice. Discharge home with 06/15/2021, [facility], with PT/OT. Physical Exam Const alert General Appearance: cooperative HEENT normocephalic Eyes PERRL and EOMs intact bilaterally Neck supple, no JVD and no carotid bruits Resp normal respiratory effort, normal air movement and clear to auscultation bilaterally Cardio regular rate and regular rhythm GI normal to inspection, nondistended, normoactive bowel sounds, non-tender and non-distended Extremity normal capillary refill General Extremity: Negative for edema Skin no rashes or lesions noted General Skin Exam: no breakdown Psych affect normal Appearance: appropriate Weight / BMI Weight Weight: 46.901 kg Body Mass Index (BMI) 17.6 ABG / Lab / Microbiology Data Result Diagrams: 06/15/21 05:15 06/15/21 05:15 Laboratory: Laboratory Results - last 24 hr 06/15/21 05:15: WBC 9.2, RBC 3.05 L, Hgb 9.6 L, Hct 28.2 L, MCV 92.5, MCH 31.5, MCHC 34.0, RDW Std Deviation 47.4 H, RDW Coeff of Ilana 14.0, Plt Count 219, MPV 10.4, Immature Gran % (Auto) 0.400, Neut % (Auto) 75.9 H, Lymph % (Auto) 11.8 L, [place] % (Auto) 11.5 H, Eos % (Auto) 0.1, Baso % (Auto) 0.3, Absolute Neuts (auto) 7.0, Absolute Lymphs (auto) 1.08, Nucleated RBC % 0 06/15/21 05:15: Sodium 144, Potassium 3.4 L, Chloride 110 H, Carbon Dioxide 31.0, Anion Gap 3 L, BUN 28 H, Creatinine 0.72, Estim Creat Clear Calc 32.11, Est GFR (MDRD) Af Amer 100, Est GFR (MDRD) Non-Af 83, BUN/Creatinine Ratio 39.1 H, Glucose 100, Calcium 9.0 D/C Instructions Discharge Diet: No restrictions Discharge Activity: Return to Normal Activity, May Shower and Use Walker Call your doctor if you observe: Fever of 101 or Higher, Inability to urinate, Inability to have a bowel movement, Shortness of breath, Dizziness, Fainting spells, Swelling in the ankles, Chest pain and Uncontrolled pain Additional Instructions: Discharge home with 06/15/2021, [facility], with PT/OT. Please Follow Up With: Rogerio Cannon When: As scheduled. Meaningful Use Info Meaningful Use Diagnoses (Choose all that apply): None applicable Discharge Plan Admission Admit Date/Time: 06/14/21 15:55 Primary Reason for Your Visit: Debility. Attending Provider: Emanuel Ortega Chi Primary Care Provider: Monico Medina Instructions Additional Instructions / Restrictions: Discharge home with 06/15/2021, [facility], with PT/OT. Discharge Orders/Prescriptions Prescriptions: New aspirin 81 mg Tablet,Delayed Release (Dr/Ec) 81 mg PO BIDCM 30 Days Qty: 60 RF: 0 sennosides-docusate sodium [Stool Softener-Stimulant Laxat] 8.6-50 mg Tablet 2 tab PO BID 30 Days Qty: 120 RF: 0 oxycodone 5 mg Tablet 5 mg PO Q4H PRN PRN (Reason: Pain Score 6-10) 7 Days Qty: 42 RF: 0 Discontinued sennosides-docusate sodium [Stool Softener-Laxative] 8.6-50 mg tablet 1 tab PO BID PRN (Reason: Constipation) RF: 0 oxycodone 5 mg Tablet 5 mg PO Q4H PRN PRN (Reason: Pain Score 4-5) Qty: 0 RF: 0 sennosides-docusate sodium [Stool Softener-Stimulant Laxat] 8.6-50 mg tablet 2 tab PO BID RF: 0 aspirin 81 mg tablet,delayed release (DR/EC) 81 mg PO BIDCM RF: 0 acetaminophen 500 mg tablet 1,000 mg PO Q8 RF: 0 Referrals / Follow Up: Monico Medina MD [Primary Care Provider] - Disposition Disposition (needs filled in before D/C Order can be placed): Hospice in Home
[2021-06-15 17:35] VITALS: BP 151/83; PULSE 89; RESP 16; TEMP 37.1; O2SAT 96
--- NOTE | 2021-06-15 17:37 | NURSING ---
Education provided to spouse on F/C cath care. Spouse requesting D/C today.
== END 2021-06-15 17:35 | disposition home health service (06) | DRG 561 ==
PROVIDERS: Admitting Provider Family Medicine Geriatric Medicine; PCP Family Medicine; Visit Provider Family Medicine Geriatric Medicine
DX: S72.001D Fracture of unspecified part of neck of right femur, subsequent encounter for closed fracture with routine healing (principal); F02.80 Dementia in other diseases classified elsewhere, unspecified severity, without behavioral disturbance, psychotic disturbance, mood disturbance, and anxiety; G30.9 Alzheimer's disease, unspecified; K21.9 Gastro-esophageal reflux disease without esophagitis; W19.XXXD Unspecified fall, subsequent encounter; M19.90 Unspecified osteoarthritis, unspecified site; Z96.641 Presence of right artificial hip joint; Z79.899 Other long term (current) drug therapy; Z79.82 Long term (current) use of aspirin
CPT/HCPCS: 36415; 80048; 85025; 97162; 97166; 97530

== ENCOUNTER → 2021-08-07 | Outpatient (CLI) | payer MEDICARE, SELFPAY ==
[2021-08-07 16:40] LABS: ALB/GLOB Ratio 0.9 RATIO (0.9-2.4); AST(SGOT) 16 U/L (15-37); Alanine Aminotransfer ALT/SGPT 17 U/L (13-56); Albumin, Serum 3.1 g/dL (3.2-5.0); Alkaline Phosphatase 88 U/L (45-117); Anion Gap 4 (5-15); BUN 10 mg/dL (7-18); BUN/Creat Ratio 14.8 RATIO (10-20); Calcium,Total 9.1 mg/dL (8.5-10.1); Chloride 110 mmol/L (98-107); Creatinine, Serum 0.68 mg/dL (0.55-1.02); EST Glomerular Filtration Rate 89 mL/min (>60); Est Glom Filt Rate - Afr Amer 107 mL/min (>60); Globulin 3.6 g/dL (2.2-4.2); Glucose 87 mg/dL (74-106); Potassium 4.3 mmol/L (3.5-5.1); Prealbumin 25.2 mg/dL (20.0-40.0); Protein, Total 6.7 g/dL (6.4-8.2); Sodium Level 141 mmol/L (136-145)
== END | disposition home or self-care (01) ==
LOC: MFPLAB 12:01
PROVIDERS: PCP Family Medicine; Referring Provider Family Medicine; Visit Provider Family Medicine
DX: E63.9 Nutritional deficiency, unspecified (principal)
CPT/HCPCS: 36415; 80053; 84134

== ENCOUNTER 2021-11-15 12:14 | Outpatient (CLI) | payer MEDICARE, SELFPAY | END 2021-11-15 23:59 | disposition home or self-care (01) | LOC: LABSPEC 12:15 | PROVIDERS: PCP Family Medicine; Visit Provider Family Medicine | DX: F03.90 Unspecified dementia, unspecified severity, without behavioral disturbance, psychotic disturbance, mood disturbance, and anxiety (principal); R41.82 Altered mental status, unspecified | CPT/HCPCS: 87086; 87088 ==

== ENCOUNTER → 2021-11-20 | Outpatient (CLI) | payer MEDICARE, SELFPAY ==
[2021-11-20 17:44] LABS: Absolute Lymphocyte Count 1.76 X10^3/uL (0.83-4.51); Absolute Neutrophil Count 2.7 X10^3/uL (2.0-7.7); Basophil# 0.02 X10^3/uL; Basophil% 0.4 % (0-1); Eosinophil# 0.06 X10^3/uL; Eosinophils% 1.2 % (0-5); Hematocrit 40.4 % (37-47); Hemoglobin 13.3 g/dL (12.0-15.0); Lymphocyte # 1.76 X10^3/ul (0.83-4.51); Lymphocyte % 34.8 % (19-41); Mean Corp Hgb Conc 32.9 g/dL (32-36); Mean Corpuscular Hgb 31.1 pg (27.0-32.0); Mean Corpuscular Volume 94.6 fL (81-99); Mean Platelet Vol. 10.5 fl (6.2-12.0); Monocyte# 0.49 X10^3/uL; Monocyte% 9.7 % (0-10); NRBC Flagged by Analyzer 0 % (0-5); Neutrophil # 2.72 X10^3/uL (2.7-7.7); Neutrophil % 53.7 % (47-70); Platelet Count 283 K/mm3 (150-450); RBC Distribution Width CV 14.6 % (11.6-14.6); RBC Distribution Width SD 50.8 fl (35.1-43.9); Red Blood Count 4.27 M/mm3 (4.2-5.4); White Blood Count 5.1 K/mm3 (4.4-11.0)
[2021-11-20 18:31] LABS: ALB/GLOB Ratio 0.8 RATIO (0.9-2.4); AST(SGOT) 23 U/L (15-37); Alanine Aminotransfer ALT/SGPT 23 U/L (13-56); Albumin, Serum 3.3 g/dL (3.2-5.0); Alkaline Phosphatase 95 U/L (45-117); Anion Gap 7 (5-15); BUN 11 mg/dL (7-18); BUN/Creat Ratio 15.9 RATIO (10-20); Calcium,Total 9.6 mg/dL (8.5-10.1); Chloride 106 mmol/L (98-107); Creatinine, Serum 0.69 mg/dL (0.55-1.02); EST Glomerular Filtration Rate 86 mL/min (>60); Est Glom Filt Rate - Afr Amer 104 mL/min (>60); Globulin 3.9 g/dL (2.2-4.2); Glucose 92 mg/dL (74-106); Potassium 4.5 mmol/L (3.5-5.1); Prealbumin 36.1 mg/dL (20.0-40.0); Protein, Total 7.2 g/dL (6.4-8.2); Sodium Level 139 mmol/L (136-145)
== END | disposition home or self-care (01) ==
LOC: MFPLAB 15:21
PROVIDERS: PCP Family Medicine; Referring Provider Family Medicine; Visit Provider Family Medicine
DX: K21.9 Gastro-esophageal reflux disease without esophagitis (principal); E63.9 Nutritional deficiency, unspecified
CPT/HCPCS: 36415; 80053; 84134; 85025

== ENCOUNTER 2021-11-30 10:48 | Inpatient (IN) | payer MEDICARE, SELFPAY ==
[2021-11-30] VITALS (7 sets, daily range): BP systolic 103–143; BP diastolic 42–109; PULSE 81–96; RESP 12–18; TEMP 36.1–38; O2SAT 94–99; BMI 20.5; BMI 19.4
--- NOTE | 2021-11-30 11:30 | EKG12_ITS ---
Test Reason : Blood Pressure : / mmHG Vent. Rate : 087 BPM Atrial Rate : 087 BPM P-R Int : 162 ms QRS Dur : 092 ms QT Int : 362 ms P-R-T Axes : 088 -02 073 degrees QTc Int : 435 ms Sinus rhythm with Premature atrial complexes Minimal voltage criteria for LVH, may be normal variant ( [place] product ) Borderline ECG Confirmed by DAHS VIVAR, ELIDA ([id number]), communications editor GIOVANA GLEZ ([id number]) on 12/03/2021 9:43:59 AM Referred By: Confirmed By:ELIDA BOWLING MD
--- NOTE | 2021-11-30 11:31 | RAD_ITS ---
STUDY: X-RAY - PELVIS AND LEFT HIP REASON FOR EXAM: Female, 81 years old. Fall and left hip fracture TECHNIQUE: 3 views of the pelvis and hip. COMPARISON: None. FINDINGS: Moderate amount of fecal material is seen in the colon. There are multiple calcified phleboliths. There is narrowing with cortical sclerosis and osteophyte formation of the sacroiliac joint consistent with degenerative osteoarthritic changes. Normal bilateral superior and inferior pubic rami. There are degenerative changes of the pubic symphysis with articular narrowing and sclerosis. Normal bilateral ischial tuberosities. There is evidence of a nondisplaced impacted left subcapital fracture. The patient is status post right total hip replacement. RAD/HIP, UNI W/ Pelvis 2-3 Views IMPRESSION: Nondisplaced impacted left subcapital fracture of the proximal left femur. Status post right total hip replacement. Electronically Signed: Mendoza Gardiner MD at 12:19 EDT ,
--- NOTE | 2021-11-30 11:39 | ED.VIS.LOWEX ---
HPI History of Present Illness HPI Narrative: 81-year-old female history of dementia and stroke. Prior right hip fracture. Currently is in hospice. Fell yesterday. X-ray obtained there reportedly shows a left hip fracture. I was called by Dr. Juan Jose Everett of hospice. He gave me history of the patient's recent fall. The plan would be to admit her and have the her is present in the room and agrees with that plan. Chief Complaint: Lower Extremity Injury Informant: spouse/S.O. Occured/Mechanism Mechanism/Context: Yes injury and Yes blunt trauma Onset/Context/Timing Onset: Yesterday Timing: Continuous Quality of Pain: Sharp and Stabbing Current Severity: Moderate Maximum Severity: Moderate Associated Symptoms Associated Symptoms: Positive for Loss of Funtion; Negative for Parasthesia or Weakness Narrative Narrative: 81-year-old female status post fall at hospice yesterday with a left hip fracture. Patient is demented and unable to give much of a history. is present. Prior similar symptoms: Yes Recent Illness/Hospitalization: No PFSH PFSH Medical History Anxiety Back pain Breast cancer Cystocele Dementia Dysphagia Esophageal dysphagia Migraines Osteoarthritis Home Medications bisacodyl 10 mg rectal suppository 10 mg KS DAILY PRN Constipation 11/30/21 [History Last Taken Unknown] haloperidol 0.5 mg tablet 0.5 mg PO Q4H PRN Agitation 11/30/21 [History Last Taken Unknown] lorazepam 0.5 mg tablet 0.5 mg PO QHS 11/30/21 [History Last Taken Unknown] lorazepam 0.5 mg tablet (Ativan) 0.5 mg sublingual Q4H PRN ANXIETY 11/30/21 [History Last Taken Unknown] morphine 20 mg/5 mL (4 mg/mL) oral solution 5 mg sublingual Q1H PRN Pain 11/30/21 [History Last Taken Unknown] quetiapine 25 mg tablet (Seroquel) 25 mg PO DAILY 11/30/21 [History Last Taken Unknown] quetiapine 50 mg tablet (Seroquel) 50 mg PO QHS 11/30/21 [History Last Taken Unknown] Allergy/AdvReac Type Severity Reaction Status Date / Time clarithromycin [From Biaxin] Allergy Unknown Unknown Verified 11/30/21 10:56 doxycycline Allergy Unknown Unknown Verified 11/30/21 10:56 erythromycin estolate Allergy Unknown Unknown Verified 11/30/21 10:56 [From Ilosone] hydrocodone bitartrate Allergy Unknown Unknown Verified 11/30/21 10:56 [From Vicodin] levofloxacin [From Levaquin] Allergy Unknown Unknown Verified 11/30/21 10:56 oxycodone [Oxycodone] Allergy Unknown Unknown Verified 11/30/21 10:56 oxycodone HCl [From Percocet] Allergy Unknown Unknown Verified 11/30/21 10:56 pantoprazole Allergy Unknown Unknown Verified 11/30/21 10:56 propoxyphene Allergy Unknown Unknown Verified 11/30/21 10:56 peanut AdvReac Other Verified 11/30/21 10:56 Penicillins [PCN] AdvReac PT UNSURE Verified 11/30/21 10:56 OF REACTION Surgical History H/O total mastectomy of left breast History of colonoscopy (~2005) History of right hip hemiarthroplasty S/P appendectomy S/P D&C (status post dilation and curettage) (~08/31/19) Social History household members: spouse and children number of children: 3 Smoking Status: Never smoker alcohol intake: never substance use type: does not use caffeine: No what type of physical activity do you participate in: none seatbelt use: always do you feel safe at home: Yes additional social history: Arias VALENZUELA ROS ED ROS Narrative Unable to obtain due to her mental status due to dementia. Review of Systems ROS Unobtainable: due to mental status EXAM Physical Exam Narrative Exam Narrative: 81-year-old female no acute distress. Vital signs stable afebrile. H EENT exam unremarkable atraumatic. Pale. Neck nontender. Lungs clear to auscultation. Heart regular rhythm rate about 95 no murmur. Chest wall nontender. Abdomen soft nontender. Pelvic girdle intact. Left hip shortened. Tender on the left hip. Upper extremities nontender. No deformity. Neurologically she will open her eyes. She will follow limited commands. She is unable to give any history. This is her baseline. Const Vital Signs: 11/30/21 10:49 11/30/21 12:50 Temperature 98.1 F Temperature Source Temporal Pulse Rate 96 Respiratory Rate 18 Blood Pressure 117/54 L 103/42 L Blood Pressure Mean 75 62 Pulse Ox 95 Positive well nourished and well developed; Negative for obese, cachectic, contractures or unkempt General Appearance ED: well developed and NAD; Negative for unkempt, cachectic or contractures Nutritional Appearance: Negative for cachectic or obese HEENT Reports moist mucous membranes normocephalic and atraumatic; Negative for trauma Eyes PERRL General Eye ED: Negative for other Neck full ROM and supple Thyroid: Negative for tender Chest Wall inspection of chest normal and palpation of chest normal Chest: Negative for other Resp normal respiratory effort, no retractions and clear to auscultation bilaterally Effort and Inspection: Negative for pain with movement Auscultation: Negative for rales, rhonchi, wheezes or diminished lung sounds Percussion: Negative for other Cardio regular rate, regular rhythm, S1 normal heart sound and no murmurs Rate: Negative for bradycardia Rhythm: Negative for abnormal rhythm GI non-tender, non-distended and no masses Inspection: Negative for abdominal distention Auscultation: normoactive bowel sounds Palpation: soft; Negative for tender or guarding Extremity Negative for normal to inspection or full ROM Extremity Narrative: Left hip shortened. Tender to palpation. Neuro No oriented x3 and No moves all extremities Sensorium / Orientation: alert, oriented to person, orientation impaired, confused and lethargic; Negative for oriented to place or oriented to time Motor Exam: Negative for strength 5/5 throughout Psych Negative for mental status grossly normal Appearance: Negative for unkempt Mood & Affect: Negative for anxious Skin no wounds Lesions: no lesions Rashes: no rashes Trauma: Negative for abrasion MDM MDM MDM Narrative Medical decision making narrative: 81-year-old demented patient from hospice that fell yesterday has a left hip fracture. We worked up and admitted for surgery. Repeat exam unchanged. Orthopedics is on page. I did speak to the hospitalist he will admit the patient for left hip surgery I suspect to be done tomorrow. Lab Data Attestation: I reviewed the patient's lab results. Lab results narrative: CBC shows a white count 8.7 H&H 12.5 and 37. Platelets 206. Electrolytes show a gap of 10. BUN 27 creatinine 0.8. Glucose of 80. Chest x-ray unremarkable. Left hip x-ray shows a subcapital left hip fracture. Labs: Laboratory Results - last 24 hr 11/30/21 11/30/21 11/30/21 11:51 11:51 11:51 WBC 8.7 RBC 4.05 L Hgb 12.5 Hct 37.4 MCV 92.3 MCH 30.9 MCHC 33.4 RDW Std Deviation 50.4 H RDW Coeff of Ilana 14.9 H Plt Count 206 MPV 10.0 Immature Gran % (Auto) 0.300 Neut % (Auto) 71.9 H Lymph % (Auto) 16.1 L [place] % (Auto) 11.4 H Eos % (Auto) 0.2 Baso % (Auto) 0.1 Absolute Neuts (auto) 6.3 Absolute Lymphs (auto) 1.40 Nucleated RBC % 0 Sodium 143 Potassium 3.9 Chloride 109 H Carbon Dioxide 24.0 Anion Gap 10 BUN 27 H Creatinine 0.80 Estim Creat Clear Calc 47.10 Est GFR (MDRD) Af Amer 88 Est GFR (MDRD) Non-Af 73 BUN/Creatinine Ratio 33.8 H Glucose 80 Calcium 9.2 Blood Type A POSITIVE Antibody Screen NEGATIVE Radiography Diagnostic Testing: Clinical Impression(s) from Imaging Studies Hip/Pelvis X-Ray 11/30/21 11:31 IMPRESSION: Nondisplaced impacted left subcapital fracture of the proximal left femur. Status post right total hip replacement. Electronically Signed: Mendoza Gardiner MD at 12:19 EDT , Chest X-Ray 11/30/21 12:00 IMPRESSION: Hyperinflation. The lungs are clear. Electronically Signed: Mendoza Gardiner MD at 12:20 EDT , Chest x-ray, portable, single view interpreted by myself and the radiologist shows no acute abnormality. Normal cardiac silhouette mediastinum. Pelvis and left hip x-ray shows a left subcapital femur fracture. Rhythm Strip Rhythm Strip: Sinus Rhythm Rate: 87 Ectopy: PAC(s) EKG Initial EKG: Attestation: I personally reviewed and interpreted this EKG as follows: Interpretation: Sinus Rhythm and No Acute Injury Pattern Comments: Sinus rhythm rate of 87. PACs no acute signs of [place] or ischemia. Discharge Plan Triage Chief Complaint: Lower Extremity Injury ED Provider: Elvis Lizarraga Dx/Rx/DC Orders Clinical Impression: Fall, Closed fracture of left hip, History of dementia Prescriptions: No Action quetiapine [Seroquel] 25 mg Tablet 25 mg PO DAILY haloperidol [Haldol] 0.5 mg Tablet 0.5 mg PO Q4H PRN (Reason: Agitation) lorazepam 0.5 mg Tablet 0.5 mg PO QHS lorazepam [Ativan] 0.5 mg Tablet 0.5 mg sublingual Q4H PRN (Reason: ANXIETY) morphine [Roxanol] 20 mg/5 mL (4 mg/mL) Solution 5 mg sublingual Q1H PRN (Reason: Pain) bisacodyl 10 mg Suppository 10 mg KS DAILY PRN (Reason: Constipation) quetiapine [Seroquel] 50 mg Tablet 50 mg PO QHS Primary Care Provider: Monico Medina Referrals: Monico Medina MD [Primary Care Provider] - Disposition Disposition: Acute Care [facility]
--- NOTE | 2021-11-30 12:00 | RAD_ITS ---
STUDY: X-RAY CHEST REASON FOR EXAM: Female, 81 years old. Pre op TECHNIQUE: Single AP portable view of the chest. COMPARISON: Comparison is made with prior examination dated 03/02/2021. FINDINGS: Hyperinflation. The lungs are clear. There is no demonstrated pleural abnormality. Normal size heart. Normal mediastinum and shelley. Normal visualized pulmonary arteries. There is atherosclerotic calcification of the aortic arch with tortuosity. There are degenerative changes of the visualized thoracic spine. There is degenerative osteoarthritis of the bilateral shoulders. There is no demonstrated abnormality of the visualized soft tissue structures of the upper abdomen. RAD/Chest 1 View (Portable) IMPRESSION: Hyperinflation. The lungs are clear. Electronically Signed: Mendoza Gardiner MD at 12:20 EDT ,
[2021-11-30 12:02] LABS: Absolute Neutrophil Count 6.3 X10^3/uL (2.0-7.7); Basophil# 0.01 X10^3/uL; Basophil% 0.1 % (0-1); Eosinophil# 0.02 X10^3/uL; Eosinophils% 0.2 % (0-5); Hematocrit 37.4 % (37-47); Hemoglobin 12.5 g/dL (12.0-15.0); Lymphocyte % 16.1 % (19-41); Mean Corp Hgb Conc 33.4 g/dL (32-36); Mean Corpuscular Hgb 30.9 pg (27.0-32.0); Mean Corpuscular Volume 92.3 fL (81-99); Monocyte# 0.99 X10^3/uL; Monocyte% 11.4 % (0-10); NRBC Flagged by Analyzer 0 % (0-5); Neutrophil # 6.25 X10^3/uL (2.7-7.7); Neutrophil % 71.9 % (47-70); Platelet Count 206 K/mm3 (150-450); RBC Distribution Width CV 14.9 % (11.6-14.6); RBC Distribution Width SD 50.4 fl (35.1-43.9); Red Blood Count 4.05 M/mm3 (4.2-5.4); White Blood Count 8.7 K/mm3 (4.4-11.0)
[2021-11-30 12:15] LABS: Anion Gap 10 (5-15); BUN 27 mg/dL (7-18); BUN/Creat Ratio 33.8 RATIO (10-20); Calcium,Total 9.2 mg/dL (8.5-10.1); Chloride 109 mmol/L (98-107); EST Glomerular Filtration Rate 73 mL/min (>60); Est Glom Filt Rate - Afr Amer 88 mL/min (>60); Glucose 80 mg/dL (74-106); Potassium 3.9 mmol/L (3.5-5.1); Sodium Level 143 mmol/L (136-145)
--- NOTE | 2021-11-30 13:05 | PCM.HP.STD ---
HPI - General General Date of Admission: 11/30/21 HPI Narrative DARIN ANAND, is a 81 F who presents to the hospital after a fall. She is currently inpatient hospice and she had a mechanical fall. Imaging shows a nondisplaced impacted left subcapital fracture of the proximal left femur. She had a similar event happen and they revoked hospice to have her right hip repaired. He does have significant dementia and a history of a stroke so was unable to provide any history. According to the she was sitting the chair yesterday morning and staff had left the room and he went to the bathroom and she tried to get up and at that point fell. Initially they felt that her hip was just bruised but then they obtained imaging last night and then sent her into the hospital this morning with a fracture. [facility] Medical History Anxiety Back pain Breast cancer Cystocele Dementia Dysphagia Esophageal dysphagia Migraines Osteoarthritis Home Medications bisacodyl 10 mg rectal suppository 10 mg [place] DAILY PRN Constipation 11/30/21 [History Last Taken Unknown] haloperidol 0.5 mg tablet 0.5 mg PO Q4H PRN Agitation 11/30/21 [History Last Taken Unknown] lorazepam 0.5 mg tablet 0.5 mg PO QHS anxiety 11/30/21 [History Last Taken 11/29/21] lorazepam 0.5 mg tablet (Ativan) 0.5 mg sublingual Q4H PRN ANXIETY 11/30/21 [History Last Taken 11/30/21] morphine 20 mg/5 mL (4 mg/mL) oral solution 5 mg sublingual Q1H PRN Pain 11/30/21 [History Last Taken 11/30/21] quetiapine 25 mg tablet (Seroquel) 25 mg PO DAILY mood 11/30/21 [History Last Taken 11/30/21] quetiapine 50 mg tablet (Seroquel) 50 mg PO QHS mood 11/30/21 [History Last Taken 11/29/21] Allergy/AdvReac Type Severity Reaction Status Date / Time clarithromycin [From Biaxin] Allergy Unknown Unknown Verified 11/30/21 10:56 doxycycline Allergy Unknown Unknown Verified 11/30/21 10:56 erythromycin estolate Allergy Unknown Unknown Verified 11/30/21 10:56 [From Ilosone] hydrocodone bitartrate Allergy Unknown Unknown Verified 11/30/21 10:56 [From Vicodin] levofloxacin [From Levaquin] Allergy Unknown Unknown Verified 11/30/21 10:56 oxycodone [Oxycodone] Allergy Unknown Unknown Verified 11/30/21 10:56 oxycodone HCl [From Percocet] Allergy Unknown Unknown Verified 11/30/21 10:56 pantoprazole Allergy Unknown Unknown Verified 11/30/21 10:56 propoxyphene Allergy Unknown Unknown Verified 11/30/21 10:56 peanut AdvReac Other Verified 11/30/21 10:56 Penicillins [PCN] AdvReac PT UNSURE Verified 11/30/21 10:56 OF REACTION Surgical History H/O total mastectomy of left breast History of colonoscopy (~2005) History of right hip hemiarthroplasty S/P appendectomy S/P D&C (status post dilation and curettage) (~08/31/19) Social History household members: spouse and children number of children: 3 Smoking Status: Never smoker alcohol intake: never substance use type: does not use caffeine: No what type of physical activity do you participate in: none seatbelt use: always do you feel safe at home: Yes additional social history: Arias VALENZUELA Review of Systems ROS Unobtainable: due to mental status Vital Signs Vital Signs Vital Signs: 11/30/21 10:49 11/30/21 12:50 Temperature 98.1 F Temperature Source Temporal Pulse Rate 96 Respiratory Rate 18 Blood Pressure 117/54 L 103/42 L Blood Pressure Mean 75 62 Pulse Ox 95 Weight Weight: 123 lb 7.342 oz Body Mass Index (BMI) 20.5 Physical Exam Narrative General: Somnolent, this no apparent distress HEENT: Atraumatic, PERRLA, EOMI, Normocephalic Oral: Moist Mucosa Neck: Supple, No JVD Lungs: Clear to auscultation, Normal air movement, No rhonchi, No wheeze, No rales Cardiovascular: Regular rate, Regular Rhythm, Normal S1, Normal S2, No murmurs Abdomen: Soft, Non Tender, Non-Distended, No Hepato-splenomegaly Extremities: No edema, Capillary Refill Less than 3 Seconds Skin: No rashes, No breakdown Musculoskeletal: Pain to left hip palpation Neurological: Cranial nerves II-XII grossly intact, Motor Exam 5/5 strength throughout, Sensory exam intact to light touch and pain Psych/Mental Status: Flat affect/dementia Results Lab / Micro Data Result Diagrams: 11/30/21 11:51 11/30/21 11:51 Labs: Laboratory Results - last 24 hr 11/30/21 11:51: WBC 8.7, RBC 4.05 L, Hgb 12.5, Hct 37.4, MCV 92.3, MCH 30.9, MCHC 33.4, RDW Std Deviation 50.4 H, RDW Coeff of Ilana 14.9 H, Plt Count 206, MPV 10.0, Immature Gran % (Auto) 0.300, Neut % (Auto) 71.9 H, Lymph % (Auto) 16.1 L, [place] % (Auto) 11.4 H, Eos % (Auto) 0.2, Baso % (Auto) 0.1, Absolute Neuts (auto) 6.3, Absolute Lymphs (auto) 1.40, Nucleated RBC % 0 11/30/21 11:51: Sodium 143, Potassium 3.9, Chloride 109 H, Carbon Dioxide 24.0, Anion Gap 10, BUN 27 H, Creatinine 0.80, Estim Creat Clear Calc 47.10, Est GFR (MDRD) Af Amer 88, Est GFR (MDRD) Non-Af 73, BUN/Creatinine Ratio 33.8 H, Glucose 80, Calcium 9.2 11/30/21 11:51: Blood Type A POSITIVE, Antibody Screen NEGATIVE Rhythm Strip Rhythm Strip: Sinus Rhythm Rate: 87 Ectopy: PAC(s) Radiology Impression Hip/Pelvis X-Ray 11/30/21 11:31 IMPRESSION: Nondisplaced impacted left subcapital fracture of the proximal left femur. Status post right total hip replacement. Electronically Signed: Mendoza Gardiner MD at 12:19 EDT , Chest X-Ray 11/30/21 12:00 IMPRESSION: Hyperinflation. The lungs are clear. Electronically Signed: Mendoza Gardiner MD at 12:20 EDT , Assessment & Plan Assessment/Plan (1) Closed fracture of left hip: PLAN: Plan 1. Left hip fracture ? This was due to mechanical fall ? She is hospice therefore this is simply to provide comfort ? Once surgery is complete we will plan for transfer back to hospice unit, as she would be on likely to complete physical therapy at a [facility] ? Given her DNRCC status she is okay to proceed with surgery. I discussed with the about the possibility of during the procedure he expressed understanding. I asked him to consider the possibility of waving the full CODE STATUS during surgery, and he will think about this. Had a 20-minute discussion on advance care planning options. DVT: SCDs Charges/Coding Visit Charges Inpatient E&M: 74558 Init Hosp L2 Procedures Hospitalists Procedures: 40620 Advncd Care Plan 30 Min
--- NOTE | 2021-11-30 15:20 | CASEMGMT ---
Social Work Pt admitted to [facility] from [facility]. SW placed call to [place] at [facility]. Per [place], Pt's spouse revoked hospice services to admit to the hospital. If pt's spouse would like pt to return to the [facility] or home with hospice services, a brand new referral will need to be made to hospice and pt will need to be reevaluated for appropriateness for the IPU. SOLOMON Sheppard
--- NOTE | 2021-11-30 17:48 | NURSING ---
Message left on husbands answering machine.
[2021-11-30] MEDS: 0.9% Saline Lock 10 ML Syringe IV (21:20)
[2021-11-30] MEDS: Ensure Plus High Protein 120 ML LIQUID PO (22:56)
[2021-11-30] MEDS: QUEtiapine 25 MG Tablet 50 MG PO (22:57)
[2021-12-01] VITALS (13 sets, daily range): BP systolic 93–137; BP diastolic 39–63; PULSE 66–84; RESP 14–16; TEMP 35.7–37.4; O2SAT 93–100; BMI 19.4
--- NOTE | 2021-12-01 07:53 | PCM.PN.HOSP ---
Subjective Subjective Still somnolent and not responsive to questioning. No issues overnight Objective Data Objective Data Vital Signs: Vital Signs Temp Pulse Resp BP Pulse Ox O2 Del Method 99.3 F H 80 14 136/63 H 94 Room Air 12/01/21 06:00 12/01/21 06:00 12/01/21 06:00 12/01/21 06:00 12/01/21 06:00 12/01/21 06:00 Oxygen Delivery Method Room Air Weight: 116 lb 13.52 oz Body Mass Index (BMI) 19.4 Intake & Output: Intake and Output for Last 24 Hours 11/30/21 12/01/21 12/02/21 03:59 03:59 03:59 Output Total 525 / 525 200 / 200 Balance -525 / -525 -200 / -200 Medical Nutrition Assessment Dietitian: Malnutrition Criteria Met Start: 11/30/21 16:29 Freq: Status: Active Protocol: Document 11/30/21 16:29 AG (Rec: 11/30/21 16:29 [id number]) Nutrition Malnutrition Evidence of Malnutrition Exists Yes Malnutrition (moderate): Chronic Evidenced By Suboptimal Energy Intake ( Moderate),Physical Changes ( Moderate) Clinical Problem Chronic Disease or Condition Related Malnutrition Etiology chronic, moderate malnutrition related to inadequate energy intake d/t dementia Signs/Symptoms as evidenced by estimated PO intake meeting <75% of estimated energy needs >3 months; moderate muscle wasting/fat loss per physical exam; BMI 19.4 Status Active Problem Recommendation Dietitian Recommendations/Changes regular diet- texture/ consistency modficiations as appropriate per plan of care as family revoked inpatient hospice care 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; ensure plus high protein w/ medpass Lab / Micro Data Result Diagrams: 11/30/21 11:51 11/30/21 11:51 Labs: Laboratory Results - last 24 hr 11/30/21 11:51: WBC 8.7, RBC 4.05 L, Hgb 12.5, Hct 37.4, MCV 92.3, MCH 30.9, MCHC 33.4, RDW Std Deviation 50.4 H, RDW Coeff of Ilana 14.9 H, Plt Count 206, MPV 10.0, Immature Gran % (Auto) 0.300, Neut % (Auto) 71.9 H, Lymph % (Auto) 16.1 L, [place] % (Auto) 11.4 H, Eos % (Auto) 0.2, Baso % (Auto) 0.1, Absolute Neuts (auto) 6.3, Absolute Lymphs (auto) 1.40, Nucleated RBC % 0 11/30/21 11:51: Sodium 143, Potassium 3.9, Chloride 109 H, Carbon Dioxide 24.0, Anion Gap 10, BUN 27 H, Creatinine 0.80, Estim Creat Clear Calc 47.10, Est GFR (MDRD) Af Amer 88, Est GFR (MDRD) Non-Af 73, BUN/Creatinine Ratio 33.8 H, Glucose 80, Calcium 9.2 11/30/21 11:51: Blood Type A POSITIVE, Antibody Screen NEGATIVE Radiography Diagnostic Testing: Radiology Impression Hip/Pelvis X-Ray 11/30/21 11:31 IMPRESSION: Nondisplaced impacted left subcapital fracture of the proximal left femur. Status post right total hip replacement. Electronically Signed: Mendoza Gardiner MD at 12:19 EDT , Chest X-Ray 11/30/21 12:00 IMPRESSION: Hyperinflation. The lungs are clear. Electronically Signed: Mendoza Gardiner MD at 12:20 EDT , Rhythm Strip Rhythm Strip: Sinus Rhythm Rate: 87 Ectopy: PAC(s) Physical Exam Narrative General: Somnolent, no apparent distress HEENT: Atraumatic, PERRLA, EOMI, Normocephalic Oral: Moist Mucosa Neck: Supple, No JVD Lungs: Clear to auscultation, Normal air movement, No rhonchi, No wheeze, No rales Cardiovascular: Regular rate, Regular Rhythm, Normal S1, Normal S2, No murmurs Abdomen: Soft, Non Tender, Non-Distended, No Hepato-splenomegaly Extremities: No edema, Capillary Refill Less than 3 Seconds Skin: No rashes, No breakdown Musculoskeletal: Pain to left hip palpation Neurological: Cranial nerves II-XII grossly intact, Motor Exam 5/5 strength throughout, Sensory exam intact to light touch and pain Psych/Mental Status: Flat affect/dementia Assessment & Plan Assessment/Plan (1) Closed fracture of left hip: PLAN: Plan 1. Left hip fracture ? This was due to mechanical fall ? She is hospice therefore this is simply to provide comfort ? Once surgery is complete we will plan for transfer back to hospice unit, as she would be on likely to [facility] a [facility] ? Given her DNRCC status she is okay to proceed with surgery. I discussed with the about the possibility of during the procedure he expressed understanding. I asked him to consider the possibility of waving the full CODE STATUS during surgery, and he will think about this. ? Can continue with her home Haldol and Seroquel to help with delirium DVT: SCDs Charges/Coding Visit Charges Inpatient E&M: 45968 Subs Hosp L2
--- NOTE | 2021-12-01 11:15 | CON.PCM_ITS ---
Assessment & Plan Assessment/Plan (1) Fall: PLAN: Fall risk precautions (2) Closed fracture of left hip: PLAN: Closed displaced left hip subcapital femoral neck fracture. Natural history of the disease process and treatment options were discussed with the patient and family. Primarily we discussed these with the patient's who is her power of ophthalmic surgeon and primary medical decision maker. I discussed with them available treatment options including operative and nonoperative interventions. Nonoperative interventions would focus primarily on hospice palliative care. She would likely have limited mobility for the remainder of her lifetime and some discomfort including early post injury pain with transfers. Surgical intervention recommended was a hemiarthroplasty stabilize the fracture. There is too much displacement to proceed with a percutaneous pinning. They have been through a hemiarthroplasty in June. I did explain to the family that there is a reported decline in her overall function recently which may compromise the outcome in comparison to her June surgery. After a thorough discussion of risk and benefits of surgery which include but are not limited to blood loss, DVTs, PEs, nervous damage infection, the risk of anesthesia including loss of life as well as mental status changes and intraoperative fractures associated with bony preparation the family has elected to proceed with surgical intervention. Currently the patient is DNR CC anesthesia will likely require this be waived for surgical intervention. I had a long and thorough discussion with the patient's he has also been able to discuss this with his palliative care team and hospice and at this point would like to proceed with surgical intervention for the patient for a left hip hemiarthroplasty. Based on my discussion I feel they have been adequately consented. (3) History of dementia: PLAN: Per primary service (4) Severe protein-calorie malnutrition: PLAN: Supported by low total lymphocyte count and decreased albumin. Management per primary service. Recommend high-protein nutrient supplements. HPI Consult Data Date of Consult: 12/01/21 HPI Narrative Reason for Consultation: Left hip pain HPI Narrative: DARIN ANAND, is a 81 F who presents with left hip pain. Patient has a history of severe dementia. Her provides the history. She is mostly nonverbal. Her states that on Friday of this week she had a blackout at which time he put her into hospice which she had been in in the past as well. He notes that prior to this she was able to get up and walk to the mailbox and around the house. However after her blackout on Friday she had difficulty with mobility. He reports that she showed improvements on Friday. However on the staff at hospice left the patient and her in the room. He went to the restroom and noticed that she must of tried to get up because then they found her on the floor when he returned from the restroom. She was having pain with transfers and at this point they obtained a portable x-ray showing a left femoral neck fracture. Patient had a similar fracture back in June with hemiarthroplasty. Patient's notes that he had significant discussions at hospice about treatment options including risks of surgery and available nonoperative treatments prior to transferring her to the hospital. At which point, they did elect to bring her to the hospital for potential surgical tr eatment. Currently she is resting in bed comfortably [facility] Medical History Anxiety Back pain Breast cancer Cystocele Dementia Dysphagia Esophageal dysphagia Migraines Osteoarthritis unable to obtain (History is primarily obtained from available records at the hospital.) Home Medications bisacodyl 10 mg rectal suppository 10 mg [place] DAILY PRN Constipation 11/30/21 [History Last Taken Unknown] haloperidol 0.5 mg tablet 0.5 mg PO Q4H PRN Agitation 11/30/21 [History Last Taken Unknown] lorazepam 0.5 mg tablet 0.5 mg PO QHS anxiety 11/30/21 [History Last Taken 11/29/21] lorazepam 0.5 mg tablet (Ativan) 0.5 mg sublingual Q4H PRN ANXIETY 11/30/21 [History Last Taken 11/30/21] morphine 20 mg/5 mL (4 mg/mL) oral solution 5 mg sublingual Q1H PRN Pain 11/30/21 [History Last Taken 11/30/21] quetiapine 25 mg tablet (Seroquel) 25 mg PO DAILY mood 11/30/21 [History Last Taken 11/30/21] quetiapine 50 mg tablet (Seroquel) 50 mg PO QHS mood 11/30/21 [History Last Taken 11/29/21] Allergy/AdvReac Type Severity Reaction Status Date / Time clarithromycin [From Biaxin] Allergy Unknown Unknown Verified 11/30/21 10:56 doxycycline Allergy Unknown Unknown Verified 11/30/21 10:56 erythromycin estolate Allergy Unknown Unknown Verified 11/30/21 10:56 [From Ilosone] hydrocodone bitartrate Allergy Unknown Unknown Verified 11/30/21 10:56 [From Vicodin] levofloxacin [From Levaquin] Allergy Unknown Unknown Verified 11/30/21 10:56 oxycodone [Oxycodone] Allergy Unknown Unknown Verified 11/30/21 10:56 oxycodone HCl [From Percocet] Allergy Unknown Unknown Verified 11/30/21 10:56 pantoprazole Allergy Unknown Unknown Verified 11/30/21 10:56 propoxyphene Allergy Unknown Unknown Verified 11/30/21 10:56 peanut AdvReac Other Verified 11/30/21 10:56 Penicillins [PCN] AdvReac PT UNSURE Verified 11/30/21 10:56 OF REACTION unable to obtain Surgical History H/O total mastectomy of left breast History of colonoscopy (~2005) History of right hip hemiarthroplasty S/P appendectomy S/P D&C (status post dilation and curettage) (~08/31/19) unable to obtain Social History household members: spouse and children number of children: 3 Smoking Status: Never smoker alcohol intake: never substance use type: does not use caffeine: No what type of physical activity do you participate in: none seatbelt use: always do you feel safe at home: Yes additional social history: Arias ROS Review of Systems ROS Unobtainable: due to mental status Physical Exam Const Constitutional Narrative: Not oriented to person place or time. General Appearance: comfortable Orientation / Consciousness: awake Exam Limitations: altered mental status HEENT normocephalic Eyes PERRL Neck No nuchal rigidity Resp normal respiratory effort Cardio Cardio Narrative: Regular pulse rate GI non-distended Extremity Extremity Narrative: Left lower extremity: Skin clean, dry, and intact. Limb is shortened and externally rotated Motor is intact dorsiflexion, EHL and plantar flexion. Sensation is intact to light touch saphenous, maria luisa,l superficial peroneal, deep peroneal and tibial distributions. Calves are soft and supple. Psych Psych Narrative: Severe dementia Medical Records Data Attestation: I reviewed the patient's medical records Medical Nutrition Assessment Dietitian: Malnutrition Criteria Met Start: 11/30/21 16:29 Freq: Status: Active Protocol: Document 11/30/21 16:29 (Rec: 11/30/21 16:29 [id number]) Nutrition Malnutrition Evidence of Malnutrition Exists Yes Malnutrition (moderate): Chronic Evidenced By Suboptimal Energy Intake ( Moderate),Physical Changes ( Moderate) Clinical Problem Chronic Disease or Condition Related Malnutrition Etiology chronic, moderate malnutrition related to inadequate energy intake d/t dementia Signs/Symptoms as evidenced by estimated PO intake meeting <75% of estimated energy needs >3 months; moderate muscle wasting/fat loss per physical exam; BMI 19.4 Status Active Problem Recommendation Dietitian Recommendations/Changes regular diet- texture/ consistency modficiations as appropriate per plan of care as family revoked inpatient hospice care 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 Result Diagrams: 11/30/21 11:51 11/30/21 11:51 Labs: Laboratory Results - last 24 hr 11/30/21 11:51: WBC 8.7, RBC 4.05 L, Hgb 12.5, Hct 37.4, MCV 92.3, MCH 30.9, MCHC 33.4, RDW Std Deviation 50.4 H, RDW Coeff of Ilana 14.9 H, Plt Count 206, MPV 10.0, Immature Gran % (Auto) 0.300, Neut % (Auto) 71.9 H, Lymph % (Auto) 16.1 L , [place] % (Auto) 11.4 H, Eos % (Auto) 0.2, Baso % (Auto) 0.1, Absolute Neuts (auto) 6.3, Absolute Lymphs (auto) 1.40, Nucleated RBC % 0 11/30/21 11:51: Sodium 143, Potassium 3.9, Chloride 109 H, Carbon Dioxide 24.0, Anion Gap 10, BUN 27 H, Creatinine 0.80, Estim Creat Clear Calc 47.10, Est GFR (MDRD) Af Amer 88, Est GFR (MDRD) Non-Af 73, BUN/Creatinine Ratio 33.8 H, Glucose 80, Calcium 9.2 11/30/21 11:51: Blood Type A POSITIVE, Antibody Screen NEGATIVE Rhythm Strip Rhythm Strip: Sinus Rhythm Rate: 87 Ectopy: PAC(s) Radiology Impression Hip/Pelvis X-Ray 11/30/21 11:31 IMPRESSION: Nondisplaced impacted left subcapital fracture of the proximal left femur. Status post right total hip replacement. Electronically Signed: Mendoza Gardiner MD at 12:19 EDT , I have personally reviewed this image. I disagree it is a displaced left subcapital femoral neck fracture not a nondisplaced fracture.This can be most cl early appreciated on the lateral view Chest X-Ray 11/30/21 12:00 IMPRESSION: Hyperinflation. The lungs are clear. Electronically Signed: Mendoza Gardiner MD at 12:20 EDT ,
[2021-12-01] MEDS: Cefazolin 2 GM in 0.9% Normal Saline 100 ML IV (11:59)
[2021-12-01] MEDS: Lactated Ringers 1,000 ML 15 ML IV (12:00)
--- NOTE | 2021-12-01 12:00 | FEM_PTH ---
PATIENT: DARIN ANAND LOC: MS3 U#:[id number] AGE/SX: 81/F ROOM: [facility] RE11/30/[address]: Dr. Yanely Rodriguez DO : 1940 BED: 1 DIS: 12/04/2021 SPEC #: [id number] RECD: 12/03/21 11:09 STATUS: TOSIN REQ #: [id number] IRAIDA: 12/01/21 12:[address]: Yanely Rodriguez DEPT: SURGICAL PATHOLOGY RECD BY: Mila Hubbard ENTERED: 12/03/21 13:27 SP TYPE: FEM HEAD OTHR DR: MD Dr. Harshil Bernstein MD Dr. Steven Widmer, MD Tissues: Femoral region, NOS Procedures: Decalcification bone/plaque Surgery Specimen Level IV HEADER OPERATION: Left hip hemiarthroplasty PRE-OP DIAGNOSIS: Nondisplaced impacted left subcapital fracture of proximal left femur TISSUE SUBMITTED: Left femoral head bone and tissue MICROSCOPIC DIAGNOSIS Left femoral head, bone and tissue, hemiarthroplasty: Femoral head and detached pieces of bone with focal area of hemorrhage, clinically nondisplaced, impacted left subcapital fracture of proximal left femur. Focal mild degenerative osteoarthritic changes. Fragments of fibroadipose and dense fibroconnective tissue. LADAN:ortiz 12/06/2021 MICROSCOPIC DESCRIPTION Slides are reviewed. GROSS DESCRIPTION Received is one container labeled with the patient's name and designated left femoral head bone and tissue. The specimen consists of a link femoral head measuring 4 x 4 x 3.5 cm. The articular surface shows focal area of erosion. Resection margin is irregular and hemorrhagic. Also present in the specimen container are multiple pieces of bone measuring in aggregate 5 x 3 x 2.5 cm. Also present in the container are multiple pieces of soft tissue measuring in aggregate 4 x 3.5 x 2 cm. Cut Lace Machine Operator sections are submitted in three cassettes as follows: 1 - soft tissue, 2 - detached pieces of bone, 3??femoral head. Cassettes 2 and 3 are submitted after decalcification. / LADAN:ortiz 12/03/2021 TC:5 CPT: 30825, [id number]
--- NOTE | 2021-12-01 12:14 | RAD_ITS ---
STUDY: X-RAY - PELVIS AND LEFT HIP REASON FOR EXAM: Female, 81 years old. ANTERIOR HIP-LEFT acute left femoral subcapital fracture TECHNIQUE: 4 intraoperative fluoroscopic views of the left hip. COMPARISON: Pelvic x-ray dated November 30, 2021 FINDINGS: The fluoroscopic views of the left hip shows a newly placed prosthesis demonstrating good bony contact and alignment. The left femoral head and neck abscess surgically resected. The hardware is well placed within the acetabulum and in the proximal one third femoral shaft. RAD/Hip 1 view with Pelvis IMPRESSION: Intraoperative visualization of recent left hip arthroplasty Electronically Signed: Kleber Whitfield MD at 15:56 EDT ,
[2021-12-01] MEDS: TXA in NS 100ml (Placed in Wound) OPERA.SITE (13:45)
--- NOTE | 2021-12-01 13:51 | PCM.OPRPT ---
Report of Operation Date of Procedure: 12/01/21 Pre-Operative Diagnosis: Left hip displaced subcapital femoral neck fracture Post-Operative Diagnosis: Left hip displaced subcapital femoral neck fracture Surgery/Procedure Performed:: Left hip hemiarthroplasty Description of Surgical Findings:: Stable hip with equal leg lengths Surgeon: Jorge Yanez commercial lending vice president: Brenda Sarmiento Type of Anesthesia: General Anesthesiologist: Eliazar Lira Special Medications: 2 g Ancef, 2 g TXA lavage prior to closure, 1 joint cocktail (5 mg Duramorph, 30 mL of 0.5% Ropivicaine, 1000 units of epinephrine, 30 mg of Toradol) Specimen's removed: Bony cuts Estimated Blood Loss (mL): 200 Fluids Replaced: 500 mL crystalloid Description of Procedure: Components used: 1. Insignia Griffin femoral stem size 2 high offset 2. Griffin cobalt-chromium 43 mm, with +4 mm sleeve femoral head Brief history operative indications: 81 yo F who sustained a displaced left femoral neck fracture. Left partial hip replacement was discussed with the patient with risks and benefits including but not limited to blood loss, DVTs, PEs, neurovascular damage, dislocation, general risks of anesthesia including loss of life. Patient demonstrated an understanding medical clearance is obtained the patient was consented for surgery. Procedure: On the date of procedure the patient's L hip was marked in the preoperative area. Patient was then taken back to the operating room where anesthesia assumed control of the C-spine and airway and administered anesthetic. Patient was transferred to the operating table and placed in the supine position. The hips were placed at the break of the bed and a sacral bump was placed. L The lower extremity was then prepped out in a sterile fashion using chlorhexidine while the surgeon scrubbed. The PA was vital in the positioning of the patient. Upon reentering the room the left lower extremity was draped in the standard orthopedic fashion and the incision was marked. A timeout was called and everyone agreed upon the side, the site, the procedure be performed, antibody given, and patient's identity. At this time incision was made through skin, subcutaneous tissue, and fat down to fascia. The fascia was then incised and the TFL was retracted laterally. A retractor was placed on the lateral border of the femoral neck. Attention was directed to the inferior portion of the approach and all crossing vessels were identified and appropriately coagulated. A retractor was then placed on the medial portion of the femoral neck. The anterior capsule was then cleared of all soft tissue and then H shaped capsulotomy was made. The retractors were then placed inside the capsule. The femoral neck was identified and a cleanup cut was made. At this time a power corkscrew was used to remove the femoral head. Debris was removed from the acetabulum. Attention was then turned to the femur. Soft tissue releases on the medial and lateral femoral neck were appropriately done, the leg was externally rotated and lateralized. A Bhakta retractor was placed medially and proximally to the greater trochanter this allowed appropriate visualization and exposure of the femoral canal. Rongeour was then used to remove excess lateral bone. A canal finder and entry broach were used to open the proximal canal. Once we verified we were down the femoral canal we subsequently broached up to a size 2 femur. The appropriate neck was placed in the previously selected head was trialed with a 4 mm neck. Traction was pulled and the hip was reduced with internal rotation. Once it was appropriately reduced and stability was checked. There was minimal shuck, equal leg lengths and appropriate stability with hyperextension and external rotation as well as with 90? flexion and internal rotation. Fluoroscopy was then also used to verify the position of the components and leg lengths using the contralateral side for comparison. The trial components were then dislocated the proximal femur was again exposed and the components were removed from the wound. The final components were verified and opened. The wound was copiously irrigated out with normal saline. The acetabulum was checked for any residual debris. The final components were placed and impacted. Traction and internal rotation were again used to reduce the hip. After adequate reduction the hip remained stable with appropriate leg lengths. The final components were once again checked with live fluoroscopy and were found to be satisfactory. The wound was then copiously irrigated with normal saline once more, and hemostasis was obtained. Closure was then done using #1 Vicryl runner to close the fascia. A 2-0 vicryl interuppted sutures were used to close the subcutaneous skin. A 3-0 nylon sutures were used for final skin closure. A Silverlon dressing was placed. Patient was awakened by anesthesia and transferred to the [facility]. Patient was then transferred to the PACU for recovery. Postoperative plan: Patient will get 24 hours postop antibiotics. Patient will get in-house physical therapy and will be weight-bear as tolerated. Patient will follow up in office in 2 weeks for a wound check and x-rays. Aspirin 81 mg twice daily for DVT prophylaxis. Patient is a fall risk does not have a history of VTE reported on my review of the history. If this is further discovered would recommend reconsidering DVT prophylaxis however patient's fall risk is concerning for detrimental effects related to over anticoagulation. Complications No intraoperative complications Admit VTE Documentation VTE Present on Admission: No VTE Mechan Device Prophylaxis: SCD's and Thigh High BRANDIN Hose VTE Pharm Prophylaxis ordered?: Yes
--- NOTE | 2021-12-01 15:00 | RAD_ITS ---
STUDY: X-RAY - PELVIS AND LEFT HIP REASON FOR EXAM: Female, 81 years old. Post Op TECHNIQUE: 2 views of the pelvis and hip. COMPARISON: Pelvic x-ray dated November 30, 2021 FINDINGS: Status post surgical resection of the femoral head and neck. The proximal one third femoral prosthetic component is well placed within the intramedullary cavity as well as the acetabular cup. Both prosthetic components demonstrate good bony contact and alignment. Expected postoperative changes of the overlying soft tissues including gas and swelling. No occult fracture is present. Stable right hip prosthesis. RAD/Hip Min 2 Views (Portable) IMPRESSION: Status post left hip arthroplasty Electronically Signed: Kleber Whitfield MD at 15:55 EDT ,
--- NOTE | 2021-12-01 18:41 | CM.ED ---
SILVIO spoke to LEBRON Muhammad and she advised patient is going to surgery today. SILVIO spoke to color developer Alix. Alix advised that it is unknown if patient will be hospice again. MD Ortiz had put in orders for PT/OT evaluation on Friday. Juanita LORENZO
[2021-12-01] MEDS: Cefazolin 1 GM/50 ML BAG IV (20:15)
[2021-12-01] MEDS: Aspirin 81 MG TAB.CHEW PO (21:14)
[2021-12-01] MEDS: Ensure Plus High Protein 120 ML LIQUID PO (21:15)
[2021-12-02] VITALS (9 sets, daily range): BP systolic 105–126; BP diastolic 43–64; PULSE 80–92; RESP 16–18; TEMP 37.2–38.2; O2SAT 94–98
[2021-12-02] MEDS: Cefazolin 1 GM/50 ML BAG IV (03:20)
[2021-12-02 05:15] LABS: Absolute Lymphocyte Count 0.79 X10^3/uL (0.83-4.51); Absolute Neutrophil Count 8.2 X10^3/uL (2.0-7.7); Basophil# 0.01 X10^3/uL; Basophil% 0.1 % (0-1); Eosinophil# 0.04 X10^3/uL; Eosinophils% 0.4 % (0-5); Hematocrit 31.4 % (37-47); Hemoglobin 10.6 g/dL (12.0-15.0); Lymphocyte # 0.79 X10^3/ul (0.83-4.51); Lymphocyte % 7.8 % (19-41); Mean Corp Hgb Conc 33.8 g/dL (32-36); Mean Corpuscular Hgb 30.5 pg (27.0-32.0); Mean Corpuscular Volume 90.2 fL (81-99); Mean Platelet Vol. 10.6 fl (6.2-12.0); Monocyte% 9.9 % (0-10); NRBC Flagged by Analyzer 0 % (0-5); Neutrophil # 8.23 X10^3/uL (2.7-7.7); Neutrophil % 81.4 % (47-70); Platelet Count 214 K/mm3 (150-450); RBC Distribution Width CV 14.5 % (11.6-14.6); RBC Distribution Width SD 47.8 fl (35.1-43.9); Red Blood Count 3.48 M/mm3 (4.2-5.4); White Blood Count 10.1 K/mm3 (4.4-11.0)
[2021-12-02 05:40] LABS: Anion Gap 5 (5-15); BUN 32 mg/dL (7-18); BUN/Creat Ratio 40.9 RATIO (10-20); Calcium,Total 8.8 mg/dL (8.5-10.1); Chloride 110 mmol/L (98-107); Creatinine, Serum 0.78 mg/dL (0.55-1.02); EST Glomerular Filtration Rate 75 mL/min (>60); Est Glom Filt Rate - Afr Amer 90 mL/min (>60); Estimated Creatinine Clearance 35.66 ml/min; Glucose 111 mg/dL (74-106); Potassium 4.1 mmol/L (3.5-5.1); Sodium Level 143 mmol/L (136-145)
--- NOTE | 2021-12-02 09:13 | PCM.PN.HOSP ---
Subjective Subjective Alert today but still not communicative Objective Data Objective Data Vital Signs: Vital Signs Temp Pulse Resp BP Pulse Ox O2 Del Method O2 Flow Rate 100.7 F H 91 16 119/56 L 94 Room Air 4 12/02/21 08:39 12/02/21 08:39 12/02/21 08:39 12/02/21 08:39 12/02/21 08:39 12/02/21 08:39 12/01/21 15:00 Oxygen Flow Rate (L/min) 4 Oxygen Delivery Method Room Air Weight: 116 lb 13.52 oz Body Mass Index (BMI) 19.4 Intake & Output: Intake and Output for Last 24 Hours 12/01/21 12/02/21 12/03/21 03:59 03:59 03:59 Intake Total 520 / 520 250 / 250 Output Total 525 / 525 525 / 525 100 / 100 Balance -525 / -525 -5 / -5 150 / 150 Medical Nutrition Assessment Dietitian: Malnutrition Criteria Met Start: 11/30/21 16:29 Freq: Status: Active Protocol: Document 11/30/21 16:29 (Rec: 11/30/21 16:29 [id number]) Nutrition Malnutrition Evidence of Malnutrition Exists Yes Malnutrition (moderate): Chronic Evidenced By Suboptimal Energy Intake ( Moderate),Physical Changes ( Moderate) Clinical Problem Chronic Disease or Condition Related Malnutrition Etiology chronic, moderate malnutrition related to inadequate energy intake d/t dementia Signs/Symptoms as evidenced by estimated PO intake meeting <75% of estimated energy needs >3 months; moderate muscle wasting/fat loss per physical exam; BMI 19.4 Status Active Problem Recommendation Dietitian Recommendations/Changes regular diet- texture/ consistency modficiations as appropriate per plan of care as family revoked inpatient hospice care 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; 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 plus high protein w/ medpass Lab / Micro Data Result Diagrams: 12/02/21 04:20 12/02/21 04:20 Labs: Laboratory Results - last 24 hr 12/02/21 04:20: WBC 10.1, RBC 3.48 L, Hgb 10.6 L, Hct 31.4 L, MCV 90.2, MCH 30.5, MCHC 33.8, RDW Std Deviation 47.8 H, RDW Coeff of Ilana 14.5, Plt Count 214, MPV 10.6, Immature Gran % (Auto) 0.400, Neut % (Auto) 81.4 H, Lymph % (Auto) 7.8 L, Laurens % (Auto) 9.9, Eos % (Auto) 0.4, Baso % (Auto) 0.1, Absolute Neuts (auto) 8.2 H, Absolute Lymphs (auto) 0.79 L, Nucleated RBC % 0 12/02/21 04:20: Sodium 143, Potassium 4.1, Chloride 110 H, Carbon Dioxide 28.0, Anion Gap 5, BUN 32 H, Creatinine 0.78, Estim Creat Clear Calc 35.66, Est GFR (MDRD) Af Amer 90, Est GFR (MDRD) Non-Af 75, BUN/Creatinine Ratio 40.9 H, Glucose 111 H, Calcium 8.8 Radiography Diagnostic Testing: Radiology Impression Hip/Pelvis X-Ray 12/01/21 12:14 IMPRESSION: Intraoperative visualization of recent left hip arthroplasty Electronically Signed: Kleber Whitfield MD at 15:56 EDT Reading Location ID and State: [address] [place] [address] , Service support , Hip X-Ray 12/01/21 15:00 IMPRESSION: Status post left hip arthroplasty Electronically Signed: Kleber Whitfield MD at 15:55 EDT Reading Location ID and State: [address] [place] [address] , Service support , Rhythm Strip Rhythm Strip: Sinus Rhythm Rate: 87 Ectopy: PAC(s) Physical Exam Narrative General: Alert, no apparent distress HEENT: Atraumatic, PERRLA, EOMI, Normocephalic Oral: Moist Mucosa Neck: Supple, No JVD Lungs: Clear to auscultation, Normal air movement, No rhonchi, No wheeze, No rales Cardiovascular: Regular rate, Regular Rhythm, Normal S1, Normal S2, No murmurs Abdomen: Soft, Non Tender, Non-Distended, No Hepato-splenomegaly Extremities: No edema, Capillary Refill Less than 3 Seconds Skin: No rashes, No breakdown Musculoskeletal: Pain to left hip palpation Neurological: Cranial nerves II-XII grossly intact, Motor Exam 5/5 strength throughout, Sensory exam intact to light touch and pain Psych/Mental Status: Flat affect/dementia Assessment & Plan Assessment/Plan (1) Closed fracture of left hip: PLAN: Plan 1. Left hip fracture status post repair 12/01/2021 ? This was due to mechanical fall ? She is hospice therefore this is simply to provide comfort ?Would recommend discharge back to the inpatient hospice unit, there is no need for skilled therapy given her hospice status. ? Given her DNRCC status she is okay to proceed with surgery. I discussed with the about the possibility of during the procedure he expressed understanding. I asked him to consider the possibility of waving the full CODE STATUS during surgery, and he will think about this. ? Can continue with her home Haldol and Seroquel to help with delirium DVT: SCDs Charges/Coding Visit Charges Inpatient E&M: 32360 Subs Hosp L2
[2021-12-02] MEDS: Senna/Docusate Sodium 1 Tablet 2 TABLET PO ×2 (09:21→22:02)
[2021-12-02] MEDS: Ensure Plus High Protein 120 ML LIQUID PO (09:21)
[2021-12-02] MEDS: Aspirin 81 MG TAB.CHEW PO ×2 (09:22→18:21)
[2021-12-02] MEDS: Acetaminophen 325 MG Tablet 650 MG PO ×2 (10:21→22:07)
--- NOTE | 2021-12-02 11:08 | PN.ORTHO_ITS ---
Subjective Subjective No acute events overnight. Patient is largely nonverbal. Sitting in a chair comfortable this morning. Most recent temperature was 100.7 Objective Data Objective Data Vital Signs: Vital Signs Temp Pulse Resp BP Pulse Ox O2 Del Method O2 Flow Rate 100.7 F H 91 16 119/56 L 94 Room Air 4 12/02/21 08:39 12/02/21 08:39 12/02/21 08:39 12/02/21 08:39 12/02/21 08:39 12/02/21 08:39 12/01/21 15:00 Oxygen Flow Rate (L/min) 4 Oxygen Delivery Method Room Air Weight: 116 lb 13.52 oz Body Mass Index (BMI) 19.4 Intake & Output: Intake and Output for Last 24 Hours 11/30/21 12/01/21 12/02/21 23:59 23:59 23:59 Intake Total 420 / 470 350 / 350 Output Total 350 / 525 575 / 700 225 / 225 Balance -350 / -525 -155 / -230 125 / 125 Medical Nutrition Assessment Dietitian: Malnutrition Criteria Met Start: 11/30/21 16:29 Freq: Status: Active Protocol: Document 11/30/21 16:29 AG (Rec: 11/30/21 16:29 [id number]) Nutrition Malnutrition Evidence of Malnutrition Exists Yes Malnutrition (moderate): Chronic Evidenced By Suboptimal Energy Intake ( Moderate),Physical Changes ( Moderate) Clinical Problem Chronic Disease or Condition Related Malnutrition Etiology chronic, moderate malnutrition related to inadequate energy intake d/t dementia Signs/Symptoms as evidenced by estimated PO intake meeting <75% of estimated energy needs >3 months; moderate muscle wasting/fat loss per physical exam; BMI 19.4 Status Active Problem Recommendation Dietitian Recommendations/Changes regular diet- texture/ consistency modficiations as appropriate per plan of care as family revoked inpatient hospice care 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; 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 plus high protein w/ medpass Lab / Micro Data Result Diagrams: 12/02/21 04:20 12/02/21 04:20 Labs: Laboratory Results - last 24 hr 12/02/21 04:20: WBC 10.1, RBC 3.48 L, Hgb 10.6 L, Hct 31.4 L, MCV 90.2, MCH 30.5, MCHC 33.8, RDW Std Deviation 47.8 H, RDW Coeff of Ilana 14.5, Plt Count 214, MPV 10.6, Immature Gran % (Auto) 0.400, Neut % (Auto) 81.4 H, Lymph % (Auto) 7.8 L, Nobles % (Auto) 9.9, Eos % (Auto) 0.4, Baso % (Auto) 0.1, Absolute Neuts (auto) 8.2 H, Absolute Lymphs (auto) 0.79 L, Nucleated RBC % 0 12/02/21 04:20: Sodium 143, Potassium 4.1, Chloride 110 H, Carbon Dioxide 28.0, Anion Gap 5, BUN 32 H, Creatinine 0.78, Estim Creat Clear Calc 35.66, Est GFR (MDRD) Af Amer 90, Est GFR (MDRD) Non-Af 75, BUN/Creatinine Ratio 40.9 H, Glucose 111 H, Calcium 8.8 Radiography Diagnostic Testing: Radiology Impression Hip/Pelvis X-Ray 12/01/21 12:14 IMPRESSION: Intraoperative visualization of recent left hip arthroplasty Electronically Signed: Kleber Whitfield MD at 15:56 EDT Reading Location ID and State: [address] [place] [address] , Service support , Hip X-Ray 12/01/21 15:00 IMPRESSION: Status post left hip arthroplasty Electronically Signed: Kleber Whitfield MD at 15:55 EDT Reading Location ID and State: [facility] / [place] , Service support , Rhythm Strip Rhythm Strip: Sinus Rhythm Rate: 87 Ectopy: PAC(s) Physical Exam Const General Appearance: cooperative and comfortable Resp normal respiratory effort Extremity Extremity Narrative: Left lower extremity: Dressing is clean dry and intact. No excessive swelling. No with surrounding erythema. Patient is minimally able to participate in the examination however she is able to faintly wiggle her toes and plantarflex and dorsiflex her foot. Assessment & Plan Assessment/Plan (1) Closed fracture of left hip: PLAN: Postop day 1 left hip hemiarthroplasty 1. Pain control: Per primary service limit narcotics due to patient's mental status history 2. DVT prophylaxis: Aspirin 81 mg twice daily. Consider patient's fall risk. No reported history of VTE and medical history as reviewed. No history given from the . 3. Therapy: Weightbearing as tolerated, activity as tolerated, anterior precautions 4. Patient did have 1 fever on most recent vital signs 100.7. Likely related to atelectasis. Wound looks appropriate. 5. Postop anemia: Preoperatively patient's hemoglobin was appropriate. Postop 100.7 related to intraoperative blood loss and fracture blood loss 6. Disposition: Patient orthopedically stable. No further intervention needed. Please call with any further questions or concerns. Recommend aspirin DVT prophylaxis for at least 4 weeks postoperatively. Sutures can be removed 2 weeks postoperatively. Due to patient's mental status and hospice status a 2- week postoperative x-ray is recommended with images forwarded to the office. If patient is stable and wound is stable continue comfort care and no further outpatient follow-up would be required. If patient activity level changes would recommend follow-up in office in 2 weeks for wound check and x-ray check. [facility] Office: (2) History of dementia: PLAN: Per primary service
[2021-12-02] MEDS: QUEtiapine 25 MG Tablet 50 MG PO (22:02)
[2021-12-03 02:59] VITALS: BP 94/39; PULSE 81; RESP 16; TEMP 37.6; O2SAT 95
[2021-12-03] MEDS: Aspirin 81 MG TAB.CHEW PO ×2 (08:43→17:30)
[2021-12-03] MEDS: Senna/Docusate Sodium 1 Tablet 2 TABLET PO ×2 (08:43→21:14)
[2021-12-03] MEDS: QUEtiapine 25 MG Tablet PO (08:43)
[2021-12-03 08:45] VITALS: BP 106/48; PULSE 99; RESP 16; TEMP 38.3; O2SAT 95
[2021-12-03] MEDS: Acetaminophen 325 MG Tablet 650 MG PO (08:46)
[2021-12-03 10:06] LABS: Mucous, Urine 0 SEEN /hpf (<or=2+); Red Blood Cells-Urine 0 SEEN /hpf (0-5)
[2021-12-03 10:21] LABS: Color, Urine Yellow (Yellow); Glucose, Dipstick Normal (Normal); Ketone-Dipstick 15 mg/dl (Negative); Leukocyte Esterase-Dipstick 500 /ul (Negative); Nitrite-Dipstick Negative (Negative); Occult Blood-Urine 50 /ul (Negative); Protein-Dipstick 30 mg/dl (Negative); Specific Gravity, Urine 1.015 (1.002-1.030); Urine Bilirubin Dipstick Negative (Negative); Urine Clarity Clear (Clear); Urine Urobilinogen 1 mg/dl (Normal); Urine pH 6.5 (5.0 - 8.0)
--- NOTE | 2021-12-03 10:25 | CASEMGMT ---
Social Work SW attempted to call pt to discuss discharge plan. No answer, left message requesting call back and provided contact information. SOLOMON Martinez
[2021-12-03 10:47] LABS: Bacteria 1+ /hpf (None Seen); Squamous Epithelial Cells - UA 0-5 SEEN /hpf (5-10); White Blood Cells 0-5 SEEN /hpf (0-5)
--- NOTE | 2021-12-03 12:01 | PCM.PN.HOSP ---
Subjective Subjective Patient seems to be nonverbal for the most part. Has chronic indwelling Correa from hospice and some intermittent fevers. No issues overnight. Patient is currently working with therapy services. I was informed from checkout that the patient is to go through rehab before being replaced back in hospice. Objective Data Objective Data Vital Signs: Vital Signs Temp Pulse Resp BP Pulse Ox O2 Del Method O2 Flow Rate 100.9 F H 99 16 106/48 L 95 Room Air 4 12/03/21 08:45 12/03/21 08:45 12/03/21 08:45 12/03/21 08:45 12/03/21 08:45 12/03/21 08:45 12/03/21 08:45 Oxygen Flow Rate (L/min) 4 Oxygen Delivery Method Room Air Weight: 53 kg Body Mass Index (BMI) 19.4 Intake & Output: Intake and Output for Last 24 Hours 12/01/21 12/02/21 12/03/21 23:59 23:59 23:59 Intake Total 420 / 470 1070 / 1170 751 / 751 Output Total 575 / 700 475 / 775 500 / 500 Balance -155 / -230 595 / 395 251 / 251 Medical Nutrition Assessment Dietitian: Malnutrition Criteria Met Start: 11/30/21 16:29 Freq: Status: Active Protocol: Document 11/30/21 16:29 (Rec: 11/30/21 16:29 [id number]) Nutrition Malnutrition Evidence of Malnutrition Exists Yes Malnutrition (moderate): Chronic Evidenced By Suboptimal Energy Intake ( Moderate),Physical Changes ( Moderate) Clinical Problem Chronic Disease or Condition Related Malnutrition Etiology chronic, moderate malnutrition related to inadequate energy intake d/t dementia Signs/Symptoms as evidenced by estimated PO intake meeting <75% of estimated energy needs >3 months; moderate muscle wasting/fat loss per physical exam; BMI 19.4 Status Active Problem Recommendation Dietitian Recommendations/Changes regular diet- texture/ consistency modficiations as appropriate per plan of care as family revoked inpatient hospice care 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; 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 plus high protein w/ medpass Lab / Micro Data Result Diagrams: 12/02/21 04:20 12/02/21 04:20 Labs: Laboratory Results - last 24 hr 12/03/21 09:50: Urine Color Yellow, Urine Clarity Clear, Urine pH 6.5, Ur Specific Etters 1.015, Urine Protein 30 H, Urine Glucose (UA) Normal, Urine Ketones 15 H, Urine Occult Blood 50 H, Urine Nitrite Negative, Urine Bilirubin Negative, Urine Urobilinogen 1 H, Ur Leukocyte Esterase 500 H, Urine RBC 0 SEEN, Urine WBC 0-5 SEEN, Ur Squamous Epith Cells 0-5 SEEN, Urine Bacteria 1+, Urine Mucus 0 SEEN Rhythm Strip Rhythm Strip: Sinus Rhythm Rate: 87 Ectopy: PAC(s) Physical Exam Const alert, no apparent distress and well nourished Constitutional Narrative: Elderly white female sitting up in chair at the bedside, therapy services at the bedside, patient intermittently follows commands but seems to be fairly nonverbal with us HEENT head/scalp atraumatic and moist oral mucous membranes HEENT Narrative: Dentition is poor, Mallampati is 2, no thrush Head and Scalp: normocephalic Eyes PERRL, EOMs intact bilaterally and conjunctivae normal Eyes Narrative: No scleral icterus Neck no lymphadenopathy and supple Neck Narrative: Trachea midline, no thyroid enlargement Resp normal respiratory effort, no retractions, no use of accessory muscles and clear to auscultation bilaterally Auscultation: Negative for crackles, rales, rhonchi or wheezes Cardio regular rate, regular rhythm, S1 normal heart sound, S2 normal heart sound, no murmurs, no rub, no gallops, no clicks and no JVD GI normal to inspection, nondistended, normoactive bowel sounds, soft to palpation and non-tender GI Narrative: Chronic indwelling Correa noted and urine appears clear Extremity no clubbing, cyanosis or edema Extremity Narrative: 2+ pedal pulses Skin no rashes or lesions noted, skin turgor normal, no jaundice, no petechiae and no mottling Skin Narrative: Skin is pale, postoperative dressing is in place and intact over right hip without any significant drainage Neuro Neuro Narrative: Complete neuro exam difficult as patient is somewhat limited in responses however she does move all extremities with limited movement right lower extremity secondary to pain at the right hip Speech: Negative for speech normal Assessment & Plan Assessment/Plan (1) Fall: (2) Closed fracture of left hip: (3) Fever: PLAN: Plan Closed displaced subcapital left hip fracture of the femoral neck status post mechanical fall -Postop day 2 left hip hemiarthroplasty -PT/OT -Weightbearing as tolerated -Aspirin 81 mg p.o. twice daily -Follow-up in 2 weeks for wound check and x-rays at orthopedic surgery office -Per previous physician plan is for discharge for therapy with then return to hospice services following therapy completion Postoperative fever -T-max is 100.9 -Could be related to postoperative atelectasis however feel we should rule out infectious causes -Check blood cultures x2 -Check UA especially with chronic indwelling Correa -Check chest x-ray -Patient remains on room air -Encourage incentive spirometry and mobilization -Hold on empiric antibiotics -CBC in a.m. -White count was normalized yesterday Mechanical falls -Sec mechanical fall with resultant hip fracture this year -Most recently was in June and now again in November -PT and OT consultation -Patient went to TCU at discharge after last hemiarthroplasty History of cystocele -Continue chronic Correa Alzheimer's type dementia with behavioral disorder -Patient had been in hospice however revoked for surgery -Plan is for skilled with therapy and then back to hospice following per my understanding -Continue home as needed Haldol-continue home scheduled Seroquel 25 mg a.m. 50 mg at at bedtime DVT prophylaxis -Aspirin 81 mg p.o. twice daily per orthopedic surgery CODE STATUS -DNR CC Charges/Coding Visit Charges Inpatient E&M: 70681 Subs Hosp L3
--- NOTE | 2021-12-03 12:50 | RAD_ITS ---
EXAM: XR CHEST, 1 VIEW CLINICAL INDICATION: fever TECHNIQUE: Frontal view of the chest. This report was created using [employer] report generation technology. COMPARISON: 11/30/2021 FINDINGS: LUNGS AND PLEURAL SPACES: Unremarkable. No consolidation or edema. No pneumothorax. No effusion. HEART: Unremarkable. Cardiac silhouette not enlarged. MEDIASTINUM: Central airways and mediastinal contour are unremarkable. BONES/JOINTS: Unremarkable. SOFT TISSUES: Unremarkable. RAD/Chest 1 View (Portable) IMPRESSION: No radiographic evidence of acute cardiopulmonary disease. Electronically Signed: Gianni Jc MD at 13:14 EDT ,
--- NOTE | 2021-12-03 13:17 | CASEMGMT ---
Social Work SW?to room to meet with patient and pt for initial transition planning/care coordination?assessment.?SW?introduced self and role at [facility].? Pt's voiced understanding and consents to?assessment?at this time.? Pt resting in bedside chair in no distress at this time.? Pt was alert and oriented x1 at this time. Pt nonverbal, assessment was completed with pt .?Care providers, pharmacy, and demographics verified/updated at this time. PCP: Monico Medina Specialists: N/A [facility]erred [facility]acy[facility] Benefit:?Yes Living Will/HPOA:?Pt states has both and will bring in copies if possible. Pt's reported himself, [address], as HCPOA. LNOK: [address], Living Arrangements: Single story home with 3-4 steps to enter front door. Pt's stated also has entrance from garage with 3-4 steps. Pt installed rails to garage entrance for pt to enter more safely. Transportation:?Pt's drives to appointments as needed. DME: ? Pt's stated family installed grab bar/wall handles by both toilets in the home. No other DME and denies needs as pt will not be returning home at this time. HHC/SNF: A printed list of SNF providers including quality and resources use date that is consistent with patient's preferred geographical region, medical needs, and insurances network were provided via the [employer] Guide Link.?Pt's prefers [facility]. SILVIO set referral to Nae at TCU. Jodi able to accept pt. SILVIO informed pt and family of acceptance and sent information to [facility] to obtain pre-authorization. SW?to follow for any further discharge planning/needs.? Pt/family voices no further concerns/needs at this time.? Advised pt to ask for?SW?if any further questions/concerns/needs arise.? Voices understanding. PLAN:?[facility], pending precert SOLOMON Martinez
[2021-12-03] MEDS: Ensure Plus High Protein 120 ML LIQUID PO ×3 (14:40→21:10)
[2021-12-03 14:45] VITALS: BP 118/57; PULSE 84; RESP 16; TEMP 36.3; O2SAT 99
[2021-12-03 14:51] VITALS: BP 118/57; PULSE 84; RESP 16; TEMP 36.3; O2SAT 99
--- NOTE | 2021-12-03 15:24 | CASEMGMT ---
Social Work SW called [employer] to confirm auth request had been received via Fax. Auth request was confirmed and SW was given the pending case number of [id number]. PLAN: [facility], pending precert SOLOMON Martinez
[2021-12-03 20:15] VITALS: BP 123/92; PULSE 94; RESP 16; TEMP 36.8; O2SAT 99
[2021-12-03] MEDS: Menthol/Lanolin/Calamine/Znox 113 GM Tube 1 APPLIC TOPICAL (21:10)
[2021-12-03] MEDS: QUEtiapine 25 MG Tablet 50 MG PO (21:14)
[2021-12-04 02:15] VITALS: BP 106/75; PULSE 98; RESP 16; TEMP 37.2; O2SAT 97
[2021-12-04] MEDS: Menthol/Lanolin/Calamine/Znox 113 GM Tube 1 APPLIC TOPICAL (08:21)
[2021-12-04] MEDS: Aspirin 81 MG TAB.CHEW PO ×2 (08:21→17:38)
[2021-12-04] MEDS: Senna/Docusate Sodium 1 Tablet 2 TABLET PO (08:22)
[2021-12-04] MEDS: Ensure Plus High Protein 120 ML LIQUID PO ×2 (08:22→17:38)
[2021-12-04] MEDS: Acetaminophen 325 MG Tablet 650 MG PO (08:23)
[2021-12-04] MEDS: QUEtiapine 25 MG Tablet PO (08:23)
[2021-12-04 09:11] VITALS: BP 125/50; PULSE 87; RESP 18; TEMP 36.8; O2SAT 98
--- NOTE | 2021-12-04 09:36 | CASEMGMT ---
Addendum entered by Catina Morse 12/04/21 10:21: Per Dr. Rodriguez, pt is medically ready to discharge today. SILVIO received Fax confirmation of clinicals sent to [facility] for authorization at 10:12 am. SOLOMON Martinez Original Note: Social Work SW called [facility] to check on insurance authorization request. SILVIO spoke with Vianca, who shared with this worker that precert was obtained for inpatient. Vianca could not give clarification on what kind of inpatient authorization. Vianca suggested this SW fax clinicals back to [facility] again today as the department did not receive the information yesterday. SILVIO then asked what the pending authorization number that was provided to this worker yesterday was for. Vianca was not sure what the number was. SILVIO faxed clinicals to the first number provided [phone], that did not work yesterday, and will keep close eye on fax results to confirm it went through. If not SILVIO will fax to alternative number again. Will continue to call to confirm it was received. SILVIO clarified on fax cover sheet this is an Authorization for [facility] placement. PLAN: TCU, pending precert SOLOMON Martinez
[2021-12-04 10:48] VITALS: O2SAT 98
[2021-12-04 11:33] VITALS: O2SAT 98
--- NOTE | 2021-12-04 11:58 | NURSING ---
was placed at Hospice on 11/28/2021 - for retention - spoke with Hospice nurse
--- NOTE | 2021-12-04 12:07 | CASEMGMT ---
Social Work SW reached out to [employer] via phone to confirm new fax from this morning was received. SW spoke to Shanon. SILVIO explained situation and Shanon reports not sure what is happening. Shanon recommended SW fax clinicals once again. SILVIO explained clinicals have been faxed three times and a pending number was already received. Shanon shared will discuss with nurses and have someone call this SW back to discuss situation. SOLOMON Martinez
--- NOTE | 2021-12-04 12:36 | TREXTCAR_ITS ---
Diet Diet Order/Speech Therapy: 12/01/21 18:19 Diet: Regular - General Food consistency:: Pureed Liquid Consistency:: Regular/Thin Is pt able to select menu?: No Diet Comments: please send prune juice, applesauce and yogurt with every meal, if able. Routine Orders/Code Status Suppository Frequency: Daily PRN O2 Frequency: PRN Keep PO Greater than or Equal to (%): 92 Code Status: DNRCC Wound(s) left hip: Wound Type: Surgical Incision Left inner thigh: Wound Type: blister Suggestions for Active Care Change Position every (hours): 2 Therapies Weight Bearing: Weight bearing as tolerated Physical Therapy: Eval and Treat Occupational Therapy: Eval and Treat Speech Therapy: Eval and Treat Problem/Diagnosis (1) Fall: Status: Acute Code(s): W19.XXXA - Unspecified fall, initial encounter (2) Closed fracture of left hip: Status: Acute Code(s): S72.002A - Fracture of unspecified part of neck of left femur, initial encounter for closed fracture (3) Fever: Status: Acute Code(s): R50.9 - Fever, unspecified Allergies/Procedures Done in Hospital Allergies clarithromycin [From Biaxin] Allergy (Unknown, Verified 11/30/21 10:56) Unknown doxycycline Allergy (Unknown, Verified 11/30/21 10:56) Unknown erythromycin estolate [From Ilosone] Allergy (Unknown, Verified 11/30/21 10:56) Unknown hydrocodone bitartrate [From Vicodin] Allergy (Unknown, Verified 11/30/21 10:56) Unknown levofloxacin [From Levaquin] Allergy (Unknown, Verified 11/30/21 10:56) Unknown oxycodone [Oxycodone] Allergy (Unknown, Verified 11/30/21 10:56) Unknown oxycodone HCl [From Percocet] Allergy (Unknown, Verified 11/30/21 10:56) Unknown pantoprazole Allergy (Unknown, Verified 11/30/21 10:56) Unknown propoxyphene Allergy (Unknown, Verified 11/30/21 10:56) Unknown peanut Adverse Reaction (Verified 11/30/21 10:56) Other HEADACHE WITH PEANUT BUTTER Penicillins [PCN] Adverse Reaction (Verified 11/30/21 10:56) PT UNSURE OF REACTION Procedures: None Type of Care/Length of Stay Estimated LOS: Convalescent Care Less Than 30 days Type of Care Needed: Skilled Rehab Potential: Fair Prognosis: Fair Additional Orders/Day of Discharge Day of Discharge: 12/04/21 Dietary and Speech Recommendations Dietitian Recommendations/Changes: regular diet- texture/consistency modficiations as appropriate per plan of care as family revoked inpatient hosp ice care 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; 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 plus high protein w/ medpass Discharge Plan Admission Admit Date/Time: 11/30/21 13:02 Primary Reason for Your Visit: Mechanical fall/left hip fracture Attending Provider: Yanely Rodriguez Primary Care Provider: Monico Medina Consulting Providers: Jorge Yanez ; Harshil Dominguez Discharge Orders/Prescriptions Prescriptions: New aspirin 81 mg Tablet,Chewable 81 mg PO BIDCM Qty: 0 0RF Rx Instructions: Take for 4 weeks postoperatively Ensure Plus High Protein 0.08 gram-1.5 kcal/mL Liquid 120 ml PO 4X/DAY Qty: 0 0RF sennosides-docusate sodium [Stool Softener-Stimulant Laxat] 8.6-50 mg Tablet 2 tab PO BID Qty: 0 0RF Continued quetiapine [Seroquel] 25 mg Tablet 25 mg PO DAILY haloperidol 0.5 mg Tablet 0.5 mg PO Q4H PRN (Reason: Agitation) bisacodyl 10 mg Suppository 10 mg DC DAILY PRN (Reason: Constipation) quetiapine [Seroquel] 50 mg Tablet 50 mg PO QHS lorazepam 0.5 mg Tablet 0.5 mg PO QHS Qty: 1 0RF Changed morphine 20 mg/5 mL (4 mg/mL) Solution 5 mg sublingual Q4H PRN (Reason: Pain) 1 Days Qty: 100 0RF Held lorazepam [Ativan] 0.5 mg Tablet 0.5 mg sublingual Q4H PRN (Reason: ANXIETY) Hold Instructions: Until restarted by hospice Referrals / Follow Up: Monico Medina MD [Primary Care Provider] - Within 1 Month Jorge Yanez MD [Med Staff - Active Staff] - Within 2 Weeks Disposition Disposition (needs filled in before D/C Order can be placed): Residential Facility
--- NOTE | 2021-12-04 13:49 | CASEMGMT ---
Social Work Dr. Rodriguez gave SW pt's scripts. SW placed scripts in pt's discharge packet envelope. PLAN: TCU, pending precert SOLOMON Martinez
[2021-12-04 14:22] VITALS: BP 124/47; PULSE 79; RESP 17; TEMP 36.6; O2SAT 98
[2021-12-04 14:27] VITALS: BP 124/47; PULSE 79; RESP 17; TEMP 36.6; O2SAT 98
--- NOTE | 2021-12-04 15:30 | CASEMGMT ---
Social Work SILVIO called [employer] once again to inquire about precert. SILVIO spoke with Shanon again. Silvio informed that had not yet received a call regarding information if precert had been started. Shanon put SILVIO on hold. Came back, informed SILVIO a request for urgent TC to SILVIO was written up and Kina stated if SILVIO does not hear back from someone at [employer] today by 4pm then to call back again tomorrow morning. SOLOMON Martinez
--- NOTE | 2021-12-04 16:01 | PN.HOSP_ITS ---
Subjective Subjective Issues overnight. Patient is able to feed herself this morning. Has been accepted to TCU for discharge however awaiting pre-CERT from insurance company. Has been afebrile for about 24 hours now. Objective Data Objective Data Vital Signs: Vital Signs Temp Pulse Resp BP Pulse Ox O2 Del Method O2 Flow Rate 97.8 F 79 17 124/47 H 98 Room Air 4 12/04/21 14:27 12/04/21 14:27 12/04/21 14:27 12/04/21 14:27 12/04/21 14:27 12/04/21 14:27 12/04/21 14:27 Oxygen Flow Rate (L/min) 4 Oxygen Delivery Method Room Air Weight: 53 kg Body Mass Index (BMI) 19.4 Intake & Output: Intake and Output for Last 24 Hours 12/02/21 12/03/21 12/04/21 23:59 23:59 23:59 Intake Total 1070 / 1170 1551 / 1551 400 / 400 Output Total 475 / 775 1200 / 1400 1350 / 1350 Balance 595 / 395 351 / 151 -950 / -950 Medical Nutrition Assessment Dietitian: Malnutrition Criteria Met Start: 11/30/21 16:29 Freq: Status: Active Protocol: Document 11/30/21 16:29 (Rec: 11/30/21 16:29 [id number]) Nutrition Malnutrition Evidence of Malnutrition Exists Yes Malnutrition (moderate): Chronic Evidenced By Suboptimal Energy Intake ( Moderate),Physical Changes ( Moderate) Clinical Problem Chronic Disease or Condition Related Malnutrition Etiology chronic, moderate malnutrition related to inadequate energy intake d/t dementia Signs/Symptoms as evidenced by estimated PO intake meeting <75% of estimated energy needs >3 months; moderate muscle wasting/fat loss per physical exam; BMI 19.4 Status Active Problem Recommendation Dietitian Recommendations/Changes regular diet- texture/ consistency modficiations as appropriate per plan of care as family revoked inpatient hospice care RECORDS MANAGEMENT MANAGER; ensure plus high protein w/ medpass Lab / Micro Data Result Diagrams: 12/02/21 04:20 12/02/21 04:20 Micro: Microbiology 12/03/21 09:55 Urine Catheter - Catheter Urine Culture - Preliminary Culture exhibits no growth. 12/03/21 12:30 Nasal Secretion SARS-CoV-2 Antigen (Rapid) - Final Rhythm Strip Rhythm Strip: Sinus Rhythm Rate: 87 Ectopy: PAC(s) Physical Exam Const alert, no apparent distress and well nourished Constitutional Narrative: Elderly white female sitting up in the bed feeding herself breakfast, aide at bedside, patient intermittently follows commands but seems to be fairly nonverbal with us HEENT head/scalp atraumatic and moist oral mucous membranes Head and Scalp: normocephalic Resp normal respiratory effort, no retractions, no use of accessory muscles and clear to auscultation bilaterally Auscultation: Negative for crackles, rales, rhonchi or wheezes Cardio regular rate, regular rhythm, S1 normal heart sound, S2 normal heart sound, no murmurs, no rub, no gallops and no clicks GI normal to inspection, nondistended, normoactive bowel sounds, soft to palpation and non-tender Extremity no clubbing, cyanosis or edema Extremity Narrative: 2+ pedal pulses Skin Skin Narrative: postoperative dressing is in place and intact over right hip without any significant drainage Neuro Neuro Narrative: Complete neuro exam difficult as patient is somewhat limited in responses however she does move all extremities with limited movement right lower extremity secondary to pain at the right hip Speech: Negative for speech normal Assessment & Plan Assessment/Plan (1) Fall: (2) Closed fracture of left hip: (3) Fever: PLAN: Plan Closed displaced subcapital left hip fracture of the femoral neck status post mechanical fall -Postop day 3 left hip hemiarthroplasty -PT/OT -Weightbearing as tolerated -Aspirin 81 mg p.o. twice daily for 4 weeks postop -Follow-up in 2 weeks for wound check and x-rays at orthopedic surgery office -Per previous physician plan is for discharge for therapy with then return to hospice services following therapy completion Postoperative fever -Patient now afebrile in the last 24 hours -Suspect temperature elevation was related to postoperative changes/atelectasis -Blood cultures are pending -UA is not suggestive of infection despite chronic indwelling Correa -Chest x-ray unremarkable -Encourage incentive spirometry and mobilization if patient able to participate -No antibiotics needed Mechanical falls -Second mechanical fall with resultant hip fracture this year -Most recently was in June and now again in November -PT and OT following -Patient went to TCU at discharge after last hemiarthroplasty--> plan is for discharge to TCU once pre-CERT obtained History of cystocele -Continue chronic Correa Alzheimer's type dementia with behavioral disorder -Patient had been in hospice however revoked for surgery -Plan is for skilled with therapy and then back to hospice following per my understanding -Continue home as needed Haldol-continue home scheduled Seroquel 25 mg a.m. 50 mg at at bedtime DVT prophylaxis -Aspirin 81 mg p.o. twice daily per orthopedic surgery for 4 weeks CODE STATUS -DNR CC Charges/Coding Visit Charges Inpatient E&M: 91197 Subs Hosp L2
--- NOTE | 2021-12-04 16:15 | DS.PCM_ITS ---
Providers Date of Admission: 11/30/21 Date of Discharge: 12/04/21 Primary Care Physician: Dr. Monico Medina MD Consultations 11/30/21 17:16 Consult: Orthopedics Routine Consulting Provider: Jorge Yanez Reason for Consult: left hip fracture EMERGENT Consult: No MD Notified: Yes Date Notified: 11/30/21 Time Notified: 17:17 Method of Notification: Verbal Reason For Visit: HIP FX Diagnosis Discharge Diagnosis (1) Fall: Status: Acute Code(s): W19.XXXA - Unspecified fall, initial encounter (2) Closed fracture of left hip: Status: Acute Code(s): S72.002A - Fracture of unspecified part of neck of left femur, initial encounter for closed fracture (3) Fever: Status: Acute Code(s): R50.9 - Fever, unspecified Medications at Discharge Home Medications bisacodyl 10 mg rectal suppository 10 mg WV DAILY PRN Constipation 11/30/21 haloperidol 0.5 mg tablet 0.5 mg PO Q4H PRN Agitation 11/30/21 lorazepam 0.5 mg tablet (Ativan) 0.5 mg sublingual Q4H PRN ANXIETY 11/30/21 quetiapine 25 mg tablet (Seroquel) 25 mg PO DAILY mood 11/30/21 quetiapine 50 mg tablet (Seroquel) 50 mg PO QHS mood 11/30/21 aspirin 81 mg chewable tablet 81 mg PO BIDCM #0 tabs 12/04/21 food supplemt, lactose-reduced 0.08 gram-1.5 kcal/mL oral liquid (Ensure Plus High Protein) 120 ml PO 4X/DAY #0 mL 12/04/21 lorazepam 0.5 mg tablet 0.5 mg PO QHS anxiety #1 TAB 12/04/21 morphine 20 mg/5 mL (4 mg/mL) oral solution 5 mg (1.25 mL) sublingual Q4H PRN Pain 1 day #100 mL 12/04/21 sennosides 8.6 mg-docusate sodium 50 mg tablet (Stool Softener-Stimulant Laxative) 2 tab PO BID #0 tabs 12/04/21 Hospital Course Summary of Care Provided Minutes Spent on Discharge: 37 Hospital Course: Mrs. Street is an 81-year-old white female with dementia who presented to the emergency department at [facility] on 11/30/2021 with a chief complaint of left hip pain status post mechanical fall. The patient is chronically enrolled in hospice related to her dementia however with her fall hospice was revoked so she could have her left hip repaired. X-ray showed an impacted left subcapital fracture of the proximal left femur. She suffered a similar event back in June on the right hip and this too was related to a mechanical fall. History on presentation was obtained from her and he reported that she was sitting in a chair the day prior to presentation and the staff had left the room and he went to the bathroom and she tried to get up and at that point fell initially felt that her hip was just bruised but then they obtain imaging at the facility prior to transport and fracture was noted. Orthopedic surgery was consulted and she was taken to the operating room on 12/01/2021 at which time a left hip hemiarthroplasty was performed. Patient received postop antibiotics and physical and Occupational Therapy were consulted with recommendations for ongoing therapy services. She is able to be weightbearing as tolerated. Aspirin 81 mg p.o. twice daily were recommended for 4 weeks after surgery. It was recommended that she follow-up in 2 weeks in his office for wound check and postoperative x-rays. She did have a postoperative fever and we suspect this was likely related to postop atelectasis as infectious work-up was unremarkable including chest x-ray, UA, and blood cultures. Final blood cultures were pending at discharge and these will be followed up on however the patient had been afebrile for 24 hours prior to discharge without antibiotics being initiated. From my understanding, the patient is to undergo rehab and then will reenroll in hospice after discharge from the TCU. Pre-CERT for discharge to transitional care unit was obtained on 12/04/2021 and the patient was discharged in stable condition. Discharge diagnoses: Close displaced subcapital left hip fracture status post left hemiarthroplasty Mechanical fall Debility Postoperative fever-resolved History of cystocele Chronic indwelling Correa Alzheimer's type dementia with behavioral disturbance Physical Exam Const alert, no apparent distress and well nourished Constitutional Narrative: Elderly white female sitting up in the bed feeding herself breakfast, aide at bedside, patient intermittently follows commands but seems to be fairly nonverbal with us General Appearance: cooperative, comfortable, well kempt and well developed Orientation / Consciousness: awake Exam Limitations: other limitations Nutritional Appearance: thin HEENT normocephalic, head/scalp atraumatic and moist oral mucous membranes Eyes PERRL, EOMs intact bilaterally and conjunctivae normal Eyes Narrative: No scleral icterus Neck no lymphadenopathy and supple Neck Narrative: Trachea midline, no thyroid enlargement Resp normal respiratory effort, no retractions, no use of accessory muscles and clear to auscultation bilaterally Auscultation: Negative for crackles, rales, rhonchi or wheezes Cardio regular rate, regular rhythm, S1 normal heart sound, S2 normal heart sound, no murmurs, no rub, no gallops, no clicks and no JVD GI normal to inspection, nondistended, normoactive bowel sounds, soft to palpation and non-tender GI Narrative: Chronic indwelling Correa noted and urine appears clear Extremity no clubbing, cyanosis or edema Extremity Narrative: 2+ pedal pulses Skin no rashes or lesions noted, skin turgor normal, no jaundice, no petechiae and no mottling Skin Narrative: postoperative dressing is in place and intact over right hip without any significant drainage Neuro Neuro Narrative: Complete neuro exam difficult as patient is somewhat limited in responses however she does move all extremities with limited movement right lower extremity secondary to pain at the right hip Speech: Negative for speech normal Psych Psych Narrative: No signs of agitation Medical Records Data Medical Nutrition Assessment Dietitian: Malnutrition Criteria Met Start: 11/30/21 16:29 Freq: Status: Active Protocol: Document 11/30/21 16:29 (Rec: 11/30/21 16:29 [id number]) Nutrition Malnutrition Evidence of Malnutrition Exists Yes Malnutrition (moderate): Chronic Evidenced By Suboptimal Energy Intake ( Moderate),Physical Changes ( Moderate) Clinical Problem Chronic Disease or Condition Related Malnutrition Etiology chronic, moderate malnutrition related to inadequate energy intake d/t dementia Signs/Symptoms as evidenced by estimated PO intake meeting <75% of estimated energy needs >3 months; moderate muscle wasting/fat loss per physical exam; BMI 19.4 Status Active Problem Recommendation Dietitian Recommendations/Changes regular diet- texture/ consistency modficiations as appropriate per plan of care as family revoked inpatient hospice care CIVIL ENGINEER LAND DEVELOPMENT; ensure plus high protein w/ medpass Weight / BMI Weight Weight: 53 kg Body Mass Index (BMI) 19.4 ABG / Lab / Microbiology Data Result Diagrams: 12/02/21 04:20 12/02/21 04:20 Microbiology: Microbiology 12/03/21 09:55 Urine Catheter - Catheter Urine Culture - Preliminary Culture exhibits no growth. 12/03/21 12:30 Nasal Secretion SARS-CoV-2 Antigen (Rapid) - Final D/C Instructions Discharge Diet: No restrictions Meaningful Use Info Meaningful Use Diagnoses (Choose all that apply): None applicable Discharge Plan Admission Admit Date/Time: 11/30/21 13:02 Primary Reason for Your Visit: Mechanical fall/left hip fracture Attending Provider: Yanely Rodriguez Primary Care Provider: Monico eMdina Consulting Providers: Jorge Yanez ; Harshil Dominguez Discharge Orders/Prescriptions Prescriptions: New aspirin 81 mg Tablet,Chewable 81 mg PO BIDCM Qty: 0 0RF Rx Instructions: Take for 4 weeks postoperatively Ensure Plus High Protein 0.08 gram-1.5 kcal/mL Liquid 120 ml PO 4X/DAY Qty: 0 0RF sennosides-docusate sodium [Stool Softener-Stimulant Laxat] 8.6-50 mg Tablet 2 tab PO BID Qty: 0 0RF Continued quetiapine [Seroquel] 25 mg Tablet 25 mg PO DAILY haloperidol 0.5 mg Tablet 0.5 mg PO Q4H PRN (Reason: Agitation) bisacodyl 10 mg Suppository 10 mg WV DAILY PRN (Reason: Constipation) quetiapine [Seroquel] 50 mg Tablet 50 mg PO QHS lorazepam 0.5 mg Tablet 0.5 mg PO QHS Qty: 1 0RF Changed morphine 20 mg/5 mL (4 mg/mL) Solution 5 mg sublingual Q4H PRN (Reason: Pain) 1 Days Qty: 100 0RF Held lorazepam [Ativan] 0.5 mg Tablet 0.5 mg sublingual Q4H PRN (Reason: ANXIETY) Hold Instructions: Until restarted by hospice Referrals / Follow Up: Monico Medina MD [Primary Care Provider] - Within 1 Month Jorge Yanez MD [Med Staff - Active Staff] - Within 2 Weeks Disposition Disposition (needs filled in before D/C Order can be placed): [facility]ustodial Facility Charges/Coding Visit Charges Inpatient E&M: 83517 SNF Disch >30 Min
--- NOTE | 2021-12-04 16:28 | CASEMGMT ---
Addendum entered by Catina Morse 12/04/21 16:40: SW placed copies of discharge orders on pt chart. Sent originals with pt in envelope. SW notified PLANER HAND, Shanon, and nurse Natasha that pt is ready to transfer with the exception of negative Covid result. When covid result comes back negative pt can be transferred to TCU. Catina Morse, VARITYPIST Original Note: Social Work SW received pc fro mKristy at [employer]. Percert has been obtained. SILVIO notified pt Dr and nurse. Ordered covid test. SW notifed pt and pt , Arias. SILVIO notified Jodi at TCU. Sw informed Jodi the auth # was same as pending number received yesterday. Faxed discharge orders to TCU. Disposition: TCU, skilled level of Care
--- NOTE | 2021-12-04 18:36 | NURSING ---
report called to Shanelle GONSALVES in TCU
--- NOTE | 2021-12-05 08:15 | CASEMGMT ---
Social Work Late entry for 12/04/21. SW faxed face sheet with 3 identifiers to [employer] and wrote confirmation that pt would be admitting to TCU 12/04/21 for long term. SOLOMON Martinez
== END 2021-12-04 18:49 | disposition skilled nursing facility (03) | DRG 522 ==
LOC: ED 13:28 → MS3 13:48
PROVIDERS: Specialist; Admitting Provider Family Medicine; Emergency Provider Emergency Medicine; PCP Family Medicine; Visit Provider Internal Medicine
PROC: 0SRS01A Replacement of Left Hip Joint, Femoral Surface with Metal Synthetic Substitute, Uncemented, Open Approach (ICD-10-PCS; CPT 27125; principal; 2021-12-01 11:40)
DX: S72.012A Unspecified intracapsular fracture of left femur, initial encounter for closed fracture (principal); E44.0 Moderate protein-calorie malnutrition; F02.84 Dementia in other diseases classified elsewhere, unspecified severity, with anxiety; D62 Acute posthemorrhagic anemia; J98.11 Atelectasis; F05 Delirium due to known physiological condition; Z68.1 Body mass index [BMI] 19.9 or less, adult; G30.9 Alzheimer's disease, unspecified; W18.39XA Other fall on same level, initial encounter; R50.82 Postprocedural fever; R29.6 Repeated falls; Z66 Do not resuscitate; Z51.5 Encounter for palliative care; Z96.641 Presence of right artificial hip joint; Z79.899 Other long term (current) drug therapy; Z87.448 Personal history of other diseases of urinary system; Z86.73 Personal history of transient ischemic attack (TIA), and cerebral infarction without residual deficits; Z28.310 Unvaccinated for COVID-19; Z28.9 Immunization not carried out for unspecified reason
CPT/HCPCS: 36415; 71045; 73501; 73502; 76000; 80048; 81001; 85025; 86850; 86900; 86901; 87040; 87077; 87086; 87088; 87186; 87426; 87811; 88305; 88307; 88311; 93005; 97110; 97163; 97166; 97530; 97535; 97802; 99251; 99285; C1776; J7120; A4216; G0463; J2405

== ENCOUNTER 2021-12-04 18:55 | Inpatient (IN) | payer MEDICARE, SELFPAY ==
[2021-12-04 20:00] VITALS: BP 130/53; PULSE 81; RESP 18; TEMP 36.2; O2SAT 96; BMI 20.9
--- NOTE | 2021-12-04 20:23 | HP.PCM_ITS ---
HPI - General General Date of Admission: 12/04/21 Date of Service: 12/05/21 Chief Complaint: Here for rehab. HPI Narrative 11/30/2021 DARIN ANAND, is a 81 Female who presents to [facility] Emergency Department with fall. Fall yesterday, X-ray showed left hip fracture, inpatient hospice, hospice on hold for surgical repair left hip fracture. 11/30/2021 Admit to Hospital. Prepare for surgery. 12/01/2021 Dr. Yanez performed left hip hemiarthroplasty. 12/02/2021 Alert, not communicative. 12/03/2021 Non-verbal. Chronic indwelling ohara catheter. Weight bearing as tolerated, aspirin 81mg twice daily for left hip fracture, s/p left hip hemiarthroplasty. Blood cultures x 2, UA, Chest X-ray, CBCD for fever 100.9. PT/OT for TCU, then discharge to hospice. 12/04/2021 Able to feed self. No etiology of fever found. 12/04/2021 Admit to TCU with debility, here for rehabilitation, strengthening, prior to discharge to hospice. [facility] Medical History (Updated 12/04/21 @ 20:[address] Emanuel Ortega MD) Anxiety Back pain Breast cancer Cystocele Dementia Dysphagia Esophageal dysphagia Migraines Osteoarthritis Home Medications bisacodyl 10 mg rectal suppository 10 mg SD DAILY PRN Constipation 11/30/21 [History Last Taken Unknown] haloperidol 0.5 mg tablet 0.5 mg PO Q4H PRN Agitation 11/30/21 [History Last Taken Unknown] lorazepam 0.5 mg tablet (Ativan) 0.5 mg sublingual Q4H PRN ANXIETY 11/30/21 [History Last Taken 11/30/21] quetiapine 25 mg tablet (Seroquel) 25 mg PO DAILY mood 11/30/21 [History Last Taken 11/30/21] quetiapine 50 mg tablet (Seroquel) 50 mg PO QHS mood 11/30/21 [History Last Taken 11/29/21] aspirin 81 mg chewable tablet 81 mg PO BIDCM anticoagulant 12/04/21 [History Last Taken Unknown] food supplemt, lactose-reduced 0.08 gram-1.5 kcal/mL oral liquid (Ensure Plus High Protein) 120 ml PO 4X/DAY nutritional supplement 12/04/21 [History Last Taken Unknown] lorazepam 0.5 mg tablet 0.5 mg PO QHS anxiety #1 TAB 12/04/21 [Rx Last Taken Unknown] morphine 20 mg/5 mL (4 mg/mL) oral solution 5 mg (1.25 mL) sublingual Q4H PRN Pain 1 day #100 mL 12/04/21 [Rx Last Taken Unknown] sennosides 8.6 mg-docusate sodium 50 mg tablet (Stool Softener-Stimulant Laxative) 2 tab PO BID Constipation 12/04/21 [History Last Taken Unknown] Allergy/AdvReac Type Severity Reaction Status Date / Time clarithromycin [From Biaxin] Allergy Unknown Unknown Verified 11/30/21 10:56 doxycycline Allergy Unknown Unknown Verified 11/30/21 10:56 erythromycin estolate Allergy Unknown Unknown Verified 11/30/21 10:56 [From Ilosone] hydrocodone bitartrate Allergy Unknown Unknown Verified 11/30/21 10:56 [From Vicodin] levofloxacin [From Levaquin] Allergy Unknown Unknown Verified 11/30/21 10:56 oxycodone [Oxycodone] Allergy Unknown Unknown Verified 11/30/21 10:56 oxycodone HCl [From Percocet] Allergy Unknown Unknown Verified 11/30/21 10:56 pantoprazole Allergy Unknown Unknown Verified 11/30/21 10:56 propoxyphene Allergy Unknown Unknown Verified 11/30/21 10:56 peanut AdvReac Other Verified 11/30/21 10:56 Penicillins [PCN] AdvReac PT UNSURE Verified 11/30/21 10:56 OF REACTION Surgical History (Updated 12/04/21 @ 20:[address] Emanuel Ortega MD) H/O total mastectomy of left breast History of colonoscopy (~2005) History of left hip hemiarthroplasty History of right hip hemiarthroplasty S/P appendectomy S/P D&C (status post dilation and curettage) (~08/31/19) Social History household members: spouse and children number of children: 3 Smoking Status: Never smoker alcohol intake: never substance use type: does not use caffeine: No what type of physical activity do you participate in: none seatbelt use: always do you feel safe at home: Yes additional social history: Arias VALENZUELA Constitutional Constitutional: Denies chills, fever(s) or weight gain ENT HEENT: Denies headache(s), nasal congestion or nasal discharge Cardiovascular Cardiovascular: Denies chest pain or palpitations Respiratory/Chest Respiratory/Chest: Denies cough, excessive phlegm production or shortness of breath with exertion Gastrointestinal Gastrointestinal: Denies abdominal pain, nausea or vomiting Genitourinary Genitourinary: Denies dysuria Musculoskeletal Musculoskeletal: Denies joint pain or joint swelling Integumentary Integumentary: Denies rash or wounds Neurologic Neurologic: Denies focal weakness, numbness or tingling Psychiatric Psychiatric: Denies anxiety, auditory hallucinations, depression, homicidal ideation or suicidal ideation Vital Signs Vital Signs Vital Signs: 12/04/21 20:00 Temperature 97.1 F L Temperature Source Temporal Pulse Rate 81 Respiratory Rate 18 Blood Pressure 130/53 H Blood Pressure Mean 78 Blood Pressure Source Monitor Blood Pressure Position Semi-Fowlers Blood Pressure Location Right Arm Pulse Ox 96 Oxygen Delivery Method Room Air Physical Exam Const alert General Appearance: cooperative HEENT normocephalic Eyes PERRL and EOMs intact bilaterally Neck supple, no JVD and no carotid bruits Resp normal respiratory effort, normal air movement and clear to auscultation bilaterally Cardio regular rate and regular rhythm GI normal to inspection, nondistended, normoactive bowel sounds, non-tender and non-distended Extremity normal capillary refill General Extremity: Negative for edema Skin no rashes or lesions noted General Skin Exam: no breakdown Psych affect normal Appearance: appropriate Results Lab / Micro Data Result Diagrams: 12/05/21 05:30 12/05/21 05:30 Assessment & Plan Assessment/Plan (1) Debility: (2) Closed fracture of left hip: (3) Fever: (4) History of breast cancer: (5) Stroke: (6) Anxiety: (7) Behavioral disturbance due to late onset Alzheimer dementia: PLAN: Plan 81 year old female with below past medical history hospitalized for left hip fracture, underwent left hip hemiarthroplasty 12/01/[address] Yanez, admitted to TCU with debility, here for rehabilitation, strengthening, prior to discharge to hospice. * Debility - PT/OT. * Pain - Tylenol 1000mg q6h prn pain (1-5), Morphine 5mg sl q4h prn pain (6-10). * Bowel - senna/colace 2 tablets bid, Dulcolax 10mg daily prn. * Adult immunization - Administer pneumonia vaccine, covid19 vaccine, flu vaccine as appropriate. * DVT prophylaxis - Aspirin 81mg bid thru 01/01/2022. * Nutrition - Ensure Plus 120ml 4x/day. * Anxiety - Lorazepam 0.5mg qhs, stable chronic termination clerk use, GDR not recommen ded. * Alzheimer Disease with behavioral disorder - Seroquel 25mg qam, 50mg qhs, stable chronic termination clerk use, GDR not recommended.
[2021-12-04] MEDS: LORazepam 0.5 MG Tablet PO (21:24)
[2021-12-04] MEDS: Ensure Plus High Protein 120 ML LIQUID PO (21:24)
[2021-12-04] MEDS: QUEtiapine 25 MG Tablet 50 MG PO (21:25)
[2021-12-04] MEDS: Acetaminophen 500 MG Tablet 1000 MG PO (21:26)
[2021-12-05] MEDS: Ensure Plus High Protein 120 ML LIQUID PO ×4 (05:10→21:52)
[2021-12-05] MEDS: QUEtiapine 25 MG Tablet PO (05:10)
[2021-12-05] MEDS: Senna/Docusate Sodium 1 Tablet 2 TABLET PO ×2 (05:14→18:05)
[2021-12-05] MEDS: Acetaminophen 500 MG Tablet 1000 MG PO ×2 (05:29→21:51)
[2021-12-05 05:41] LABS: Absolute Lymphocyte Count 1.47 X10^3/uL (0.83-4.51); Absolute Neutrophil Count 3.9 X10^3/uL (2.0-7.7); Basophil# 0.02 X10^3/uL; Basophil% 0.3 % (0-1); Eosinophil# 0.41 X10^3/uL; Eosinophils% 6.3 % (0-5); Hematocrit 29.4 % (37-47); Lymphocyte # 1.47 X10^3/ul (0.83-4.51); Lymphocyte % 22.5 % (19-41); Mean Corpuscular Hgb 30.9 pg (27.0-32.0); Mean Corpuscular Volume 90.7 fL (81-99); Mean Platelet Vol. 9.1 fl (6.2-12.0); Monocyte% 10.7 % (0-10); NRBC Flagged by Analyzer 0 % (0-5); Neutrophil # 3.85 X10^3/uL (2.7-7.7); Neutrophil % 58.8 % (47-70); Platelet Count 330 K/mm3 (150-450); RBC Distribution Width CV 14.1 % (11.6-14.6); RBC Distribution Width SD 47.1 fl (35.1-43.9); Red Blood Count 3.24 M/mm3 (4.2-5.4); White Blood Count 6.5 K/mm3 (4.4-11.0)
[2021-12-05 06:36] LABS: Anion Gap 4 (5-15); BUN 21 mg/dL (7-18); BUN/Creat Ratio 37.9 RATIO (10-20); Chloride 110 mmol/L (98-107); Creatinine, Serum 0.55 mg/dL (0.55-1.02); EST Glomerular Filtration Rate 111 mL/min (>60); Est Glom Filt Rate - Afr Amer 135 mL/min (>60); Estimated Creatinine Clearance 35.26 ml/min; Glucose 98 mg/dL (74-106); Potassium 3.9 mmol/L (3.5-5.1); Sodium Level 142 mmol/L (136-145)
[2021-12-05] MEDS: Aspirin 81 MG TAB.CHEW PO ×2 (09:19→18:04)
[2021-12-05] MEDS: Tuberculin,Purif.prot.deriv. 50 TU/ML Vial 0.1 ML ID (09:20)
[2021-12-05 10:00] VITALS: RESP 18; O2SAT 96
--- NOTE | 2021-12-05 13:24 | NURSING ---
[employer] Worker Apprentice Note; Activity Asst: complete
--- NOTE | 2021-12-05 13:45 | CASEMGMT ---
Social Work visiting pt. Pt unable to complete assessment. Pt is nonverbal, only to at times. Pt and known to this worker from previous stay. SW clarified pt's past timeline of hospice, fall, and admission to hospital. Pt was admitted to [facility], but had fallen while in [facility]. elected to revoke hospice to get pt's hip surgery. expressed conflict with goals for DC. states he knows he cannot take care of pt at home if pt cannot walk, and he does not want to place pt in a SNF. is unsure if he will reenroll pt in hospice at [place]. SW spoke with at length and offered assistance and ongoing supportive listening. SW discussed with pt's finances to determine if can afford hired RIBB[employer] TIER in the home or a SNF. Discussed Medicaid. SW provided with Medicaid application and to review finances and assets, complete the application, and return it to this worker. SW stated to start with finances first, then can determine next steps, and will take plans one step at a time. appreciative. SW educated to [employer] insurance in TCU with NRD 12/05 and continued stay is not guaranteed with each review. Rosa expressed understanding. SW to continue to follow. Adri Herbert, CARDIOVASCULAR RADIOLOGIC TECHNOLOGIST ENTERPRISE RESOURCE PLANNER
[2021-12-05 14:32] VITALS: BP 132/57; PULSE 79; RESP 18; TEMP 36.3; O2SAT 97
--- NOTE | 2021-12-05 14:48 | PCM.PN.DRR ---
TCU RX Drug Regimen Review Subjective: TCU Admission. 81 YOF history hospitalized for left hip fracture, underwent left hip hemiarthroplasty 12/01/[address] Yanez. Admitted to TCU with debility for strengthening and rehabilitation prior to discharge with hospice. Objective: Allergies clarithromycin [From Biaxin] Allergy (Unknown, Verified 11/30/21 10:56) Unknown doxycycline Allergy (Unknown, Verified 11/30/21 10:56) Unknown erythromycin estolate [From Ilosone] Allergy (Unknown, Verified 11/30/21 10:56) Unknown hydrocodone bitartrate [From Vicodin] Allergy (Unknown, Verified 11/30/21 10:56) Unknown levofloxacin [From Levaquin] Allergy (Unknown, Verified 11/30/21 10:56) Unknown oxycodone [Oxycodone] Allergy (Unknown, Verified 11/30/21 10:56) Unknown oxycodone HCl [From Percocet] Allergy (Unknown, Verified 11/30/21 10:56) Unknown pantoprazole Allergy (Unknown, Verified 11/30/21 10:56) Unknown propoxyphene Allergy (Unknown, Verified 11/30/21 10:56) Unknown peanut Adverse Reaction (Verified 11/30/21 10:56) Other HEADACHE WITH PEANUT BUTTER Penicillins [PCN] Adverse Reaction (Verified 11/30/21 10:56) PT UNSURE OF REACTION Current Medications Generic Name Dose Route Start Last Admin Trade Name Freq PRN Reason Stop Dose Admin Acetaminophen 1,000 mg 12/04/21 20:34 12/05/21 05:29 Acetaminophen 500 Mg Tablet PO 1,000 mg Q6H PRN PRN Administration Pain Score 1-5 Aspirin 81 mg 12/05/21 08:00 12/05/21 09:19 Aspirin 81 Mg Tab.Chew PO 01/01/22 23:55 81 mg BIDCM RACQUEL Administration Bisacodyl 10 mg 12/04/21 20:16 Bisacodyl 10 Mg Suppository RC DAILY PRN Constipation Bisacodyl 10 mg 12/04/21 20:34 Bisacodyl 5 Mg Tablet PO DAILY PRN Constipation Lorazepam 0.5 mg 12/04/21 22:00 12/04/21 21:24 Lorazepam 0.5 Mg Tablet PO 0.5 mg QHS RACQUEL Administration Morphine Sulfate 5 mg 12/04/21 21:06 Morphine (Oral Solution) 10mg/0.5ml Syringe SL Q4H PRN PRN Pain Score 6-10 Nutritional Formula (Lactose Free) 120 ml 12/04/21 22:00 12/05/21 11:32 Ensure Plus High Protein 120 Ml Liquid PO 120 ml 4X/DAY RACQUEL Administration Quetiapine Fumarate 25 mg 12/05/21 06:00 12/05/21 05:10 Quetiapine 25 Mg Tablet PO 25 mg DAILY RACQUEL Administration Quetiapine Fumarate 50 mg 12/04/21 22:00 12/04/21 21:25 Quetiapine 25 Mg Tablet PO 50 mg QHS RACQUEL Administration Senna/Docusate Sodium 2 tablet 12/05/21 06:00 12/05/21 05:14 Senna/Docusate Sodium 1 Tablet PO 2 tablet BID RACQUEL Administration Tuberculin PPD 0.1 ml 12/12/21 10:00 Tuberculin,Purif.Prot.Deriv. 50 Tu/Ml Vial ID 12/12/21 10:01 X1 ONE Problem List (Last Reviewed 12/04/21 @ 20:[address] 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 (Acute) Anxiety (Acute) Stroke (Acute) Debility (Acute) Fever (Acute) Closed fracture of left hip (Acute) History of breast cancer (Acute) Vital Signs Temp Pulse Resp BP Pulse Ox O2 Del Method 97.4 F L 79 18 132/57 H 97 Room Air 12/05/21 14:32 12/05/21 14:32 12/05/21 14:32 12/05/21 14:32 12/05/21 14:32 12/05/21 10:00 Oxygen Delivery Method Room Air Weight: 53.796 kg Body Mass Index (BMI) 20.9 Sodium 142 mmol/L (136-145) 12/05/21 05:30 Potassium 3.9 mmol/L (3.5-5.1) 12/05/21 05:30 Chloride 110 mmol/L (98-107) H 12/05/21 05:30 Carbon Dioxide 28.0 mmol/L (21.0-32.0) 12/05/21 05:30 Anion Gap 4 (5-15) L 12/05/21 05:30 BUN 21 mg/dL (7-18) H 12/05/21 05:30 Creatinine 0.55 mg/dL (0.55-1.02) 12/05/21 05:30 Est GFR (MDRD) Af Amer 135 mL/min (>60) 12/05/21 05:30 Est GFR (MDRD) Non-Af 111 mL/min (>60) 12/05/21 05:30 BUN/Creatinine Ratio 37.9 RATIO (10-20) H 12/05/21 05:30 Glucose 98 mg/dL (74-106) 12/05/21 05:30 Assessment/Plan: 1. Pain: acetaminophen 1000mg PO Q6H PRN pain 1-5 and morphine 5mg SL Q4H PRN pain 6-10. Please continue to monitor for increased pain and PRN usage. Resident has had 2 doses of acetaminophen for pain scores of 6-7 in the hip and no doses of morphine. 2. Bowel: senna/docusate 2T PO BID and bisacodyl 10mg PO and RC daily PRN constipation. Please continue to monitor for constipation and PRN usage. Resident has not had any doses of bisacodyl and had a bowel movement on 12/04/21. 3. DVT prophylaxis: aspirin 81mg PO BIDCM thru 01/01/22. Please continue to monitor for S/S of bleeding/DVT and hemoglobin (last 10g/dL). Assessment/Plan for indications treated with psychotropic medications: 1. Anxiety: lorazepam 0.5mg PO QHS. Please see physician note regarding GDR. Resident has had a couple of falls. This medication is on the BEERs list for increased risk of falls/fracture, dementia/delirium and cognitive impairment. Please continue to monitor. Resident to be going home with hospice. 2. Alzheimer's disease with behavioral disorder: quetiapine 25mg PO QAM and 50mg QHS. Please see physician note regarding GDR. Resident has had a couple of falls. This medication is on the BEERs list for increased risk of falls/fracture, an increased risk of CVA and greater rate of cognitive decline/mortality in persons with dementia Please continue to monitor. Resident to be going home with hospice. Medical chart and medication regimen reviewed. The following medication irregularities or issues were identified: None Date of Note:: 12/05/21
--- NOTE | 2021-12-05 15:35 | CHAPLAIN ---
Type of Pastoral Visit _x__ Initial Visit ___ Follow-up Visit ___ On-call Visit ___ General Patient Visit ___ Spiritual Assessment ___ Family Conference ___ Bereavement ___ Rapid Response ___ Code Blue ___ Other (describe below) Pastoral Care Referral From _x__ Patient ___ Family ___ Nurse ___ Physician ___ Sling Operator ___ Pouch Maker ___ Other (describe below) Sacrament/Intervention ___ Active listening ___ Anointing ___ Bahai ___ Bereavement ___ Communion ___ Mariaelena exploration ___ ___ Life review _x__ Prayer ___ Reconciliation ___ Sacrament of Sick _x__ Supportive presence ___ Wedding ___ Other (describe below) Pastoral Comments patient is awake but resting in bed; introduced self and role of gyroscopic instrument tester; pt is slow to speak but when given time does answer a few basic questions; pt is reminded where she is at and that she is being cared for by many people; pt smiles but does not interact with conversation; pt says yes to receiving prayer; presence and prayer given
[2021-12-05] MEDS: LORazepam 0.5 MG Tablet PO (21:51)
[2021-12-05] MEDS: QUEtiapine 25 MG Tablet 50 MG PO (21:52)
[2021-12-06] MEDS: morphine (oral solution) 10MG/0.5ML Syringe 5 MG SL (01:58)
--- NOTE | 2021-12-06 02:02 | NURSING ---
Addendum entered by Naina Serna 12/06/21 03:53: Presents in recliner in common area with staff supervision , resps even and unlabored. No facial grimacing or c/o pain at this time. Decreased restlessness at this time. Alert to self per usual. Original Note: IRONER SOCK reports patient c/o pain to left hip. Patient assessed, observed with facial grimacing, rubbing left hip, c/o pain, unable to rate pain using number scale due to cognition. Patient restless. 1:1 provided. PRN Tylenol ineffective for pain management. PRN Morphine administered at this time. Pt. in recliner per preference, BLE elevated.
[2021-12-06] MEDS: Senna/Docusate Sodium 1 Tablet 2 TABLET PO ×2 (05:00→17:35)
[2021-12-06] MEDS: QUEtiapine 25 MG Tablet PO (05:00)
[2021-12-06] MEDS: Ensure Plus High Protein 120 ML LIQUID PO ×4 (05:01→20:52)
[2021-12-06] MEDS: Aspirin 81 MG TAB.CHEW PO ×2 (08:46→17:35)
[2021-12-06] MEDS: Acetaminophen 500 MG Tablet 1000 MG PO ×2 (08:48→17:35)
[2021-12-06 16:00] VITALS: BP 135/55; PULSE 76; RESP 16; TEMP 37.1; O2SAT 97
[2021-12-06] MEDS: LORazepam 0.5 MG Tablet PO (20:48)
[2021-12-06] MEDS: QUEtiapine 25 MG Tablet 50 MG PO (20:49)
[2021-12-06 22:14] VITALS: PULSE 76; RESP 16; O2SAT 98
[2021-12-07] MEDS: Senna/Docusate Sodium 1 Tablet 2 TABLET PO ×2 (05:23→17:14)
[2021-12-07] MEDS: QUEtiapine 25 MG Tablet PO (05:24)
[2021-12-07] MEDS: Ensure Plus High Protein 120 ML LIQUID PO ×4 (05:24→21:42)
[2021-12-07] MEDS: Aspirin 81 MG TAB.CHEW PO ×2 (09:08→17:15)
[2021-12-07] MEDS: morphine (oral solution) 10MG/0.5ML Syringe 5 MG SL ×2 (11:31→21:42)
[2021-12-07 15:27] VITALS: BP 112/47; PULSE 79; RESP 14; TEMP 37.3; O2SAT 97
--- NOTE | 2021-12-07 18:55 | NURSING ---
Dr. Yanez office contacted. Give order to remove hip dressing 12/06. Dressing removed today. Small amount of dry bloody drainage noted. Area well approximated and small amount of redness and sweeling noted to site and no drainage.
[2021-12-07 20:00] VITALS: PULSE 71; RESP 16; O2SAT 98
[2021-12-07] MEDS: LORazepam 0.5 MG Tablet PO (21:42)
[2021-12-07] MEDS: QUEtiapine 25 MG Tablet 50 MG PO (21:45)
[2021-12-08] MEDS: Acetaminophen 500 MG Tablet 1000 MG PO (04:22)
[2021-12-08] MEDS: QUEtiapine 25 MG Tablet PO (05:10)
[2021-12-08] MEDS: Senna/Docusate Sodium 1 Tablet 2 TABLET PO ×2 (05:10→18:57)
[2021-12-08] MEDS: Bisacodyl 5 MG Tablet 10 MG PO (05:12)
[2021-12-08] MEDS: Ensure Plus High Protein 120 ML LIQUID PO ×4 (05:12→19:59)
[2021-12-08] MEDS: Aspirin 81 MG TAB.CHEW PO ×2 (10:07→18:57)
[2021-12-08 14:57] VITALS: BP 124/56; PULSE 77; RESP 16; TEMP 36.4; O2SAT 98
[2021-12-08] MEDS: QUEtiapine 25 MG Tablet 50 MG PO (19:59)
[2021-12-08 20:15] VITALS: O2SAT 96
[2021-12-08] MEDS: LORazepam 0.5 MG Tablet PO (21:32)
[2021-12-09] MEDS: Senna/Docusate Sodium 1 Tablet 2 TABLET PO ×2 (05:15→16:46)
[2021-12-09] MEDS: QUEtiapine 25 MG Tablet PO (05:16)
[2021-12-09] MEDS: Ensure Plus High Protein 120 ML LIQUID PO ×4 (05:20→21:03)
[2021-12-09] MEDS: Acetaminophen 500 MG Tablet 1000 MG PO ×2 (06:08→12:12)
[2021-12-09] MEDS: Aspirin 81 MG TAB.CHEW PO ×2 (10:15→16:46)
[2021-12-09 14:50] VITALS: BP 106/56; PULSE 90; RESP 16; TEMP 37.2; O2SAT 98
[2021-12-09] MEDS: Bisacodyl 10 MG Suppository RC (16:39)
[2021-12-09 20:41] VITALS: O2SAT 97
[2021-12-09] MEDS: QUEtiapine 25 MG Tablet 50 MG PO (20:56)
[2021-12-09] MEDS: morphine (oral solution) 10MG/0.5ML Syringe 5 MG SL (20:57)
[2021-12-09] MEDS: LORazepam 0.5 MG Tablet PO (21:00)
[2021-12-10] MEDS: Senna/Docusate Sodium 1 Tablet 2 TABLET PO ×2 (05:08→17:29)
[2021-12-10] MEDS: Ensure Plus High Protein 120 ML LIQUID PO ×4 (05:08→21:00)
[2021-12-10] MEDS: QUEtiapine 25 MG Tablet PO (05:08)
[2021-12-10] MEDS: morphine (oral solution) 10MG/0.5ML Syringe 5 MG SL ×2 (06:18→20:44)
[2021-12-10] MEDS: Aspirin 81 MG TAB.CHEW PO ×2 (08:00→17:30)
[2021-12-10 10:45] VITALS: PULSE 82; RESP 16; O2SAT 95
--- NOTE | 2021-12-10 13:48 | NURSING ---
PT LEFT HIP INCISION IS RED AND SWOLLEN. ALSO PT RIGHT LOWER LEG IN BETWEEN ANKLE AND HILLIARD PT GRIMNESSES WHEN TOUCHED. LEFT NOTE FOR TO ASSESS AND RN AWARE.
[2021-12-10 14:26] VITALS: BP 123/50; PULSE 79; RESP 16; TEMP 36.6; O2SAT 98
[2021-12-10] MEDS: Acetaminophen 500 MG Tablet 1000 MG PO (17:27)
[2021-12-10] MEDS: Clindamycin HCl 150 MG Capsule 300 MG PO ×2 (17:36→20:51)
[2021-12-10] MEDS: LORazepam 0.5 MG Tablet PO (20:44)
[2021-12-10] MEDS: Menthol/Lanolin/Calamine/Znox 113 GM Tube 1 APPLIC TOPICAL (20:49)
[2021-12-10] MEDS: QUEtiapine 25 MG Tablet 50 MG PO (20:51)
[2021-12-10 21:00] VITALS: BP 102/45; PULSE 88; RESP 14; TEMP 38.8; O2SAT 96
--- NOTE | 2021-12-10 21:02 | NURSING ---
Late Entry: Patient's came to this Nurse and said he thought patient felt warm. This Nurse went in to assess patient. Vitals obtained; T: 101.9, Bp: 102/45, HR: 88, R: 14, O2: 96% room air. Dr. Ortega paged with immediate return call. New orders obtained. Blood cultures, CBC w/Diff, BMP, MRSA, gram stain, IV Vancomycin (Pharmacy to dose), change oral Cleocin to IV Cleocin [id number]. 20 gauge IV started in right forearm, flushed with 10cc normal saline, secured with Tegaderm and tape. Patient tolerated well.
[2021-12-10 21:58] LABS: Absolute Lymphocyte Count 2.06 X10^3/uL (0.83-4.51); Absolute Neutrophil Count 5.5 X10^3/uL (2.0-7.7); Basophil# 0.06 X10^3/uL; Basophil% 0.7 % (0-1); Eosinophils% 3.3 % (0-5); Hematocrit 28.9 % (37-47); Hemoglobin 9.4 g/dL (12.0-15.0); Lymphocyte # 2.06 X10^3/ul (0.83-4.51); Lymphocyte % 22.8 % (19-41); Mean Corp Hgb Conc 32.5 g/dL (32-36); Mean Corpuscular Hgb 30.6 pg (27.0-32.0); Mean Corpuscular Volume 94.1 fL (81-99); Mean Platelet Vol. 8.7 fl (6.2-12.0); Monocyte# 0.95 X10^3/uL; Monocyte% 10.5 % (0-10); NRBC Flagged by Analyzer 0 % (0-5); Neutrophil # 5.47 X10^3/uL (2.7-7.7); Neutrophil % 60.5 % (47-70); Platelet Count 613 K/mm3 (150-450); RBC Distribution Width CV 14.6 % (11.6-14.6); RBC Distribution Width SD 49.9 fl (35.1-43.9); Red Blood Count 3.07 M/mm3 (4.2-5.4)
[2021-12-10 22:10] LABS: Anion Gap 6 (5-15); BUN 28 mg/dL (7-18); BUN/Creat Ratio 37.2 RATIO (10-20); Calcium,Total 8.7 mg/dL (8.5-10.1); Chloride 108 mmol/L (98-107); Creatinine, Serum 0.75 mg/dL (0.55-1.02); EST Glomerular Filtration Rate 78 mL/min (>60); Est Glom Filt Rate - Afr Amer 95 mL/min (>60); Estimated Creatinine Clearance 35.26 ml/min; Glucose 112 mg/dL (74-106); Potassium 4.3 mmol/L (3.5-5.1); Sodium Level 140 mmol/L (136-145)
[2021-12-10] MEDS: 0.9% Saline Lock 10 ML Syringe IV (22:30)
[2021-12-10 22:31] VITALS: BP 101/44; PULSE 87; RESP 16; TEMP 38.8; O2SAT 97
--- NOTE | 2021-12-11 01:03 | PCM.RX.CS ---
Consult Pharmacy has been consulted to manage selected antiobiotic: Vancomycin Type of Consult: New start Labs: Sodium 140 mmol/L (136-145) 12/10/21 21:40 Potassium 4.3 mmol/L (3.5-5.1) 12/10/21 21:40 Chloride 108 mmol/L (98-107) H 12/10/21 21:40 Carbon Dioxide 26.0 mmol/L (21.0-32.0) 12/10/21 21:40 Anion Gap 6 (5-15) 12/10/21 21:40 BUN 28 mg/dL (7-18) H 12/10/21 21:40 Creatinine 0.75 mg/dL (0.55-1.02) 12/10/21 21:40 Est GFR (MDRD) Af Amer 95 mL/min (>60) 12/10/21 21:40 Est GFR (MDRD) Non-Af 78 mL/min (>60) 12/10/21 21:40 BUN/Creatinine Ratio 37.2 RATIO (10-20) H 12/10/21 21:40 Glucose 112 mg/dL (74-106) H 12/10/21 21:40 Microbiology: Microbiology 12/08/21 05:15 Nasal Secretion SARS-CoV-2 Antigen (Rapid) - Final 12/06/21 04:47 Nasal Secretion SARS-CoV-2 Antigen (Rapid) - Final Goal Trough: 15-20 mcg/mL Pharmacy Plan for Drug Dosing: Pharmacy Service will continue to monitor and adjust dosing as required. Medications Discontinued Medications Vancomycin HCl 750 mg/ Sodium (Chloride) 265 mls @ 250 mls/hr IV X1 ONE Stop: 12/10/21 22:33 Last Admin: 12/10/21 23:02 Dose: 250 mls/hr Follow-Up Labs: Trough Vancomycin Labs to be done on [date and time ordered]: 12/12 @ [id number]
[2021-12-11 02:22] VITALS: TEMP 38.2
[2021-12-11] MEDS: QUEtiapine 25 MG Tablet PO (05:00)
[2021-12-11] MEDS: Senna/Docusate Sodium 1 Tablet 2 TABLET PO ×2 (05:00→17:20)
[2021-12-11] MEDS: Menthol/Lanolin/Calamine/Znox 113 GM Tube 1 APPLIC TOPICAL ×2 (05:04→17:12)
[2021-12-11 05:55] VITALS: TEMP 37.8
[2021-12-11 07:07] LABS: M R Staph aureus DNA By PCR Negative (Negative); Probe Check PASS; Specimen Processing Control PASS; Staph aureus DNA By PCR POSITIVE (Negative)
[2021-12-11] MEDS: Aspirin 81 MG TAB.CHEW PO ×2 (08:19→17:13)
[2021-12-11] MEDS: Acetaminophen 500 MG Tablet 1000 MG PO ×2 (08:24→17:16)
--- NOTE | 2021-12-11 10:32 | NURSING ---
UPDATED PT ON PT, ANSWERED HIS QUESTIONS. THANKED THIS NURSE.
[2021-12-11] MEDS: Ensure Plus High Protein 120 ML LIQUID PO ×3 (11:54→21:32)
[2021-12-11] MEDS: 0.9% Saline Lock 10 ML Syringe IV (13:08)
[2021-12-11 14:49] VITALS: BP 101/44; PULSE 74; RESP 16; TEMP 36.6; O2SAT 97
[2021-12-11] MEDS: QUEtiapine 25 MG Tablet 50 MG PO (21:32)
[2021-12-11] MEDS: LORazepam 0.5 MG Tablet PO (21:32)
[2021-12-11] MEDS: morphine (oral solution) 10MG/0.5ML Syringe 5 MG SL (21:36)
[2021-12-11 22:17] VITALS: O2SAT 94
[2021-12-11] MEDS: Vancomycin IV 1,000 MG/200 ML BAG 200 MG IV (22:37)
[2021-12-12] MEDS: Senna/Docusate Sodium 1 Tablet 2 TABLET PO ×2 (05:27→17:01)
[2021-12-12] MEDS: Menthol/Lanolin/Calamine/Znox 113 GM Tube 1 APPLIC TOPICAL ×2 (05:27→17:01)
[2021-12-12] MEDS: QUEtiapine 25 MG Tablet PO (05:27)
[2021-12-12 05:41] LABS: Absolute Lymphocyte Count 2.05 X10^3/uL (0.83-4.51); Absolute Neutrophil Count 4.1 X10^3/uL (2.0-7.7); Basophil# 0.08 X10^3/uL; Basophil% 1.1 % (0-1); Eosinophil# 0.33 X10^3/uL; Eosinophils% 4.5 % (0-5); Hematocrit 28.3 % (37-47); Hemoglobin 9.4 g/dL (12.0-15.0); Lymphocyte # 2.05 X10^3/ul (0.83-4.51); Lymphocyte % 27.8 % (19-41); Mean Corp Hgb Conc 33.2 g/dL (32-36); Mean Corpuscular Volume 93.4 fL (81-99); Mean Platelet Vol. 8.8 fl (6.2-12.0); Monocyte# 0.65 X10^3/uL; Monocyte% 8.8 % (0-10); NRBC Flagged by Analyzer 0 % (0-5); Neutrophil # 4.05 X10^3/uL (2.7-7.7); Platelet Count 618 K/mm3 (150-450); RBC Distribution Width CV 14.4 % (11.6-14.6); Red Blood Count 3.03 M/mm3 (4.2-5.4); White Blood Count 7.4 K/mm3 (4.4-11.0)
[2021-12-12 06:10] LABS: Anion Gap 4 (5-15); BUN 20 mg/dL (7-18); Calcium,Total 8.7 mg/dL (8.5-10.1); Chloride 111 mmol/L (98-107); Estimated Creatinine Clearance 35.26 ml/min; Glucose 91 mg/dL (74-106); Potassium 4.1 mmol/L (3.5-5.1); Sodium Level 142 mmol/L (136-145)
[2021-12-12] MEDS: Aspirin 81 MG TAB.CHEW PO ×2 (08:44→17:00)
[2021-12-12] MEDS: Tuberculin,Purif.prot.deriv. 50 TU/ML Vial 0.1 ML ID (08:57)
--- NOTE | 2021-12-12 10:13 | CASEMGMT ---
Social Work IDT met with patient and for care plan meeting. Discussed patient's progress in PT/OT/SN. Educated to [employer] insurance with NRD 12/18 and continued stay is not guaranteed. is visiting daily at 1100 to assist pt in therapy sessions. ideally would like to have pt return home, but realistic on his abilities to assist. still completing Medicaid application. SW provided further guidance. to complete and provide to this worker. SW to continue to follow. MIGUELINA RamosW
[2021-12-12] MEDS: Ensure Plus High Protein 120 ML LIQUID PO ×3 (11:43→21:57)
--- NOTE | 2021-12-12 11:44 | NURSING ---
Patient'S Librarian Note; MDS complete; Activity Cause complete
[2021-12-12 14:23] LABS: BUN/Creat Ratio 26.3 RATIO (10-20); Creatinine, Serum 0.76 mg/dL (0.55-1.02); EST Glomerular Filtration Rate 77 mL/min (>60); Est Glom Filt Rate - Afr Amer 93 mL/min (>60)
[2021-12-12 14:26] VITALS: BP 111/52; PULSE 83; RESP 16; TEMP 36.9; O2SAT 99
--- NOTE | 2021-12-12 16:24 | NURSING ---
Patient has small stage 2 pressure sore to coccyx, lebron applied. Left heel developed purple area w/ blister, covered with mepilex to pad and protect, heels offloaded.
[2021-12-12 16:27] VITALS: PULSE 68; RESP 16; O2SAT 98
[2021-12-12] MEDS: Acetaminophen 500 MG Tablet 1000 MG PO (17:00)
[2021-12-12] MEDS: morphine (oral solution) 10MG/0.5ML Syringe 5 MG SL (19:46)
[2021-12-12] MEDS: QUEtiapine 25 MG Tablet 50 MG PO (21:54)
[2021-12-12] MEDS: LORazepam 0.5 MG Tablet PO (21:54)
[2021-12-12 23:23] LABS: Vancomycin, Trough Level 8.1 ug/mL (5.0-15.0)
--- NOTE | 2021-12-12 23:41 | PHA.PHARE_ITS ---
Consult Pharmacy has been consulted to manage selected antiobiotic: Vancomycin Type of Consult: Follow-up Prior Doses of Antibiotics Received/Current Regimen: Medications Vancomycin HCl 750 mg/ Sodium (Chloride) 265 mls @ 250 mls/hr IV Q12H RACQUEL Discontinued Medications Vancomycin HCl (Vancomycin) 1,000 mg in 200 mls @ 200 mls/hr IV Q24H RACQUEL Last Admin: 12/12/21 00:16 Dose: Infused Labs: Sodium 142 mmol/L (136-145) 12/12/21 05:09 Potassium 4.1 mmol/L (3.5-5.1) 12/12/21 05:09 Chloride 111 mmol/L (98-107) H 12/12/21 05:09 Carbon Dioxide 27.0 mmol/L (21.0-32.0) 12/12/21 05:09 Anion Gap 4 (5-15) L 12/12/21 05:09 BUN 20 mg/dL (7-18) H 12/12/21 05:09 Creatinine 0.76 mg/dL (0.55-1.02) 12/12/21 05:09 Est GFR (MDRD) Af Amer 93 mL/min (>60) 12/12/21 05:09 Est GFR (MDRD) Non-Af 77 mL/min (>60) 12/12/21 05:09 BUN/Creatinine Ratio 26.3 RATIO (10-20) H 12/12/21 05:09 Glucose 91 mg/dL (74-106) 12/12/21 05:09 Vancomycin Trough 8.1 ug/mL (5.0-15.0) 12/12/21 22:28 Microbiology: Microbiology 12/11/21 04:53 Abs - Hip Gram Stain - Final 12/11/21 04:53 Abs - Hip Wound Culture - Preliminary Coag Negative Staph 12/08/21 05:15 Nasal Secretion SARS-CoV-2 Antigen (Rapid) - Final 12/06/21 04:47 Nasal Secretion SARS-CoV-2 Antigen (Rapid) - Final Weight used for dosin.3 kg Estimated Creatinine Clearance: 35 Goal Trough: 15-20 mcg/mL Pharmacy Plan for Drug Dosing: Vancomycin trough level of 8.1 was below the target range of 15-20. Per aminoglycoside dosing calculator, a new dose of 750mg q12h will give an es timated trough of 17.1 mg/L. Another trough will be drawn prior to fourth dose of the new regimen. Pharmacy Service will continue to monitor and adjust dosing as required. Follow-Up Labs: Trough Vancomycin Labs to be done on [date and time ordered]: 12/14/21 @3920
--- NOTE | 2021-12-13 04:57 | NURSING ---
Eliazar from pharmacy called and d/t patient's Vanco trough being low at 8.1, Vanco dose increased to q12 hours.
[2021-12-13] MEDS: Menthol/Lanolin/Calamine/Znox 113 GM Tube 1 APPLIC TOPICAL ×2 (05:39→16:34)
[2021-12-13] MEDS: Ensure Plus High Protein 120 ML LIQUID PO ×4 (05:39→20:42)
[2021-12-13] MEDS: QUEtiapine 25 MG Tablet PO (05:40)
[2021-12-13] MEDS: Senna/Docusate Sodium 1 Tablet 2 TABLET PO ×2 (05:40→16:35)
[2021-12-13] MEDS: 0.9% Saline Lock 10 ML Syringe IV ×2 (05:43→20:35)
[2021-12-13] MEDS: Aspirin 81 MG TAB.CHEW PO ×2 (08:10→16:34)
[2021-12-13 10:00] VITALS: PULSE 78; RESP 18; O2SAT 99
[2021-12-13] MEDS: Acetaminophen 500 MG Tablet 1000 MG PO (10:51)
[2021-12-13 14:06] VITALS: BP 117/55; PULSE 80; RESP 14; TEMP 36.4; O2SAT 94
[2021-12-13] MEDS: morphine (oral solution) 10MG/0.5ML Syringe 5 MG SL ×2 (14:08→20:35)
[2021-12-13] MEDS: LORazepam 0.5 MG Tablet PO (20:35)
[2021-12-13] MEDS: QUEtiapine 25 MG Tablet 50 MG PO (20:36)
[2021-12-14] MEDS: morphine (oral solution) 10MG/0.5ML Syringe 5 MG SL ×4 (00:34→21:42)
[2021-12-14] MEDS: 0.9% Saline Lock 10 ML Syringe IV ×4 (05:58→21:43)
[2021-12-14] MEDS: QUEtiapine 25 MG Tablet PO (05:59)
[2021-12-14] MEDS: Senna/Docusate Sodium 1 Tablet 2 TABLET PO ×2 (05:59→17:10)
[2021-12-14] MEDS: Ensure Plus High Protein 120 ML LIQUID PO ×3 (05:59→17:10)
[2021-12-14] MEDS: Menthol/Lanolin/Calamine/Znox 113 GM Tube 1 APPLIC TOPICAL ×2 (05:59→17:11)
--- NOTE | 2021-12-14 06:04 | NURSING ---
22 gauge IV in right hand infiltrated. IV site discontinued. Catheter intact. New 20 gauge IV started in right medial forearm, flushed with 10cc normal saline, secured with Tegaderm and tape. Patient tolerated well.
[2021-12-14] MEDS: Aspirin 81 MG TAB.CHEW PO ×2 (08:05→17:10)
[2021-12-14] MEDS: Acetaminophen 500 MG Tablet 1000 MG PO ×2 (09:18→17:13)
--- NOTE | 2021-12-14 13:23 | NURSING ---
THERAPY ASKING IF WALTON CAN BE REMOVED. R' IS AMBULATING MORE. ASKED DR KRAUSE. OK TO DC WALTON TOMORROW MORNING.
[2021-12-14 14:52] VITALS: BP 114/54; PULSE 76; RESP 16; TEMP 36.2; O2SAT 98
--- NOTE | 2021-12-14 16:32 | PCM.RX.CS ---
Consult Pharmacy has been consulted to manage selected antiobiotic: Vancomycin Type of Consult: Follow-up Labs: Sodium 142 mmol/L (136-145) 12/12/21 05:09 Potassium 4.1 mmol/L (3.5-5.1) 12/12/21 05:09 Chloride 111 mmol/L (98-107) H 12/12/21 05:09 Carbon Dioxide 27.0 mmol/L (21.0-32.0) 12/12/21 05:09 Anion Gap 4 (5-15) L 12/12/21 05:09 BUN 20 mg/dL (7-18) H 12/12/21 05:09 Creatinine 0.76 mg/dL (0.55-1.02) 12/12/21 05:09 Est GFR (MDRD) Af Amer 93 mL/min (>60) 12/12/21 05:09 Est GFR (MDRD) Non-Af 77 mL/min (>60) 12/12/21 05:09 BUN/Creatinine Ratio 26.3 RATIO (10-20) H 12/12/21 05:09 Glucose 91 mg/dL (74-106) 12/12/21 05:09 Vancomycin Trough 17.0 ug/mL (5.0-15.0) H 12/14/21 11:22 Microbiology: Microbiology 12/11/21 04:53 Abs - Hip Gram Stain - Final 12/11/21 04:53 Abs - Hip Wound Culture - Preliminary Staphylococcus aureus Coag Negative Staph 12/10/21 21:40 Blood Culture (Wb) - Anticubital Right Blood Culture - Preliminary No growth in 48 hours. 12/10/21 21:48 Blood Culture (Wb) - Right Wrist Blood Culture - Preliminary No growth in 48 hours. 12/08/21 05:15 Nasal Secretion SARS-CoV-2 Antigen (Rapid) - Final 12/06/21 04:47 Nasal Secretion SARS-CoV-2 Antigen (Rapid) - Final Goal Trough: 15-20 mcg/mL Pharmacy Plan for Drug Dosing: VANCOMYCIN LEVEL RECEIVED Current Vancomycin Dose: 750mg q12h (00,12) Number of Doses Received: x3 Vancomycin Level: 17 Hours Since Last Dose: 11 Renal Function: SrCr 0.76 Renal Function Trend: Lab/Micro: Vancomycin Plan/Comments: resulted trough of 17 is within the ordered goal trough range of 15-20. recommend continuing current dose of 750mg q12h and checking trough in 4 more doses Pending Level: 12/16/21 at 1130 Pharmacy Service will continue to monitor and adjust dosing as required. Follow-Up Labs: Trough Vancomycin - 12/16/21 at 1130
--- NOTE | 2021-12-14 18:04 | NURSING ---
R' IN A LOT OF PAIN IN LEFT HIP, CRYING OUT, YELLING WHEN MOVED. LEFT LEG TURNED INWARD. NOTIFIED DR KRAUSE. N.O. XRAY.
--- NOTE | 2021-12-14 18:43 | RAD_ITS ---
INDICATION: pain -- send results to dr heck office EXAMINATION/TECHNIQUE: X-RAY - LEFT XR Hip Unilateral with Pelvis when performed; 2-3 Views 3 VIEWS COMPARISON: 11/30/2021 FINDINGS: SOFT TISSUES: No soft tissue swelling or gas. No radiopaque foreign body. BONES/JOINTS: 1. Bilateral hip arthroplasties noted. LEFT hip arthroplasty is normal alignment, no fracture or hardware failure noted. 2. The visualizedhip arthroplasty has normal alignment. Full intramedullary stem is not included on current exam. 3. Normal appearance of the visualized sacrum, sacroiliac joints and pelvic ring. RAD/HIP, UNI W/ Pelvis 2-3 Views IMPRESSION: 1. Bilateral hip arthroplasty. No evidence of fractures malalignment or hardware failure. 2. Focal intramedullary stem of the RIGHT hip arthroplasty is not included on the current exam. Electronically Signed: Ralph Yancey MD at 19:11 EDT ,
[2021-12-14] MEDS: LORazepam 0.5 MG Tablet PO (21:42)
[2021-12-14] MEDS: QUEtiapine 25 MG Tablet 50 MG PO (21:48)
[2021-12-15] MEDS: Ensure Plus High Protein 120 ML LIQUID PO ×4 (05:28→20:49)
[2021-12-15] MEDS: Menthol/Lanolin/Calamine/Znox 113 GM Tube 1 APPLIC TOPICAL ×2 (05:28→18:08)
[2021-12-15] MEDS: QUEtiapine 25 MG Tablet PO (05:29)
[2021-12-15] MEDS: Senna/Docusate Sodium 1 Tablet 2 TABLET PO ×2 (05:29→18:08)
[2021-12-15] MEDS: Aspirin 81 MG TAB.CHEW PO ×2 (08:12→18:08)
[2021-12-15] MEDS: morphine (oral solution) 10MG/0.5ML Syringe 5 MG SL ×2 (08:19→20:18)
[2021-12-15] MEDS: Acetaminophen 500 MG Tablet 1000 MG PO (10:17)
[2021-12-15 10:30] VITALS: PULSE 65; RESP 18; O2SAT 98
[2021-12-15] MEDS: 0.9% Saline Lock 10 ML Syringe IV ×3 (11:40→22:37)
--- NOTE | 2021-12-15 12:42 | NURSING ---
PT STATED TO THIS NURSE HE DID NOT WANT THE WALTON CATHETER REMOVED JUST YET. STATED HE HAS SOME THINGS TO THINK AND TALK ABOUT WITH PRICING ANALYST FIRST AND THAT PT IS NOT ABLE TO STAND OR MOVE LIKE SHE SHOULD. STATED MAYBE ON FRIDAY BUT NOT SURE. PER HOSPICE PUT THE WALTON IN AND WAS CHRONIC PER WRITTEN REPORT. RN AWARE
[2021-12-15 14:00] VITALS: BP 100/41; PULSE 65; RESP 16; TEMP 36.7; O2SAT 100
--- NOTE | 2021-12-15 15:11 | NURSING ---
STITCHES REMOVED PER ORDER, WOUND AREA CLEANED,STERE STRIPS AND ABD APPLIED. PT TOLERATED WELL. IN ROOM. PT TURNED TO LEFT SIDE,HEELS UP.
[2021-12-15] MEDS: LORazepam 0.5 MG Tablet PO (20:49)
[2021-12-15] MEDS: QUEtiapine 25 MG Tablet 50 MG PO (20:50)
[2021-12-16] MEDS: 0.9% Saline Lock 10 ML Syringe IV ×4 (02:25→22:27)
[2021-12-16] MEDS: Menthol/Lanolin/Calamine/Znox 113 GM Tube 1 APPLIC TOPICAL ×2 (05:59→22:31)
[2021-12-16] MEDS: Senna/Docusate Sodium 1 Tablet 2 TABLET PO ×2 (05:59→18:04)
[2021-12-16] MEDS: Ensure Plus High Protein 120 ML LIQUID PO ×4 (05:59→22:24)
[2021-12-16] MEDS: QUEtiapine 25 MG Tablet PO (05:59)
[2021-12-16] MEDS: Aspirin 81 MG TAB.CHEW PO ×2 (08:34→18:04)
[2021-12-16] MEDS: morphine (oral solution) 10MG/0.5ML Syringe 5 MG SL (08:41)
[2021-12-16] MEDS: Bisacodyl 5 MG Tablet 10 MG PO (08:42)
[2021-12-16] MEDS: Acetaminophen 500 MG Tablet 1000 MG PO (12:54)
--- NOTE | 2021-12-16 13:06 | NURSING ---
NO BM IN 4 DAYS,PRN DULCOLAX GIVEN.
[2021-12-16 14:22] VITALS: BP 105/40; PULSE 73; RESP 20; TEMP 37; O2SAT 98
--- NOTE | 2021-12-16 16:31 | PHA.PHARE_ITS ---
Consult Pharmacy has been consulted to manage selected antiobiotic: Vancomycin Type of Consult: Follow-up Prior Doses of Antibiotics Received/Current Regimen: Medications Discontinued Medications Vancomycin HCl 750 mg/ Sodium (Chloride) 265 mls @ 250 mls/hr IV Q12H RACQUEL Last Admin: 12/16/21 12:47 Dose: 0 mls/hr Labs: Sodium 142 mmol/L (136-145) 12/12/21 05:09 Potassium 4.1 mmol/L (3.5-5.1) 12/12/21 05:09 Chloride 111 mmol/L (98-107) H 12/12/21 05:09 Carbon Dioxide 27.0 mmol/L (21.0-32.0) 12/12/21 05:09 Anion Gap 4 (5-15) L 12/12/21 05:09 BUN 20 mg/dL (7-18) H 12/12/21 05:09 Creatinine 0.76 mg/dL (0.55-1.02) 12/12/21 05:09 Est GFR (MDRD) Af Amer 93 mL/min (>60) 12/12/21 05:09 Est GFR (MDRD) Non-Af 77 mL/min (>60) 12/12/21 05:09 BUN/Creatinine Ratio 26.3 RATIO (10-20) H 12/12/21 05:09 Glucose 91 mg/dL (74-106) 12/12/21 05:09 Vancomycin Trough 22.0 ug/mL (5.0-15.0) H 12/16/21 11:15 Microbiology: Microbiology 12/10/21 21:40 Blood Culture (Wb) - Anticubital Right Blood Culture - Final No growth in 5 days. 12/10/21 21:48 Blood Culture (Wb) - Right Wrist Blood Culture - Final No growth in 5 days. 12/11/21 04:53 Abs - Hip Gram Stain - Final 12/11/21 04:53 Abs - Hip Wound Culture - Final Staphylococcus aureus Coag Negative Staph 12/08/21 05:15 Nasal Secretion SARS-CoV-2 Antigen (Rapid) - Final 12/06/21 04:47 Nasal Secretion SARS-CoV-2 Antigen (Rapid) - Final Pharmacy Plan for Drug Dosing: Trough above goal range. Hold this dose and re-check level tomorrow morning. Re- dose at that time. Pharmacy Service will continue to monitor and adjust dosing as required. Follow-Up Labs: Trough Vancomycin - Random 12/17 @ 0600
[2021-12-16 22:20] VITALS: O2SAT 98
[2021-12-16] MEDS: LORazepam 0.5 MG Tablet PO (22:24)
[2021-12-16] MEDS: QUEtiapine 25 MG Tablet 50 MG PO (22:33)
[2021-12-17] MEDS: Senna/Docusate Sodium 1 Tablet 2 TABLET PO ×2 (05:28→18:20)
[2021-12-17] MEDS: QUEtiapine 25 MG Tablet PO (05:29)
[2021-12-17] MEDS: 0.9% Saline Lock 10 ML Syringe IV ×2 (05:29→09:30)
[2021-12-17] MEDS: Menthol/Lanolin/Calamine/Znox 113 GM Tube 1 APPLIC TOPICAL ×2 (05:29→18:20)
[2021-12-17] MEDS: Ensure Plus High Protein 120 ML LIQUID PO ×3 (05:45→22:08)
[2021-12-17] MEDS: Bisacodyl 10 MG Suppository RC (05:49)
[2021-12-17 06:36] LABS: Vancomycin, Random Level 15.2 ug/mL (0.0-15.0)
[2021-12-17] MEDS: Aspirin 81 MG TAB.CHEW PO ×2 (08:18→18:20)
--- NOTE | 2021-12-17 08:35 | PCM.RX.CS ---
Consult Pharmacy has been consulted to manage selected antiobiotic: Vancomycin Type of Consult: Follow-up Labs: Sodium 142 mmol/L (136-145) 12/12/21 05:09 Potassium 4.1 mmol/L (3.5-5.1) 12/12/21 05:09 Chloride 111 mmol/L (98-107) H 12/12/21 05:09 Carbon Dioxide 27.0 mmol/L (21.0-32.0) 12/12/21 05:09 Anion Gap 4 (5-15) L 12/12/21 05:09 BUN 20 mg/dL (7-18) H 12/12/21 05:09 Creatinine 0.76 mg/dL (0.55-1.02) 12/12/21 05:09 Est GFR (MDRD) Af Amer 93 mL/min (>60) 12/12/21 05:09 Est GFR (MDRD) Non-Af 77 mL/min (>60) 12/12/21 05:09 BUN/Creatinine Ratio 26.3 RATIO (10-20) H 12/12/21 05:09 Glucose 91 mg/dL (74-106) 12/12/21 05:09 Vancomycin Trough 22.0 ug/mL (5.0-15.0) H 12/16/21 11:15 Random Vancomycin 15.2 ug/mL (0.0-15.0) H 12/17/21 05:12 Microbiology: Microbiology 12/10/21 21:40 Blood Culture (Wb) - Anticubital Right Blood Culture - Final No growth in 5 days. 12/10/21 21:48 Blood Culture (Wb) - Right Wrist Blood Culture - Final No growth in 5 days. 12/11/21 04:53 Abs - Hip Gram Stain - Final 12/11/21 04:53 Abs - Hip Wound Culture - Final Staphylococcus aureus Coag Negative Staph 12/08/21 05:15 Nasal Secretion SARS-CoV-2 Antigen (Rapid) - Final 12/06/21 04:47 Nasal Secretion SARS-CoV-2 Antigen (Rapid) - Final Goal Trough: 15-20 mcg/mL Pharmacy Plan for Drug Dosing: VANCOMYCIN LEVEL RECEIVED Current Vancomycin Dose: on hold due to elevated trough (previous dose was 750 q12) Number of Doses Received: Vancomycin Level: 15.2 Hours Since Last Dose: 17 Renal Function: SrCr 0.76 Renal Function Trend: Lab/Micro: Vancomycin Plan/Comments: resulted 17 hour random level of 15.2 was within the ordered goal trough range of 15-20. recommend restarting vancomycin at a dose of 500mg q12h starting 12/17/21 at 0900. trough before the 4th dose Pending Level: 12/18/21 at 2030 Pharmacy Service will continue to monitor and adjust dosing as required. Follow-Up Labs: Trough Vancomycin - 12/18/21 at 2030
[2021-12-17] MEDS: Vancomycin IV 500 MG/100 ML BAG 100 MG IV ×2 (09:28→21:14)
--- NOTE | 2021-12-17 09:37 | MDS.RN ---
Information for the mds was obtained from review of the clinical record, interview of resident, staff, and direct observation of resident's care. No PDPM codes generated with completed MDS assessments, error report sent to [facility] information systems.
[2021-12-17 09:40] VITALS: PULSE 61; RESP 16; O2SAT 96
[2021-12-17] MEDS: morphine (oral solution) 10MG/0.5ML Syringe 5 MG SL (11:08)
[2021-12-17 13:45] VITALS: BP 106/61; PULSE 74; RESP 76; TEMP 36.4; O2SAT 98
--- NOTE | 2021-12-17 14:27 | WOUNDNOTE ---
wound photo: left hip
--- NOTE | 2021-12-17 14:28 | WOUNDNOTE ---
wound photo: left posterior thigh
--- NOTE | 2021-12-17 14:28 | WOUNDNOTE ---
wound photo: rossi
--- NOTE | 2021-12-17 15:41 | CASEMGMT ---
Social Work Left message with to discuss DC plans and Medicaid application. Adri Herbert, DROP CLIPPER MOVABLE BULKHEAD INSTALLER
[2021-12-17] MEDS: QUEtiapine 25 MG Tablet 50 MG PO (21:58)
[2021-12-17] MEDS: LORazepam 0.5 MG Tablet PO (22:00)
--- NOTE | 2021-12-18 00:15 | NURSING ---
Vanco should be completed as of 12/17/21. Per Eliazar in Pharmacy, no end date on Vanco. Message left for Dr. Ortega.
[2021-12-18] MEDS: Senna/Docusate Sodium 1 Tablet 2 TABLET PO ×2 (05:13→16:35)
[2021-12-18] MEDS: QUEtiapine 25 MG Tablet PO (05:13)
[2021-12-18] MEDS: Menthol/Lanolin/Calamine/Znox 113 GM Tube 1 APPLIC TOPICAL ×2 (05:13→16:34)
[2021-12-18] MEDS: Ensure Plus High Protein 120 ML LIQUID PO ×4 (05:13→21:21)
[2021-12-18] MEDS: morphine (oral solution) 10MG/0.5ML Syringe 5 MG SL ×4 (05:55→21:09)
[2021-12-18] MEDS: Aspirin 81 MG TAB.CHEW PO ×2 (08:13→16:34)
[2021-12-18] MEDS: Acetaminophen 500 MG Tablet 1000 MG PO ×2 (08:16→18:20)
--- NOTE | 2021-12-18 08:48 | CASEMGMT ---
Addendum entered by Adri Herbert 12/18/21 14:01: [facility] is able to accept pt in their SNF memory care unit, semi-private room. SW updated . to speak with them tomorrow. would like pt to stay is [place] - thus no longer wanting [facility]. Will await outcome from [facility]. Updated that insurance approved one more week with DC 12/26. expressed understanding and will proceed with DC plan to SNF. Original Note: Social Work Received return phone call from . Spoke at length about options for DC. remains conflicted with pt returning home vs SNF. states he does not feel confident at this time having pt return home, and wants pt to stay in TCU as long as insurance allows. SW agreed that is the goal, but unsure when insurance will issue a DC date. Insurance update is today and earliest DC could be 12/21. Encouraged to have alternate DC plan in place in case insurance does issue DC and still does not feel ready to take pt home. agreed. SW answered questions and educated to difference between AL, SNF and memory care units. has not provided details on finances, thus, this worker is unable to determine if pt will have funds to pay privately for any amount of time. SW continued to educate on private pay costs for AL and SNF. ultimately decided to have referrals sent to [facility], [facility] and [facility]. agreed to have facilities contact him directly to review pricing and schedule a tour. expressed appreciation. SW sent referrals via [employer]. Will continue to follow. Adri Herbert, MIGUELINA ERNSTW
[2021-12-18 14:20] VITALS: BP 123/52; PULSE 72; RESP 16; TEMP 37.2; O2SAT 98
--- NOTE | 2021-12-18 14:25 | CHAPLAIN ---
Type of Pastoral Visit ___ Initial Visit _x__ Follow-up Visit ___ On-call Visit ___ General Patient Visit ___ Spiritual Assessment ___ Family Conference ___ Bereavement ___ Rapid Response ___ Code Blue ___ Other (describe below) Pastoral Care Referral From ___ Patient _x__ Family ___ Nurse ___ Physician ___ Technology Methodology Consultant ___ Coal Unloader ___ Other (describe below) Sacrament/Intervention _x__ Active listening ___ Anointing ___ Yarsanism ___ Bereavement ___ Communion _x__ Mariaelena exploration ___ ___ Life review _x__ Prayer ___ Reconciliation ___ Sacrament of Sick _x__ Supportive presence ___ Wedding ___ Other (describe below) Pastoral Comments follow up visit to patient who remains mostly nonverbal; is in the room and does interact immediately with this maintenance trainer and goes into great detail about the situation, decisions about future care of patient, her dementia and bodily needs, his own ability or lack of to give care, and spiritual questions about healing and prayer; this maintenance trainer inquired about other family, spiritism, friends support and input into a possible solution/plan for care; prayer and presence given; this was a very long visit but with great interaction and support for spouse; spouse thanked this maintenance trainer for time and listening
[2021-12-18] MEDS: 0.9% Saline Lock 10 ML Syringe IV (16:33)
--- NOTE | 2021-12-18 16:51 | NURSING ---
SALINE LOCK REMOVED DUE TO IT INFILTRATED. PT COMPLAINED OF PAIN AND SITE WAS RED.
--- NOTE | 2021-12-18 18:29 | NURSING ---
THIS NURSE HEARD PT CRYING,WENT IN ROOM AND PT WAS ALSO THERE. ASKED WHAT WAS WRONG AND PT STOPPED CRYING. PT STATED THAT PT WAS HAVING A HARD TIME SWALLOWING HER MAC AND CHEESE. ASKED PT IF IT WAS HARD FOR HER TO SWALLOW AND PT NODDED HER HEAD 1 TIME FOR YES. ASKED PT IF HER THROAT WAS SORE PT STATED NO. GAVE PT SOME YOGURT AND PUREED BLUEBERRY MUFFIN. PT DID A HARD SWALLOW. PT HAD PEAS ON HER PLATE. THIS NURSE STATED TO PT THAT SHE SHOULD NOT BE HAVING PEAS THAT ARE NOT PUREED. STATED I WANTED HER TO HAVE THEM AND I TALKED TO SOME ONE ALREADY ABOUT IT AND THEY COOKED THEM LONGER,BUT SHE DID NOT EAT ANY. THIS NURSE STATED TO THAT I WOULD LET SPEECH THERAPY KNOW OF HER SWALLOWING PROBLEM. THEN PRECEDED TO GIVE PT SOME OF HIS APPLE PIE. THIS NURSE STATED TO THAT PT SHOULD NOT BE EATING APPLE PIE THAT IS NOT PUREED AND SHE IS HAVING SWALLOWING PROBLEMS. PT DEFIED THIS NURSE ADVISE AND GAVE PT SOME PIE. THIS NURSE LEFT MESSAGE FOR SPEECH THERAPY. RN AWARE
[2021-12-18] MEDS: LORazepam 0.5 MG Tablet PO (21:07)
[2021-12-18] MEDS: QUEtiapine 25 MG Tablet 50 MG PO (21:09)
[2021-12-18 23:39] VITALS: BP 119/52; PULSE 68; PULSE 79; RESP 17; RESP 18; TEMP 36.2; O2SAT 97; O2SAT 98
--- NOTE | 2021-12-18 23:46 | NURSING ---
Patient crying/yelling out. This Nurse entered room. Patient rubbing abdomen. Upon assessment, abdomen firm, distended and painful to right side with palpation. Bowel sounds hyperactive in all 4 quadrants. PRN pain analgesic given earlier but not effective. Vitals obtained as noted under vitals. Dr. Ortega paged. New orders obtained. KUB. Lactulose 30 mg x1 dose. If Lactulose does not work, administered 30 mL of Milk of Mag. Orders read back.
--- NOTE | 2021-12-18 23:49 | RAD_ITS ---
We are attempting to reach an attending provider to discuss findings. An addendum with communication details will be sent when the communication is complete. STUDY: X-RAY - ABDOMEN/PELVIS REASON FOR EXAM: Female, 81 years old. Distended; painful palpation TECHNIQUE: Single AP view of the abdomen / pelvis. COMPARISON: 12/25/2018, 12/14/2021 FINDINGS: The upper abdomen and lung bases are not completely visualized. Curvilinear lucencies in the central pelvis. There is a nonobstructive bowel gas pattern. There is no demonstrated free abdominal air. Similar prominent pelvic phleboliths. The visualized liver, spleen and kidneys are grossly normal in size and morphology. Normal soft tissue structures. Bilateral hip arthroplasties. RAD/Abdomen Single View IMPRESSION: Curvilinear lucencies in the central pelvis are suspicious for pneumatosis intestinalis, which may represent bowel ischemia in this patient. Electronically Signed: Denis Martinez MD at 0:27 EDT ,
--- NOTE | 2021-12-18 23:51 | NURSING ---
X-ray tech on unit to do KUB.
[2021-12-19] MEDS: Lactulose 20 GM/30 ML UDC PO (00:05)
--- NOTE | 2021-12-19 00:48 | NURSING ---
Patient yelling in pain, abdomen distended, hard and painful with palpation. Dr. Ortega notified, new orders received for abdominal Xray, lactulose and milk of magnesia if lactulose not effective. Will continue to monitor.
--- NOTE | 2021-12-19 00:50 | NURSING ---
Call received from radiologist re: results of abdominal X-ray. Dr. Ortega notified of results, who strongly suggests that patient be admitted to [facility] and kept comfortable, however if spouse wants patient treated, patient to be sent to ED. Spouse called, message left.
--- NOTE | 2021-12-19 01:11 | NURSING ---
Attempted to reach again at this time. No answer.
[2021-12-19] MEDS: morphine (oral solution) 10MG/0.5ML Syringe 5 MG SL (01:19)
--- NOTE | 2021-12-19 02:23 | NURSING ---
Arias, returned call at this time. Explained results of x-ray to . will be coming in to unit to discuss what he would like to do with patient. Instructed to come through ED doors and they will bring him to unit. Offered emotional support over phone to . Informed we are trying to keep patient as comfortable as we can at this time.
--- NOTE | 2021-12-19 03:35 | NURSING ---
arrived to unit. After long discussion on comfort care only or patient to ER for possible surgery. Advised Dr. Ortega did not think patient would make it through another surgery in her condition. stated, I cannot just let her go without knowing for sure. still states he would like patient sent to ER for further evaluation. Emotional support given for long period time. was offered time to think about decision and nothing needed to be done WILDER. thanked this Nurse but stated it would be best for her to go to ER.
--- NOTE | 2021-12-19 04:00 | NURSING ---
Patient transferred to ER via cot. at bedside.
[2021-12-19] MEDS: Menthol/Lanolin/Calamine/Znox 113 GM Tube 1 APPLIC TOPICAL ×2 (09:02→17:36)
[2021-12-19] MEDS: Ensure Plus High Protein 120 ML LIQUID PO ×2 (09:05→20:56)
[2021-12-19] MEDS: Senna/Docusate Sodium 1 Tablet 2 TABLET PO ×2 (09:05→17:39)
[2021-12-19] MEDS: QUEtiapine 25 MG Tablet PO (09:05)
[2021-12-19] MEDS: Aspirin 81 MG TAB.CHEW PO ×2 (09:06→17:37)
[2021-12-19] MEDS: Bisacodyl 5 MG Tablet 10 MG PO (09:11)
[2021-12-19] MEDS: Electrolyte Solution/Peg's 4000 ML 1000 ML PO (09:16)
--- NOTE | 2021-12-19 09:48 | CASEMGMT ---
Addendum entered by Adri Herbert 12/19/21 15:34: Answered further questions for both facilities - they are still reviewing. Original Note: Social Work Received call from warehouse worker 2nd shift INSTRUMENTAL MUSIC TEACHER updating on events overnight. Received request from OT that requesting to speak with this worker. present with pt in therapy session. After session, and this worker spoke at length. SW provided ongoing supportive listening. expressed dissatisfaction with conversation had with Dr. Ortega and his oversight to pt's care. SW empathized with and acknowledged feelings. is not electing hospice at this time; wanting pt to go to Dr. Yanez appt 12/21, and proceed with transfer to SNF for LTC. SW offered if is not satisfied with care, to have pt transfer to SNF sooner, preferably after [facility] appt so pt only needs to be transported once. agreeable and would prefer that plan. to speak with [facility] for pricing this morning. SW to f/u with [facility] on acceptance/denial. SW to keep updated. expressed appreciation for this worker's time and assistance. SW requested update from [facility] and [facility], with updated DC plan for 12/21. Will continue to follow. Adri Herbert, MIGUELINA ERNSTW
--- NOTE | 2021-12-19 09:51 | NURSING ---
APPOINTMENT FOR WAS RESCHEDULED FOR 12/21/21. TRANSPORT WILL PROGRAM EVALUATOR AT 8;45 AM. THIS NURSE ASKED THE PT WITH THE QUALITY CONTROL ENGINEERING TECHNICIAN PRESENT IF HE WANTED TO KEEP THE APPOINTMENT FOR HIS . STATED YES! RN ALSO AWARE.
[2021-12-19 10:30] VITALS: PULSE 78; RESP 18; O2SAT 93
[2021-12-19] MEDS: Polyethylene Glycol 3350 17 GM PACKET PO ×2 (13:00→17:37)
[2021-12-19 13:59] VITALS: BP 111/59; PULSE 81; RESP 16; TEMP 36.6; O2SAT 95
--- NOTE | 2021-12-19 15:18 | NURSING ---
NEW ORDERS GIVEN THIS MORNING FOR MIRALAX,DULCOLAX AND NULYLELY DUE TO KUB RESULTS. 1 POSITIVE RESULT,WILL CONTINUE TO MONITOR.
--- NOTE | 2021-12-19 17:45 | CASEMGMT ---
Addendum entered by Adri Herbert 12/21/21 10:15: PASRR started - just needs submitted when closer to DC to ensure no changes. Addendum entered by Adri Herbert 12/20/21 16:28: Insurance reviewer did approve to transfer auth from [facility] to [facility] until NRD 12/26 for pt to DC 12/21. Updated [facility] - they are currently in a COVID outbreak and do not have staffing to accept pt until 12/27. SW updated , IDT and insurance reviewer. Pt will remain covered by insurance in TCU until DC 12/27 to [facility], intermediate. Plan: DC 12/27 to [facility], intermediate. Addendum entered by Adri Herbert 12/20/21 15:00: Spoke back and forth with both facilities and . has elected [facility]. Unsure of DC date at this time. Awaiting to hear back from [facility]. Addendum entered by Adri Herbert 12/20/21 09:07: Followed up with this morning. is touring both facilities prior to visiting pt today. thought the [facility] appt was today and was overwhelmed but SW reminded appt and DC is tomorrow. appreciative and will follow up after tours. Original Note: Social Work Received responses that [facility] and [facility] can both accept pt. SW spoke with to update and encouraged to contact both facilities to tour and get pricing. Reiterated plan on having pt go to [facility] appt 12/21 and then transfer directly to SNF. expressed understanding and appreciation. MIGUELINA Ramos
[2021-12-19] MEDS: LORazepam 0.5 MG Tablet PO (20:55)
[2021-12-19] MEDS: QUEtiapine 25 MG Tablet 50 MG PO (20:56)
[2021-12-20] MEDS: Senna/Docusate Sodium 1 Tablet 2 TABLET PO ×2 (05:25→17:22)
[2021-12-20] MEDS: Polyethylene Glycol 3350 17 GM PACKET PO ×2 (05:25→17:20)
[2021-12-20] MEDS: Bisacodyl 5 MG Tablet 10 MG PO (05:25)
[2021-12-20] MEDS: QUEtiapine 25 MG Tablet PO (05:25)
[2021-12-20] MEDS: Menthol/Lanolin/Calamine/Znox 113 GM Tube 1 APPLIC TOPICAL ×2 (08:49→17:20)
[2021-12-20] MEDS: Aspirin 81 MG TAB.CHEW PO ×2 (08:50→17:20)
[2021-12-20] MEDS: morphine (oral solution) 10MG/0.5ML Syringe 5 MG SL ×2 (10:17→22:21)
[2021-12-20] MEDS: Ensure Plus High Protein 120 ML LIQUID PO ×2 (13:01→17:47)
[2021-12-20 14:06] VITALS: BP 126/59; PULSE 75; RESP 17; TEMP 36.9; O2SAT 97
[2021-12-20] MEDS: Bisacodyl 10 MG Suppository RC (15:54)
--- NOTE | 2021-12-20 16:38 | NURSING ---
Abdomen distended, good bowel sounds, has had a couple medium BMs today. Patient seems uncomfortable when abdomen assessed, holding stomach and crying multiple times. Updated Dr Ortega, new order for SSE.
[2021-12-20] MEDS: QUEtiapine 25 MG Tablet 50 MG PO (20:59)
[2021-12-20] MEDS: LORazepam 0.5 MG Tablet PO (20:59)
[2021-12-20 22:00] VITALS: PULSE 86; RESP 17; O2SAT 96
--- NOTE | 2021-12-20 23:32 | NURSING ---
Patient very restless this evening. Crying and yelling out. More verbal than usual. Patient at this time is 1:1 in common area with staff direct supervision.
[2021-12-21] MEDS: LORazepam 1 MG Tablet PO (01:49)
--- NOTE | 2021-12-21 02:27 | NURSING ---
Dr. Ortega paged and call returned at 0116 in regards to Pt being extremely restless, yelling out, and crying this evening. 1 on 1 with staff most of the evening in main area. Dr Ortega informed of scheduled doses of Ativan 0.5mg, Seroquel 50mg given at 9pm, Roxanol 5mg given at 10:30pm. One time order for Ativan 1mg PO. Pt's urine also cloudy and foul smelling, order received for UA and CS.
[2021-12-21 05:28] LABS: Mucous, Urine 0 SEEN /hpf (<or=2+); Squamous Epithelial Cells - UA 0 SEEN /hpf (5-10)
[2021-12-21 05:29] LABS: Color, Urine Yellow (Yellow); Glucose, Dipstick Normal (Normal); Ketone-Dipstick Negative (Negative); Leukocyte Esterase-Dipstick 500 /ul (Negative); Nitrite-Dipstick Positive (Negative); Occult Blood-Urine 250 /ul (Negative); Protein-Dipstick 15 mg/dl (Negative); Specific Gravity, Urine 1.015 (1.002-1.030); Urine Bilirubin Dipstick Negative (Negative); Urine Clarity Clear (Clear); Urine Urobilinogen Normal (Normal)
[2021-12-21 05:36] LABS: Bacteria 2+ /hpf (None Seen); Red Blood Cells-Urine 10-25 SEEN /hpf (0-5); White Blood Cells 10-25 SEEN /hpf (0-5)
[2021-12-21] MEDS: Menthol/Lanolin/Calamine/Znox 113 GM Tube 1 APPLIC TOPICAL ×2 (05:49→17:20)
[2021-12-21] MEDS: QUEtiapine 25 MG Tablet PO (05:49)
[2021-12-21] MEDS: Senna/Docusate Sodium 1 Tablet 2 TABLET PO ×2 (05:49→17:21)
[2021-12-21] MEDS: Bisacodyl 5 MG Tablet 10 MG PO (05:49)
[2021-12-21] MEDS: Polyethylene Glycol 3350 17 GM PACKET PO ×2 (05:49→17:21)
[2021-12-21] MEDS: Aspirin 81 MG TAB.CHEW PO ×2 (07:58→17:20)
[2021-12-21] MEDS: Nitrofurantoin Macrocrystals 100 MG Capsule PO ×2 (08:09→17:20)
--- NOTE | 2021-12-21 09:10 | NURSING ---
Patient off floor for appointment. Picked up by physicians
[2021-12-21 10:00] VITALS: PULSE 74; RESP 16; O2SAT 98
--- NOTE | 2021-12-21 11:22 | NURSING ---
I called [facility] for update on patient status. They said continue current orders and that they would fax note over when it was completed
--- NOTE | 2021-12-21 11:24 | NURSING ---
Patient returned to floor resting comfortably in chair
[2021-12-21] MEDS: Ensure Plus High Protein 120 ML LIQUID PO ×3 (13:14→21:31)
--- NOTE | 2021-12-21 14:34 | CASEMGMT ---
Social Work presented this worker's office. expressing wanting pt to DC home and not go to a SNF. He is concerned about pt will adjust to a SNF since pt is improving, he wants her to come home and be with him. SW and spoke at length about having the appropriate care (23/09) in the home, IDT still recommending SNF, and getting additional help in the home. Son lives with pt and but works inspector timers 8-5, M-F, and can assist in the evenings and weekends. SW provided [employer] list and encouraged to call agencies today to see availability for hire during the day to assist as sometimes pt needs x2 assist. agreed to hire additional assistance. SW to revisit plans next week. appreciative. MIGUELINA Ramos
[2021-12-21 14:36] VITALS: BP 120/60; PULSE 86; RESP 16; TEMP 36.6; O2SAT 95
[2021-12-21] MEDS: morphine (oral solution) 10MG/0.5ML Syringe 5 MG SL ×2 (14:39→21:24)
--- NOTE | 2021-12-21 20:21 | NURSING ---
Updated on patient having UTI and new order for Macrobid. This Nurse has passed on in report this morning that Arias was not updated, that he needed updated when he came into visit patient. was upset he wasn't told until this time. Explained to Arias that when urine was collected it was the middle of the night and this Nurse did not want to call and worry him again. Arias was appreciative that this Nurse did not call in the middle of the night. Arias would like patient to now have Ohara removed. Informed Arias it will be removed this shift per his request. Also educated Arias that patient could have urinary retention and may need to be straight cathed or worse case scenario a ohara may need to be replaced if patient fails voiding trial. Arias verbalized understanding.
[2021-12-21] MEDS: QUEtiapine 25 MG Tablet 50 MG PO (21:16)
[2021-12-21] MEDS: LORazepam 0.5 MG Tablet PO (21:16)
[2021-12-22] MEDS: Senna/Docusate Sodium 1 Tablet 2 TABLET PO ×2 (05:07→18:08)
[2021-12-22] MEDS: Polyethylene Glycol 3350 17 GM PACKET PO ×2 (05:08→18:07)
[2021-12-22] MEDS: Bisacodyl 5 MG Tablet 10 MG PO (05:08)
[2021-12-22] MEDS: Nitrofurantoin Macrocrystals 100 MG Capsule PO ×2 (05:08→18:07)
[2021-12-22] MEDS: QUEtiapine 25 MG Tablet PO (05:08)
[2021-12-22] MEDS: Menthol/Lanolin/Calamine/Znox 113 GM Tube 1 APPLIC TOPICAL ×2 (05:08→18:08)
[2021-12-22] MEDS: Ensure Plus High Protein 120 ML LIQUID PO ×4 (05:18→20:56)
[2021-12-22] MEDS: 0.9% Saline Lock 10 ML Syringe IV (05:19)
--- NOTE | 2021-12-22 05:25 | NURSING ---
Removed 10cc of NS from ohara and pulled out 16F catheter at this time. Patient tolerated well. Bladder scans started. 20 gauge IV also removed from RAC. Catheter intact.
[2021-12-22] MEDS: morphine (oral solution) 10MG/0.5ML Syringe 5 MG SL ×2 (08:12→20:52)
[2021-12-22] MEDS: Aspirin 81 MG TAB.CHEW PO ×2 (08:14→18:07)
--- NOTE | 2021-12-22 14:01 | NURSING ---
Patient has been voiding when placed on toilet but small amounts. PVR after Correa d/c'd was 406ml. St cath done and 370ml removed of clear, straw urine. Patient tolerated well.
[2021-12-22 14:50] VITALS: BP 119/56; PULSE 78; RESP 16; TEMP 36.6; O2SAT 97
[2021-12-22] MEDS: QUEtiapine 25 MG Tablet 50 MG PO (20:52)
[2021-12-22 21:00] VITALS: O2SAT 96
[2021-12-22] MEDS: LORazepam 0.5 MG Tablet PO (21:00)
[2021-12-22] MEDS: Acetaminophen 500 MG Tablet 1000 MG PO (22:42)
[2021-12-23] MEDS: Senna/Docusate Sodium 1 Tablet 2 TABLET PO (05:28)
[2021-12-23] MEDS: Polyethylene Glycol 3350 17 GM PACKET PO (05:28)
[2021-12-23] MEDS: QUEtiapine 25 MG Tablet PO (05:29)
[2021-12-23] MEDS: Nitrofurantoin Macrocrystals 100 MG Capsule PO (05:29)
[2021-12-23] MEDS: Bisacodyl 5 MG Tablet 10 MG PO (05:29)
[2021-12-23] MEDS: Menthol/Lanolin/Calamine/Znox 113 GM Tube 1 APPLIC TOPICAL ×2 (05:38→17:46)
[2021-12-23] MEDS: Aspirin 81 MG TAB.CHEW PO ×2 (07:57→17:44)
[2021-12-23] MEDS: Acetaminophen 500 MG Tablet 1000 MG PO (08:01)
[2021-12-23 10:10] VITALS: BP 119/62; PULSE 94; RESP 18; TEMP 37.1; O2SAT 96
--- NOTE | 2021-12-23 10:32 | NURSING ---
1000 heard noise coming from room and pt yelling out, entered room and pt sitting on floor next to recliner chair. pt sitting up on her buttocks, legs out in front of her. pt stated I have to poop, pt usually does not speak much. This nurse grabbed BSC, assisted pt x1 from floor to BSC. pt incont stool, stool up her back. incont care provided. skin check, no injury noted. pt denies pain or injury. vitals good. will update dr rayo and pt . Alarm placed on pt recliner chair. call light in reach.
[2021-12-23] MEDS: Ensure Plus High Protein 120 ML LIQUID PO ×3 (12:18→21:45)
--- NOTE | 2021-12-23 14:05 | NURSING ---
Addendum entered by Radha Quijano 12/23/21 14:31: has unrealistic expectations. states she fell at hospice trying to go to [facility] thats how she broke her hip. She always tells me when she has to go but nobody was there, I was in the bathroom Explained to him that staff rounds on her frequently. Explained that she did not call out for assistance but got up on own. He feels that pt has trouble pushing call light. will attempt a soft touch calllight. he verbalized understanding. Original Note: here to see pt, updated him on fall and IV ATB for UTI.
--- NOTE | 2021-12-23 14:20 | NURSING ---
dr rayo notified of urine culture results. new order to [facility] and have pharmacy dose meropenum.
[2021-12-23] MEDS: 0.9% Saline Lock 10 ML Syringe IV (15:05)
[2021-12-23 16:00] VITALS: BP 119/43; PULSE 74; RESP 14; TEMP 36.9
[2021-12-23 20:00] VITALS: PULSE 76; RESP 16; O2SAT 96
[2021-12-23] MEDS: morphine (oral solution) 10MG/0.5ML Syringe 10 MG SL (21:45)
[2021-12-23] MEDS: LORazepam 0.5 MG Tablet PO (21:45)
[2021-12-23] MEDS: QUEtiapine 25 MG Tablet 50 MG PO (21:48)
[2021-12-24] MEDS: Polyethylene Glycol 3350 17 GM PACKET PO ×2 (05:21→17:56)
[2021-12-24] MEDS: QUEtiapine 25 MG Tablet PO (05:22)
[2021-12-24] MEDS: Senna/Docusate Sodium 1 Tablet 2 TABLET PO ×2 (05:22→17:57)
[2021-12-24] MEDS: Bisacodyl 5 MG Tablet 10 MG PO (05:22)
[2021-12-24] MEDS: Menthol/Lanolin/Calamine/Znox 113 GM Tube 1 APPLIC TOPICAL ×2 (05:24→20:21)
[2021-12-24] MEDS: morphine (oral solution) 10MG/0.5ML Syringe 10 MG SL ×2 (05:35→20:20)
[2021-12-24] MEDS: Aspirin 81 MG TAB.CHEW PO ×2 (08:02→17:57)
[2021-12-24] MEDS: Acetaminophen 500 MG Tablet 1000 MG PO (08:03)
--- NOTE | 2021-12-24 10:39 | CASEMGMT ---
Addendum entered by Adri Herbert 12/25/21 15:17: Spoke with - he signed palliative documents. Updated that pt needs Dr. Medina appt prior to Dr gia to sign HHC orders. stated there is already an appt made on 12/27 at 1040 am. SW contact office to confirm and change to hospital f/u - confirmed pt can attend by cot. SW spoke with Physicians to update trip for pick at [facility] at 940 to PCP office and transport home. Updated [facility] HHC. appreciative. Addendum entered by Adri Herbert 12/25/21 13:11: Scheduled cot transport through Physicians for 1200 Addendum entered by Adri Herbert 12/24/21 15:36: Therapy recommending w/c, 3-in-1 commode, hospital bed, HHC PT/OT/SN, naima ohara. presented to this worker's office and discussed DME and HHC. agreeable to ordering needs. Printed skilled HHC list via [employer] and provided to . chose [facility]HC first and [facility] second. SW referred to [facility] via fax and email for DME needs and made referral via phone to [facility] HHC PT/OT/SN/CANAS/SW. Plan: DC home with 12/27, [facility] HHC PT/OT/SN/CANAS/SW, w/c, BSC, hospital bed Original Note: Social Work Received call from stating he has decided to take pt home. He is still working on hiring additional assistance at home, but does not want her placed in a SNF. would like cot transport home still on 12/27. SW to discuss with IDT on needed DME and offered to order skilled HHC. will be present for therapy session today and follow up with this worker after to finalize needs. SW canceled referral to [facility]. SW to continue to follow. MIGUELINA Ramos
[2021-12-24 10:50] VITALS: PULSE 77; RESP 18; O2SAT 98
[2021-12-24] MEDS: Ensure Plus High Protein 120 ML LIQUID PO ×2 (11:43→17:56)
--- NOTE | 2021-12-24 11:50 | NURSING ---
ASKED THIS NURSE WHY WALTON WAS PUT BACK. UPDATED AND STILL HE HAS MANY QUESTIONS ABOUT BLADDER AND BLADDER SURGERY. STATED TO [facility] NOT AN XPERT ON THAT DEPARTMENT AND TOLD HIM TO ASK A UROLOGISTS.
[2021-12-24 13:59] VITALS: BP 131/54; PULSE 77; RESP 17; TEMP 36.8; O2SAT 98
--- NOTE | 2021-12-24 17:05 | CHAPLAIN ---
Type of Pastoral Visit ___ Initial Visit _x__ Follow-up Visit ___ On-call Visit ___ General Patient Visit ___ Spiritual Assessment ___ Family Conference ___ Bereavement ___ Rapid Response ___ Code Blue ___ Other (describe below) Pastoral Care Referral From ___ Patient _x__ Family ___ Nurse ___ Physician ___ Supervisor Engraving ___ Vice Principal ___ Other (describe below) Sacrament/Intervention _x__ Active listening ___ Anointing ___ Zoroastrian ___ Bereavement ___ Communion _x__ Mariaelena exploration ___ _x__ Life review _x__ Prayer ___ Reconciliation ___ Sacrament of Sick _x__ Supportive presence ___ Wedding ___ Other (describe below) Pastoral Comments patient smiles at slot key person; patient does not interact but spouse does all the talking; spouse talks about family, mariaelena, his concerns for his and the decision to take her home; pt welcomes a prayer and says amen at the end
[2021-12-24] MEDS: 0.9% Saline Lock 10 ML Syringe IV (18:08)
--- NOTE | 2021-12-24 19:44 | DS.PCM_ITS ---
Providers Date of Admission: 12/04/21 Primary Care Physician: Dr. Monico Medina MD Consultations 12/14/21 07:21 Consult: Onc/Wound/cut off operator scorer Routine Comment: Reason for Consult:: Wound to coccyx and left posterior thigh Reason For Visit: FALL, L HIP ARTHROPLASTY Diagnosis Discharge Diagnosis (1) Debility: Status: Acute Code(s): R53.81 - Other malaise (2) Closed fracture of left hip: Status: Inactive Code(s): S72.002A - Fracture of unspecified part of neck of left femur, initial encounter for closed fracture (3) Fever: Status: Resolved Code(s): R50.9 - Fever, unspecified (4) History of breast cancer: Status: Acute Code(s): Z85.3 - Personal history of malignant neoplasm of breast (5) Stroke: Status: Acute Code(s): I63.9 - Cerebral infarction, unspecified (6) Anxiety: Status: Acute Code(s): F41.9 - Anxiety disorder, unspecified (7) 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 Yanez, admitted to TCU with debility, here for rehabilitation, strengthening, prior to discharge to hospice. * Debility - PT/OT. * Pain - Tylenol 1000mg q6h prn pain (1-5), Morphine 5mg sl q4h prn pain (6-10). * Bowel - senna/colace 2 tablets bid, Dulcolax 10mg daily prn. * Adult immunization - Administer pneumonia vaccine, covid19 vaccine, flu vaccine as appropriate. * DVT prophylaxis - Aspirin 81mg bid thru 01/01/2022. * Nutrition - Ensure Plus 120ml 4x/day. * Anxiety - Lorazepam 0.5mg qhs, stable chronic fdc use, GDR not recom mended. 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 Medications at Discharge Home Medications quetiapine 25 mg tablet (Seroquel) 25 mg PO DAILY mood 11/30/21 quetiapine 50 mg tablet (Seroquel) 50 mg PO QHS mood 11/30/21 acetaminophen 500 mg tablet 1,000 mg PO Q6H PRN PRN Pain Score 1-5 #0 tabs 12/24/21 bisacodyl 10 mg rectal suppository 10 mg TX DAILY PRN Constipation 30 days #30 ea 12/24/21 lorazepam 0.5 mg tablet 0.5 mg PO QHS anxiety 30 days #30 tabs 12/24/21 morphine 20 mg/5 mL (4 mg/mL) oral solution 5 mg (1.25 mL) sublingual Q4H PRN Pain 3 days #25 mL 12/24/21 polyethylene glycol 3350 17 gram oral powder packet 17 g PO BID 30 days #60 ea 12/24/21 sennosides 8.6 mg-docusate sodium 50 mg tablet (Stool Softener-Stimulant Laxative) 2 tab PO BID Constipation 30 days #120 tabs 12/24/21 simethicone 80 mg chewable tablet 80 mg PO TIDPC 30 days #90 tabs 12/24/21 Hospital Course Operations - (Left hip hemiarthroplasty.) Procedures None Summary of Care Provided Minutes Spent on Discharge: 35 Hospital Course: 81 year old female with below past medical history hospitalized for left hip fracture, underwent left hip hemiarthroplasty 12/01/[address] Yanez, admitted to TCU with debility, here for rehabilitation, strengthening, prior to discharge to hospice. Resident had left hip incision infection, treated with Vancomycin, Clindamycin with resolution. Resident had constipation which resolved with more intensive bowel regimen. 12/21/2021 Urine culture growing P. Aeruginosa, treated with Nitrofurantoin, then finished treatment with IV Meropenem. Discharge home with 12/27/2021, [facility] PT/OT/SN/CANAS/SW, wheelchair, bedside commode, hospital bed. Physical Exam Const alert General Appearance: cooperative HEENT normocephalic Eyes PERRL and EOMs intact bilaterally Neck supple, no JVD and no carotid bruits Resp normal respiratory effort, normal air movement and clear to auscultation bilaterally Cardio regular rate and regular rhythm GI normal to inspection, nondistended, normoactive bowel sounds, non-tender and non-distended Extremity normal capillary refill General Extremity: Negative for edema Skin no rashes or lesions noted General Skin Exam: no breakdown Psych affect normal Appearance: appropriate Medical Records Data Medical Nutrition Assessment Dietitian: Malnutrition Criteria Met Start: 12/05/21 16:10 Freq: Status: Active Protocol: Document 12/12/21 15:26 [facility] (Rec: 12/12/21 15:26 [facility] [id number]) Nutrition Malnutrition Evidence of Malnutrition Exists Yes Malnutrition (moderate): Chronic Evidenced By Suboptimal Energy Intake ( Moderate),Physical Changes ( Moderate) Clinical Problem Chronic Disease or Condition Related Malnutrition Etiology chronic, moderate malnutrition related to inadequate energy intake d/t dementia Signs/Symptoms as evidenced by estimated PO intake meeting <75% of estimated energy needs >3 months; moderate muscle wasting/fat loss per physical exam; BMI 20.4 Status Active Problem Recommendation Dietitian Recommendations/Changes regular diet- texture/ consistency modifications as appropriate per plan of care as family revoked inpatient hospice care 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 12/10/21 21:48 Blood Culture (Wb) - Right Wrist Blood Culture - Final No growth in 5 days. 12/11/21 04:53 Abs - Hip Gram Stain - Final 12/11/21 04:53 Abs - Hip Wound Culture - Final Staphylococcus aureus Coag Negative Staph 12/08/21 05:15 Nasal Secretion SARS-CoV-2 Antigen (Rapid) - Final 12/06/21 04:47 Nasal Secretion SARS-CoV-2 Antigen (Rapid) - Final D/C Instructions Discharge Diet: No restrictions Discharge Activity: Return to Normal Activity, May Shower and Use Walker Weight Bearing Status: Weight bearing as tolerated Call your doctor if you observe: Fever of 101 or Higher, Inability to urinate, Inability to have a bowel movement, Shortness of breath, Dizziness, Fainting spells, Swelling in the ankles, Chest pain and Uncontrolled pain Additional Instructions: Discharge home with 12/27/2021, [facility] PT/OT/SN/CANAS/SW, wheelchair, bedside commode, hospital bed. Please Follow Up With: Dr. Yanez (will see FRANCISCO JAVIER Arellano) When: As scheduled. Meaningful Use Info Meaningful Use Diagnoses (Choose all that apply): None applicable Discharge Plan Admission Admit Date/Time: 12/04/21 18:55 Primary Reason for Your Visit: Debility. Attending Provider: Emanuel Ortega Chi Primary Care Provider: Monico Medina Instructions Additional Instructions / Restrictions: Discharge home with 12/27/2021, [facility] PT/OT/SN/CANAS/SW, wheelchair, bedside commode, hospital bed. Discharge Orders/Prescriptions Prescriptions: New acetaminophen 500 mg Tablet 1,000 mg PO Q6H PRN PRN (Reason: Pain Score 1-5) Qty: 0 0RF polyethylene glycol 3350 17 gram Powder In Packet 17 g PO BID 30 Days Qty: 60 0RF simethicone 80 mg Tablet,Chewable 80 mg PO TIDPC 30 Days Qty: 90 0RF Continued quetiapine [Seroquel] 25 mg Tablet 25 mg PO DAILY quetiapine [Seroquel] 50 mg Tablet 50 mg PO QHS sennosides-docusate sodium [Stool Softener-Stimulant Laxat] 8.6-50 mg tablet 2 tab PO BID 30 Days Qty: 120 0RF lorazepam 0.5 mg Tablet 0.5 mg PO QHS 30 Days Qty: 30 0RF morphine 20 mg/5 mL (4 mg/mL) Solution 5 mg sublingual Q4H PRN (Reason: Pain) 3 Days Qty: 25 0RF bisacodyl 10 mg Suppository 10 mg TX DAILY PRN (Reason: Constipation) 30 Days Qty: 30 0RF Discontinued haloperidol 0.5 mg Tablet 0.5 mg PO Q4H PRN (Reason: Agitation) lorazepam [Ativan] 0.5 mg Tablet 0.5 mg sublingual Q4H PRN (Reason: ANXIETY) Hold Instructions: Until restarted by hospice aspirin 81 mg tablet,chewable 81 mg PO BIDCM Rx Instructions: Take for 4 weeks postoperatively Ensure Plus High Protein 0.08 gram-1.5 kcal/mL liquid 120 ml PO 4X/DAY Referrals / Follow Up: Monico Medina MD [Primary Care Provider] - Disposition Disposition (needs filled in before D/C Order can be placed): Home, Self Care
[2021-12-24] MEDS: QUEtiapine 25 MG Tablet 50 MG PO (20:19)
[2021-12-24] MEDS: LORazepam 0.5 MG Tablet PO (20:19)
[2021-12-25] MEDS: Bisacodyl 5 MG Tablet 10 MG PO (05:43)
[2021-12-25] MEDS: Polyethylene Glycol 3350 17 GM PACKET PO ×2 (05:43→17:25)
[2021-12-25] MEDS: QUEtiapine 25 MG Tablet PO (05:43)
[2021-12-25] MEDS: Senna/Docusate Sodium 1 Tablet 2 TABLET PO ×2 (05:43→17:26)
[2021-12-25] MEDS: morphine (oral solution) 10MG/0.5ML Syringe 10 MG SL (06:40)
[2021-12-25] MEDS: Menthol/Lanolin/Calamine/Znox 113 GM Tube 1 APPLIC TOPICAL ×2 (07:13→17:22)
[2021-12-25] MEDS: Ensure Plus High Protein 120 ML LIQUID PO ×4 (07:15→21:05)
[2021-12-25] MEDS: Aspirin 81 MG TAB.CHEW PO ×2 (07:56→17:25)
--- NOTE | 2021-12-25 10:19 | NURSING ---
JOHNATHAN RODRIGUEZ FROM [facility] CALLED ASKING IF PT OK TO HAVE 100ML/BOTTLE MORPHINE FOR DC HOME AND HISTORY SHOWED PT HAS ALLERGY. SPOKE WIHT DR KRAUSE, OK FOR [facility] TO SEND WHAT THEY HAVE AND PT IS NOT ALLERGIC, PT HAS BEEN GETTING IT HERE WITH NO ADVERSE REACTIONS.
[2021-12-25] MEDS: Acetaminophen 500 MG Tablet 1000 MG PO (10:50)
--- NOTE | 2021-12-25 13:43 | NURSING ---
PALLIATIVE IN TO TALK TO PT .
[2021-12-25 13:50] VITALS: BP 109/47; PULSE 67; RESP 16; TEMP 36.4; O2SAT 98
[2021-12-25] MEDS: 0.9% Saline Lock 10 ML Syringe IV (17:35)
[2021-12-25 20:00] VITALS: PULSE 73; RESP 16; O2SAT 94
[2021-12-25] MEDS: QUEtiapine 25 MG Tablet 50 MG PO (21:05)
[2021-12-25] MEDS: LORazepam 0.5 MG Tablet PO (21:05)
[2021-12-26 05:59] LABS: Absolute Lymphocyte Count 1.83 X10^3/uL (0.83-4.51); Absolute Neutrophil Count 2.8 X10^3/uL (2.0-7.7); Basophil# 0.05 X10^3/uL; Basophil% 0.8 % (0-1); Eosinophil# 0.66 X10^3/uL; Eosinophils% 10.6 % (0-5); Hematocrit 30.2 % (37-47); Hemoglobin 9.8 g/dL (12.0-15.0); Lymphocyte # 1.83 X10^3/ul (0.83-4.51); Lymphocyte % 29.5 % (19-41); Mean Corp Hgb Conc 32.5 g/dL (32-36); Mean Corpuscular Hgb 31.7 pg (27.0-32.0); Mean Corpuscular Volume 97.7 fL (81-99); Mean Platelet Vol. 8.8 fl (6.2-12.0); Monocyte# 0.82 X10^3/uL; Monocyte% 13.2 % (0-10); NRBC Flagged by Analyzer 0 % (0-5); Neutrophil # 2.82 X10^3/uL (2.7-7.7); Neutrophil % 45.4 % (47-70); Platelet Count 276 K/mm3 (150-450); RBC Distribution Width CV 15.3 % (11.6-14.6); RBC Distribution Width SD 54.7 fl (35.1-43.9); Red Blood Count 3.09 M/mm3 (4.2-5.4); White Blood Count 6.2 K/mm3 (4.4-11.0)
[2021-12-26] MEDS: Polyethylene Glycol 3350 17 GM PACKET PO ×2 (06:20→17:36)
[2021-12-26] MEDS: Senna/Docusate Sodium 1 Tablet 2 TABLET PO ×2 (06:21→17:36)
[2021-12-26] MEDS: 0.9% Saline Lock 10 ML Syringe IV ×2 (06:21→17:45)
[2021-12-26] MEDS: Bisacodyl 5 MG Tablet 10 MG PO (06:21)
[2021-12-26] MEDS: QUEtiapine 25 MG Tablet PO (06:21)
[2021-12-26] MEDS: Ensure Plus High Protein 120 ML LIQUID PO ×4 (06:24→20:58)
[2021-12-26] MEDS: Menthol/Lanolin/Calamine/Znox 113 GM Tube 1 APPLIC TOPICAL ×2 (06:27→17:35)
[2021-12-26 06:43] LABS: Anion Gap 2 (5-15); BUN 24 mg/dL (7-18); BUN/Creat Ratio 33.7 RATIO (10-20); Calcium,Total 9.1 mg/dL (8.5-10.1); Chloride 109 mmol/L (98-107); Creatinine, Serum 0.71 mg/dL (0.55-1.02); EST Glomerular Filtration Rate 83 mL/min (>60); Est Glom Filt Rate - Afr Amer 101 mL/min (>60); Estimated Creatinine Clearance 33.71 ml/min; Glucose 91 mg/dL (74-106); Potassium 4.5 mmol/L (3.5-5.1); Sodium Level 141 mmol/L (136-145)
[2021-12-26] MEDS: Aspirin 81 MG TAB.CHEW PO ×2 (07:59→17:36)
[2021-12-26 13:29] VITALS: BP 106/55; PULSE 72; RESP 16; TEMP 36.2; O2SAT 99
--- NOTE | 2021-12-26 20:00 | NURSING ---
Pt notified this nurse that pt's appointment was cancelled for tomorrow. Pt is discharging in the morning and was scheduled to be picked up at 0940 by [facility], taken to appointment, then transported home from the appointment. Communication entered to have [facility] notified in the morning of cancelled appointment. is also unsure if he will be able to be present at pt's discharge and would like to be called with discharge instructions if he is not present.
[2021-12-26] MEDS: QUEtiapine 25 MG Tablet 50 MG PO (20:57)
[2021-12-26] MEDS: morphine (oral solution) 10MG/0.5ML Syringe 10 MG SL (20:57)
[2021-12-26] MEDS: LORazepam 0.5 MG Tablet PO (21:01)
[2021-12-27] MEDS: Bisacodyl 5 MG Tablet 10 MG PO (05:28)
[2021-12-27] MEDS: Menthol/Lanolin/Calamine/Znox 113 GM Tube 1 APPLIC TOPICAL (05:28)
[2021-12-27] MEDS: Polyethylene Glycol 3350 17 GM PACKET PO (05:28)
[2021-12-27] MEDS: QUEtiapine 25 MG Tablet PO (05:29)
[2021-12-27] MEDS: Senna/Docusate Sodium 1 Tablet 2 TABLET PO (05:29)
[2021-12-27] MEDS: Ensure Plus High Protein 120 ML LIQUID PO (05:29)
[2021-12-27 05:56] VITALS: BP 111/52; PULSE 66; RESP 18; TEMP 36.6; O2SAT 96
[2021-12-27 05:58] VITALS: PULSE 66; RESP 18; O2SAT 96
[2021-12-27] MEDS: Aspirin 81 MG TAB.CHEW PO (07:56)
[2021-12-27] MEDS: morphine (oral solution) 10MG/0.5ML Syringe 10 MG SL (09:07)
--- NOTE | 2021-12-27 09:46 | CASEMGMT ---
Social Work Received call from and [facility] about cancelling of PCP appt, stated [employer] has not scheduled delivery of DME yet, and he needs to get DC instructions. SW spoke with , [facility], [facility] and [employer] to coordinate the following: - Dr. Medina is out of the office but the pt can still keep same appt time and see another provider in order for that provider to sign [facility] orders - [facility] transport time is still scheduled for 9:40 for appt and then transport home - will be picking up pt's prescriptions and visiting at the hospital prior to appt to receive DC instructions - [employer] will deliver DME after 12pm when pt and will be home for the day after appt appreciative of coordination. IDT updated. MIGUELINA Ramos
--- NOTE | 2021-12-27 09:49 | CASEMGMT ---
Social Work Staff assessment completed for MDS assessment. Adri Herbert, MIDDLE SCHOOL TUTOR BEHAVIORAL MODIFICATION ASSISTANT
--- NOTE | 2021-12-27 11:04 | NURSING ---
WENT OVER DISCHARGE INSTRUCTIONS WITH . STATED HE UNDER STOOD. TRANSPORT HERE TO TAKE PT TO DRJosh APPOINTMENT FIRST THEN HOME. THIS NURSE STATED TO PT WHILE AT DOCTORS OFFICE WITH TO ASK QUESTIONS AND THEY WOULD HELP THEM. STATED OK THANK YOU.
== END 2021-12-27 10:45 | disposition home health service (06) | DRG 560 ==
PROVIDERS: Admitting Provider Family Medicine Geriatric Medicine; PCP Family Medicine; Visit Provider Family Medicine Geriatric Medicine
DX: S72.002D Fracture of unspecified part of neck of left femur, subsequent encounter for closed fracture with routine healing (principal); F02.818 Dementia in other diseases classified elsewhere, unspecified severity, with other behavioral disturbance; K56.7 Ileus, unspecified; N39.0 Urinary tract infection, site not specified; G30.1 Alzheimer's disease with late onset; L89.152 Pressure ulcer of sacral region, stage 2; F41.9 Anxiety disorder, unspecified; W19.XXXD Unspecified fall, subsequent encounter; Z79.01 Long term (current) use of anticoagulants; Z79.82 Long term (current) use of aspirin; Z79.899 Other long term (current) drug therapy; B96.5 Pseudomonas (aeruginosa) (mallei) (pseudomallei) as the cause of diseases classified elsewhere
CPT/HCPCS: 36415; 73502; 74018; 80048; 80202; 81001; 85025; 87040; 87070; 87077; 87086; 87088; 87184; 87186; 87205; 87426; 87640; 92526; 92610; 97110; 97116; 97162; 97166; 97530; 97535; 97802; J2185; J7050; A4216

== ENCOUNTER 2021-12-19 03:54 | Emergency (ER) | payer MEDICARE, SELFPAY ==
[2021-12-19 03:55] VITALS: BP 122/55; PULSE 69; RESP 18; TEMP 35.9; O2SAT 97; BMI 24.6
--- NOTE | 2021-12-19 04:27 | CT_ITS ---
EXAM: CT ABDOMEN AND PELVIS WITH INTRAVENOUS CONTRAST CLINICAL INDICATION: abd pain abd pain TECHNIQUE: Helically acquired images were obtained of the abdomen and pelvis with intravenous contrast. This CT exam was performed using one or more of the following dose reduction techniques: automated exposure control, adjustment of the mA and/or kV according to patient size, and/or use of iterative reconstruction technique. This report was created using [employer] report generation technology. CONTRAST: IV 100mL Isovue-370 RADIATION DOSE: CTDIvol = 12.62 mGy, DLP = 819.07 mGy-cm COMPARISON: 04/29/2020. FINDINGS: LOWER THORAX: There is mild atelectasis the visualized posterior lung bases. No cardiomegaly. No significant pericardial effusion. ABDOMEN: LIVER: There are numerous simple appearing liver cysts, ranging up to 9.2 cm. GALLBLADDER AND BILE DUCTS: There is mild central intrahepatic bile duct dilatation and the common bile duct is prominent, measuring 9 mm. There is no significant change from previous study. No calcified gallstones. No gallbladder distention or wall edema. PANCREAS: Unremarkable. No focal cystic or solid mass. SPLEEN: Unremarkable. Normal size without focal cystic or solid mass. ADRENALS: Unremarkable. No nodules. KIDNEYS AND URETERS: There are simple appearing right renal cysts as well as cysts that are too small to reliably characterize. No follow-up imaging is necessary for simple renal cysts or cysts that are too small to characterize. Normal renal size and position. No hydronephrosis. STOMACH AND BOWEL: There is moderately prominent fecal distention of the rectum and there is diffuse fecal prominence throughout the colon, consistent with constipation. There is prominent large and small bowel gas which may be due to constipation and/or ileus. There is no evidence for mechanical bowel obstruction. No focal inflammatory change. PELVIS: APPENDIX: No evidence of acute appendicitis. BLADDER: There is a WALTON catheter with its tip in the urinary bladder lumen. Bladder is decompressed, which limits its evaluation. REPRODUCTIVE: There is a calcified uterine leiomyoma. ABDOMEN and PELVIS: INTRAPERITONEAL SPACE: Unremarkable. No ascites or other fluid collection. No free air. BONES/JOINTS: There are multilevel degenerative changes in the visualized spine. There are bilateral hip prostheses. No suspicious lytic or blastic abnormality. SOFT TISSUES: Unremarkable. No discrete abdominal or pelvic wall hernia. VASCULATURE: There is atherosclerotic calcification of the abdominal aorta. Abdominal aorta is non-dilated. LYMPH NODES: Unremarkable. No enlarged lymph nodes. CT/Abdomen/Pelvis W IV Cont ONLY IMPRESSION: 1. Prominent colonic and rectal feces consistent with constipation. Fecal impaction may also be present. 2. Distention of large and small bowel loops may be secondary to constipation and/or ileus. 3. Bile duct dilatation, which is not significantly different from previous study. Suggest laboratory correlation and would consider MRCP for further evaluation. 4. Multiple liver cysts, stable in appearance. 5. Uterine leiomyoma. 6. Atherosclerosis. Electronically Signed: Diego Limon MD at 6:17 EDT ,
[2021-12-19 05:09] LABS: Absolute Lymphocyte Count 1.86 X10^3/uL (0.83-4.51); Absolute Neutrophil Count 3.7 X10^3/uL (2.0-7.7); Basophil# 0.07 X10^3/uL; Eosinophils% 8.5 % (0-5); Hematocrit 29.7 % (37-47); Hemoglobin 9.3 g/dL (12.0-15.0); Lymphocyte # 1.86 X10^3/ul (0.83-4.51); Lymphocyte % 26.2 % (19-41); Mean Corp Hgb Conc 31.3 g/dL (32-36); Mean Corpuscular Hgb 30.3 pg (27.0-32.0); Mean Corpuscular Volume 96.7 fL (81-99); Mean Platelet Vol. 8.9 fl (6.2-12.0); Monocyte% 11.3 % (0-10); NRBC Flagged by Analyzer 0 % (0-5); Neutrophil # 3.69 X10^3/uL (2.7-7.7); Platelet Count 483 K/mm3 (150-450); RBC Distribution Width SD 53.1 fl (35.1-43.9); Red Blood Count 3.07 M/mm3 (4.2-5.4); White Blood Count 7.1 K/mm3 (4.4-11.0)
[2021-12-19 05:21] LABS: Anion Gap 5 (5-15); BUN 23 mg/dL (7-18); Calcium,Total 8.6 mg/dL (8.5-10.1); Chloride 110 mmol/L (98-107); Creatinine, Serum 0.64 mg/dL (0.55-1.02); EST Glomerular Filtration Rate 94 mL/min (>60); Est Glom Filt Rate - Afr Amer 114 mL/min (>60); Estimated Creatinine Clearance 33.71 ml/min; Glucose 97 mg/dL (74-106); Potassium 4.1 mmol/L (3.5-5.1); Sodium Level 144 mmol/L (136-145)
--- NOTE | 2021-12-19 05:36 | ED.RN ---
Pt ready for d/c when friend in room pointed out to this RN about pt having hives. Hives noted on both shoulders, chest, and down both arms. MD notified. Orders followed.
[2021-12-19 05:48] LABS: Lactic Acid 0.9 mmol/L (0.4-1.9)
--- NOTE | 2021-12-19 06:44 | EX.ED.DYSGE1 ---
HPI History of Present Illness Chief Complaint: Abd Pain Narrative Narrative: Patient is an 81-year-old female who is a DNR comfort care only. She does not speak and has a history of stroke and Alzheimer's. She had a recent fall where she had to have a left hip surgery secondary to fracture. Reportedly the surgical wound became infected and she has been on antibiotics. She does have a history of constipation/irritable bowel syndrome. There was concern about some stomach distention recently and she had an x-ray obtained which question possible ischemic gut. Because she is a DNR comfort care only there was no recommendation for further intervention. Reportedly this morning/evening nursing staff felt that the patient's abdomen was becoming more distended and was becoming mottled and there was concern that this ischemic gut was worsening which could lead to eminent . They contacted the patient's who came to the hospital and asked that she be sent to the ER for further evaluation. As the patient is mute she cannot offer any further history [facility] Medical History (Updated 12/19/21 @ 22:[address] Ameya Olivas, DO) Anxiety Back pain Breast cancer Closed fracture of left hip Cystocele Dementia Dysphagia Esophageal dysphagia Fall History of dementia Migraines Osteoarthritis Home Medications bisacodyl 10 mg rectal suppository 10 mg MS DAILY PRN Constipation 11/30/21 [History Last Taken Unknown] haloperidol 0.5 mg tablet 0.5 mg PO Q4H PRN Agitation 11/30/21 [History Last Taken Unknown] lorazepam 0.5 mg tablet (Ativan) 0.5 mg sublingual Q4H PRN ANXIETY 11/30/21 [History Last Taken 11/30/21] quetiapine 25 mg tablet (Seroquel) 25 mg PO DAILY mood 11/30/21 [History Last Taken 11/30/21] quetiapine 50 mg tablet (Seroquel) 50 mg PO QHS mood 11/30/21 [History Last Taken 11/29/21] aspirin 81 mg chewable tablet 81 mg PO BIDCM anticoagulant 12/04/21 [History Last Taken Unknown] food supplemt, lactose-reduced 0.08 gram-1.5 kcal/mL oral liquid (Ensure Plus High Protein) 120 ml PO 4X/DAY nutritional supplement 12/04/21 [History Last Taken Unknown] lorazepam 0.5 mg tablet 0.5 mg PO QHS anxiety #1 TAB 10/04/22 [Rx Last Taken Unknown] morphine 20 mg/5 mL (4 mg/mL) oral solution 5 mg (1.25 mL) sublingual Q4H PRN Pain 1 day #100 mL 12/04/21 [Rx Last Taken Unknown] sennosides 8.6 mg-docusate sodium 50 mg tablet (Stool Softener-Stimulant Laxative) 2 tab PO BID Constipation 12/04/21 [History Last Taken Unknown] Allergy/AdvReac Type Severity Reaction Status Date / Time clarithromycin [From Biaxin] Allergy Unknown Unknown Verified 11/30/21 10:56 doxycycline Allergy Unknown Unknown Verified 11/30/21 10:56 erythromycin estolate Allergy Unknown Unknown Verified 11/30/21 10:56 [From Ilosone] hydrocodone bitartrate Allergy Unknown Unknown Verified 11/30/21 10:56 [From Vicodin] levofloxacin [From Levaquin] Allergy Unknown Unknown Verified 11/30/21 10:56 oxycodone [Oxycodone] Allergy Unknown Unknown Verified 11/30/21 10:56 oxycodone HCl [From Percocet] Allergy Unknown Unknown Verified 11/30/21 10:56 pantoprazole Allergy Unknown Unknown Verified 11/30/21 10:56 propoxyphene Allergy Unknown Unknown Verified 11/30/21 10:56 peanut AdvReac Other Verified 11/30/21 10:56 Penicillins [PCN] AdvReac PT UNSURE Verified 11/30/21 10:56 OF REACTION Surgical History H/O total mastectomy of left breast History of colonoscopy (~2005) History of left hip hemiarthroplasty History of right hip hemiarthroplasty S/P appendectomy S/P D&C (status post dilation and curettage) (~08/31/19) Social History household members: spouse and children number of children: 3 Smoking Status: Never smoker alcohol intake: never substance use type: does not use caffeine: No what type of physical activity do you participate in: none seatbelt use: always do you feel safe at home: Yes additional social history: Arias ROS ROS ED ROS Narrative Review of systems unable to be obtained as patient is mute and has history of Alzheimer EXAM Physical Exam Const Vital Signs: 12/19/21 03:55 12/19/21 07:01 Temperature 96.6 F L Temperature Source Temporal Pulse Rate 69 85 Respiratory Rate 18 Blood Pressure 122/55 H 118/63 Blood Pressure Mean 77 Pulse Ox 97 98 Oxygen Delivery Method Room Air Positive well nourished and well developed General Appearance ED: well developed Eyes PERRL and EOMs intact bilaterally General Eye ED: Negative for scleral icterus Neck no lymphadenopathy Chest Wall palpation of chest normal Resp normal respiratory effort and clear to auscultation bilaterally Cardio regular rate and regular rhythm Rate: other Other Details: Radial pulses are plus 2 out of 4 bilaterally are equal and symmetric Carotid pulses equal and symmetric as well GI GI Narrative: Abdomen is soft but there is slight distention. Bowel sounds are hypoactive. There is no overt pain with palpation no rigidity or pulsatile mass. No fluid wave noted. There is increased tympany diffusely Extremity Extremity Narrative: Patient has postoperative changes to the left hip consistent with recent surgery. However the wound is clean dry and intact without obvious secondary changes to suggest infection Neuro Neuro Narrative: Patient is lethargic but will awaken to voice. She can follow commands such as squeezing with her hands. She is at her baseline mental status and there is no obvious focal neurologic deficit. GCS of 14 Psych Psych Narrative: Patient has a flat affect Skin Skin Narrative: Surgical changes of the left hip as documented above without obvious secondary changes to suggest infection General Skin Exam: Negative for jaundice MDM MDM MDM Narrative Medical decision making narrative: Patient presented to the ER at her baseline mental status with stable vitals. Her abdomen shows mild distention but there is no mottling noted and there is no rigidity or pulsatile mass. The diagnosis of ischemic bowel was through x-ray and when I reviewed this it just questions the diagnosis does not state it believes it is exclusively. Therefore elected to perform basic laboratory studies and CT scan for improved diagnosis. Patient's white count is normal and there is no left shift or lactic acidosis going against acute/systemic infection or ischemia. The CT scan of the abdomen and pelvis showed constipation with possible ileus but no signs of necrotic bowel. This CT read is consistent with her exam as well as her history of IBS-C. At this time as she does not have signs of systemic infection or ischemic bowel there is no need to further work-up in the ER and she is safe to go back to the detention facility and they should place her on a bowel regimen to help resolve her constipation Lab Data Attestation: I reviewed the patient's lab results. Labs: Laboratory Results - last 24 hr 12/19/21 12/19/21 12/19/21 04:45 04:45 04:45 WBC 7.1 RBC 3.07 L Hgb 9.3 L Hct 29.7 L MCV 96.7 MCH 30.3 MCHC 31.3 L RDW Std Deviation 53.1 H RDW Coeff of Ilana 15.0 H Plt Count 483 H MPV 8.9 Immature Gran % (Auto) 1.000 H Neut % (Auto) 52.0 Lymph % (Auto) 26.2 Glynn % (Auto) 11.3 H Eos % (Auto) 8.5 H Baso % (Auto) 1.0 Absolute Neuts (auto) 3.7 Absolute Lymphs (auto) 1.86 Nucleated RBC % 0 Sodium 144 Potassium 4.1 Chloride 110 H Carbon Dioxide 29.0 Anion Gap 5 BUN 23 H Creatinine 0.64 Estim Creat Clear Calc 33.71 Est GFR (MDRD) Af Amer 114 Est GFR (MDRD) Non-Af 94 BUN/Creatinine Ratio 36.0 H Glucose 97 Lactic Acid 0.9 Calcium 8.6 Radiography Diagnostic Testing: Clinical Impression(s) from Imaging Studies Abdomen/Pelvis CT 12/19/21 04:27 IMPRESSION: 1. Prominent colonic and rectal feces consistent with constipation. Fecal impaction may also be present. 2. Distention of large and small bowel loops may be secondary to constipation and/or ileus. 3. Bile duct dilatation, which is not significantly different from previous study. Suggest laboratory correlation and would consider MRCP for further evaluation. 4. Multiple liver cysts, stable in appearance. 5. Uterine leiomyoma. 6. Atherosclerosis. Electronically Signed: Diego Limon MD at 6:17 EDT , Discharge Plan Triage Chief Complaint: Abd Pain ED Provider: Ameya Olivas Dx/Rx/DC Orders Clinical Impression: Constipation, Dementia, Irritable bowel syndrome with constipation, History of cerebrovascular accident Instructions: ED Constipation (Adult) Prescriptions: No Action quetiapine [Seroquel] 25 mg Tablet 25 mg PO DAILY haloperidol 0.5 mg Tablet 0.5 mg PO Q4H PRN (Reason: Agitation) lorazepam [Ativan] 0.5 mg Tablet 0.5 mg sublingual Q4H PRN (Reason: ANXIETY) Hold Instructions: Until restarted by hospice bisacodyl 10 mg Suppository 10 mg MS DAILY PRN (Reason: Constipation) quetiapine [Seroquel] 50 mg Tablet 50 mg PO QHS lorazepam 0.5 mg Tablet 0.5 mg PO QHS Qty: 1 0RF morphine 20 mg/5 mL (4 mg/mL) Solution 5 mg sublingual Q4H PRN (Reason: Pain) 1 Days Qty: 100 0RF sennosides-docusate sodium [Stool Softener-Stimulant Laxat] 8.6-50 mg tablet 2 tab PO BID aspirin 81 mg tablet,chewable 81 mg PO BIDCM Rx Instructions: Take for 4 weeks postoperatively Ensure Plus High Protein 0.08 gram-1.5 kcal/mL liquid 120 ml PO 4X/DAY Primary Care Provider: Monico Medina Referrals: Monico Medina MD [Primary Care Provider] - Activity Restrictions/Additional Instructions: Your blood work today revealed no clinically significant findings. The CT scan showed constipation but no signs of ischemic bowel. Because of the constipation please continue a bowel regimen to help with bowel movements and return to the ER should you have any further concerns Disposition Disposition: Snf Facility Discharge Location: [facility] Transitional Care Unit Discharge Date/Time: 12/19/21 07:06
[2021-12-19] MEDS: Morphine 4 MG/ML Syringe IV (06:52)
[2021-12-19] MEDS: Ondansetron 4 MG/2 ML Vial IV (06:52)
[2021-12-19 07:01] VITALS: BP 118/63; PULSE 85; O2SAT 98
== END 2021-12-19 07:06 ==
PROVIDERS: Emergency Provider Emergency Medicine; PCP Family Medicine; Visit Provider Emergency Medicine
DX: K58.1 Irritable bowel syndrome with constipation (principal); G30.9 Alzheimer's disease, unspecified; F02.80 Dementia in other diseases classified elsewhere, unspecified severity, without behavioral disturbance, psychotic disturbance, mood disturbance, and anxiety; Z66 Do not resuscitate; Z79.899 Other long term (current) drug therapy; Z86.73 Personal history of transient ischemic attack (TIA), and cerebral infarction without residual deficits
CPT/HCPCS: 74177; 80048; 83605; 85025; 96361; 96374; 96375; 99283; J7040; Q9967; A4216; J2405

== ENCOUNTER 2022-01-08 15:22 | Outpatient (RCR) | payer MEDICARE, SELFPAY ==
[2022-01-08 15:44] LABS: Color, Urine Red (Yellow); Glucose, Dipstick Normal (Normal); Ketone-Dipstick 5 mg/dl (Negative); Leukocyte Esterase-Dipstick 500 /ul (Negative); Nitrite-Dipstick Positive (Negative); Occult Blood-Urine 250 /ul (Negative); Protein-Dipstick 100 mg/dl (Negative); Urine Bilirubin Dipstick Negative (Negative); Urine Clarity Cloudy (Clear); Urine Urobilinogen Normal (Normal)
== END 2022-01-30 18:00 | disposition home or self-care (01) ==
LOC: HHLAB 15:22
PROVIDERS: PCP Family Medicine
DX: R82.998 Other abnormal findings in urine (principal)
CPT/HCPCS: 81002; 87077; 87086; 87088; 87186

== ENCOUNTER → 2022-02-18 | Outpatient (CLI) | payer MEDICARE, SELFPAY ==
[2022-02-18 19:42] LABS: Bacteria 0 SEEN /hpf (None Seen); Mucous, Urine 0 SEEN /hpf (<or=2+); Red Blood Cells-Urine 0 SEEN /hpf (0-5); Squamous Epithelial Cells - UA 0 SEEN /hpf (5-10)
[2022-02-18 19:50] LABS: Color, Urine Yellow (Yellow); Glucose, Dipstick Normal (Normal); Ketone-Dipstick Negative (Negative); Leukocyte Esterase-Dipstick 25 /ul (Negative); Nitrite-Dipstick Negative (Negative); Occult Blood-Urine Negative /ul (Negative); Protein-Dipstick Negative (Negative); Specific Gravity, Urine 1.015 (1.002-1.030); Urine Bilirubin Dipstick Negative (Negative); Urine Clarity Clear (Clear); Urine Urobilinogen Normal (Normal)
[2022-02-18 20:59] LABS: White Blood Cells 0-5 SEEN /hpf (0-5)
== END | disposition home or self-care (01) ==
PROVIDERS: PCP Family Medicine; Visit Provider Nurse Practitioner
DX: R41.82 Altered mental status, unspecified (principal)
CPT/HCPCS: 81001; 87086

== ENCOUNTER 2022-04-02 14:00 | Outpatient (RCR) | payer MEDICARE, SELFPAY ==
[2022-03-19 10:16] VITALS: BP 123/60; PULSE 67; TEMP 36.7; BMI 22.6
[2022-03-19 10:30] VITALS: BMI 22.6
--- NOTE | 2022-03-19 15:26 | PCM.WC.HP ---
History of Present Illness Date of Service: 03/19/22 Chief Complaint: Surgical wound dehiscence of a left hip hemiarthroplasty incision History of Wound: This is an 81-year-old female who suffers from Alzheimer's dementia, debility, and generalized weakness. She resides at home with her , who is her caregiver. She is minimally ambulatory, requiring human assistance and a walker. She is currently on hospice care. She presented with a surgical wound dehiscence of a left hip hemiarthroplasty incision. The left hip surgery was performed on December 01, 2021. Following her surgery, she spent approximately 4 weeks in the transitional care unit. Early in her postoperative convalescence, she developed a dehiscence of her surgical wound, for which she is now referred for evaluation and management. She is also undergone a right hip hemiarthroplasty, which was performed on June 11, 2021. The right hip incision appears to be healing appropriately. The patient's has been treating her dehiscent wound with silver dressings. The wound is located on the left anterior hip, and is noted to be tunneled with undermining inferiorly. The patient suffers from multiple pre-existing medical problems, as outlined below. She is of relatively normal body habitus, with a BMI of 27.6. She has recently suffered from poor appetite, but with attention to improving oral intake, and the use of Boost nutritional supplements, the patient has recently gained 20 pounds. [facility] Medical History Alzheimer's dementia Anxiety Back pain Breast cancer Closed fracture of left hip Cystocele Cystocele Debility Dementia Dysphagia Dysphagia Esophageal dysphagia Fall Correa catheter in place Generalized weakness GERD (gastroesophageal reflux disease) Hearing deficit History of cerebrovascular accident History of dementia History of left breast cancer History of migraine headaches Migraines Osteoarthritis Poor appetite Protein calorie malnutrition Surgical wound dehiscence Urinary retention with incomplete bladder emptying Uterine prolapse Home Medications acetaminophen 500 mg tablet 1,000 mg PO Q6H PRN PRN Pain Score 1-5 #0 tabs 12/24/21 [Rx Last Taken Unknown] lorazepam 0.5 mg tablet 0.5 mg PO QHS anxiety 30 days #30 tabs 12/24/21 [Rx Last Taken Unknown] morphine 20 mg/5 mL (4 mg/mL) oral solution 5 mg (1.25 mL) sublingual Q4H PRN Pain 3 days #25 mL 12/24/21 [Rx Last Taken Unknown] polyethylene glycol 3350 17 gram oral powder packet 17 g PO BID 30 days #60 ea 12/24/21 [Rx Last Taken Unknown] sennosides 8.6 mg-docusate sodium 50 mg tablet (Stool Softener-Stimulant Laxative) 2 tab PO BID Constipation 30 days #120 tabs 12/24/21 [Rx Last Taken Unknown] Allergy/AdvReac Type Severity Reaction Status Date / Time clarithromycin [From Biaxin] Allergy Unknown Unknown Verified 11/30/21 10:56 doxycycline Allergy Unknown Unknown Verified 11/30/21 10:56 erythromycin estolate Allergy Unknown Unknown Verified 11/30/21 10:56 [From Ilosone] hydrocodone bitartrate Allergy Unknown Unknown Verified 11/30/21 10:56 [From Vicodin] levofloxacin [From Levaquin] Allergy Unknown Unknown Verified 11/30/21 10:56 oxycodone [Oxycodone] Allergy Unknown Unknown Verified 11/30/21 10:56 oxycodone HCl [From Percocet] Allergy Unknown Unknown Verified 11/30/21 10:56 pantoprazole Allergy Unknown Unknown Verified 11/30/21 10:56 propoxyphene Allergy Unknown Unknown Verified 11/30/21 10:56 peanut AdvReac Other Verified 11/30/21 10:56 Penicillins [PCN] AdvReac PT UNSURE Verified 11/30/21 10:56 OF REACTION Surgical History H/O total mastectomy of left breast History of appendectomy History of colonoscopy (~2005) History of left hip hemiarthroplasty History of left hip hemiarthroplasty History of right hip hemiarthroplasty History of right hip hemiarthroplasty History of vein stripping S/P appendectomy S/P D&C (status post dilation and curettage) (~08/31/19) Social History household members: spouse and children number of children: 3 Smoking Status: Never smoker alcohol intake: never substance use type: does not use caffeine: No what type of physical activity do you participate in: none seatbelt use: always do you feel safe at home: Yes additional social history: [place] Vital Signs Vital Signs Vital Signs: 03/19/22 10:16 Temperature 98.1 F Temperature Source Temporal Pulse Rate 67 Blood Pressure 123/60 H Blood Pressure Mean 81 Blood Pressure Source Monitor Weight Weight: 128 lb Body Mass Index (BMI) 22.6 Physical Exam Const no apparent distress and average body habitus Constitutional Narrative: The patient is chronically ill-appearing. She does not communicate. She is of relatively normal body habitus. An indwelling Correa urinary catheter is noted. General Appearance: lethargic, ill appearing and frail Orientation / Consciousness: awake and lethargic HEENT normocephalic and head/scalp atraumatic Head and Scalp: normal to inspection, normocephalic and atraumatic External Ear: external ears normal Eyes PERRL and EOMs intact bilaterally General Eye: normal appearance of both eyes Resp normal respiratory effort, normal air movement, no retractions and no use of accessory muscles Extremity no calf tenderness General Extremity: Negative for clubbing or cyanosis Skin Wound Narrative: An open wound is noted in the midst of a left hip hemiarthroplasty incision. There is no sign of infection or cellulitis. Dimensions are documented elsewhere. There is a moderate amount of bioburden. Significant tunneling and undermining is noted inferiorly, with extension of about 2 cm in the inferior direction. The opening to the wound is wide and ample. Neuro Sensorium / Orientation: awake, lethargic, somnolent and fluctuating sensorium Psych Appearance: grossly normal Attitude: calm Speech: minimal Mood & Affect: euthymic mood Attention / Concentration: attention grossly impaired and concentration grossly impaired Debridement Note Debridement Note Wound debrided: Left hip hemiarthroplasty incision dehiscence Laterality: Left Type of Debridement: Excisional debridement Anesthesia Used: 5% Lidocaine Gel Depth: Down to and including healthy tissue and in the subcutaneous layer Percentage of wound debrided: 100 Instrument Used: 3mm curette Tissue Removed: Bioburden and nonviable tissue Severity: Fat Layer Exposed Amount of bleeding with debridement: Mild Bleeding Controlled with: Compression and gauze Patient tolerated procedure: Patient tolerated procedure well Post-Debridement Measurements and Additional Note: Post-Debridement Measurements/Treatment JESS - Nurse 1 - General Ulcer Assessment Start: 03/19/22 10:13 Freq: Status: Active Protocol: HARSH Activity Type Activity Date Activity User E-sign Co-sign Detail Recorded Client Recorded Date Recorded By Document 03/19/22 10:16 EMERITA [id number] 03/19/22 10:30 AK Document 03/19/22 10:30 EMERITA [id number] 03/19/22 11:12 AK 03/19/22 03/19/22 10:16 10:30 Height and Weight Height 5 ft 3 in Weight 128 lb Weight in Pounds 128.0 lbs Body Mass Index (BMI) 22.6 22.6 BMI Classification Normal Normal BSA - Adan 1.60 Vital Signs Temperature (97.8 F-99.1 F) 98.1 F Temperature Source Temporal Pulse Rate (60-100) 67 Pulse Location Monitor Blood Pressure (90/60-120/80) 123/60 H Blood Pressure Mean 81 Source Monitor History Since Last Visit- (Skip if this is Patient's initial visit) Left Footwear Regular Shoe Right Footwear Regular Shoe Pain Scale: 0-10 Numeric Is Patient Pain Free? No Yes WC - Nurse 1 - General Ulcer Measurement Start: 03/19/22 10:13 Freq: Status: Active Protocol: Activity Type Activity Date Activity User E-sign Co-sign Detail Recorded Client Recorded Date Recorded By Document 03/19/22 10:16 [place] [id number] 03/19/22 10:30 AK 03/19/22 10:16 Wound Center Nurse 1 #1 L hip -Current Size (cm) - Length 1.3 -Current Size (cm) - Width 1 -Current Size (cm) - Depth 0.5 -Total Square Cm 1.3 -Date of Last Picture (Recall this 03/19/22 field) -Photo Taken Yes -Tunneling No -Undermining/Tunneling Yes -Undermining/Tunneling Starts (O'clock 11 ) -Undermining/Tunneling Ends (O'clock) 5 -Maximum Distance (cm) 0.5 -Circular Undermining No -Change in Wound Grade/Stage No -Exudate Amt Medium -Exudate Type Serosanguineous -Wound Margin Distinct, Outline Attached -Granulation Amt None Present (0 %) -Granulation Quality N/A -Slough/Fibrin Yes -Necrosis Amt Large (67-100%) -Necrotic Tissue Type Adherent Slough -Structure Exposed N/A -Texture (Izabel-wound Skin Appearance) Assessed, Scarring -Moisture (Izabel-wound Skin Appearance) No Abnormality, Assessed -Color (Izabel-wound Skin Appearance) No Abnormality, Assessed -Temperature (Izabel-wound Skin No Abnormality Appearance) (Pt Warm) -Tenderness on Palpation (Izabel-wound No Skin Appearance) -Ulcer Cleansing Rinsed/ Irrigated with Saline -Foul Odor after Cleansing No -Anesthetic Used 5% Lidocaine Gel WC - Nurse 2 - General Ulcer CM Notes Start: 03/19/22 10:13 Freq: Status: Active Protocol: Activity Type Activity Date Activity User E-sign Co-sign Detail Recorded Client Recorded Date Recorded By Document 03/19/22 11:44 PL [id number] 03/19/22 11:45 PL 03/19/22 11:44 Wound Center Nurse 2 -Time 10:52 -Correct Patient Yes -Correct Side, Site, Position Yes -Correct Procedure Yes -Procedure Performed Yes -Type of Procedure Debridement -Clinical Debridement Subcutaneous -Tissue Removed Subcutaneous -Post Debridement (cm) - Length 1.3 -Post Debridement (cm) - Width 1.0 -Post Debridement (cm) - Depth 0.5 -Total Square (Post) (cm) 1.30 -Area of Debridement (cm) - Length 1.3 -Area of Debridement (cm) - Width 1.0 -Total Square (Area) (cm) 1.30 -Tunneling No -Undermining/Tunneling No -Circular Undermining No -Wound/Ulcer Outcome Not Healed -Ulcer Cleansing Rinsed/ Irrigated with Saline -Foul Odor after Cleansing No -Bioengineered Tissue No -Bleeding Controlled with Pressure -Treatment Response Procedure Tolerated Well -Debridement - Subq, 1st 20sq cm Yes Pain Scale: 0-10 Numeric Is Patient Pain Free? Yes - Nurse 3 - General Ulcer D/C NN Start: 03/19/22 10:13 Freq: Status: Active Protocol: Activity Type Activity Date Activity User E-sign Co-sign Detail Recorded Client Recorded Date Recorded By Document 03/19/22 11:26 AK [id number] 03/19/22 11:28 AK 03/19/22 11:26 Wound Care Nurse 3 #1 L hip -Ulcer Cleansing Rinsed/ Irrigated with Saline -Foul Odor after Cleansing No -Negative Pressure Wound Therapy N/A -Primary Dressing Applied Mepilex Border, Nugauze, Plain Iodoform -Mepilex Border 1 -Nugauze, Plain Iodoform 1/4 1 Pain Scale: 0-10 Numeric Is Patient Pain Free? Yes WC - Visit Discharge Discharge Condition Stable Ambulatory Status Walker, Wheelchair Transportation Private Auto Accompanied by Medication Reconcilliation completed & Yes provided to patient/care provider Clinical Summary of Care Provided Yes Assessment/Plan Assessment/Plan (1) Surgical wound dehiscence: CODE(S): T81.31XA - Disruption of external operation (surgical) wound, not elsewhere classified, initial encounter (2) Debility: CODE(S): R53.81 - Other malaise (3) Alzheimer's dementia: CODE(S): G30.9 - Alzheimer's disease, unspecified; F02.80 - Dementia in other diseases classified elsewhere, unspecified severity, without behavioral disturbance, psychotic disturbance, mood disturbance, and anxiety (4) Protein calorie malnutrition: CODE(S): E46 - Unspecified protein-calorie malnutrition (5) Generalized weakness: CODE(S): R53.1 - Weakness (6) History of cerebrovascular accident: CODE(S): Z86.73 - Personal history of transient ischemic attack (TIA), and cerebral infarction without residual deficits (7) GERD (gastroesophageal reflux disease): CODE(S): K21.9 - Gastro-esophageal reflux disease without esophagitis (8) Cystocele: (9) Dysphagia: CODE(S): R13.10 - Dysphagia, unspecified (10) Uterine prolapse: CODE(S): N81.4 - Uterovaginal prolapse, unspecified (11) History of migraine headaches: CODE(S): Z86.69 - Personal history of other diseases of the nervous system and sense organs (12) History of left breast cancer: CODE(S): Z85.3 - Personal history of malignant neoplasm of breast (13) Hearing deficit: CODE(S): H91.90 - Unspecified hearing loss, unspecified ear (14) Poor appetite: CODE(S): R63.0 - Anorexia (15) History of left hip hemiarthroplasty: CODE(S): Z96.642 - Presence of left artificial hip joint (16) History of right hip hemiarthroplasty: CODE(S): Z96.641 - Presence of right artificial hip joint (17) History of appendectomy: CODE(S): Z90.49 - Acquired absence of other specified parts of digestive tract (18) History of vein stripping: CODE(S): Z98.890 - Other specified postprocedural states (19) Urinary retention with incomplete bladder emptying: CODE(S): R33.9 - Retention of urine, unspecified (20) Correa catheter in place: CODE(S): Z97.8 - Presence of other specified devices PLAN: Plan This is an 81-year-old female who suffers from Alzheimer's dementia, generalized weakness, and debility. She also suffers from protein-calorie malnutrition. She is currently on hospice care. She lives at home with her , who provides her daily care. She was referred for evaluation and management of a left hip hemiarthroplasty surgical incisional dehiscence. Based upon physical findings, the joint space does not appear to be involved. The undermining and tunneling of the wound suggest that healing by secondary intention may be unlikely however, the patient's compromised cognitive state likely precludes any major procedural intervention. We are to implement the use of saline?moistened 1/4 inch Nu Gauze packing on a daily basis. Patient's has been instructed in the appropriate means of application. He is to be provided with the necessary medical supplies. Collaboration will be undertaken with the patient's hospice care managers, to determine what other resources may be available, such as home nursing care, silver dressings (Aquacel rope), and the ability to obtain laboratory studies. Optimizing nutritional intake has been discussed with the patient's , and nutritional supplements such as boost or Ensure have been recommended. The patient is to return in 2 weeks for reevaluation. Total time: 58 minutes
[2022-04-02 14:04] VITALS: BP 144/84; PULSE 66; RESP 20; TEMP 36.3; BMI 22.6
--- NOTE | 2022-04-02 14:52 | HP.PCM_ITS ---
History of Present Illness Date of Service: 04/02/22 Chief Complaint: Surgical wound dehiscence of a left hip hemiarthroplasty incision History of Wound: This is an 81-year-old female who suffers from Alzheimer's dementia, debility, and generalized weakness. She resides at home with her , who is her caregiver. She is minimally ambulatory, requiring human assistance and a walker. She is currently on Hospice care. She presented with a surgical wound dehiscence of a left hip hemiarthroplasty incision. The left hip surgery was performed on December 01, 2021. Following her surgery, she spent approximately 4 weeks in the transitional care unit. Early in her postoperative convalescence, she developed a dehiscence of her surgical wound, for which she is now referred for evaluation and management. She is also undergone a right hip hemiarthroplasty, which was performed on June 11, 2021. The right hip incision appears to be healing appropriately. The patient's has been treating her dehiscent wound with silver dressings. The wound is located on the left anterior hip, and is noted to be tunneled with undermining inferiorly. The patient suffers from multiple pre-existing medical problems, as outlined below. She is of relatively normal body habitus, with a BMI of 27.6. She has recently suffered from poor appetite, but with attention to improving oral intake, and the use of Boost nutritional supplements, the patient has recently gained 20 pounds. [facility] Medical History Alzheimer's dementia Anxiety Back pain Breast cancer Closed fracture of left hip Cystocele Cystocele Debility Dementia Dysphagia Dysphagia Esophageal dysphagia Fall Correa catheter in place Generalized weakness GERD (gastroesophageal reflux disease) Hearing deficit History of cerebrovascular accident History of dementia History of left breast cancer History of migraine headaches Migraines Osteoarthritis Poor appetite Protein calorie malnutrition Surgical wound dehiscence Urinary retention with incomplete bladder emptying Uterine prolapse Home Medications acetaminophen 500 mg tablet 1,000 mg PO Q6H PRN PRN Pain Score 1-5 #0 tabs 12/24/21 [Rx Last Taken Unknown] lorazepam 0.5 mg tablet 0.5 mg PO QHS anxiety 30 days #30 tabs 12/24/21 [Rx Last Taken Unknown] morphine 20 mg/5 mL (4 mg/mL) oral solution 5 mg (1.25 mL) sublingual Q4H PRN Pain 3 days #25 mL 12/24/21 [Rx Last Taken Unknown] polyethylene glycol 3350 17 gram oral powder packet 17 g PO BID 30 days #60 ea 12/24/21 [Rx Last Taken Unknown] sennosides 8.6 mg-docusate sodium 50 mg tablet (Stool Softener-Stimulant Laxative) 2 tab PO BID Constipation 30 days #120 tabs 12/24/21 [Rx Last Taken Unknown] Allergy/AdvReac Type Severity Reaction Status Date / Time clarithromycin [From Biaxin] Allergy Unknown Unknown Verified 11/30/21 10:56 doxycycline Allergy Unknown Unknown Verified 11/30/21 10:56 erythromycin estolate Allergy Unknown Unknown Verified 11/30/21 10:56 [From Ilosone] hydrocodone bitartrate Allergy Unknown Unknown Verified 11/30/21 10:56 [From Vicodin] levofloxacin [From Levaquin] Allergy Unknown Unknown Verified 11/30/21 10:56 oxycodone [Oxycodone] Allergy Unknown Unknown Verified 11/30/21 10:56 oxycodone HCl [From Percocet] Allergy Unknown Unknown Verified 11/30/21 10:56 pantoprazole Allergy Unknown Unknown Verified 11/30/21 10:56 propoxyphene Allergy Unknown Unknown Verified 11/30/21 10:56 peanut AdvReac Other Verified 11/30/21 10:56 Penicillins [PCN] AdvReac PT UNSURE Verified 11/30/21 10:56 OF REACTION Surgical History H/O total mastectomy of left breast History of appendectomy History of colonoscopy (~2005) History of left hip hemiarthroplasty History of left hip hemiarthroplasty History of right hip hemiarthroplasty History of right hip hemiarthroplasty History of vein stripping S/P appendectomy S/P D&C (status post dilation and curettage) (~08/31/19) Social History household members: spouse and children number of children: 3 Smoking Status: Never smoker alcohol intake: never substance use type: does not use caffeine: No what type of physical activity do you participate in: none seatbelt use: always do you feel safe at home: Yes additional social history: [place] Vital Signs Vital Signs Vital Signs: 04/02/22 14:04 Temperature 97.4 F L Temperature Source Temporal Pulse Rate 66 Respiratory Rate 20 H Blood Pressure 144/84 H Blood Pressure Mean 104 Blood Pressure Source Monitor Weight Weight: 128 lb Body Mass Index (BMI) 22.6 Physical Exam Const no apparent distress and average body habitus Constitutional Narrative: The patient is chronically ill-appearing. She does not communicate. She is of relatively normal body habitus. An indwelling Correa urinary catheter is noted due to the patient's urinary incontinence. General Appearance: lethargic, ill appearing and frail Orientation / Consciousness: awake, disoriented and lethargic Exam Limitations: altered mental status and physical limitations HEENT normocephalic and head/scalp atraumatic Head and Scalp: normal to inspection, normocephalic and atraumatic External Ear: external ears normal Eyes PERRL and EOMs intact bilaterally General Eye: normal appearance of both eyes Resp normal respiratory effort, normal air movement, no retractions and no use of accessory muscles Extremity no calf tenderness General Extremity: Negative for clubbing or cyanosis Skin Wound Narrative: An open wound is noted in the midst of a left hip hemiarthroplasty incision. The incision is oriented anteriorly. There is no sign of infection or cellulitis. Dimensions are documented elsewhere. There is a small amount of bioburden. Significant tunneling and undermining is noted inferiorly, with extension of about 2.4 cm in the inferior direction. The opening to the wound is wide and ample. No significant drainage is noted. Neuro Sensorium / Orientation: awake, lethargic, somnolent and fluctuating sensorium Psych Appearance: grossly normal Attitude: calm Speech: minimal Mood & Affect: euthymic mood Attention / Concentration: attention grossly impaired and concentration grossly impaired Debridement Note Debridement Note Wound debrided: Left hip hemiarthroplasty incision dehiscence Laterality: Left Type of Debridement: Excisional debridement Anesthesia Used: 5% Lidocaine Gel Depth: Down to and including healthy tissue and in the subcutaneous layer Percentage of wound debrided: 100 Instrument Used: 3mm curette Tissue Removed: Bioburden and nonviable tissue Severity: Fat Layer Exposed Amount of bleeding with debridement: Mild Bleeding Controlled with: Compression and gauze Patient tolerated procedure: Patient tolerated procedure well Post-Debridement Measurements and Additional Note: Post-Debridement Measurements/Treatment WC - Nurse 1 - General Ulcer Assessment Start: 03/19/22 10:13 Freq: Status: Active Protocol: HARSH Activity Type Activity Date Activity User E-sign Co-sign Detail Recorded Client Recorded Date Recorded By Document 03/19/22 10:16 AK [id number] 03/19/22 10:30 AK Document 03/19/22 10:30 AK [id number] 03/19/22 11:12 AK Document 04/02/22 14:04 DL [id number] 04/02/22 14:12 DL 03/19/22 03/19/22 04/02/22 10:16 10:30 14:04 WC - Today's Visit Information Type of service Follow-up Visit (Physician/ADVERTISING EXECUTIVE ) Arrival Mode Wheelchair Transfer Assistance Manual Transfer Assist (Other) x2 Patient Identification Verified (Name & Yes ) Patient Requires Transmission-Based No Precautions Height and Weight Height 5 ft 3 in Weight 128 lb Weight in Pounds 128.0 lbs Body Mass Index (BMI) 22.6 22.6 22.6 BMI Classification Normal Normal Normal BSA - Adan 1.60 Vital Signs Temperature (97.8 F-99.1 F) 98.1 F 97.4 F L Temperature Source Temporal Temporal Pulse Rate (60-100) 67 66 Pulse Location Monitor Monitor Respiratory Rate (12-18) 20 H Respiratory rate source Observation Blood Pressure (90/60-120/80) 123/60 H 144/84 H Blood Pressure Mean 81 104 Source Monitor Monitor History Since Last Visit- (Skip if this is Patient's initial visit) Have you changed medications since your No last visit? Any new allergies or adverse reactions No Had a fall/change in ADL's that may No increase risk of falls Signs or symptoms of abuse and/or No neglect since last visit Have you been in the hospital since your No last visit? Has dressing in place as prescribed Yes Has compression in place as prescribed N/A Has offloadiing in place as prescribed N/A Experienced any changes in pain level or No management Left Footwear Regular Shoe Regular Shoe Right Footwear Regular Shoe Regular Shoe Pain Scale: 0-10 Numeric Is Patient Pain Free? No Yes Yes - Nurse 1 - General Ulcer Measurement Start: 03/19/22 10:13 Freq: Status: Active Protocol: Activity Type Activity Date Activity User E-sign Co-sign Detail Recorded Client Recorded Date Recorded By Document 03/19/22 10:16 AK [id number] 03/19/22 10:30 AK Document 04/02/22 14:04 DL [id number] 04/02/22 14:12 DL 03/19/22 04/02/22 10:16 14:04 Wound Center Nurse 1 #1 L hip -Combined with other wound No -Current Size (cm) - Length 1.3 0.6 -Current Size (cm) - Width 1 0.6 -Current Size (cm) - Depth 0.5 0.6 -Total Square Cm 1.3 0.36 -Date of Last Picture (Recall this 03/19/22 04/02/22 field) -Photo Taken Yes Yes -Tunneling No No -Undermining/Tunneling Yes Yes -Undermining/Tunneling Starts (O'clock 11 5 ) -Undermining/Tunneling Ends (O'clock) 5 7 -Maximum Distance (cm) 0.5 2 -Circular Undermining No No -Change in Wound Grade/Stage No No -Exudate Amt Medium Medium -Exudate Type Serosanguineous Serosanguineous -Wound Margin Distinct, Distinct, Outline Outline Attached Attached -Granulation Amt None Present (0 Medium (34-66%) %) -Granulation Quality N/A [place] -Slough/Fibrin Yes Yes -Necrosis Amt Large (67-100%) Medium (34-66%) -Necrotic Tissue Type Adherent Slough Adherent Slough -Structure Exposed N/A N/A -Texture ([place]-wound Skin Appearance) Assessed, Assessed, Scarring Scarring -Moisture ([place]-wound Skin Appearance) No Abnormality, No Abnormality, Assessed Assessed -Color ([place]-wound Skin Appearance) No Abnormality, No Abnormality, Assessed Assessed -Temperature ([place]-wound Skin No Abnormality No Abnormality Appearance) (Pt Warm) (Pt Warm) -Tenderness on Palpation ([place]-wound No No Skin Appearance) -Ulcer Cleansing Rinsed/ Rinsed/ Irrigated with Irrigated with Saline Saline -Foul Odor after Cleansing No No -Anesthetic Used 5% Lidocaine 5% Lidocaine Gel Gel WC - Nurse 2 - General Ulcer CM Notes Start: 03/19/22 10:13 Freq: Status: Active Protocol: Activity Type Activity Date Activity User E-sign Co-sign Detail Recorded Client Recorded Date Recorded By Document 03/19/22 11:44 PL [id number] 03/19/22 11:45 PL Document 04/02/22 14:24 MW [id number] 04/02/22 14:38 MW 03/19/22 04/02/22 11:44 14:24 Wound Center Nurse 2 #1 L hip -Time 10:52 14:25 -Correct Patient Yes Yes -Correct Side, Site, Position Yes Yes -Correct Procedure Yes Yes -Procedure Performed Yes Yes -Type of Procedure Debridement -Type of Procedure Debridement -Clinical Debridement Subcutaneous Subcutaneous -Tissue Removed Subcutaneous Subcutaneous -Post Debridement (cm) - Length 1.3 1.0 -Post Debridement (cm) - Width 1.0 0.7 -Post Debridement (cm) - Depth 0.5 0.7 -Total Square (Post) (cm) 1.30 0.70 -Area of Debridement (cm) - Length 1.3 1.0 -Area of Debridement (cm) - Width 1.0 0.7 -Total Square (Area) (cm) 1.30 0.70 -Tunneling No Yes -Tunneling Position (O'clock) 6 -Tunneling Distance (cm) 1.7 -Undermining/Tunneling No No -Circular Undermining No No -Wound/Ulcer Outcome Not Healed Not Healed -Ulcer Cleansing Rinsed/ Rinsed/ Irrigated with Irrigated with Saline Saline -Foul Odor after Cleansing No No -Bioengineered Tissue No No -Bleeding Controlled with Pressure Pressure -Treatment Response Procedure Procedure Tolerated Well Tolerated Well -Offloading No -Debridement - Subq, 1st 20sq cm Yes Yes Pain Scale: 0-10 Numeric Is Patient Pain Free? Yes Yes - Nurse 3 - General Ulcer D/C NN Start: 03/19/22 10:13 Freq: Status: Active Protocol: Activity Type Activity Date Activity User E-sign Co-sign Detail Recorded Client Recorded Date Recorded By Document 03/19/22 11:26 MS [id number] 03/19/22 11:28 AK Document 04/02/22 14:41 [facility] [id number] 04/02/22 14:43 BM 03/19/22 04/02/22 11:26 14:41 Wound Care Center Nurse 3 #1 L hip -Ulcer Cleansing Rinsed/ Rinsed/ Irrigated with Irrigated with Saline Saline -Foul Odor after Cleansing No No -Negative Pressure Wound Therapy N/A -Primary Dressing Applied Mepilex Border, Aquacel Rope, Nugauze, Plain Mepilex Border Iodoform -Other Dressing DRSG PER [place] [employer]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 Yes Yes WC - Visit Discharge Discharge Condition Stable Stable Ambulatory Status Walker, Wheelchair Wheelchair Transportation Private Auto Private Auto Accompanied by Medication Reconcilliation completed & Yes provided to patient/care provider Clinical Summary of Care Provided Yes Other HOSPICE Assessment/Plan Assessment/Plan (1) Surgical wound dehiscence: CODE(S): T81.31XA - Disruption of external operation (surgical) wound, not elsewhere classified, initial encounter (2) Debility: CODE(S): R53.81 - Other malaise (3) Alzheimer's dementia: CODE(S): G30.9 - Alzheimer's disease, unspecified; F02.80 - Dementia in other diseases classified elsewhere, unspecified severity, without behavioral disturbance, psychotic disturbance, mood disturbance, and anxiety (4) Protein calorie malnutrition: CODE(S): E46 - Unspecified protein-calorie malnutrition (5) Generalized weakness: CODE(S): R53.1 - Weakness (6) History of cerebrovascular accident: CODE(S): Z86.73 - Personal history of transient ischemic attack (TIA), and cerebral infarction without residual deficits (7) GERD (gastroesophageal reflux disease): CODE(S): K21.9 - Gastro-esophageal reflux disease without esophagitis (8) Cystocele: (9) Dysphagia: CODE(S): R13.10 - Dysphagia, unspecified (10) Uterine prolapse: CODE(S): N81.4 - Uterovaginal prolapse, unspecified (11) History of migraine headaches: CODE(S): Z86.69 - Personal history of other diseases of the nervous system and sense organs (12) History of left breast cancer: CODE(S): Z85.3 - Personal history of malignant neoplasm of breast (13) Hearing deficit: CODE(S): H91.90 - Unspecified hearing loss, unspecified ear (14) Poor appetite: CODE(S): R63.0 - Anorexia (15) History of left hip hemiarthroplasty: CODE(S): Z96.642 - Presence of left artificial hip joint (16) History of right hip hemiarthroplasty: CODE(S): Z96.641 - Presence of right artificial hip joint (17) History of appendectomy: CODE(S): Z90.49 - Acquired absence of other specified parts of digestive tract (18) History of vein stripping: CODE(S): Z98.890 - Other specified postprocedural states (19) Urinary retention with incomplete bladder emptying: CODE(S): R33.9 - Retention of urine, unspecified (20) Correa catheter in place: CODE(S): Z97.8 - Presence of other specified devices PLAN: Plan This is an 81-year-old female who suffers from Alzheimer's dementia, generalized weakness, and debility. She also suffers from protein-calorie malnutrition. She is currently on Hospice care. She lives at home with her , who provides her daily care. She was referred for evaluation and management of a left hip hemiarthroplasty surgical incisional dehiscence. Based upon physical findings, the joint space does not appear to be involved. The undermining and tunneling of the wound suggest that healing by secondary intention may be unlikely. However, the patient's compromised cognitive and functional state likely precludes any major procedural intervention. We are to implement the use of Aquacel rope for packing of the wound on a daily basis. The patient's has been instructed in the appropriate means of application. He is to be provided with the necessary medical supplies. We are to obtain routine laboratory studies including a CBC, comprehensive metabolic profile, and a serum prealbumin. Optimizing nutritional intake has been discussed with the patient's , and nutritional supplements such as Boost or Ensure have been recommended. The patient is to return in 2 weeks for reevaluation. Total time: 28 minutes
== END 2022-04-02 23:59 | disposition home or self-care (01) ==
LOC: WC 14:00
PROVIDERS: PCP Family Medicine; Visit Provider Surgery
DX: T81.31XA Disruption of external operation (surgical) wound, not elsewhere classified, initial encounter (principal); G30.9 Alzheimer's disease, unspecified; F02.80 Dementia in other diseases classified elsewhere, unspecified severity, without behavioral disturbance, psychotic disturbance, mood disturbance, and anxiety; K21.9 Gastro-esophageal reflux disease without esophagitis; Z96.642 Presence of left artificial hip joint; Z96.641 Presence of right artificial hip joint; Y83.1 Surgical operation with implant of artificial internal device as the cause of abnormal reaction of the patient, or of later complication, without mention of misadventure at the time of the procedure; Z79.899 Other long term (current) drug therapy
CPT/HCPCS: 11042; 99213; G0463

== ENCOUNTER 2022-04-30 11:00 | Outpatient (RCR) | payer MEDICARE, SELFPAY ==
[2022-04-03 00:41] VITALS: BP 144/84; PULSE 66; RESP 20; TEMP 36.3; BMI 22.6
[2022-04-16 11:21] VITALS: BMI 22.6
--- NOTE | 2022-04-16 11:56 | HP.PCM_ITS ---
History of Present Illness Date of Service: 04/16/22 Chief Complaint: Surgical wound dehiscence of a left hip hemiarthroplasty incision History of Wound: This is an 81-year-old female who suffers from Alzheimer's dementia, debility, and generalized weakness. She resides at home with her , who is her caregiver. She is minimally ambulatory, requiring human assistance and a walker. She is currently on Hospice care. She presented with a surgical wound dehiscence of a left hip hemiarthroplasty incision. The left hip surgery was performed on December 01, 2021. Following her surgery, she spent approximately 4 weeks in the transitional care unit. Early in her postoperative convalescence, she developed a dehiscence of her surgical wound, for which she is now referred for evaluation and management. She has also undergone a right hip hemiarthroplasty, which was performed on June 11, 2021. The right hip incision appears to be healing appropriately. The patient's has been treating her dehiscent wound with silver dressings. The wound is located on the left anterior hip, and is noted to be tunneled with undermining inferiorly. The patient suffers from multiple pre-existing medical problems, as outlined below. She is of relatively normal body habitus, with a BMI of 27.6. She has recently suffered from poor appetite, but with attention to improving oral intake, and the use of Boost nutritional supplements, the patient has recently gained 20 pounds. [facility] Medical History Alzheimer's dementia Anxiety Back pain Breast cancer Closed fracture of left hip Cystocele Cystocele Debility Dementia Dysphagia Dysphagia Esophageal dysphagia Fall Correa catheter in place Generalized weakness GERD (gastroesophageal reflux disease) Hearing deficit History of cerebrovascular accident History of dementia History of left breast cancer History of migraine headaches Migraines Osteoarthritis Poor appetite Protein calorie malnutrition Surgical wound dehiscence Urinary retention with incomplete bladder emptying Uterine prolapse Home Medications acetaminophen 500 mg tablet 1,000 mg PO Q6H PRN PRN Pain Score 1-5 #0 tabs 12/24/21 [Rx Last Taken Unknown] lorazepam 0.5 mg tablet 0.5 mg PO QHS anxiety 30 days #30 tabs 12/24/21 [Rx Last Taken Unknown] morphine 20 mg/5 mL (4 mg/mL) oral solution 5 mg (1.25 mL) sublingual Q4H PRN Pain 3 days #25 mL 12/24/21 [Rx Last Taken Unknown] polyethylene glycol 3350 17 gram oral powder packet 17 g PO BID 30 days #60 ea 12/24/21 [Rx Last Taken Unknown] sennosides 8.6 mg-docusate sodium 50 mg tablet (Stool Softener-Stimulant Laxative) 2 tab PO BID Constipation 30 days #120 tabs 12/24/21 [Rx Last Taken Unknown] Allergy/AdvReac Type Severity Reaction Status Date / Time clarithromycin [From Biaxin] Allergy Unknown Unknown Verified 11/30/21 10:56 doxycycline Allergy Unknown Unknown Verified 11/30/21 10:56 erythromycin estolate Allergy Unknown Unknown Verified 11/30/21 10:56 [From Ilosone] hydrocodone bitartrate Allergy Unknown Unknown Verified 11/30/21 10:56 [From Vicodin] levofloxacin [From Levaquin] Allergy Unknown Unknown Verified 11/30/21 10:56 oxycodone [Oxycodone] Allergy Unknown Unknown Verified 11/30/21 10:56 oxycodone HCl [From Percocet] Allergy Unknown Unknown Verified 11/30/21 10:56 pantoprazole Allergy Unknown Unknown Verified 11/30/21 10:56 propoxyphene Allergy Unknown Unknown Verified 11/30/21 10:56 peanut AdvReac Other Verified 11/30/21 10:56 Penicillins [PCN] AdvReac PT UNSURE Verified 11/30/21 10:56 OF REACTION Surgical History H/O total mastectomy of left breast History of appendectomy History of colonoscopy (~2005) History of left hip hemiarthroplasty History of left hip hemiarthroplasty History of right hip hemiarthroplasty History of right hip hemiarthroplasty History of vein stripping S/P appendectomy S/P D&C (status post dilation and curettage) (~08/31/19) Social History household members: spouse and children number of children: 3 Smoking Status: Never smoker alcohol intake: never substance use type: does not use caffeine: No what type of physical activity do you participate in: none seatbelt use: always do you feel safe at home: Yes additional social history: [place] Vital Signs Vital Signs Vital Signs: Weight Weight: 128 lb Body Mass Index (BMI) 22.6 Physical Exam Const no apparent distress and average body habitus Constitutional Narrative: The patient is chronically ill-appearing. She does not communicate. She is of relatively normal body habitus. An indwelling Correa urinary catheter is noted due to the patient's urinary incontinence. General Appearance: lethargic, ill appearing and frail Orientation / Consciousness: awake, disoriented and lethargic Exam Limitations: altered mental status and physical limitations HEENT normocephalic and head/scalp atraumatic Head and Scalp: normal to inspection, normocephalic and atraumatic External Ear: external ears normal Eyes PERRL and EOMs intact bilaterally General Eye: normal appearance of both eyes Resp normal respiratory effort, normal air movement, no retractions and no use of accessory muscles Extremity no calf tenderness General Extremity: Negative for clubbing or cyanosis Skin Wound Narrative: An open wound is noted in the midst of a left hip hemiarthroplasty incision. The incision is oriented anteriorly. There is no sign of infection or cellulitis. Dimensions are documented elsewhere. There is a moderate amount of bioburden. Significant tunneling and undermining is noted inferiorly, with extension of about 2.4 cm in the inferior direction. The inferior tunnel has partially unroofed spontaneously, creating a second opening to the underlying cavity. Additionally, it is now noted that there is tunneling superiorly which consists of a very narrow tunnel extending about 1.5 cm superiorly. No significant drainage is noted. Neuro Sensorium / Orientation: awake, lethargic, somnolent and fluctuating sensorium Psych Appearance: grossly normal Attitude: calm Speech: minimal Mood & Affect: euthymic mood Attention / Concentration: attention grossly impaired and concentration grossly impaired Debridement Note Debridement Note Wound debrided: Left hip hemiarthroplasty incision dehiscence Laterality: Left Type of Debridement: Excisional debridement Anesthesia Used: 5% Lidocaine Gel Depth: Down to and including healthy tissue and in the subcutaneous layer Percentage of wound debrided: 100 Instrument Used: 3mm curette Tissue Removed: Bioburden and nonviable tissue Severity: Fat Layer Exposed Amount of bleeding with debridement: Mild Bleeding Controlled with: Compression and gauze Patient tolerated procedure: Patient tolerated procedure well Post-Debridement Measurements and Additional Note: Post-Debridement Measurements/Treatment WC - Nurse 1 - General Ulcer Assessment Start: 04/16/22 11:20 Freq: Status: Active Protocol: HARSH Activity Type Activity Date Activity User E-sign Co-sign Detail Recorded Client Recorded Date Recorded By Document 04/16/22 11:21 IN [id number] 04/16/22 11:24 AK 04/16/22 11:21 Height and Weight Body Mass Index (BMI) 22.6 BMI Classification Normal Pain Scale: 0-10 Numeric Is Patient Pain Free? Yes - Nurse 1 - General Ulcer Measurement Start: 04/16/22 11:20 Freq: Status: Active Protocol: Activity Type Activity Date Activity User E-sign Co-sign Detail Recorded Client Recorded Date Recorded By Document 04/16/22 11:21 IN [id number] 04/16/22 11:24 AK 04/16/22 11:21 Wound Center Nurse 1 #1 L hip -Current Size (cm) - Length 2.7 -Current Size (cm) - Width 0.8 -Current Size (cm) - Depth 1 -Total Square Cm 2.16 -Photo Taken Yes -Tunneling Yes -Tunneling Position (O'clock) 12 -Tunneling Distance (cm) 2.3 -Undermining/Tunneling No -Circular Undermining No -Change in Wound Grade/Stage No -Exudate Amt Medium -Exudate Type Serosanguineous -Wound Margin Distinct, Outline Attached -Granulation Amt None Present (0 %) -Granulation Quality [place] -Slough/Fibrin Yes -Necrosis Amt Medium (34-66%) -Structure Exposed N/A -Texture ([place]-wound Skin Appearance) No Abnormality, Assessed,Not Assessed -Moisture ([place]-wound Skin Appearance) No Abnormality, Assessed -Color ([place]-wound Skin Appearance) No Abnormality, Assessed -Temperature ([place]-wound Skin No Abnormality Appearance) (Pt Warm) -Tenderness on Palpation ([place]-wound No Skin Appearance) -Ulcer Cleansing Rinsed/ Irrigated with Saline -Foul Odor after Cleansing No -Anesthetic Used 5% Lidocaine Gel - Nurse 2 - General Ulcer CM Notes Start: 04/16/22 11:20 Freq: Status: Active Protocol: Activity Type Activity Date Activity User E-sign Co-sign Detail Recorded Client Recorded Date Recorded By Document 04/16/22 11:35 [id number] 04/16/22 11:43 MW 04/16/22 11:35 Wound Center Nurse 2 -Time 11:35 -Correct Patient Yes -Correct Side, Site, Position Yes -Correct Procedure Yes -Procedure Performed Yes -Type of Procedure Debridement -Clinical Debridement Subcutaneous -Tissue Removed Subcutaneous -Post Debridement (cm) - Length 3.0 -Post Debridement (cm) - Width 1.0 -Post Debridement (cm) - Depth 0.6 -Total Square (Post) (cm) 3.00 -Area of Debridement (cm) - Length 3.0 -Area of Debridement (cm) - Width 1.0 -Total Square (Area) (cm) 3.00 -Tunneling Yes -Tunneling Position (O'clock) 12 -Tunneling Distance (cm) 2.0 -Tunneling Position #2 (O'clock) 6 -Tunneling Distance #2 (cm) 0.5 -Circular Undermining No -Wound/Ulcer Outcome Not Healed -Ulcer Cleansing Rinsed/ Irrigated with Saline -Foul Odor after Cleansing No -Bioengineered Tissue No -Bleeding Controlled with Pressure -Treatment Response Procedure Tolerated Well -Offloading No -Debridement - Subq, 1st 20sq cm Yes Pain Scale: 0-10 Numeric Is Patient Pain Free? Yes Assessment/Plan Assessment/Plan (1) Surgical wound dehiscence: CODE(S): T81.31XA - Disruption of external operation (surgical) wound, not elsewhere classified, initial encounter (2) Debility: CODE(S): R53.81 - Other malaise (3) Alzheimer's dementia: CODE(S): G30.9 - Alzheimer's disease, unspecified; F02.80 - Dementia in other diseases classified elsewhere, unspecified severity, without behavioral disturbance, psychotic disturbance, mood disturbance, and anxiety (4) Protein calorie malnutrition: CODE(S): E46 - Unspecified protein-calorie malnutrition (5) Generalized weakness: CODE(S): R53.1 - Weakness (6) History of cerebrovascular accident: CODE(S): Z86.73 - Personal history of transient ischemic attack (TIA), and cerebral infarction without residual deficits (7) GERD (gastroesophageal reflux disease): CODE(S): K21.9 - Gastro-esophageal reflux disease without esophagitis (8) Cystocele: (9) Dysphagia: CODE(S): R13.10 - Dysphagia, unspecified (10) Uterine prolapse: CODE(S): N81.4 - Uterovaginal prolapse, unspecified (11) History of migraine headaches: CODE(S): Z86.69 - Personal history of other diseases of the nervous system and sense organs (12) History of left breast cancer: CODE(S): Z85.3 - Personal history of malignant neoplasm of breast (13) Hearing deficit: CODE(S): H91.90 - Unspecified hearing loss, unspecified ear (14) Poor appetite: CODE(S): R63.0 - Anorexia (15) History of left hip hemiarthroplasty: CODE(S): Z96.642 - Presence of left artificial hip joint (16) History of right hip hemiarthroplasty: CODE(S): Z96.641 - Presence of right artificial hip joint (17) History of appendectomy: CODE(S): Z90.49 - Acquired absence of other specified parts of digestive tract (18) History of vein stripping: CODE(S): Z98.890 - Other specified postprocedural states (19) Urinary retention with incomplete bladder emptying: CODE(S): R33.9 - Retention of urine, unspecified (20) Correa catheter in place: CODE(S): Z97.8 - Presence of other specified devices PLAN: Plan This is an 81-year-old female who suffers from Alzheimer's dementia, generalized weakness, and debility. She also suffers from protein-calorie malnutrition. She is currently on Hospice care. She lives at home with her , who provides her daily care. She was referred for evaluation and management of a left hip hemiarthroplasty surgical incisional dehiscence. Based upon physical findings, the joint space does not appear to be involved. The undermining and tunneling of the wound suggest that healing by secondary intention may be unlikely. However, the patient's compromised cognitive and functional state likely precludes any major procedural intervention. Since her previous visit, a portion of the tunneled wound has unroofed spontaneously there are now 2 major openings to the dehiscent wound cavity. In addition, it is now appreciated that there is tunneling superiorly. A superior tunnel is noted which is quite narrow in diameter. We are to continue the use of Aquacel rope for packing of the wound on a daily basis. The patient's has been instructed in the appropriate means of application. The superior tunnel is quite narrow, and moistened 1/4 inch Nu Gauze is to be used for packing on a daily basis. The patient's is to be provided with the necessary medical supplies. We are to obtain routine laboratory studies including a CBC, comprehensive metabolic profile, and a serum prealbumin. Optimizing nutritional intake has been discussed with the patient's , and nutritional supplements such as Boost or Ensure have been recommended. The patient is to return in 2 weeks for reevaluation. Total time: 29 minutes
[2022-04-30 11:24] VITALS: BP 143/62; PULSE 67; RESP 18; TEMP 36.4; BMI 22.6
--- NOTE | 2022-04-30 13:04 | HP.PCM_ITS ---
History of Present Illness Date of Service: 04/30/22 Chief Complaint: Surgical wound dehiscence of a left hip hemiarthroplasty incision History of Wound: This is an 81-year-old female who suffers from Alzheimer's dementia, debility, and generalized weakness. She resides at home with her , who is her caregiver. She is minimally ambulatory, requiring human assistance and a walker. She is currently on Hospice care. She presented with a surgical wound dehiscence of a left hip hemiarthroplasty incision. The left hip surgery was performed on December 01, 2021. Following her surgery, she spent approximately 4 weeks in the transitional care unit. Early in her postoperative convalescence, she developed a dehiscence of her surgical wound, for which she is now referred for evaluation and management. She has also undergone a right hip hemiarthroplasty, which was performed on June 11, 2021. The right hip incision appears to be healing appropriately. The patient's has been treating her dehiscent wound with silver dressings. The wound is located on the left anterior hip, and is noted to be tunneled with undermining inferiorly. The patient suffers from multiple pre-existing medical problems, as outlined below. She is of relatively normal body habitus, with a BMI of 27.6. She has recently suffered from poor appetite, but with attention to improving oral intake, and the use of Boost nutritional supplements, the patient has recently gained 20 pounds. [facility] Medical History Alzheimer's dementia Anxiety Back pain Breast cancer Closed fracture of left hip Cystocele Cystocele Debility Dementia Dysphagia Dysphagia Esophageal dysphagia Fall Correa catheter in place Generalized weakness GERD (gastroesophageal reflux disease) Hearing deficit History of cerebrovascular accident History of dementia History of left breast cancer History of migraine headaches Migraines Osteoarthritis Poor appetite Protein calorie malnutrition Surgical wound dehiscence Urinary retention with incomplete bladder emptying Uterine prolapse Home Medications acetaminophen 500 mg tablet 1,000 mg PO Q6H PRN PRN Pain Score 1-5 #0 tabs 12/24/21 [Rx Last Taken Unknown] lorazepam 0.5 mg tablet 0.5 mg PO QHS anxiety 30 days #30 tabs 12/24/21 [Rx Last Taken Unknown] morphine 20 mg/5 mL (4 mg/mL) oral solution 5 mg (1.25 mL) sublingual Q4H PRN Pain 3 days #25 mL 12/24/21 [Rx Last Taken Unknown] polyethylene glycol 3350 17 gram oral powder packet 17 g PO BID 30 days #60 ea 12/24/21 [Rx Last Taken Unknown] sennosides 8.6 mg-docusate sodium 50 mg tablet (Stool Softener-Stimulant Laxative) 2 tab PO BID Constipation 30 days #120 tabs 12/24/21 [Rx Last Taken Unknown] Allergy/AdvReac Type Severity Reaction Status Date / Time clarithromycin [From Biaxin] Allergy Unknown Unknown Verified 11/30/21 10:56 doxycycline Allergy Unknown Unknown Verified 11/30/21 10:56 erythromycin estolate Allergy Unknown Unknown Verified 11/30/21 10:56 [From Ilosone] hydrocodone bitartrate Allergy Unknown Unknown Verified 11/30/21 10:56 [From Vicodin] levofloxacin [From Levaquin] Allergy Unknown Unknown Verified 11/30/21 10:56 oxycodone [Oxycodone] Allergy Unknown Unknown Verified 11/30/21 10:56 oxycodone HCl [From Percocet] Allergy Unknown Unknown Verified 11/30/21 10:56 pantoprazole Allergy Unknown Unknown Verified 11/30/21 10:56 propoxyphene Allergy Unknown Unknown Verified 11/30/21 10:56 peanut AdvReac Other Verified 11/30/21 10:56 Penicillins [PCN] AdvReac PT UNSURE Verified 11/30/21 10:56 OF REACTION Surgical History H/O total mastectomy of left breast History of appendectomy History of colonoscopy (~2005) History of left hip hemiarthroplasty History of left hip hemiarthroplasty History of right hip hemiarthroplasty History of right hip hemiarthroplasty History of vein stripping S/P appendectomy S/P D&C (status post dilation and curettage) (~08/31/19) Social History household members: spouse and children number of children: 3 Smoking Status: Never smoker alcohol intake: never substance use type: does not use caffeine: No what type of physical activity do you participate in: none seatbelt use: always do you feel safe at home: Yes additional social history: [place] Vital Signs Vital Signs Vital Signs: 04/30/22 11:24 Temperature 97.6 F L Temperature Source Temporal Pulse Rate 67 Respiratory Rate 18 Blood Pressure 143/62 H Blood Pressure Mean 89 Blood Pressure Source Monitor Blood Pressure Position Sitting Blood Pressure Location Left Arm Weight Weight: 128 lb Body Mass Index (BMI) 22.6 Physical Exam Const no apparent distress and average body habitus Constitutional Narrative: The patient is chronically ill-appearing. She does not communicate. She is of relatively normal body habitus. An indwelling Correa urinary catheter is noted due to the patient's urinary incontinence. General Appearance: cooperative, comfortable, lethargic, ill appearing and frail Orientation / Consciousness: awake, disoriented and lethargic Exam Limitations: altered mental status and physical limitations HEENT normocephalic and head/scalp atraumatic Head and Scalp: normal to inspection, normocephalic and atraumatic External Ear: external ears normal Eyes PERRL and EOMs intact bilaterally General Eye: normal appearance of both eyes Resp normal respiratory effort, normal air movement, no retractions and no use of accessory muscles Extremity no calf tenderness General Extremity: Negative for clubbing or cyanosis Skin Wound Narrative: An open wound is noted in the midst of a left hip hemiarthroplasty incision. The incision is oriented at the left hip anteriorly. There is no sign of infection or cellulitis. Dimensions are documented elsewhere. There is a moderate amount of bioburden. Significant tunneling and undermining was initially noted, but the wound has now spontaneously unroofed, with 4 external openings noted to the underlying wound cavity. Dimensions are documented elsewhere. The wound appears to have diminished in size somewhat since the patient's last visit. No significant drainage is noted. Neuro Sensorium / Orientation: awake, lethargic, somnolent and fluctuating sensorium Psych Appearance: grossly normal Attitude: calm Speech: minimal Mood & Affect: euthymic mood Attention / Concentration: attention grossly impaired and concentration grossly impaired Debridement Note Debridement Note Wound debrided: Left hip hemiarthroplasty incision dehiscence Laterality: Left Type of Debridement: Excisional debridement Anesthesia Used: 5% Lidocaine Gel Depth: Down to and including healthy tissue and in the subcutaneous layer Percentage of wound debrided: 100 Instrument Used: 3mm curette Tissue Removed: Bioburden and nonviable tissue Severity: Fat Layer Exposed Amount of bleeding with debridement: Mild Bleeding Controlled with: Compression and gauze Patient tolerated procedure: Patient tolerated procedure well Post-Debridement Measurements and Additional Note: Post-Debridement Measurements/Treatment - Nurse 1 - General Ulcer Assessment Start: 04/16/22 11:20 Freq: Status: Active Protocol: HARSH Activity Type Activity Date Activity User E-sign Co-sign Detail Recorded Client Recorded Date Recorded By Document 04/16/22 11:21 AK [id number] 04/16/22 11:24 AK Document 04/30/22 11:24 DL [id number] 04/30/22 11:27 DL 04/16/22 04/30/22 11:21 11:24 WC - Today's Visit Information Type of service Follow-up Visit (Physician/[employer] ) Arrival Mode Wheelchair Transfer Assistance Other Transfer Assist (Other) transferx2 Patient Identification Verified (Name & Yes ) Patient Requires Transmission-Based No Precautions Safety Precautions NA Height and Weight Body Mass Index (BMI) 22.6 22.6 BMI Classification Normal Normal Vital Signs Temperature (97.8 F-99.1 F) 97.6 F L Temperature Source Temporal Pulse Rate (60-100) 67 Pulse Location Monitor Respiratory Rate (12-18) 18 Respiratory rate source Observation Blood Pressure (90/60-120/80) 143/62 H Blood Pressure Mean 89 Source Monitor Position Sitting Blood Pressure Location Left Arm History Since Last Visit- (Skip if this is Patient's initial visit) Have you changed medications since your No last visit? Any new allergies or adverse reactions No Had a fall/change in ADL's that may No increase risk of falls Signs or symptoms of abuse and/or No neglect since last visit Have you been in the hospital since your No last visit? Has dressing in place as prescribed Yes Has compression in place as prescribed N/A Has offloadiing in place as prescribed N/A Experienced any changes in pain level or No management Left Footwear Regular Shoe Right Footwear Regular Shoe Pain Scale: 0-10 Numeric Is Patient Pain Free? Yes Yes JESS Chin Nurse 1 - General Ulcer Measurement Start: 04/16/22 11:20 Freq: Status: Active Protocol: Activity Type Activity Date Activity User E-sign Co-sign Detail Recorded Client Recorded Date Recorded By Document 04/16/22 11:21 AK [id number] 04/16/22 11:24 AK Document 04/30/22 11:24 DL [id number] 04/30/22 11:27 DL 04/16/22 04/30/22 11:21 11:24 Wound Center Nurse 1 #1 L hip -Current Size (cm) - Length 2.7 5.7 -Current Size (cm) - Width 0.8 1 -Current Size (cm) - Depth 1 1 -Total Square Cm 2.16 5.7 -Photo Taken Yes -Tunneling Yes -Tunneling Position (O'clock) 12 -Tunneling Distance (cm) 2.3 -Undermining/Tunneling No -Circular Undermining No -Change in Wound Grade/Stage No -Exudate Amt Medium Medium -Exudate Type Serosanguineous Serosanguineous -Wound Margin Distinct, Distinct, Outline Outline Attached Attached -Granulation Amt None Present (0 Medium (34-66%) %) -Granulation Quality [place] -Slough/Fibrin Yes Yes -Necrosis Amt Medium (34-66%) Medium (34-66%) -Necrotic Tissue Type Adherent Slough -Structure Exposed N/A -Texture (Izabel-wound Skin Appearance) No Abnormality, Assessed Assessed,Not Assessed -Moisture (Izabel-wound Skin Appearance) No Abnormality, Assessed Assessed -Color (Izabel-wound Skin Appearance) No Abnormality, Assessed Assessed -Temperature (Izabel-wound Skin No Abnormality No Abnormality Appearance) (Pt Warm) (Pt Warm) -Tenderness on Palpation (Izabel-wound No No Skin Appearance) -Ulcer Cleansing Rinsed/ Rinsed/ Irrigated with Irrigated with Saline Saline -Foul Odor after Cleansing No No -Anesthetic Used 5% Lidocaine 5% Lidocaine Gel Gel WC - Nurse 2 - General Ulcer CM Notes Start: 04/16/22 11:20 Freq: Status: Active Protocol: Activity Type Activity Date Activity User E-sign Co-sign Detail Recorded Client Recorded Date Recorded By Document 04/16/22 11:35 MW [id number] 04/16/22 11:43 MW Document 04/30/22 11:47 MW [id number] 04/30/22 11:53 MW 04/16/22 04/30/22 11:35 11:47 Wound Center Nurse 2 #1 L hip -Time 11:35 11:47 -Correct Patient Yes Yes -Correct Side, Site, Position Yes Yes -Correct Procedure Yes Yes -Procedure Performed Yes Yes -Type of Procedure Debridement Debridement -Clinical Debridement Subcutaneous Subcutaneous -Tissue Removed Subcutaneous Subcutaneous -Post Debridement (cm) - Length 3.0 5.5 -Post Debridement (cm) - Width 1.0 0.8 -Post Debridement (cm) - Depth 0.6 0.8 -Total Square (Post) (cm) 3.00 4.40 -Area of Debridement (cm) - Length 3.0 5.5 -Area of Debridement (cm) - Width 1.0 0.8 -Total Square (Area) (cm) 3.00 4.40 -Tunneling Yes Yes -Tunneling Position (O'clock) 12 6 -Tunneling Distance (cm) 2.0 0.5 -Tunneling Position #2 (O'clock) 6 -Tunneling Distance #2 (cm) 0.5 -Undermining/Tunneling No -Circular Undermining No No -Wound/Ulcer Outcome Not Healed Not Healed -Ulcer Cleansing Rinsed/ Rinsed/ Irrigated with Irrigated with Saline Saline -Foul Odor after Cleansing No No -Bioengineered Tissue No No -Bleeding Controlled with Pressure Pressure -Treatment Response Procedure Procedure Tolerated Well Tolerated Well -Offloading No No -Debridement - Subq, 1st 20sq cm Yes Yes Pain Scale: 0-10 Numeric Is Patient Pain Free? Yes Yes - Nurse 3 - General Ulcer D/C NN Start: 04/16/22 11:20 Freq: Status: Active Protocol: Activity Type Activity Date Activity User E-sign Co-sign Detail Recorded Client Recorded Date Recorded By Document 04/30/22 12:22 EMERITA [id number] 04/30/22 12:23 EMERITA 04/30/22 12:22 Wound Care Center Nurse 3 #1 L hip -Ulcer Cleansing Rinsed/ Irrigated with Saline -Foul Odor after Cleansing No -Negative Pressure Wound Therapy N/A -Primary Dressing Applied Aquacel Rope, Mepilex Border -Aquacel Rope 1 -Mepilex Border 1 Pain Scale: 0-10 Numeric Is Patient Pain Free? No WC - Visit Discharge Discharge Condition Stable Ambulatory Status Wheelchair Transportation Private Auto Accompanied by Medication Reconcilliation completed & Yes provided to patient/care provider Clinical Summary of Care Provided Yes Notes: 4 holes total that all connect under the skin. Assessment/Plan Assessment/Plan (1) Surgical wound dehiscence: CODE(S): T81.31XA - Disruption of external operation (surgical) wound, not elsewhere classified, initial encounter (2) Debility: CODE(S): R53.81 - Other malaise (3) Alzheimer's dementia: CODE(S): G30.9 - Alzheimer's disease, unspecified; F02.80 - Dementia in other diseases classified elsewhere, unspecified severity, without behavioral disturbance, psychotic disturbance, mood disturbance, and anxiety (4) Protein calorie malnutrition: CODE(S): E46 - Unspecified protein-calorie malnutrition (5) Generalized weakness: CODE(S): R53.1 - Weakness (6) History of cerebrovascular accident: CODE(S): Z86.73 - Personal history of transient ischemic attack (TIA), and cerebral infarction without residual deficits (7) GERD (gastroesophageal reflux disease): CODE(S): K21.9 - Gastro-esophageal reflux disease without esophagitis (8) Cystocele: (9) Dysphagia: CODE(S): R13.10 - Dysphagia, unspecified (10) Uterine prolapse: CODE(S): N81.4 - Uterovaginal prolapse, unspecified (11) History of migraine headaches: CODE(S): Z86.69 - Personal history of other diseases of the nervous system and sense organs (12) History of left breast cancer: CODE(S): Z85.3 - Personal history of malignant neoplasm of breast (13) Hearing deficit: CODE(S): H91.90 - Unspecified hearing loss, unspecified ear (14) Poor appetite: CODE(S): R63.0 - Anorexia (15) History of left hip hemiarthroplasty: CODE(S): Z96.642 - Presence of left artificial hip joint (16) History of right hip hemiarthroplasty: CODE(S): Z96.641 - Presence of right artificial hip joint (17) History of appendectomy: CODE(S): Z90.49 - Acquired absence of other specified parts of digestive tract (18) History of vein stripping: CODE(S): Z98.890 - Other specified postprocedural states (19) Urinary retention with incomplete bladder emptying: CODE(S): R33.9 - Retention of urine, unspecified (20) Correa catheter in place: CODE(S): Z97.8 - Presence of other specified devices PLAN: Plan This is an 81-year-old female who suffers from Alzheimer's dementia, generalized weakness, and debility. She also suffers from protein-calorie malnutrition. She is currently on Hospice care. She lives at home with her , who provides her daily care. She was referred for evaluation and management of a left hip hemiarthroplasty surgical incisional dehiscence. Based upon physical findings, the joint space does not appear to be involved. Originally, the patient's wound has been noted to be undermined and with tunneling. The wound has now spontaneously unroofed at several locations, with 4 external openings presently, and now with better exposure of the wound cavity itself. The patient's compromised cognitive and functional state, and the fact that she is currently under Hospice care, likely precludes any major procedural intervention. We are to continue the use of Aquacel rope for packing of the wound on a daily basis. The patient's has been instructed in the appropriate means of application. All portions of the wound cavity appear amenable to packing with Aquacel rope. The patient's is to be provided with the necessary medical supplies. We are to obtain routine laboratory studies including a CBC, comprehensive metabolic profile, and a serum prealbumin. Optimizing nutritional intake has been discussed with the patient's , and nutritional supplements such as Boost or Ensure have been recommended. The patient is to return in 2 weeks for reevaluation. Total time: 28 minutes
== END 2022-04-30 23:59 | disposition home or self-care (01) ==
LOC: WC 11:00
PROVIDERS: PCP Family Medicine; Visit Provider Surgery
DX: T81.31XA Disruption of external operation (surgical) wound, not elsewhere classified, initial encounter (principal); F02.80 Dementia in other diseases classified elsewhere, unspecified severity, without behavioral disturbance, psychotic disturbance, mood disturbance, and anxiety; G30.9 Alzheimer's disease, unspecified; K21.9 Gastro-esophageal reflux disease without esophagitis; Z96.642 Presence of left artificial hip joint; Z96.641 Presence of right artificial hip joint; Y83.1 Surgical operation with implant of artificial internal device as the cause of abnormal reaction of the patient, or of later complication, without mention of misadventure at the time of the procedure; Z79.899 Other long term (current) drug therapy; H91.90 Unspecified hearing loss, unspecified ear
CPT/HCPCS: 11042

== ENCOUNTER 2022-05-14 10:38 | Outpatient (RCR) | payer MEDICARE, SELFPAY ==
[2022-05-01 00:27] VITALS: BP 143/62; PULSE 67; RESP 18; TEMP 36.4; BMI 22.6
[2022-05-14 10:51] VITALS: BP 112/66; PULSE 66; RESP 18; TEMP 36.2; BMI 22.6
--- NOTE | 2022-05-14 12:01 | HP.PCM_ITS ---
History of Present Illness Date of Service: 05/14/22 Chief Complaint: Surgical wound dehiscence of a left hip hemiarthroplasty incision History of Wound: This is an 81-year-old female who suffers from Alzheimer's dementia, debility, and generalized weakness. She resides at home with her , who is her caregiver. She is minimally ambulatory, requiring human assistance and a walker. She is currently on Hospice care. She presented with a surgical wound dehiscence of a left hip hemiarthroplasty incision. The left hip surgery was performed on December 01, 2021. Following her surgery, she spent approximately 4 weeks in the transitional care unit. Early in her postoperative convalescence, she developed a dehiscence of her surgical wound, for which she is now referred for evaluation and management. She has also undergone a right hip hemiarthroplasty, which was performed on June 11, 2021. The right hip incision appears to be healing appropriately. The patient's has been treating her dehiscent wound with silver dressings. The wound is located on the left anterior hip, and is noted to be tunneled with undermining inferiorly. The patient suffers from multiple pre-existing medical problems, as outlined below. She is of relatively normal body habitus, with a BMI of 27.6. She has recently suffered from poor appetite, but with attention to improving oral intake, and the use of Boost nutritional supplements, the patient has recently gained 20 pounds. [facility] Medical History Alzheimer's dementia Anxiety Back pain Breast cancer Closed fracture of left hip Cystocele Cystocele Debility Dementia Dysphagia Dysphagia Esophageal dysphagia Fall Correa catheter in place Generalized weakness GERD (gastroesophageal reflux disease) Hearing deficit History of cerebrovascular accident History of dementia History of left breast cancer History of migraine headaches Migraines Osteoarthritis Poor appetite Protein calorie malnutrition Surgical wound dehiscence Urinary retention with incomplete bladder emptying Uterine prolapse Home Medications acetaminophen 500 mg tablet 1,000 mg PO Q6H PRN PRN Pain Score 1-5 #0 tabs 12/24/21 [Rx Last Taken Unknown] lorazepam 0.5 mg tablet 0.5 mg PO QHS anxiety 30 days #30 tabs 12/24/21 [Rx Last Taken Unknown] morphine 20 mg/5 mL (4 mg/mL) oral solution 5 mg (1.25 mL) sublingual Q4H PRN Pain 3 days #25 mL 12/24/21 [Rx Last Taken Unknown] polyethylene glycol 3350 17 gram oral powder packet 17 g PO BID 30 days #60 ea 12/24/21 [Rx Last Taken Unknown] sennosides 8.6 mg-docusate sodium 50 mg tablet (Stool Softener-Stimulant Laxative) 2 tab PO BID Constipation 30 days #120 tabs 12/24/21 [Rx Last Taken Unknown] Allergy/AdvReac Type Severity Reaction Status Date / Time clarithromycin [From Biaxin] Allergy Unknown Unknown Verified 11/30/21 10:56 doxycycline Allergy Unknown Unknown Verified 11/30/21 10:56 erythromycin estolate Allergy Unknown Unknown Verified 11/30/21 10:56 [From Ilosone] hydrocodone bitartrate Allergy Unknown Unknown Verified 11/30/21 10:56 [From Vicodin] levofloxacin [From Levaquin] Allergy Unknown Unknown Verified 11/30/21 10:56 oxycodone [Oxycodone] Allergy Unknown Unknown Verified 11/30/21 10:56 oxycodone HCl [From Percocet] Allergy Unknown Unknown Verified 11/30/21 10:56 pantoprazole Allergy Unknown Unknown Verified 11/30/21 10:56 propoxyphene Allergy Unknown Unknown Verified 11/30/21 10:56 peanut AdvReac Other Verified 11/30/21 10:56 Penicillins [PCN] AdvReac PT UNSURE Verified 11/30/21 10:56 OF REACTION Surgical History H/O total mastectomy of left breast History of appendectomy History of colonoscopy (~2005) History of left hip hemiarthroplasty History of left hip hemiarthroplasty History of right hip hemiarthroplasty History of right hip hemiarthroplasty History of vein stripping S/P appendectomy S/P D&C (status post dilation and curettage) (~08/31/19) Social History household members: spouse and children number of children: 3 Smoking Status: Never smoker alcohol intake: never substance use type: does not use caffeine: No what type of physical activity do you participate in: none seatbelt use: always do you feel safe at home: Yes additional social history: [place] Vital Signs Vital Signs Vital Signs: 05/14/22 10:51 Temperature 97.2 F L Temperature Source Temporal Pulse Rate 66 Respiratory Rate 18 Blood Pressure 112/66 Blood Pressure Mean 81 Blood Pressure Source Monitor Weight Weight: 128 lb Body Mass Index (BMI) 22.6 Physical Exam Const no apparent distress and average body habitus Constitutional Narrative: The patient is chronically ill-appearing. She does not communicate. She is of relatively normal body habitus. An indwelling Correa urinary catheter is noted due to the patient's urinary incontinence. General Appearance: cooperative, comfortable, lethargic, ill appearing and frail Orientation / Consciousness: awake, disoriented and lethargic Exam Limitations: altered mental status and physical limitations HEENT normocephalic and head/scalp atraumatic Head and Scalp: normal to inspection, normocephalic and atraumatic External Ear: external ears normal Eyes PERRL and EOMs intact bilaterally General Eye: normal appearance of both eyes Resp normal respiratory effort, normal air movement, no retractions and no use of accessory muscles Extremity no calf tenderness General Extremity: Negative for clubbing or cyanosis Skin Wound Narrative: An open wound is noted in the midst of a left hip hemiarthroplasty incision. The incision is oriented at the left hip anteriorly. There is no sign of infection or cellulitis. Dimensions are documented elsewhere. There is a moderate amount of bioburden. Significant tunneling and undermining was initially noted, but the wound has now spontaneously unroofed, with 3 external openings noted to the underlying wound cavity. The lower 2 openings are connected, by an overlying skin bridge. The middle and upper portions of the wound appear to be separate, with undermining no longer existing between the 2 sites. The central portion of the wound appears to be epithelialized, though depressed from the skin surface. There is a slight amount of undermining at the inferior portion of the lower wound. The wound appears to have diminished overall in size since the patient's last visit. No significant drainage is noted. Neuro Sensorium / Orientation: awake, lethargic, somnolent and fluctuating sensorium Psych Appearance: grossly normal Attitude: calm Speech: minimal Mood & Affect: euthymic mood Attention / Concentration: attention grossly impaired and concentration grossly impaired Debridement Note Debridement Note Wound debrided: Left hip hemiarthroplasty incision dehiscence Laterality: Left Type of Debridement: Excisional debridement Anesthesia Used: 5% Lidocaine Gel Depth: Down to and including healthy tissue and in the subcutaneous layer Percentage of wound debrided: 100 Instrument Used: 3mm curette Tissue Removed: Bioburden and nonviable tissue Severity: Fat Layer Exposed Amount of bleeding with debridement: Mild Bleeding Controlled with: Compression and gauze Patient tolerated procedure: Patient tolerated procedure well Post-Debridement Measurements and Additional Note: Post-Debridement Measurements/Treatment JESS - Nurse 1 - General Ulcer Assessment Start: 05/14/22 10:51 Freq: Status: Active Protocol: HARSH Activity Type Activity Date Activity User E-sign Co-sign Detail Recorded Client Recorded Date Recorded By Document 05/14/22 10:51 DL [id number] 05/14/22 10:59 DL 05/14/22 10:51 JESS - Today's Visit Information Type of service Follow-up Visit (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 ) Arrival Mode Ambulatory Transfer Assistance Manual Transfer Assist (Other) x2 Patient Identification Verified (Name & Yes ) Patient Requires Transmission-Based No Precautions Height and Weight Body Mass Index (BMI) 22.6 BMI Classification Normal Vital Signs Temperature (97.8 F-99.1 F) 97.2 F L Temperature Source Temporal Pulse Rate (60-100) 66 Pulse Location Monitor Respiratory Rate (12-18) 18 Blood Pressure (90/60-120/80) 112/66 Blood Pressure Mean 81 Source Monitor History Since Last Visit- (Skip if this is Patient's initial visit) Any new allergies or adverse reactions No Had a fall/change in ADL's that may No increase risk of falls Signs or symptoms of abuse and/or No neglect since last visit Have you been in the hospital since your No last visit? Has dressing in place as prescribed Yes Has compression in place as prescribed N/A Has offloadiing in place as prescribed Yes Experienced any changes in pain level or No management Pain Scale: 0-10 Numeric Is Patient Pain Free? Yes - Nurse 1 - General Ulcer Measurement Start: 05/14/22 10:51 Freq: Status: Active Protocol: Activity Type Activity Date Activity User E-sign Co-sign Detail Recorded Client Recorded Date Recorded By Document 05/14/22 10:51 DL [id number] 05/14/22 10:59 DL 05/14/22 10:51 Wound Center Nurse 1 #3 Inf L Hip -Current Size (cm) - Length 1 -Current Size (cm) - Width 1 -Current Size (cm) - Depth 0.7 -Total Square Cm 1 -Photo Taken Yes -Undermining/Tunneling Starts (O'clock 5 ) -Undermining/Tunneling Ends (O'clock) 8 -Maximum Distance (cm) 0.5 -Exudate Amt Small -Exudate Type Serosanguineous -Wound Margin Distinct, Outline Attached -Granulation Amt Small (1-33%) -Granulation Quality [place] -Necrosis Amt None Present (0 %) -Structure Exposed N/A -Texture ([place]-wound Skin Appearance) Scarring -Moisture ([place]zabel-wound Skin Appearance) No Abnormality -Color ([place]zabel-wound Skin Appearance) No Abnormality -Temperature ([place]-wound Skin No Abnormality Appearance) (Pt Warm) -Tenderness on Palpation ([place]-wound No Skin Appearance) -Ulcer Cleansing Rinsed/ Irrigated with Saline -Foul Odor after Cleansing No -Anesthetic Used 5% Lidocaine Gel #2 Sup L Hip -Current Size (cm) - Length 1.5 -Current Size (cm) - Width 1 -Current Size (cm) - Depth 0.9 -Total Square Cm 1.5 -Photo Taken Yes -Exudate Amt Small -Exudate Type Serosanguineous -Wound Margin Distinct, Outline Attached -Granulation Amt Large (67-100%) -Granulation Quality [place] -Necrosis Amt None Present (0 %) -Structure Exposed N/A -Texture ([place]zabel-wound Skin Appearance) Scarring -Moisture ([place]zabel-wound Skin Appearance) No Abnormality -Color ([place]zabel-wound Skin Appearance) No Abnormality -Ulcer Cleansing Rinsed/ Irrigated with Saline -Foul Odor after Cleansing No -Anesthetic Used 5% Lidocaine Gel WC - Nurse 3 - General Ulcer D/C NN Start: 05/14/22 10:51 Freq: Status: Active Protocol: Activity Type Activity Date Activity User E-sign Co-sign Detail Recorded Client Recorded Date Recorded By Document 05/14/22 11:28 ML [id number] 05/14/22 11:29 ML 05/14/22 11:28 Wound Care Center Nurse 3 #3 Inf L Hip -Ulcer Cleansing Rinsed/ Irrigated with Saline -Primary Dressing Applied Aquacel Rope, Mepilex Border -Aquacel Rope 1 -Mepilex Border 1 #2 Sup L Hip -Ulcer Cleansing Rinsed/ Irrigated with Saline -Primary Dressing Applied Aquacel Rope, Mepilex Border -Aquacel Rope 0 -Mepilex Border 0 Pain Scale: 0-10 Numeric Is Patient Pain Free? Yes Assessment/Plan Assessment/Plan (1) Surgical wound dehiscence: CODE(S): T81.31XA - Disruption of external operation (surgical) wound, not elsewhere classified, initial encounter (2) Debility: CODE(S): R53.81 - Other malaise (3) Alzheimer's dementia: CODE(S): G30.9 - Alzheimer's disease, unspecified; F02.80 - Dementia in other diseases classified elsewhere, unspecified severity, without behavioral disturbance, psychotic disturbance, mood disturbance, and anxiety (4) Protein calorie malnutrition: CODE(S): E46 - Unspecified protein-calorie malnutrition (5) Generalized weakness: CODE(S): R53.1 - Weakness (6) History of cerebrovascular accident: CODE(S): Z86.73 - Personal history of transient ischemic attack (TIA), and cerebral infarction without residual deficits (7) GERD (gastroesophageal reflux disease): CODE(S): K21.9 - Gastro-esophageal reflux disease without esophagitis (8) Cystocele: (9) Dysphagia: CODE(S): R13.10 - Dysphagia, unspecified (10) Uterine prolapse: CODE(S): N81.4 - Uterovaginal prolapse, unspecified (11) History of migraine headaches: CODE(S): Z86.69 - Personal history of other diseases of the nervous system and sense organs (12) History of left breast cancer: CODE(S): Z85.3 - Personal history of malignant neoplasm of breast (13) Hearing deficit: CODE(S): H91.90 - Unspecified hearing loss, unspecified ear (14) Poor appetite: CODE(S): R63.0 - Anorexia (15) History of left hip hemiarthroplasty: CODE(S): Z96.642 - Presence of left artificial hip joint (16) History of right hip hemiarthroplasty: CODE(S): Z96.641 - Presence of right artificial hip joint (17) History of appendectomy: CODE(S): Z90.49 - Acquired absence of other specified parts of digestive tract (18) History of vein stripping: CODE(S): Z98.890 - Other specified postprocedural states (19) Urinary retention with incomplete bladder emptying: CODE(S): R33.9 - Retention of urine, unspecified (20) Correa catheter in place: CODE(S): Z97.8 - Presence of other specified devices PLAN: Plan This is an 81-year-old female who suffers from Alzheimer's dementia, generalized weakness, and debility. She also suffers from protein-calorie malnutrition. She is currently on Hospice care. She lives at home with her , who provides her daily care. She also has home health nursing care which is present in the home once or twice weekly. She was referred for evaluation and management of a left hip hemiarthroplasty surgical incisional dehiscence. Based upon physical findings, the joint space does not appear to be involved. Originally, the patient's wound was noted to be undermined and with tunneling. The wound has now spontaneously unroofed at several locations, with 3 external openings presently, and now with better exposure of the wound cavity itself. The patient's compromised cognitive and functional state, and the fact that she is currently under Hospice care, likely precludes any major procedural intervention. We are to continue the use of Aquacel rope for packing of the wound on a daily basis. The patient's has been instructed in the appropriate means of application. All portions of the wound cavity appear amenable to packing with Aquacel rope. The patient's has been provided with the necessary medical supplies. We are to obtain routine laboratory studies including a CBC, comprehensive metabolic profile, and a serum prealbumin. Optimizing nutritional intake has been discussed with the patient's , and nutritional supplements such as Boost or Ensure have been recommended. The patient is to return in 2 weeks for reevaluation. Total time: 26 minutes
== END 2022-05-31 23:59 | disposition home or self-care (01) ==
LOC: WC 10:38
PROVIDERS: PCP Family Medicine; Visit Provider Surgery
DX: T81.31XA Disruption of external operation (surgical) wound, not elsewhere classified, initial encounter (principal); F02.80 Dementia in other diseases classified elsewhere, unspecified severity, without behavioral disturbance, psychotic disturbance, mood disturbance, and anxiety; G30.9 Alzheimer's disease, unspecified; R53.1 Weakness; R53.81 Other malaise; N81.4 Uterovaginal prolapse, unspecified; R13.10 Dysphagia, unspecified; K21.9 Gastro-esophageal reflux disease without esophagitis; R33.9 Retention of urine, unspecified; Y83.1 Surgical operation with implant of artificial internal device as the cause of abnormal reaction of the patient, or of later complication, without mention of misadventure at the time of the procedure; H91.90 Unspecified hearing loss, unspecified ear; Z79.899 Other long term (current) drug therapy
CPT/HCPCS: 11042